=== PATIENT | female | born 1970 | race Caucasian/White ===

== ENCOUNTER 2021-03-27 15:26 | Emergency (ER) | payer SELFPAY ==
[2021-03-27 15:28] VITALS: BP 126/81; PULSE 70; RESP 16; TEMP 35.6; O2SAT 97; BMI 23.4
[2021-03-27 15:50] LABS: Mucous, Urine 0 SEEN /hpf (<or=2+)
[2021-03-27 16:00] LABS: Color, Urine Straw (Yellow); Glucose, Dipstick Normal (Normal); Ketone-Dipstick Negative (Negative); Leukocyte Esterase-Dipstick 500 /ul (Negative); Nitrite-Dipstick Negative (Negative); Occult Blood-Urine 25 /ul (Negative); Protein-Dipstick 15 mg/dl (Negative); Urine Bilirubin Dipstick Negative (Negative); Urine Clarity Clear (Clear); Urine Urobilinogen Normal (Normal); Urine pH 6.5 (5.0 - 8.0)
[2021-03-27 16:07] LABS: Red Blood Cells-Urine 0-5 SEEN /hpf (0-5); White Blood Cells 10-25 SEEN /hpf (0-5)
[2021-03-27 16:08] LABS: Bacteria RARE /hpf (None Seen); Squamous Epithelial Cells - UA 0 SEEN /hpf (5-10)
--- NOTE | 2021-03-27 17:27 | EDS_ITS ---
HPI HPI - Female History of Present Illness Chief Complaint: Complaint Detail of Chief Complaint: Dysuria Informant: patient Pain Current Severity: Mild Maximum Severity: Mild Bleeding Issue: Negative for Vaginal bleeding Maximum Severity: Spotting and Mild Narrative Narrative: 50-year-old female has had urinary tract infections before. Has had some mild intermittent dysuria since last week. She also had a small amount of blood in her urine. She has been treating it with cranberry pills and fluids. Said the symptoms were worse again today. She denies any nausea, vomiting or diarrhea. No new back pain. She has had a prior hysterectomy. No other significant medical problems. PFSH PFSH Home Medications sulfamethoxazole-trimethoprim [Bactrim DS] 1 tab PO BID 5 Days #10 tab 03/27/21 [Rx Last Taken Unknown] Allergy/AdvReac Type Severity Reaction Status Date / Time Penicillins Allergy Hives Verified 03/27/21 15:27 Social History Smoking Status: Current every day smoker tobacco type: cigarettes ROS ROS ED ROS Narrative Dysuria. Review of Systems ROS Unobtainable: Denies due to encephalopathy Constitutional Constitutional ED: Denies fever(s) Eyes Eyes: Denies change in vision ENT ENT ED: Denies ear pain Cardiovascular Cardiovascular: Denies chest pain or palpitations Respiratory/Chest Respiratory/Chest: Denies cough or dyspnea Gastrointestinal Gastrointestinal: Denies abdominal pain, diarrhea, nausea or vomiting Genitourinary Genitourinary ED: Reports dysuria and hematuria Musculoskeletal Musculoskeletal: Denies arthralgias or myalgias Integumentary Denies rash Neurologic Neurologic: Denies headache(s) Psychiatric Psychiatric: Denies depression Endocrine Endocrinology: Denies polyuria Hematologic/Lymphatic Hematologic/Lymphatic: Denies easy bruising Allergic/Immunologic Allergic/Immunologic ED: Denies urticaria EXAM Physical Exam Narrative Exam Narrative: Right femur no acute distress. Exam is benign. Abdomen is nontender. She does not look septic or toxic. Const Vital Signs: 03/27/21 15:28 Temperature 96.0 F L Temperature Source Temporal Pulse Rate 70 Respiratory Rate 16 Blood Pressure 126/81 H Blood Pressure Mean 96 Pulse Ox 97 Oxygen Delivery Method Room Air Positive well nourished and well developed; Negative for obese, cachectic, contractures or unkempt General Appearance ED: well developed and NAD; Negative for unkempt, cachectic, contractures, odor of alcohol detected or pallor Nutritional Appearance: Negative for cachectic or obese HEENT Reports moist mucous membranes Negative for trauma or tenderness Eyes PERRL and EOMs intact bilaterally Neck no lymphadenopathy, supple and no JVD Thyroid: Negative for tender Chest Wall inspection of chest normal and palpation of chest normal Resp normal respiratory effort and clear to auscultation bilaterally Auscultation: Negative for rales or rhonchi Cardio regular rate, regular rhythm, S1 normal heart sound, no murmurs and no JVD Rate: Negative for bradycardia or tachycardic Rhythm: Negative for abnormal rhythm GI normal to inspection, nondistended, normoactive bowel sounds, soft to palpation, non-tender, non-distended and no masses Auscultation: normoactive bowel sounds; Negative for hypoactive bowel sounds Palpation: Negative for tender, guarding or rigid no CVA tenderness Extremity normal to inspection and full ROM General Extremety ED: Negative for edema or tenderness General Extremity: Negative for edema Neuro oriented x3 Sensorium / Orientation: alert, oriented to person, oriented to place and snehal ented to time; Negative for lethargic or stuporous Motor Exam: strength 5/5 throughout Psych mental status grossly normal Appearance: Negative for unkempt Attitude: No agitated Mood & Affect: Negative for depressed, anxious or tearful Skin no rashes or lesions noted and no wounds General Skin Exam: Negative for jaundice or pallor MDM MDM MDM Narrative Medical decision making narrative: 50-year-old thinks she might have a UTI. Exam benign. Urinalysis shows 10-25 white cells will be sent for culture and she will be started on Bactrim. Lab Data Attestation: I reviewed the patient's lab results. Lab results narrative: Urinalysis shows 10-25 white cells. No squamous cells. Rare bacteria. No nitrites. Culture was sent. He is to be treated as UTI. Labs: Laboratory Results - last 24 hr 03/27/21 15:34 Urine Color Straw Urine Clarity Clear Urine pH 6.5 Ur Specific [place] 1.010 Urine Protein 15 H Urine Glucose (UA) Normal Urine Ketones Negative Urine Occult Blood 25 H Urine Nitrite Negative Urine Bilirubin Negative Urine Urobilinogen Normal Ur Leukocyte Esterase 500 H Urine RBC 0-5 SEEN Urine WBC 10-25 SEEN Ur Squamous Epith Cells 0 SEEN Urine Bacteria RARE Urine Mucus 0 SEEN Discharge Plan Triage Chief Complaint: Complaint ED Provider: Fracisco Nunez Dx/Rx/DC Orders Clinical Impression: Cystitis Instructions: ED CYSTITIS Female Adult Prescriptions: New sulfamethoxazole-trimethoprim [Bactrim DS] 800-160 mg tablet 1 tab PO BID 5 Days Qty: 10 RF: 0 Primary Care Provider: Nader Flores Referrals: Nader Flores MD [Primary Care Provider] - 1 Week if not improving Activity Restrictions/Additional Instructions: Plenty of fluids and rest. You may continue cranberry pills. The antibiotic Bactrim 1 pill twice a day for 5 days. Follow-up with your doctor or return if feeling worse or not improving. Disposition Disposition: Home, Self Care
[2021-03-27 17:47] VITALS: PULSE 76; RESP 15; O2SAT 99
== END 2021-03-27 17:47 | disposition home or self-care (01) ==
PROVIDERS: Emergency Provider Emergency Medicine; PCP Family Medicine; Visit Provider Emergency Medicine
DX: N30.91 Cystitis, unspecified with hematuria (principal); F17.210 Nicotine dependence, cigarettes, uncomplicated
CPT/HCPCS: 81001; 99282

== ENCOUNTER 2022-03-12 08:27 | Emergency (ER) | payer SELFPAY ==
[2022-03-12 08:29] VITALS: BP 118/70; PULSE 81; RESP 14; TEMP 36.1; O2SAT 100; BMI 22.0
--- NOTE | 2022-03-12 09:35 | EDS_ITS ---
HPI History of Present Illness Chief Complaint: Upper Extremity Injury Informant: patient Onset/Context/Timing Onset: Weeks (1-2) Context: Gradual Onset Timing: Continuous Quality of Pain: Aching Location: R periscapular back, now R upper arm Current Severity: Moderate Maximum Severity: Severe Worsened by: certain movements Relieved by: remaining still Associated Symptoms Associated Symptoms: Negative for Parasthesia, Weakness or Loss of Funtion Narrative Narrative: [id number] female presenting with 1 to 2 weeks of pain in her right upper back, she is indicating the lower rhomboids which progressed to the upper rhomboids and the trapezius periscapular area, now the last several days it is progressing to the proximal posterior right upper arm. She denies any numbness or tingling or weakness, she denies any chest discomfort or shortness of breath, there is no pleuritic nature to it nor is there an exertional nature to it. Hurts worse to move and to do certain position changes, moving her right upper extremity over her head hurts worse. 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 PFSH PFSH Medical History no medical history no medical history Home Medications sulfamethoxazole 800 mg-trimethoprim 160 mg tablet (Bactrim DS) 1 tab PO BID 5 days #10 tabs 03/27/21 [Rx Last Taken Unknown] cyclobenzaprine 10 mg tablet 10 mg PO TID PRN Muscle Spasm #20 TABLETS 03/12/22 [Rx Last Taken Unknown] meloxicam 15 mg tablet 15 mg PO DAILY #14 tabs 03/12/22 [Rx Last Taken Unknown] tramadol 50 mg tablet 50 mg PO Q4H PRN PRN Pain 3 days #15 tabs 03/12/22 [Rx Last Taken Unknown] Allergy/AdvReac Type Severity Reaction Status Date / Time Penicillins Allergy Hives Verified 03/12/22 08:29 Social History Smoking Status: Current every day smoker tobacco type: cigarettes ROS ROS ED Constitutional Constitutional ED: Denies chills or fever(s) ENT ENT ED: Denies rhinorrhea or sore throat Cardiovascular Cardiovascular: Denies chest pain or palpitations Respiratory/Chest Respiratory/Chest: Denies cough or dyspnea Musculoskeletal Musculoskeletal: Reports back pain and extremity pain; Denies neck pain Integumentary Denies Abrasions, rash or wounds Neurologic Neurologic: Denies headache(s), paresthesias or weakness EXAM Physical Exam Const Vital Signs: 03/12/22 08:29 Temperature 96.9 F L Temperature Source Temporal Pulse Rate 81 Respiratory Rate 14 Blood Pressure 118/70 Blood Pressure Mean 86 Pulse Ox 100 Oxygen Delivery Method Room Air Positive well nourished and well developed General Appearance ED: well developed and NAD Neck full ROM and supple Back/Spine normal ROM and normal to inspection Extremity normal to inspection and full ROM Extremity Narrative: Patient's pain is easily reproducible, palpating in the rhomboids next to the scapula on the right, as well as the trapezius and the scapular spine. Also palpating in the posterior aspect of the axillary area, more in the teres major area also was extremely tender, palpating the triceps is more mildly tender. There is no dysesthesia here. Abducting and reaching overhead hurts severely. There is no subacromial tenderness or pain, she can perform internal and external rotation fully but it is sore both ways, and adduction is not painful. There is no clavicle or acromioclavicular joint tenderness, nor is there tenderness at the coracoid process or biceps. Normal pulse distally, normal pam rologic exam throughout right upper extremity. Neuro oriented x3, no focal motor deficits and no sensory deficits noted Sensorium / Orientation: alert Psych mental status grossly normal and thought process normal Mood & Affect: anxious Skin no wounds Rashes: no rashes MDM MDM MDM Narrative Medical decision making narrative: I think this is clearly musculoskeletal in etiology. I am not concerned about referred discomfort from her heart or something else here. I think less likely radiculopathy from her neck. All of the musculature in her right upper back and trapezius and teres major is tender. I will treat her for strain and overuse and encouraged outpatient follow-up if she does not get better within the next couple weeks. This is her dominant arm. Discharge Plan Triage Chief Complaint: Upper Extremity Injury ED Provider: Gabriel Salamanca Dx/Rx/DC Orders Clinical Impression: Strain of right trapezius muscle, Muscle strain of right upper back Instructions: ED Back Sprain/Strain Prescriptions: New meloxicam 15 mg tablet 15 mg PO DAILY Qty: 14 0RF cyclobenzaprine 10 mg tablet 10 mg PO TID PRN (Reason: Muscle Spasm) Qty: 20 0RF tramadol 50 mg tablet 50 mg PO Q4H PRN PRN (Reason: Pain) 3 Days Qty: 15 0RF No Action sulfamethoxazole-trimethoprim [Bactrim DS] 800-160 mg tablet 1 tab PO BID 5 Days Qty: 10 0RF Primary Care Provider: Nader Flores Referrals: Nader Flores MD [Primary Care Provider] - 1 Week if not improving Disposition Disposition: Home, Self Care
[2022-03-12] MEDS: Ketorolac 30 MG/ML Syringe IM (10:05)
== END 2022-03-12 10:32 | disposition home or self-care (01) ==
LOC: ED 09:47
PROVIDERS: Emergency Provider Emergency Medicine; PCP Family Medicine; Visit Provider Emergency Medicine
DX: S39.012A Strain of muscle, fascia and tendon of lower back, initial encounter (principal); S29.012A Strain of muscle and tendon of back wall of thorax, initial encounter; F17.210 Nicotine dependence, cigarettes, uncomplicated; R51.9 Headache, unspecified; X58.XXXA Exposure to other specified factors, initial encounter
CPT/HCPCS: 96372; 99282

== ENCOUNTER 2022-03-19 10:55 | Emergency (ER) | payer OTHER, SELFPAY ==
[2022-03-19 10:55] VITALS: BP 96/66; PULSE 71; RESP 18; TEMP 35.9; O2SAT 99; BMI 21.7
--- NOTE | 2022-03-19 11:12 | EDS_ITS ---
HPI History of Present Illness Chief Complaint: Upper Extremity Injury Informant: patient Occured/Mechanism Comment: Atraumatic right shoulder and arm pain Onset/Context/Timing Onset: Weeks (Onset March 12.) Context: Sudden Onset Timing: Continuous and Waxes and wanes Quality of Pain: - (Pain) Location: Right trapezius, shoulder, axilla, arm and forearm. Current Severity: Mild Maximum Severity: Moderate Worsened by: Movement Relieved by: Nothing Associated Symptoms Associated Symptoms: Negative for Parasthesia, Weakness or Loss of Funtion Narrative Narrative: Patient is a 51-year-old woman who was seen on March 12. She was diagnosed with musculoskeletal pain. Imaging was not obtained at that time. She denies history of gout or pseudogout. She denies history of trauma. She denies paresthesia, anesthesia or motor weakness. She complains of pain that she localized to the right trapezius, shoulder, axilla, arm, forearm and index and long finger. She denies loss of function. She denies numbness or loss of sensation. She denies fever, chills or night sweats. Pain is not in a radicular pattern. She denies cardiac or respiratory symptoms. She states she was prescribed tramadol, muscle relaxant and anti-inflammatory. She attempted to follow-up with primary. She was unable to be seen. She states she is had no relief. Tetanus Immunization: 5-10 years Prior similar symptoms: Yes Recent Illness/Hospitalization: Yes [facility] [place] [facility] Home Medications sulfamethoxazole 800 mg-trimethoprim 160 mg tablet (Bactrim DS) 1 tab PO BID 5 days #10 tabs 03/27/21 [Rx Last Taken Unknown] cyclobenzaprine 10 mg tablet 10 mg PO TID PRN Muscle Spasm #20 TABLETS 03/12/22 [Rx Last Taken Unknown] meloxicam 15 mg tablet 15 mg PO DAILY #14 tabs 03/12/22 [Rx Last Taken Unknown] tramadol 50 mg tablet 50 mg PO Q4H PRN PRN Pain 3 days #15 tabs 03/12/22 [Rx Last Taken Unknown] naproxen 500 mg tablet 500 mg PO BID #14 tabs 03/19/22 [Rx Last Taken Unknown] Allergy/AdvReac Type Severity Reaction Status Date / Time Penicillins Allergy Hives Verified 03/19/22 10:55 Social History (Updated 03/19/22 @ 11:[address] James Montes De Oca MD) household members: significant other Smoking Status: Current every day smoker tobacco type: cigarettes ROS ROS ED Constitutional Constitutional ED: Denies chills, fever(s), subjective, sweats or weight loss Cardiovascular Cardiovascular: Reports other Details: She denies history of VTE. ; Denies chest pain, orthopnea, palpitations, paroxysmal nocturnal dyspnea or racing heartbeat Respiratory/Chest Respiratory/Chest: Denies cough, dyspnea, dyspnea on exertion, orthopnea, paroxy smal nocturnal dyspnea or sputum Gastrointestinal Gastrointestinal: Denies nausea or vomiting Musculoskeletal Musculoskeletal: Reports other Details: Per HPI narrative ; Denies back pain, myalgias or neck pain Integumentary Denies rash Neurologic Neurologic: Denies paresthesias or weakness Hematologic/Lymphatic Hematologic/Lymphatic: Denies easy bleeding or easy bruising EXAM Physical Exam Const Vital Signs: 03/19/22 10:55 Temperature 96.7 F L Temperature Source Temporal Pulse Rate 71 Respiratory Rate 18 Blood Pressure 96/66 Blood Pressure Mean 76 Pulse Ox 99 Oxygen Delivery Method Room Air Positive well nourished and well developed General Appearance ED: well developed and NAD; Negative for cyanotic or diaphoretic HEENT HEENT Narrative: Ears normal. Nares patent. Uvula midline. No deviation with protrusion. No erythema or exudate the posterior pharynx. normocephalic and atraumatic Eyes PERRL and EOMs intact bilaterally Eyes Narrative: Sclera is anicteric. [place]. Neck full ROM and supple Neck Narrative: Trachea midline. There is no JVD. There is no anterior posterior cervical lymphadenopathy. General: Negative for tenderness Chest Wall inspection of chest normal and palpation of chest normal Resp normal respiratory effort and clear to auscultation bilaterally Cardio regular rate, regular rhythm, S1 normal heart sound, S2 normal heart sound and no murmurs Cardio Narrative: Radial pulses 2+ and symmetric. Back/Spine Back/Spine Narrative: There is pain palpation over the right trapezius area. She complains of pain ovation over the clavicle and AC joint. Patient is able to AB duct past 90 degrees. She does complain of pain. Drop test is negative. Axillary, median, radial and ulnar function intact. Brachial radialis, bicep and tricep reflex are 2+ and symmetric. Patient does have reproducible pain over the right trapezius area, anterior lateral arm and dorsal forearm. She reports abnormal sensation over her index finger. It is not in a dermatomal pattern. Cervical Spine: Negative for cervical spine tenderness Thoracic Spine / Upper Back: Negative for thoracic spinal tenderness Neuro oriented x3, CN's II-XII intact bilaterally, moves all extremities, no focal motor deficits and no sensory deficits noted Neuro Narrative: No sensory or motor deficit in the upper extremities. Sensorium / Orientation: alert Motor Exam: strength 5/5 throughout Psych Psych Narrative: Patient is agitated because the pain has not improved. Skin General Skin Exam: Negative for petechiae Lesions: no lesions Rashes: no rashes Trauma: no lacerations or abrasions MDM MDM MDM Narrative Medical decision making narrative: Patient returns will obtain imaging that was not obtained during first visit. Will obtain CBC to assess white count differential and ESR to assess for possible inflammatory infectious process. Patient will muscle relaxant and tramadol with reported no benefit. At this point since she drove her self will await laboratory results and imaging results prior to prescribing any medicine. With a negative work-up and pain that is not in a radicular pattern will discuss options with patient. Patient states she has never had pain that caused her index and ring finger to be numb. As noted in the HPI and physical exam portion of the document this does not follow a radicular pattern. Uncertain why she has numbness in those 2 digits only. Patient was informed of her results. She was changed to a long- acting anti-inflammatory and recommended ice 6-10 times a day and avoid activity that causes her significant pain. Lab Data Attestation: I reviewed the patient's lab results. Lab results narrative: CBC, base Kierra panel and ESR are all unremarkable. Radiography Diagnostic Testing: [id number] x-ray of the shoulder was independent reviewed interpreted by me as negative. There is no, subluxation dislocation noted of the shoulder. The AC joint appears normal. Discharge Plan Triage Chief Complaint: Upper Extremity Injury ED Provider: James Montes De Oca Dx/Rx/DC Orders Clinical Impression: Acute pain of right shoulder, Pain of right upper extremity, Paresthesia of finger Instructions: ED Pain, Acute, Uncertain Cause, ED RICE Prescriptions: New naproxen 500 mg tablet 500 mg PO BID Qty: 14 0RF No Action sulfamethoxazole-trimethoprim [Bactrim DS] 800-160 mg tablet 1 tab PO BID 5 Days Qty: 10 0RF meloxicam 15 mg tablet 15 mg PO DAILY Qty: 14 0RF cyclobenzaprine 10 mg tablet 10 mg PO TID PRN (Reason: Muscle Spasm) Qty: 20 0RF tramadol 50 mg tablet 50 mg PO Q4H PRN PRN (Reason: Pain) 3 Days Qty: 15 0RF Primary Care Provider: Nader Flores Referrals: Nader Flores MD [Primary Care Provider] - 3-5 Days Activity Restrictions/Additional Instructions: Apply ice to your right shoulder and arm 6-10 times a day for the next 3 to 5 days. Avoid activity that causes you increased pain. Disposition Disposition: Home, Self Care
[2022-03-19 11:35] LABS: Erythrocyte Sedimentation Rate 16 mm/hr (0-30)
[2022-03-19 11:44] LABS: Anion Gap 3 (5-15); BUN 9 mg/dL (7-18); BUN/Creat Ratio 12.7 RATIO (10-20); Calcium,Total 9.1 mg/dL (8.5-10.1); Chloride 108 mmol/L (98-107); Creatinine, Serum 0.71 mg/dL (0.55-1.02); EST Glomerular Filtration Rate 92 mL/min (>60); Est Glom Filt Rate - Afr Amer 111 mL/min (>60); Estimated Creatinine Clearance 87.76 ml/min; Glucose 95 mg/dL (74-106); Potassium 4.3 mmol/L (3.5-5.1); Sodium Level 139 mmol/L (136-145)
--- NOTE | 2022-03-19 11:51 | RAD_ITS ---
STUDY: X-RAY - RIGHT SHOULDER REASON FOR EXAM: Female, 51 years old. Injury/Pain TECHNIQUE: 4 view(s) of the shoulder. COMPARISON: None. FINDINGS: Normal glenohumeral articulation. Normal acromioclavicular joint. Normal acromion. Normal humeral head and visualized proximal humerus. The soft tissue structures are unremarkable. Normal visualized pulmonary apex. RAD/Shoulder min 2 Views IMPRESSION: Normal x-ray examination of the shoulder. Electronically Signed: Sorin Parker MD at 12:02 EST ,
[2022-03-19 11:59] LABS: Absolute Lymphocyte Count 1.73 X10^3/uL (0.83-4.51); Absolute Neutrophil Count 7.2 X10^3/uL (2.0-7.7); Basophil# 0.06 X10^3/uL; Basophil% 0.6 % (0-1); Eosinophil# 0.05 X10^3/uL; Eosinophils% 0.5 % (0-5); Lymphocyte # 1.73 X10^3/ul (0.83-4.51); Lymphocyte % 17.9 % (19-41); Mean Corp Hgb Conc 32.5 g/dL (32-36); Mean Corpuscular Hgb 30.2 pg (27.0-32.0); Mean Platelet Vol. 10.9 fl (6.2-12.0); Monocyte# 0.62 X10^3/uL; Monocyte% 6.4 % (0-10); NRBC Flagged by Analyzer 0 % (0-5); Neutrophil % 74.3 % (47-70); Platelet Count 313 K/mm3 (150-450); RBC Distribution Width CV 13.8 % (11.6-14.6); RBC Distribution Width SD 47.3 fl (35.1-43.9); White Blood Count 9.7 K/mm3 (4.4-11.0)
== END 2022-03-19 12:32 | disposition home or self-care (01) ==
PROVIDERS: Emergency Provider Emergency Medicine; PCP Family Medicine; Visit Provider Emergency Medicine
DX: M79.603 Pain in arm, unspecified (principal); F17.210 Nicotine dependence, cigarettes, uncomplicated; R20.2 Paresthesia of skin; M25.511 Pain in right shoulder
CPT/HCPCS: 73030; 80048; 85025; 85652; 99283; A4216

== ENCOUNTER → 2024-07-28 | Outpatient (CLI) | payer OTHER, SELFPAY ==
--- NOTE | 2024-07-28 17:20 | CT_ITS ---
PROCEDURE: SINUS/FACIAL BONE REASON FOR EXAM: SINUSITIS TECHNIQUE: CT of the paranasal sinuses without contrast. Coronal and Sagittal reconstruction series were provided. One or more dose reduction techniques were used (e.g., Automated exposure control, adjustment of the mA and/or kV according to patient size, use of iterative reconstruction technique). COMPARISON: None available FINDINGS: The paranasal sinuses appear well formed without wall thickening or sclerosis. The frontal, sphenoid, maxillary sinuses and ethmoid air cells are clear. No air-fluid levels. No significant appearing nasal septal deviation. No nasal spur. The turbinates appear within limits. The orbits appear within limits. Infratemporal fossa fat appears preserved. Pterygopalatine foramen appear symmetric. Bilateral fossa of [place] appears symmetric. TMJs appear normally located. No dental periapical lucency. The mastoids, middle ears, internal auditory canals appear within limits. Mild appearing right carotid calcific plaque formation. C5-6 asymmetric uncovertebral hypertrophic change results in [id number]-right severe appearing left sided foraminal narrowing for example sagittal [address]/Sinus/Facial Bone IMPRESSION: No paranasal sinus disease as above. C5-6 asymmetric uncovertebral hypertrophic change results in [id number]- right severe appearing left sided foraminal narrowing for example sagittal 77 and axial 7. Reading Location: [id number]
== END | disposition home or self-care (01) ==
LOC: CT 17:18
PROVIDERS: PCP Family Medicine; Referring Provider Otolaryngology; Visit Provider Otolaryngology
DX: J32.8 Other chronic sinusitis (principal)
CPT/HCPCS: 70486

== ENCOUNTER 2024-09-02 16:54 | Emergency (ER) | payer OTHER, SELFPAY ==
[2024-09-02 17:01] VITALS: BP 129/89; PULSE 65; RESP 16; TEMP 36.9; O2SAT 99; BMI 21.6
[2024-09-02] MEDS: Diphth,Pertuss(Acell),Tet Vac 0.5 ML Vial IM (19:44)
[2024-09-02] MEDS: Lidocaine 1% (20 ml mdv) 20 ML Vial 10 ML INFILT (19:44)
--- NOTE | 2024-09-02 19:45 | EX.ED.UPPERE ---
HPI <DAREN Salamacna - Last Filed: 09/02/24 21:42> History of Present Illness Chief Complaint: Laceration Narrative Narrative: Patient presenting today with a laceration to her right index finger that she got this evening when she was cleaning something that had spilled under the fridge and got her finger caught on something sharp causing a laceration. She is right-handed, she is not on any blood thinners, tetanus is not up-to-date. She denies any other injury. PFSH <DAREN Salamanca - Last Filed: 09/02/24 21:42> [facility] Home Medications ?Medication ?Instructions ?Recorded ?Last Taken ?Type sulfamethoxazole 800 1 tab PO BID 5 days #10 tabs 03/27/21 Unknown Rx mg-trimethoprim 160 mg tablet (Bactrim DS) cyclobenzaprine 10 mg tablet 10 mg PO TID PRN Muscle Spasm #20 03/12/22 Unknown Rx TABLETS meloxicam 15 mg tablet 15 mg PO DAILY #14 tabs 03/12/22 Unknown Rx tramadol 50 mg tablet 50 mg PO Q4H PRN PRN Pain 3 days 03/12/22 Unknown Rx #15 tabs naproxen 500 mg tablet 500 mg PO BID #14 tabs 03/19/22 Unknown Rx Allergy/AdvReac Type Severity Reaction Status Date / Time Penicillins Allergy Hives Verified 09/02/24 17:01 Social History household members: significant other Smoking Status: Current every day smoker tobacco type: cigarettes ROS <DAREN Salamanca - Last Filed: 09/02/24 21:42> ROS ED Constitutional Constitutional ED: Denies chills or fever(s) Cardiovascular Cardiovascular: Denies chest pain Respiratory/Chest Respiratory/Chest: Denies dyspnea Gastrointestinal Gastrointestinal: Denies abdominal pain Musculoskeletal Musculoskeletal: Reports other Details: Right index finger pain Integumentary Denies rash Neurologic Neurologic: Denies paresthesias EXAM <DAREN Salamanca - Last Filed: 09/02/24 21:42> Physical Exam Const Vital Signs: 09/02/24 17:01 Temperature 98.4 F Temperature Source Oral Pulse Rate 65 Respiratory Rate 16 Blood Pressure 129/89 H Blood Pressure Mean 102 Pulse Ox 99 Oxygen Delivery Method Room Air Positive well nourished, well developed and no apparent distress General Appearance ED: well developed HEENT Reports normocephalic and head/scalp atraumatic Mouth ED: Yes moist mucous membranes normal Eyes PERRL and EOMs intact bilaterally Neck full ROM and supple Chest Wall inspection of chest normal Resp normal respiratory effort and clear to auscultation bilaterally Cardio regular rate and regular rhythm Back/Spine normal ROM and normal to inspection Extremity normal to inspection and full ROM Extremity Narrative: 1 cm full-thickness linear laceration just below the PIP joint to the dorsal aspect of the right index finger. No active bleeding. Right radial pulse 2+, good cap refill, sensation intact. She is able to flex and extend at the MCP, PIP, and DIP joints. Neuro oriented x3, CN's II-XII intact bilaterally, moves all extremities, no focal motor deficits and no sensory deficits noted Sensorium / Orientation: awake and alert Psych mental status grossly normal and thought process normal Skin Skin Narrative: Aside from laceration to the right index finger no other rashes or lesions noted. [facility] <DAREN Salamanca - Last Filed: 09/02/24 21:42> [facility] Narrative Medical decision making narrative: Patient presenting today due to a laceration to her right index finger just above the PIP joint to the dorsal aspect of the finger. Her tetanus will be updated. This will require suture repair. She has full range of motion to her finger, she is neurovascularly intact, no obvious tendon injury. Laceration was copiously irrigated and repaired with sutures. She tolerated procedure well. Wound care instructions were discussed with her, reasons to return were discussed. Finger was bandaged with bacitracin ointment. Recommended she have sutures removed in 7 days by her PCP. Will be discharged home in stable condition. I have personally performed a face to face assessment of the patient and have reviewed the ERIC Note. I performed a substantive portion of the visit including all aspects of the following. My boogie findings include: History is 54-year-old female laceration dorsum right hand long finger just proximal DIP joint. Occurred just prior to arrival. Tetanus needs updated. Exam is [well-appearing 54-year-old female. Vital signs stable afebrile. Anxious. HEENT exam normal. Pupils round reactive light. No trauma. Neck nontender. Lungs clear to auscultation. Heart regular rhythm no murmur. Abdomen soft nontender. Moving all 4 extremities. Neurovascular intact. Specifically right hand long finger laceration skin and subcu tissue just proximal to the PIP. Full flexion extension. Normal touch sensation. No signs of infection. There is significant swelling.] Medical Decision Making [right hand long finger laceration repair. Tetanus updated. Local anesthetic. Cleaned, irrigated explored and suture repair. Done by our physician assistant credit manager.] Other additions or changes: [None] <Dr. Fracisco Nunez MD - Last Filed: 09/02/24 20:17> [facility]DM Narrative Medical decision making narrative: I have personally performed a face to face assessment of the patient and have reviewed the ERIC Note. I performed a substantive portion of the visit including all aspects of the following. My boogie findings include: History is 54-year-old female laceration dorsum right hand long finger just proximal DIP joint. Occurred just prior to arrival. Tetanus needs updated. Exam is [well-appearing 54-year-old female. Vital signs stable afebrile. Anxious. HEENT exam normal. Pupils round reactive light. No trauma. Neck nontender. Lungs clear to auscultation. Heart regular rhythm no murmur. Abdomen soft nontender. Moving all 4 extremities. Neurovascular intact. Specifically right hand long finger laceration skin and subcu tissue just proximal to the PIP. Full flexion extension. Normal touch sensation. No signs of infection. There is significant swelling.] Medical Decision Making [right hand long finger laceration repair. Tetanus updated. Local anesthetic. Cleaned, irrigated explored and suture repair. Done by our physician assistant credit manager.] Other additions or changes: [None] History & Record Review Discussion w/independent historian: Patient Procedures <DAREN Salamanca - Last Filed: 09/02/24 21:42> Lacerations Laceration: Length: 1 cm Depth: Sub Q Shape: Linear Prep: Chlorhexadine Laceration repair: Digital block, Irrigated, Lidocaine, Skin sutures and Wound explored Number of Sutures/Rye: 3 Suture Information: Ethilon, Simple and 4-0 Discharge Plan Triage Chief Complaint: Laceration ED Midlevel Provider: Pallavi Burger ED Provider: Fracisco Nunez Dx/Rx/DC Orders Clinical Impression: Finger laceration Instructions: ED Laceration Extremity Prescriptions: No Action sulfamethoxazole-trimethoprim [Bactrim DS] 800-160 mg tablet 1 tab PO BID 5 Days Qty: 10 0RF meloxicam 15 mg tablet 15 mg PO DAILY Qty: 14 0RF cyclobenzaprine 10 mg tablet 10 mg PO TID PRN (Reason: Muscle Spasm) Qty: 20 0RF tramadol 50 mg tablet 50 mg PO Q4H PRN PRN (Reason: Pain) 3 Days Qty: 15 0RF naproxen 500 mg tablet 500 mg PO BID Qty: 14 0RF Stand Alone Forms: ED Work / School Excuse Primary Care Provider: Care Physician,No Primary Referrals: Nader Flores MD [Non-Staff] - 7 Days for suture removal Activity Restrictions/Additional Instructions: Have sutures removed in about 7 days. Return for any signs of infection. You can take Tylenol and ibuprofen as needed for your pain. Print Language: Bulgarian Disposition Disposition: Home, Self Care Discharge Date/Time: 09/02/24 20:38
--- OUTSIDE RECORDS SUMMARY | 2024-09-02 19:52 | XMS RPT_ITS | CCD ---
Author Organization [facility] Care Team Providers Care Gi Physician Name Role Phone SHERRI VILLALPANDO Unavailable Unavailable ISAMAR FLORES Unavailable Unavailable Unavailable Primary Care Provider Unavailabl e Unavailable Primary Care Provider UnavailARIANNA Chavez Attending Unavailable ARIANNA LONGORIA Referring Unavailable ARIANNA LONGORIA Attending Unavailable SELF Referring Unavailable Sandra BLEDSOE, Dr. Doe Primary Care Provider Ashley BLEDSOE, Dr. Sung Attending Provider Ashley BLEDSOE, Dr. Sung Referring Provider Nader Flores Primary Care Unavailable Isamar Ramirez Referring UnavailIsamar Culeln Attending Unavailabl e Allergies Allergy Classification Reported Allergen(s) Allergy Type Date of Onset Reaction(s) Facility (3 sources) Penicillins; Translations: [PENICILLINS] Allergy to substance 12-04-2015 [facility] [place] [facility] (8 sources) Penicillins Drug Allergy 12-04-2015 [facility] (3 sources) Penicillins Drug Allergy 12-04-2015 [facility] (1 source) Penicillins Drug allergy (disorder) 03-19-2022 [facility] Repository Medications Current Medications Medication Drug Class(es) Dates Sig (Normalized) Sig (Original) clobetasol propionate 0.0005 mg/mg topical ointment (1 source) Corticosteroid Start: 07-18-2024 End: 10-10-2024 clobetasol (TEMOVATE) 0.05 % ointment Indications: Lichen sclerosus Apply 1 application to affected area daily at bedtime. Apply 0.5 fingertip unit to affected area nightly for 12 weeks, then have a follow up appointment. 1 fingertip unit is the amount you express from the distal skin crease of your index finger to the tip of your finger. 30 g 2 07/18/2024 10/10/2024 Active L.ryan,mario, blaire,rhamn (AZO VAGINAL HEALTH PROBIOTIC ORAL) (3 sources) L.ryan,laya garcia, blaire,rhamn (AZO VAGINAL HEALTH PROBIOTIC ORAL) Take by mouth. Active meloxicam 15 mg oral tablet (2 sources) Nonsteroidal Anti-inflammatory Drug Start: 03-12-2022 take 1 tablet by mouth once daily Meloxicam 15 mg tablet Active 15 mg PO DAILY March 12, 2022 1:00am MULTIVITAMIN ORAL (3 sources) MULTIVITAMIN ORA L Take by mouth. Active naproxen 500 mg oral tablet (12 sources) Nonsteroidal Anti-inflammatory Drug Start: 03-19-2022 take 1 tablet by mouth twice daily Naproxen 500 mg tablet Active 500 mg PO TWICE A DAY March 19, 2022 1:00am naproxen sodium (ALEVE ORAL) Take by mouth. Active naproxen sodium (ALEVE ORAL) Take by mouth. 0 Active Comment on above: Take by mouth. 24 hr propranolol hydrochloride 60 mg extended release oral capsule (11 sources) beta-Adrenergic Jordon Start: 07-04-19 17 take 1 capsule by mouth once daily propranolol ER (INDERAL LA) 60 mg 24 hr capsule Indications: Migraine without status migrainosus, not intractable, unspecified migraine type Take 1 capsule by mouth once daily. 30 capsule 3 07/03/2016 Active Comment on above: Take 1 capsule by [facility] once daily. sertraline 25 mg oral tablet (11 sources) Serotonin Reuptake Inhibitor take 1 tablet by mouth twice daily sertraline (ZOLOFT) 25 mg tablet Take 25 mg by mouth twice daily. Active Comment on above: Take 25 mg by mouth twice daily. sulfamethoxazole 800 mg / trimethoprim 160 mg oral tablet (2 sources) Dihydrofolate Reductase Inhibitor Antibacterial, Sulfonamide Antimicrobial Start: 03-27-19 22 Sulfamethoxazole-T rimethoprim (Bactrim Ds) 800-160 mg tablet Active 1 {tbl} PO TWICE A DAY 10 March 27, 2021 1:00am topiramate 25 mg oral tablet (11 sources) Start: 08-01-19 17 take 1 tablet by mouth once daily at bedtime topiramate (TOPAMAX) 25 mg tablet TAKE 1 TABLET BY MOUTH DAILY AT BEDTIME. 30 tablet 5 07/31/2016 Active Comment on above: TAKE 1 TABLET BY SONY TH DAILY AT BEDTIME. traMADol hydrochloride 50 mg oral tablet (2 sources) Opioid Agonist Start: 03-12-19 take 1 tablet by mouth every four hours as needed for pain Tramadol 50 mg tablet Active 50 mg PO EVERY 4 HOURS NEEDED as needed for Pain 15 March 12, 2022 1:00am Completed/Discontinued Medications Medication Drug Class(es) Dates Sig (Normalized) Sig (Original) cyclobenzaprine hydrochloride 5 mg oral tablet (8 sources) Muscle Relaxant Start: 04-08-2022 End: 05-08-2022 take 1 tablet by mouth twice daily as needed cyclobenzaprine (FLEXERIL) 5 mg tablet Indications: Radicular pain in right arm Take 1 tablet by mouth twice daily as needed. 60 tablet 04/08/2022 05/08/2022 Start: 03-12-2022 take 1 tablet by sony th three times daily as needed for muscle spasms Cyclobenzaprine 10 mg tablet Active 10 mg PO THREE TIMES A DAY as needed for Muscle Spasm March 12, 2022 1:00am Comment on above: Take 1 tablet by sony th twice daily as needed. Problems Active Problems Problem Classification Problem Date Documented Date Episodic/Chronic Diabetes mellitus without complication (11 sources) Hyperglycemia; Translations: [Hyperglycemia, unspecified] 05-02-2016 Episodic Headache; including migraine (11 sources) Migraine; Translations: [Migraine, unspecified, not intractable, without status migrainosus] 05-02-2016 Chronic Other connective tissue disease (2 sources) Pain in right arm; Translations: [Pain in right arm] 03-27-2022 Episodic Other connective tissue disease (1 source) Pain in limb; Translations: [Pain in unspecified limb] Episodic Other female genital disorders (2 sources) Other specified noninflammatory disorders of vagina; Translations: [Vaginal odor] Onset: 06-30-2024 Episodic Other inflammatory condition of skin (11 sources) Psoriasis; Translations: [Psoriasis, unspecified] 12-04-2015 Chronic Other nervous system disorders (2 sources) Paresthesia of finger; Translations: [Paresthesia of skin] 03-27-2022 Episodic Other non-traumatic joint disorders (1 source) Shoulder pain; Translations: [Pain in right shoulder] Episodic Other non-traumatic joint disorders (1 source) Pain in right shoulder; Translations: [Acute pain of right shoulder] 03-27-2022 Episodic Other screening for suspected conditions (not mental disorders or infectious disease) (2 sources) Encounter for screening mammogram for malignant neoplasm of breast; Translations: [Encounter for screening for malignant neoplasm of colon] Onset: 06-30-2024 Episodic Other skin disorders (1 source) Lichen sclerosus et atrophicus; Translations: [Circumscribed scleroderma] 07-18-2024 Chronic Other skin disorders (1 source) Disorder of skin; Translations: [Other skin changes] 07-14-2024 Episodic Other skin disorders (1 source) Other skin changes; Translations: [Other skin changes] Onset: 07-14-2024 Episodic Other upper respiratory infections (1 source) Other chronic sinusitis; Translations: [Other chronic sinusitis] Onset: 08-04-2024 Chronic Residual codes; unclassified (11 sources) Tobacco use and exposure - finding; Translations: [Tobacco use] 12-04-2015 Episodic Residual codes; unclassified (11 sources) Flushing; Translations: [Flushing] 12-04-2015 Episodic Sprains and strains (4 sources) Strain of trapezius muscle; Translations: [Strain of other muscles, fascia and tendons at shoulder and upper arm level, right arm, initial encounter] 03-20-2022 Episodic Substance-related disorders (1 source) Nicotine dependence, unspecified, uncomplicated; Translations: [Tobacco use disorder] Onset: 07-05-2024 Chronic Substance-related disorders (11 sources) Marijuana user; Translations: [Cannabis use, unspecified, uncomplicated] 12-04-2015 Episodic Urinary tract infections (2 sources) Cystitis; Translations: [Cystitis, unspecified without hematuria] 04-04-2021 Episodic Past or Other Problems Problem Classification Problem Date Documented Da te Episodic/Chronic Other connective tissue disease (14 sources) Radicular pain; Translations: [Neuralgia and neuritis, unspecified] Onset: 04-14-2022 Resolved: 05-12-2022 Episodic Results Test Name Value Interpretation Reference Range Facility Sinus/Facial Boneon 07-29-19 Sinus/Facial Bone [facility] Imaging Services [address] [place] [address] [id number] Sinus/Facial Bone MR#: [id number] Acct: [id number] Name: JAZ PARTIDA Rep #: [id number] : 1970 F 54 From: Chai Hester MD PCP: Dr. Nader Flores MD Status: REG CLI Study: Sinus/Facial Bone Date of Exam: 07/28/24 Exam# [id number] Ordering Dr: Isamar Ramirez MD PROCEDURE: SINUS/FACIAL BONE REASON FOR EXAM: SINUSITIS TECHNIQUE: CT of the paranasal sinuses without contrast. Coronal and Sagittal reconstruction series were provided. One or more dose reduction techniques were used (e.g., Automated exposure control, adjustment of the mA and/or kV according to patient size, use of iterative reconstruction technique). COMPARISON: None available FINDINGS: The paranasal sinuses appear well formed without wall thickening or sclerosis. The frontal, sphenoid, maxillary sinuses and ethmoid air cells are clear. No air-fluid levels. No significant appearing nasal septal deviation. No nasal spur. The turbinates appear within limits. The orbits appear within limits. Infratemporal fossa fat appears preserved. Pterygopalatine foramen appear symmetric. Bilateral fossa of Rosenmuller appears symmetric. TMJs appear normally located. No dental periapical lucency. The mastoids, middle ears, internal auditory canals appear within limits. Mild appearing right carotid calcific plaque formation. C5-6 asymmetric uncovertebral hypertrophic change results in ticn-hemchne-ojkk-righ t severe appearing left sided foraminal narrowing for example sagittal [address]/Sinus/Facial Bone IMPRESSION: No paranasal sinus disease as above. C5-6 asymmetric uncovertebral hypertrophic change results in rjwp-meyfegd-plft-righ t severe appearing left sided foraminal narrowing for example sagittal 77 and axial 7. Reading Location: [facility] CC: Dr. Nader Flores MD; Dr. Isamar Ramirez MD Service Parts Driver: Signed [facility] 07-18-2024 [facility] Telephone (OBGYWM) HANJAZ LAWLER ([id number]) 1970 F Date Time Provider Department 07/18/24 ARIANNA LONGORIA During your visit today, we recorded the following information about you: Arianna Longoria MD 07/18/2024 8:25 AM Signed See result note. Rx sent for clobetasol ointment. Needs follow up in 12 weeks Allergies As of Date: 07/18/2024 Noted Allergy Reaction PENICILLINS 12/04/2015 4 - Hives Date Reviewed: 07/14/2024 Reviewed by: Malou Paniagua MA - Fully Assessed Reason for Visit: Orders [681] Primary Visit Diagnosis:Lichen sclerosus [L90.0] Order(s):clobetasol (TEMOVATE) 0.05 % ointmentApply 1 application to affected area daily at bedtime. Apply 0.5 fingertip unit to affected area nightly for 12 weeks, then have a follow up appointment. 1 fingertip unit is the amount you express from the distal skin crease of your index finger to the tip of your finger.Disp: 30 gRfl: 2 Prescriptions as of 07/18/2024 - clobetasol (TEMOVATE) 0.05 % ointment Apply 1 application to affected area daily at bedtime. Apply 0.5 fingertip unit to affected area nightly for 12 weeks, then have a follow up appointment. 1 fingertip unit is the amount you express from the distal skin crease of your index finger to the tip of your finger. - MULTIVITAMIN ORAL Take by mouth. - L.crispat,gasseri,shiva en,rhamn (AZO VAGINAL HEALTH PROBIOTIC ORAL) Take by mouth. - naproxen sodium (ALEVE ORAL) Take by mouth. - topiramate (TOPAMAX) 25 mg tablet TAKE 1 TABLET BY MOUTH DAILY AT BEDTIME. - propranolol ER (INDERAL LA) 60 mg 24 hr capsule Take 1 capsule by mouth once daily. - sertraline (ZOLOFT) 25 mg tablet Take 25 mg by mouth twice daily. Problem List As Of Date 07/18/2024 Noted Resolved Tobacco use [Z72.0] Psoriasis [L40.9] Hot flashes [R23.2] Marijuana use [F12.90] Hyperglycemia [R73.9] Migraine [G43.909] Radicular pain in right arm [M79.2] 04/14/2022 05/12/2022 Prescriptions ordered this encounter Disp Refills Start End CLOBETASOL 0.05 % TOPICAL OINTMENT 30 g 2 07/18/2024 10/10/2024 Route: TOPICAL Sig: Apply 1 application to affected area daily at bedtime. Apply 0.5 fingertip unit to affected area nightly for 12 weeks, then have a follow up appointment. 1 fingertip unit is the amount you express from the distal skin crease of your index finger to the tip of your finger. Encounter Status:Closed by ARIANNA LONGORIA on 07/18/24 Normal [facility] Pathology biopsy report Andres (Tiss)Ordered By: Zackery Martin on 07-15-2024 Case Report Surgical Pathology Report Case: [id number] Authorizing Provider: Arianna Longoria MD Collected: 07/14/2024 03:30 PM Ordering Location: OB/Gynecology Received: 07/14/2024 04:11 PM Pathologist: Zackery Martin MD Specimen: Perineum, Biopsy, right [facility] Work Phone: Clinical History [id number] bG OhMpGzVpZlKsWxPfe9VTWn jeH4Xwp7FZRpRGllyK5kDW ZuRVizV1wgawAudWJoOCZq CLh4mN7jaOimqN5eKnHfMs GfLYZkz0gvPDCvET7eOWOx cGFyIH0= [facility] Work Phone: Diagnosis Comment g7xuaAXiPEVqxZJiYSXx NV lbdjCwENCoaIKnO0Rotzmb XUtnKZ2sOX1znDqamRBzfQ TvNPSgAjCff3vur741kJAt o8dxPLPHedjxuDw0iXkqS0 0zu5L8MyixF12aiLCyYZK4 WNAcXHKkwPZaEKRlWQF0LL NouQFpF7bkQFUuJD0dyfta JSkaCIskZPFlhEE3QJSdmX HeY4XyMBJsMKfgQHVhgfp8 OdYpRa3hrVPztIvoXWdgRL JkXHBsYWluXGZzMjAgSGlz bT7uf3bqLlUvUGK6wW8afn EgfU35WTWdF30lrWHevVQm qBOvyNOyBZRmba3snN0zr7 Iyzlj7eZ7qVDOlXDC1gm0k uGmlBONnpEWaut8obi1iI1 d0wKocSVLkKHWtWPNvhELb BVVwWPRkGQhwBQJ0vNCwBl nfhULaZJTshMAfm6QwvtW3 aXRoIGFuIHVuZGVybHlpbm bbrNaiwXenlIhwoUuhQ2i6 uSDfdX5jbSa8jlC8AK9wxC FyXHBhciBPdmVyYWxsLCB0 yDCtLVPyWNH5iATgniDqur NrH77hk6mszGBmiYY1lBWi VIkbE5fbzpDpM7ohll2hhF EkLNSgdX1iR9DpLSHxdeTb nIN8sI0bJAoxKLOvO75myL VuZGVkLlxwYXJ9 [facility] Work Phone: Disclaimer s9wwuKMxAAIwn5ykSSJm bG FuZzEwMzNcZnRuYmpcdWMx IHtccnRmMVxlcGljMTExMD Can6nsy4vxeIGhZMJcu9sx j6LnzYEbuGZkDEfdjETami Zmbe10sJJ7sJ91XG6gRPBu GiY5KBHxcrR0Mrs2WEPdCS BacANiI625g4fmx3nrihFg nRB0EOSdHPByQ7EuXL3aAL VmvHDtF58zzGHwOPY4QGRp UTPdmEBrDAKpULF5KPEexF LqJ6uhAPSiHA3travbCSww SHiwFSXcjIE6OUWwfPSkR0 YsAJEcJQseBMWbiou8ShVr Wu0vuUDuxYhqTLreK7atjM 7pVtV3ZBmrX0uurP7wTKd5 QUqzSULhbQA3xqX1KBCakP KhA8SanG9xVVBtPW3hebm1 q3ubLQW8OFmmRRIrGkD0fp F1VBGfcSTrDJqcxYDlzaax PTExJOFgI3LgQTyeBq1gUH UxsedrZNY0BXwouVBbYSLt x7QaNShMIHgyMCucO4itjT 1lcjpccGFyXGIwXGNmMCBQ XJHhk0ZpFW6zTHXjnTHvKT H9UUZvy3GwO8Qke2QnaQ9i rK2ngBeixM3fyLQmyTTpmU mtdU5hxC6aZzd9x2Jwy1Rg mqNvQHMjFVWrzMOisL5mBI 4dAlSebr6ozAL4XGf8IfNy AZg3IGNrh33dxWNnaRLglW K2LSOlHRPaZRYlnHLdoQgu ZWQgYnkgdGhlIHBlcmZvcm 7buckviZFsd5FdhW5qhVK2 oRQuwS9lK9cdszFbMF3aQT YjaC2aIrhpTGTiWzKcoJFV OnVTn85hbTTuKOVsfLejrO 3vkBLyjaLvYKYkx7JjlL6l fNKUJQQcW7ewWSXDJRSkab SyDD89YBqIUPdsPYFpzAC6 ymTNn2FuoUNlpVpuGLbqd3 2oQ8HkYLWhuPZMc4HolOHd fZrzSsdqzggvJMRJJEN9c1 6fSK9liNw3QJmsJC5zslK7 MUkbu5XvdVUgATAVqxWkFN 2gRbt8LNGrZMSleMYrtLEO LH98IKHdFT9rfgCgrkSYPP CszDrbIx9swIggQC6oeXp4 NGqgIZ4pTWBxfW5dWMqwv7 EzhSFnTIIcbgQpHD9cwh2d hmAsj82tkTO0HJ25KOsnrN hyS7sKGBQwYTS2tLZonNJd gJEeSC7jOVFgkkMjy5CmGO 4iNVDcEXLqLYFhg2XuPW0j lDVqn5HrsRV9AKPuGFErEQ PfEKVoYPFgx5KxJRUdqs41 GHQmZwqjcZiuHYHEZM6rIh VgKZrOBVavFJNbP6ZfKDNm HAR1ncXlyuZPJJjFAMJcQP I8TQfhDpwoLDT6dkIxGUMx w0SdMLlyY3noO50hgWvcvH v7yFY7TIG1pK3bTfPPqFMp SKU5FEN2dtSbujKkrHIhSE Aat8RdL9jfsexgQTvkcYJv vE6lEKXfTMWaLSXjCHXwb7 OxQPVog6EbClEqitNbZKMv ZWUoJPEjvJ97ZUX6zOoyjS fwtjSrGM9hOLRgjkUfHKOy TTVinS3aDD4lxRBmdbCyZO 3rLI4bV0A5iUWrXOJrlgRf u1acUNH0GHpyAUWxnNThuM JmZKBdoPvsDRNqij13 [facility] Work Phone: FINAL DIAGNOSIS f4ugbFZlDXBfsVVlWNTj NV ckkcRqIKBxmUGdI4Hlwbld SYqkCC4lOH4koMpfjHAaeS MzCUYrMuKgt2vdw657jXAv o6mhFZAJqxbsyPz7jHnrQ4 4tm3Q0KrmfV05rjYHpEDZ7 FBGlIOKbjZLeNNWpSDS6GV ChyDDuR6qvGVHlXL7fcjxz AHywJKiuZBZusQU6OGYstG HyP8HmFAHkXNxjJCBupsz6 JjWoYc8pyCWdlNwlOXxtEW ObZQQsYLveLSYxTaRaSO1g P9bgqlmcaKCjeR7cuY0wEQ Vyp6CtiAvhnJZtYG3vDYsq eIKeSREtcVNlp2U4yhduz4 DdFXFtvY4xawNzWXPuvgkn YXJ9 [facility] Work Phone: Gross Description s0uqzRVyGTEkyKJOCNBm MD BuIN8jhZpxjUa0eIqoQRJs qhJ0jSYpFCadq5zkBSA4i2 qnybSEYqfoWRYlDR8dOJzy HJJxHX8iFsKmVJJvJyVbTN BhcGVydzEyMjQwXHBhcGVy lJV7MPYyPH5dvogkBZdxPX cbHDTslsE6NHLelZGnI9Ky PKWyDM2qcbvqRYN7YFFAPo jfTg5kjUJhqGxyMmFaYlNy YOWmTTJkPLLdv6jqwhDNva tssWm3wV2TXATlW4KsHS5P z8cvLQMrtIOiCYI5HOfkr4 nuJAhwGYQ6HPTeLDClDBHx UU6PJgHzBPeqERF4IfB3Fh P1YHb0QPCSZANdGRS6MAE4 NYBrMEn4CWnxZBupxGPeJH RuPWXvKZBtKUodwqE5w4or HBWvmHKhWCW3JDogm9jzSY wpHKH4GFRcZkNvUZUuOY0X DoXxZHzyDZQ6GnE9NqC2XU c5CVHUPfXgNyGoIvNuGivc GEFjKYj8SPj2DCrCLzYgHQ G7OZikHiZ8OVR3OFD1GYVr XHQgMiBcXHNzIDMgXFxmbC JlRA2eqYzlRJMpFK1DOSYk EZarZTUxVrFuPE8gIXFukZ 1eeH3qEZZyi4YjvBabbVGd aFxmczIyXHBhciANClxwYX XtCX1QSEQqBLwoKIz3pmJo YUKxUaMcHQBlR48ls3IFr9 PdEK4RJNt3gaSnvtJLWztk rhLbTUAlC3CtdjFjPBnuOA Tzvb8tcNfjUGajPKEyK0vu wB3yxfvkOBqhp3ZotKSivR UyNfSuj7ptJXYfDARwpQYj bSXxptIjtTKiwGmwe9CuUF 3lZYS5kfdnJnLdEdKfxXDc IxUhaOVrGpReE92cGMFLuu N0lEQmp1gkklNgbERhDGNf KZAyJVKgLDroITDeTK9sTA NkLVH1TD6xXNZbYU8jHFzw IHNwZWNpbWVuIGlzIGJpc2 BijQOyXyQwFM98XCrmwIWa eZPifTX7SMYqfO9ui96tVX Gds7BsbBXuMgDyrWGyPN5Z BAFrugKVGjOMPS6xyHS5CP PkNOD9ELSsTxCdQMYYQRUx ykSSCxyrJVCeITikz1XyDS vtwMtxLFVuLsAeAIvHgm6p hnPoeBIsnL7olMegriIpFU Cvn9BbXPGmNOJyJ7qmwkNd EU8nAAHtbD1aOswsSYEkHO CXxWDweRCcWOFkVuelO5sl kjXwTR1gTUZWQJZ2BXI9UB 2NUXQuoAIENIJ7EZ7qEJuk XETfS9TvS7SbrwL1j0ohxX glb8QfaFUbLZ4mrXPjHF8E AFJubtFjKKkalRjttB4sJB p9 [facility] Work Phone: Performing Lab i7kihMHmTDWeyIGmEFMw Ml dlcqOhDGXgaHNvP2Snvxuc PAlyOZ5sQK7idIkveZGdnR HtIUWbJrJhh1ytg507bFUy l7uxPYRHoqadbSb0aYtuY4 1cz8C5BkoaR94wjMCmKCO8 LODhRVUycCPyMOMiXPI0OR CupXPkU0ehOWFhYJ0givua OXhoGWeySAAqzTA2YYVuqX IaZ3WhEYRxDIuhEPVxssy9 VdRfLj4ayTXmePtxLIknF6 zysR6yDnW3ZOwwK7wuyX5p XOt9MYalYQBlfIJ8ohG6AI UrbUBuX9OqiA6nFZUyLE2a rqc4m9qwCGB7ITyjJQTfRp Z4qkZ7MMPuuMQqAVzihKJu xervpoHqEOIuQDafm6Z1zI OjoA48HXRxekX6WAEta84l aFLbOu2kjUBpKWH9McBUsL H0WKhwafKmC4ovvrtsXV5t cK3hN1JfdFWyJDpdl2IrvQ BrTDyoKq2eLKNldyzwPMz7 SWUrECAmfKpiGTT5IY71UR wgRGVzayBMMjEsIENsZXZl vGFtASOGZUQ8OAY2RDBdRE DXHAReAUL2KZF7NUVhDCMn yUUdEVciJWJkHXOum4XllO 2bcTVWxIPoW6HoyrkrO0Gy oSNoOOsjeoZsB6pzCFVHRC xwYXJ9 [facility] Work Phone: [facility] Work Phone: MOISESOVkayla 07-14-2024 CNOV Office Visit (OBGYWM ) JAZ PARTIDA ([id number]) 1970 F Date Time Provider Department 07/14/24 2:50 PM ARIANNA LONGORIA OBNASIMA During your visit today, we recorded the following information about you: Blood pressure Weight 100/60 63.2 kg Arianna Longoria MD 07/15/2024 1:37 PM Signed Physician Office Specialist offered: Patient declines. Jaz Partida is a 54 year old female who presents today for a vulvar biopsy. Indication: skin changes. UNIVERSAL PROTOCOL / SAFETY CHECKLIST Procedure to be Performed: Vulvar Biopsy Sign In: A Moment of CARE was completed. Appropriate PPE (Personal Protective Equipment) worn by all providers involved with the procedure. Special equipment not required. Patient/Surrogate Stated/Verified: Patient name, Date of , Relevant allergies, and The intended procedure Time Out: Relevant labs, photos, and/or imaging studies are not applicable. Intended patient and procedure match the source document(s) (e.g. consent, HANDP, associated studies [imaging, pathology]) match the intended patient and procedure. Consent obtained and matches the intended procedure. Yes. Correct side/site has been marked and visible. Medications required for this procedure are verified. Fire risk assessed and is not applicable. Implants: are not applicable. Sign Out: Specimens are all correctly labeled and sent. All instruments, equipment, possible retained foreign bodies are accounted for. Yes. The post-procedure plan of care has been communicated to the patient or surrogate. PROCEDURE NOTE: GROSS LESIONS: Yes, pale appearing skin over clitoral smith, bilateral labia majora and posterior fourchette BIOPSY: Area was cleansed with betadine and anesthetized with 3mL 1% lidocaine with 1:100,000 epi. 3mm [place] punch used to biopsy region. HEMOSTASIS: Obtained with silver nitrate and pressure Procedure Summary: Patient tolerated procedure well. ASSESSMENT: vulvar and perineal skin changes PLAN: Specimens labeled and sent to Pathology. Will notify patient of results in 1-2 weeks. Post-procedure instructions reviewed and written material given to the patient. Arianna Longoria DO Allergies As of Date: 07/14/2024 Noted Allergy Reaction PENICILLINS 12/04/2015 4 - Hives Date Reviewed: 07/14/2024 Reviewed by: Malou Paniagua MA - Fully Assessed Reason for Visit: vulvar biopsy [Other] Primary Visit Diagnosis:Other skin changes [R23.8] Order(s):SURGICAL PATHOLOGY [[id number]] Order #: [id number]. #:[id number] Prescriptions as of 07/15/2024 - MULTIVITAMIN ORAL Take by mouth. - L.crispatmario jens en,rhamn (AZO VAGINAL HEALTH PROBIOTIC ORAL) Take by mouth. - naproxen sodium (ALEVE ORAL) Take by mouth. - topiramate (TOPAMAX) 25 mg tablet TAKE 1 TABLET BY MOUTH DAILY AT BEDTIME. - propranolol ER (INDERAL LA) 60 mg 24 hr capsule Take 1 capsule by mouth once daily. - sertraline (ZOLOFT) 25 mg tablet Take 25 mg by mouth twice daily. Problem List As Of Date 07/14/2024 Noted Resolved Tobacco use [Z72.0] Psoriasis [L40.9] Hot flashes [R23.2] Marijuana use [F12.90] Hyperglycemia [R73.9] Migraine [G43.909] Radicular pain in right arm [M79.2] 04/14/2022 05/12/2022 Encounter Status:Closed by ARIANNA LONGORIA on 07/15/24 Normal [facility] Pathology biopsy report Andres (Tiss)on 07-14-2024 AP DISCLAIMER Normal [facility] Comment on above: Order Comment: Speci men Type: TISSUE SPECIMEN Ordering Facility: [facility] Address: [address] [place] [id number] Result Comment: Maggy read Developed Test (LDT) Disclaimer: Performance characteristics of immunohistochemical, immunofluorescent, and chromogenic in-situ hybridization tests have been determined by the performing laboratory within [facility]'s Chai Corado Pathology and Laboratory Medicine Department ([facility], [facility], [facility], [facility], [facility], [facility], or [facility]) in a manner consistent with CLIA requirements. One or more of these tests may not have been cleared or approved by the FDA. [facility] is regulated under CLIA as qualified to perform high-complexity testing. These tests are used for clinical purposes. These should not be regarded as investigational or for research. Positive and negative controls stain appropriately. Performed By: #### 6 6121-5 #### [facility] CLIA [id number] [address] [place] [address] [place] CASE REPORT Normal [facility] Comment on above: Order Comment: Speci men Type: TISSUE SPECIMEN Ordering Facility: [facility] Address: [address] [place] [address] Result Comment: [facility] Pathology Report Case: [id number] Authorizing Provider: Arianna Longoria MD Collected: 07/14/2024 03:30 PM Ordering Location: OB/Gynecology Received: 07/14/2024 04:11 PM Pathologist: Zackery Martin MD Specimen: Perineum, Biopsy, right Performed By: #### 6 6121-5 #### [facility] CLIA [id number] [address] [place] [address] STATES OF [facility] CLINICAL HISTORY skin changes Normal [facility] Comment on above: Order Comment: Speci men Type: TISSUE SPECIMEN Ordering Facility: [facility] Address: [address] [place] [address] Performed By: #### 6 6121-5 #### [facility] CLIA [id number] [address] [place] [address] DIAGNOSIS COMMENT Normal [facility] Comment on above: Order Comment: Speci men Type: TISSUE SPECIMEN Ordering Facility: [facility] Address: [address] [place] [address] Result Comment: Hist ologic sections show a compact stratum corneum overlying an atrophic epidermis. Within the dermis, there is superficial sclerosis with an underlying lymphohistiocytic infiltrate. Overall, these features are consistent with lichen sclerosus. Clinical correlation is recommended. Performed By: #### 6 6121-5 #### [facility] CLIA [id number] [address] [place] [address] YASHIRA FINAL DIAGNOSIS Normal [facility] Comment on above: Order Comment: Speci men Type: TISSUE SPECIMEN Ordering Facility: [facility] Address: [address] [place] [address] Result Comment: Geetha johnson, perineum, biopsy: - Lichen sclerosus, see comment. at 1415 EDT Performed By: #### 6 6121-5 #### [facility] CLIA [id number] [address] [place] [address] OF [facility] FINAL PERFORMING LAB Normal [facility] Comment on above: Order Comment: Speci men Type: TISSUE SPECIMEN Ordering Facility: [facility] Address: [address] [place] [address] Result Comment: Diag nostic interpretation performed at: [facility], [address] [place] [address] CLIA# [id number] Cable Lacer: Shane Stanford MD Performed By: #### 6 6121-5 #### [facility] CLIA [id number] [address] [place] [address] [place] OF [place]ASHIRA GROSS DESCRIPTION Normal [facility] Comment on above: Order Comment: Speci men Type: TISSUE SPECIMEN Ordering Facility: [facility] Address: [address] [place] [address] Result Comment: A. Ines robledoum, Biopsy Received in formalin is a cylindrical segment of skin and subcutaneous tissue measuring 0.3 x 0.3 x 0.3 cm. On the skin surface there is a 0.3 cm, slater area. The specimen is bisected. Totally submitted in one cassette. DL July 14, 2024 10:53 PM [place] [address] Performed By: #### 6 6121-5 #### [facility] CLIA [id number] [address] [place] [address] OF YASHIRA CBC panel Auto (Bld)on 07-05 Erythrocyte distribution width (RBC) [Ratio] 14.2 % Normal 11.5-15.0 [facility] Comment on above: Order Comment: Speci men Type: BLOOD SPECIMEN Ordering Facility: [facility] Address: [address] [place] [address] Performed By: #### 5 8410-2 #### [facility] CLIA [id number] [address] [place] [address] [place] Hematocrit (Bld) [Volume fraction] 39.4 % Normal 36.0-46.0 [facility] Comment on above: Order Comment: Speci men Type: BLOOD SPECIMEN Ordering Facility: [facility] Address: [address] [place] [address] Performed By: #### 5 8410-2 #### [facility] CLIA [id number] [address] [place] [address] [place] Hemoglobin (Bld) [Mass/Vol] 13.0 g/dL Normal 11.5-15.5 [facility] Comment on above: Order Comment: Speci men Type: BLOOD SPECIMEN Ordering Facility: [facility] Address: [address] [place] [address] Performed By: #### 5 8410-2 #### [id number] [address] [place] [address] [place] MCH (RBC) [Entitic mass] 30.1 pg Normal 26.0-34.0 [facility] Comment on above: Order Comment: Speci men Type: BLOOD SPECIMEN Ordering Facility: [facility] Address: [address] [place] [address] Performed By: #### 5 8410-2 #### [facility] [id number] [address] [place] [address] [place] MCHC (RBC) [Mass/Vol] 33.0 g/dL Normal 30.5-36.0 [facility] Comment on above: Order Comment: Speci men Type: BLOOD SPECIMEN Ordering Facility: [facility] Address: [address] [place] [address] Performed By: #### 5 8410-2 #### [facility] CLIA [id number] [address] [place] [address] [place] MCV (RBC) [Entitic vol] 91.2 fL Normal 80.0-100.0 [facility] Comment on above: Order Comment: Speci men Type: BLOOD SPECIMEN Ordering Facility: [facility] Address: [address] [place] [address] Performed By: #### 5 8410-2 #### [facility] CLIA [id number] [address] [place] [address] [place] Nucleated RBC (Bld) [#/Vol] 10*3/uL Normal <0.01 [facility] Comment on above: Order Comment: Speci men Type: BLOOD SPECIMEN Ordering Facility: [facility] Address: [address] [place] [address] Performed By: #### 5 8410-2 #### [facility] CLIA [id number] [address] [place] [address] [place] Platelet mean volume (Bld) [Entitic vol] 10.7 fL Normal 9.0-12.7 [facility] Comment on above: Order Comment: Speci men Type: BLOOD SPECIMEN Ordering Facility: [facility] Address: [address] [place] [address] Performed By: #### 5 8410-2 #### [facility] CLIA [id number] [address] [place] [address] [place] Platelets (Bld) [#/Vol] 274 10*3/uL Normal 150-400 [facility] Comment on above: Order Comment: Speci men Type: BLOOD SPECIMEN Ordering Facility: [facility] Address: [address] [place] [address] Performed By: #### 5 8410-2 #### [facility] CLIA [id number] [address] [place] [address] [place] RBC (Bld) [#/Vol] 4.32 10*6/uL Normal 3.90-5.20 [facility] Comment on above: Order Comment: Speci men Type: BLOOD SPECIMEN Ordering Facility: [facility] Address: [address] [place] [address] Performed By: #### 5 8410-2 #### [facility] CLIA [id number] [address] [place] [address] [place] WBC (Bld) [#/Vol] 5.85 10*3/uL Normal 3.70-11.00 [facility] Comment on above: Order Comment: Speci men Type: BLOOD SPECIMEN Ordering Facility: [facility] Address: [address] [place] [address] Performed By: #### 5 8410-2 #### [facility] CLIA [id number] [address] [place] [address] [place] Comprehensive metabolic 2000 panelon 07-05-2024 Albumin [Mass/Vol] 4.7 g/dL Normal 3.9-4.9 [facility] Comment on above: Order Comment: Speci men Type: BLOOD SPECIMEN Ordering Facility: [facility] Address: [address] [place] [address] Performed By: #### 2 4323-8 #### [facility] CLIA [id number] [address] [place] [address] [place] ALP [Catalytic activity/Vol] 68 U/L Normal 34-123 [facility] Comment on above: Order Comment: Speci men Type: BLOOD SPECIMEN Ordering Facility: [facility] Address: [address] [place] [address] Performed By: #### 2 4323-8 #### [facility] CLIA [id number] [address] [place] [address] [place] ALT [Catalytic activity/Vol] 29 U/L Normal 7-38 [facility] Comment on above: Order Comment: Speci men Type: BLOOD SPECIMEN Ordering Facility: [facility] Address: [address] [place] [address] Performed By: #### 2 4323-8 #### [facility] CLIA [id number] [address] [place] [address] [place] Anion gap [Moles/Vol] 16 mmol/L High 8-15 [facility] Comment on above: Order Comment: Speci men Type: BLOOD SPECIMEN Ordering Facility: [facility] Address: [address] [place] [address] Performed By: #### 2 4323-8 #### [facility] CLIA [id number] [address] [place] [address] [place] AST [Catalytic activity/Vol] 27 U/L Normal 13-35 [facility] Comment on above: Order Comment: Speci men Type: BLOOD SPECIMEN Ordering Facility: [facility] Address: [address] [place] [address] Performed By: #### 2 4323-8 #### [facility] CLIA [id number] [address] [place] [address] [place] Bilirubin [Mass/Vol] 0.3 mg/dL Normal 0.2-1.3 [facility] Comment on above: Order Comment: Speci men Type: BLOOD SPECIMEN Ordering Facility: [facility] Address: [address] [place] [address] Performed By: #### 2 4323-8 #### [facility] CLIA [id number] [address] [place] [address] [place] Calcium [Mass/Vol] 10.1 mg/dL Normal 8.5-10.2 [facility] Comment on above: Order Comment: Speci men Type: BLOOD SPECIMEN Ordering Facility: [facility] Address: [address] [place] [address] Performed By: #### 2 4323-8 #### [facility] CLIA [id number] [address] [place] [address] [place] Chloride [Moles/Vol] 106 mmol/L Normal 98-107 [facility] Comment on above: Order Comment: Speci men Type: BLOOD SPECIMEN Ordering Facility: [facility] Address: [address] [place] [address] Performed By: #### 2 4323-8 #### [facility] CLIA [id number] [address] [place] [address] [place] CO2 [Moles/Vol] 20 mmol/L Low 22-30 [facility] Comment on above: Order Comment: Speci men Type: BLOOD SPECIMEN Ordering Facility: [facility] Address: [address] [place] [address] Performed By: #### 2 4323-8 #### [facility] [id number] [address] [place] [address] [place] Creatinine [Mass/Vol] 0.84 mg/dL Normal 0.58-0.96 [facility] Comment on above: Order Comment: Speci men Type: BLOOD SPECIMEN Ordering Facility: [facility] Address: [address] [place] [address] Performed By: #### 2 4323-8 #### [facility] [id number] [address] [place] [address] [place] Creatinine and Glomerular filtration rate.predicted panel (S/P/Bld) 83 mL/min/1.73m??? Normal >=60 [facility] Comment on above: Order Comment: Speci men Type: BLOOD SPECIMEN Ordering Facility: [facility] Address: [address] [place] [address] Result Comment: Sonja mated Glomerular Filtration Rate (eGFR) is calculated using the 2020 CKD-EPI creatinine equation. This equation utilizes serum creatinine, sex, and age as parameters. The creatinine assay has traceable calibration to isotope dilution-mass spectrometry. Refer to KDIGO guidelines for clinical interpretation. In patients with unstable renal function, e.g. those with acute kidney injury, the eGFR may not accurately reflect actual GFR. Performed By: #### 2 4323-8 #### [facility] CLIA [id number] [address] [place] [address] [place] Glucose [Mass/Vol] 49 mg/dL Low 74-99 [facility] Comment on above: Order Comment: Larry gustafson Type: BLOOD SPECIMEN Ordering Facility: [facility] Address: [address] [place] [address] Result Comment: The [place] Diabetes Association (ADA) provides guidance for cutoff values for fasting glucose and random glucose. The ADA defines fasting as no caloric intake for at least 8 hours. Fasting plasma glucose results between 100 to 125 mg/dL indicate increased risk for diabetes (prediabetes). Fasting plasma glucose results greater than or equal to 126 mg/dL meet the criteria for diagnosis of diabetes. In the absence of unequivocal hyperglycemia, results should be confirmed by repeat testing. In a patient with classic symptoms of hyperglycemia or hyperglycemic crisis, random plasma glucose results greater than or equal to 200 mg/dL meet the criteria for diagnosis of diabetes. Reference: Standards of Medical Care in Diabetes 2016, [place] Diabetes Association. Diabetes Care. 2016.39(Suppl 1). Performed By: #### 2 4323-8 #### [facility] CLIA [id number] [address] [place] [address] [place] Potassium [Moles/Vol] 4.1 mmol/L Normal 3.7-5.1 [facility] Comment on above: Order Comment: Larry gustafson Type: BLOOD SPECIMEN Ordering Facility: [facility] Address: [address] [place] [address] Performed By: #### 2 4323-8 #### [facility] CLIA [id number] [address] [place] [address] [place] Protein [Mass/Vol] 7.4 g/dL Normal 6.3-8.0 [facility] Comment on above: Order Comment: Speci men Type: BLOOD SPECIMEN Ordering Facility: [facility] Address: [address] [place] [address] Performed By: #### 2 4323-8 #### [facility] CLIA [id number] [address] [place] [address] [place] Sodium [Moles/Vol] 142 mmol/L Normal 136-144 [facility] Comment on above: Order Comment: Speci men Type: BLOOD SPECIMEN Ordering Facility: [facility] Address: [address] [place] [address] Performed By: #### 2 4323-8 #### [facility] CLIA [id number] [address] [place] [address] [place] Urea nitrogen [Mass/Vol] 19 mg/dL Normal 7-21 [facility] Comment on above: Order Comment: Speci men Type: BLOOD SPECIMEN Ordering Facility: [facility] Address: [address] [place] [address] Performed By: #### 2 4323-8 #### [facility] [id number] [address] [place] [address] [place] HbA1c (Bld)on 07-05-2024 Average glucose Estimated from glycated hemoglobin (Bld) [Mass/Vol] 114 mg/dL Normal [facility] Comment on above: Order Comment: Speci men Type: BLOOD SPECIMEN Ordering Facility: [facility] Address: [address] [place] [address] Result Comment: eAG: (Estimated average glucose) is a calculated value from HgbA1c and is sales solutions representative of the average blood glucose level in the last 2-3 month period. Performed By: #### 5 5454-3 #### [facility] CLIA [id number] [address] [place], [place] [address] [address] [place] HbA1c (Bld) [Mass fraction] 5.6 % Normal 4.3-5.6 [facility] Comment on above: Order Comment: Speci men Type: BLOOD SPECIMEN Ordering Facility: [facility] Address: [address] [place] [address] Result Comment: Amer [place] Diabetes Association guidelines indicate that patients with HgbA1c in the range 5.7-6.4% are at increased risk for development of diabetes, and intervention by lifestyle modification may be beneficial. HgbA1c greater or equal to 6.5% is considered diagnostic of diabetes. Performed By: #### 5 5454-3 #### [facility] CLIA [id number] [address] [place] [address] OF [place]ASHIRA LIPID PANEL, NONFASTINGon Cholesterol [Mass/Vol] 196 mg/dL Normal <200 [facility] Comment on above: Order Comment: Larry gustafson Type: BLOOD SPECIMEN Ordering Facility: [facility] Address: [address] [place] [address] Result Comment: <200 mg/dL, Desirable 200-239 mg/dL, Borderline high >239 mg/dL, High Performed By: #### L IPNF, 3016-3 #### [facility] CLIA [id number] [address] [place] [address] [place] HDL CHOLESTEROL, NF 78 mg/dL Normal >39 [facility] Comment on above: Order Comment: Larry gustafson Type: BLOOD SPECIMEN Ordering Facility: [facility] Address: [address] [place] [address] Result Comment: 40-5 9 mg/dL, Acceptable >59 mg/dL, High: Negative risk factor for coronary heart disease <40 mg/dL, Low: Positive risk factor for coronary heart disease Performed By: #### L IPNF, 3016-3 #### [facility] CLIA [id number] [address] [place] [address] [place] LDL CHOLESTEROL CALCULATED, NF 102 mg/dL High <100 [facility] Comment on above: Order Comment: Larry janay Type: BLOOD SPECIMEN Ordering Facility: [facility] Address: [address] [place] [address] Result Comment: <100 mg/dL, Optimal 100-129 mg/dL, Near optimal/above optimal 130-159 mg/dL, Borderline high 160-189 mg/dL, High >189 mg/dL, Very high Secondary prevention optimal LDL Cholesterol levels are recommended to be <70 mg/dL LDL cholesterol is calculated using the Muller-NIH equation. Performed By: #### L GUME, 6-3 #### [facility] CLIA [id number] [address] [place] [address] STATES [place] [facility] LDL/HDL RATIO, NF 1.31 mg/dL Normal <2.54 [facility] Comment on above: Order Comment: Larry gustafson Type: BLOOD SPECIMEN Ordering Facility: [facility] Address: [address] [place] [address] Result Comment: Monicae madance: 1. National Cholesterol Education Program ATP III Guideline At-A-Glance Quick Desk Reference: National Heart, Lung, and Blood [place]. National Institutes of Health. 2001: NIH Publication No. 01-3305. 2. An International Atherosclerosis Society position paper: global recommendations for the management of dyslipidemia: executive summary, Atherosclerosis. 2014: 232(2):410-413. Performed By: #### L GUME, 3015-3 #### [facility] CLIA [id number] [address] [place] [address] [place] NON HDL CHOL, NF 118 mg/dL Normal <130 [facility] Comment on above: Order Comment: Larry gustafson Type: BLOOD SPECIMEN Ordering Facility: [facility] Address: [address] [place] [address] Result Comment: <130 mg/dL, Optimal 130-159 mg/dL, Near optimal/above optimal 160-189 mg/dL, Borderline high 190-219 mg/dL, High >219 mg/dL, Very high Secondary prevention optimal non HDL Cholesterol levels are recommended to be <100 mg/dL Performed By: #### L GUME, 6-3 #### [facility] CLIA [id number] [address] [place] [address] OF [facility] T CHOL/HDL RATIO NF 2.51 mg/dL Normal <5.10 [facility] Comment on above: Order Comment: Speci men Type: BLOOD SPECIMEN Ordering Facility: [facility] Address: [address] [place] [address] Performed By: #### L IPNF, 6-3 #### [facility] CLIA [id number] [address] [place] [address] [place] TRIGLYCERIDES, NF 93 mg/dL Normal <150 [facility] Comment on above: Order Comment: Speci men Type: BLOOD SPECIMEN Ordering Facility: [facility] Address: [address] [place] [address] Result Comment: <150 mg/dL, Normal 150-199 mg/dL, Borderline high 200-499 mg/dL, High >499 mg/dL, Very high Performed By: #### L IPNHUNG, 3015-3 #### [facility] CLIA [id number] [address] [place] [address] [place] VLDL CHOLESTEROL, NF 15 mg/dL Normal <30 [facility] Comment on above: Order Comment: Speci men Type: BLOOD SPECIMEN Ordering Facility: [facility] Address: [address] [place] [address] Performed By: #### L IPNF, 3015-3 #### [facility] CLIA [id number] [address] [place] [address] [place] TSH SerPl-aCncon 07-05-2024 TSH Qn 1.780 m[IU]/L Normal 0.270-4.200 [facility] Comment on above: Order Comment: Speci men Type: BLOOD SPECIMEN Ordering Facility: [facility] Address: [address] [place] [address] Performed By: #### L IPNF, 3015-3 #### [facility] CLIA [id number] [address] [place] [address] [facility] OF [place] BACTERIAL VAGINOSIS NAATon 0 4-24-2025 Lactobacillus crispatus+gasseri+j ensenii + Gardnerella vaginalis + Atopobium vaginae rRNA CHADWICK+probe Ql (Vag fld) Not detected Normal Not detected [facility] Comment on above: Order Comment: Speci men Type: SWAB Ordering Facility: [facility] Address: [address] [place] [address] Performed By: #### B VAMP, CVTV #### [facility] CLIA [id number] [address] [place] [address] [place] BROOKE/TRICHOMONAS NAATon 0 06-30-2024 C. glabrata RNA CHADWICK+probe Ql (Vag fld) Not detected Normal Not detected [facility] Comment on above: Order Comment: Speci men Type: SWAB Ordering Facility: [facility] Address: [address] [place] [address] Performed By: #### B VAMP, CVTV #### [facility] CLIA [id number] [address] [place] [address] [place] Brooke sp DNA CHADWICK+probe Ql (Vag fld) Not detected Normal Not detected [facility] Comment on above: Order Comment: Speci men Type: SWAB Ordering Facility: [facility] Address: [address] [place] [address] Result Comment: The Brooke species group target includes C. albicans, C. tropicalis, C. parapsilosis, and C. dubliniensis. Performed By: #### B VAMP, CVTV #### [facility] CLIA [id number] [address] [place] [address] [place] T. vaginalis DNA CHADWICK+probe Ql (Unsp spec) Not detected Normal Not detected [facility] Comment on above: Order Comment: Speci men Type: SWAB Ordering Facility: [facility] Address: [address] [place] [address] Performed By: #### B VAMP, CVTV #### [facility] CLIA [id number] [address] [place] [address] [place] CNOVon 06-30-2024 CNOV Office Visit (OBGYWM ) JAZ PARTIDA ([id number]) 1970 F Date Time Provider Department 06/30/24 2:40 PM ARIANNA LONGORIA OBGYWM During your visit today, we recorded the following information about you: Blood pressure Weight Height 100/68 64.9 kg 1.664 m Arianna Longoria MD 06/30/2024 5:24 PM Signed Physician Office Specialist offered: Patient declinesMansi Sebastian is a 54 year old who presents for an annual gynecologic exam with complaints, vulvar irritation and vaginal odor menopause symptoms. The vaginal odor and itching started about 2 months ago. No new soaps, detergents etc. Hot flashes have become more infrequent. Night sweats are bothersome for her and interrupting sleep. Postmenopausal: Full hysterectomy at age 29 HRT use: Yes in past, not on any currently How long: was on it for a couple of years. Age at Menarche: 13 Still get period: No LMP: n/a Menses: hysterectomy Menstrual flow: N/A Bleeding amount bothersome: N/A Bleeding between periods: N/A Period symptoms: N/A Sexually active: Yes Time with current partner: 12 years Contraception: Other hysterectomy Contraception frequency: Always HPV vaccine: No Last pap smear: 5744-9580 History of abnormal pap: No Colposcopy: No. Leep: No. Cone biopsy: No. Bothersome pelvic pain: No Last mammogram: years ago normal History of abnormal mammogram: No OB History No obstetric history on file. FAMILY HISTORY Problem Relation Age of Onset Primary Biliary Cirrhosis Mother No Known Problems Father No Known Problems Sister No Known Problems Sister Headache No Family History unknown SOCIAL HISTORY Social History Tobacco Use Smoking status: Every Day Current packs/day: 0.50 Average packs/day: 0.5 packs/day for 10.0 years (5.0 ttl pk-yrs) Types: Cigarettes Smokeless tobacco: Never Vaping Use Vaping status: Never Used Substance Use Topics Alcohol use: Yes Comment: 1-2 times per month Drug use: Yes Frequency: 1.0 times per week Types: Marijuana Comment: marijuana REVIEW OF SYSTEMS Abdomen: No abdominal pain, nausea, vomiting, diarrhea, or constipation. Bladder: No dysuria, gross hematuria, urinary frequency, urinary urgency, or incontinence Breast: No breast lumps, nipple d/c, overlying skin changes, redness or skin retraction Allergies and current medication updated:Yes SENSITIVE EXAM: The sensitive examination was discussed with the Patient or Patient's Authorized Seal Skinner. As applicable, any other physician, advance practice provider, medical student, or other health professional student that will be observing or involved in the sensitive examination for educational or training purposes was discussed with the Patient or Authorized Seal Skinner. The Patient or Authorized Seal Skinner has agreed to proceed with the sensitive examination. (Sensitive examination includes inspection and/or palpation of the breasts, pelvis, prostate and anorectal regions). EXAM: BP 100/68 Ht 5' 5.5 (1.66m) Wt 143 lb (64.9kg) BMI 23.43 kg/(m2). GENERAL: pleasant, female in no apparent distress HEENT: Normocephalic and atraumatic NECK: full range of motion BREAST: soft, non-tender, symmetric, no dominant mass, normal nipple-areolar complex, no lymphadenopathy, and no nipple discharge CHEST: Normal inspiratory effort ABDOMEN: soft, non-tender, and no masses PELVIC: whitening of the skin over clitoral smith, bilateral labia majora and over posterior fourchette with atrophy noted as well. Normal Bartholin's glands, urethra, [place]'s glands, no vulvar lesions, no cervical lesions, good vaginal support, physiologic discharge present, normal appearing perineal body and perianal region BIMANUAL: uterus normal size, shape and consistency, no adnexal masses, and non-tender RECTOVAGINAL: deferred. NEURO: exam grossly non-focal EXTREMITIES: normal ASSESSMENT/PLAN: 1) Health maintenance: Pap/HPV screening no longer needed Mammogram ordered Nutrition, exercise and routine health maintenance exams reviewed. Colon cancer screening: colonoscopy ordered TSH/lipids/glucose: ordered To establish with PCP 2) Follow up one year or sooner as needed Vulvar skin changes and symptoms: Possible lichen sclerosus? Recommend vulvar biopsy. Discussed atrophy and r/b/a vaginal estrogen cream after biopsy completed. Briefly discussed lichen sclerosus as well Post menopausal vasomotor symptoms: Discussed r/b/a HRT and non hormonal treatment options. Information given for her to review. She is considering options DO Swati Briones Sara, MD 06/30/2024 3:33 PM Addendum Hormone Therapy* (HT): Understanding Benefits and Risks (*Sometimes also called hormone replacement therapy, HRT) What are estrogen and progesterone? Estrogen and progesterone are hormones that are produced by a woman's ovaries. Why matson (more content not included)... Normal [facility] XR Cervical spine AP and Lat eral and obliqueon 04-10-2022 IMPRESSION: Cervical spine degenerative changes as described above. Service Parts Driver: WIL Transcribe Date/Time: Apr 10 2022 2:55P Dictated by : JOHN CRUM MD This examination was interpreted and the report reviewed and electronically signed by: JOHN CRUM MD on Apr 10 2022 2:56PM [facility] DIVISION OF RADIOLOGY * * *Final Report* * * DATE OF EXAM: Apr 09 2022 8:50AM [id number] - XR CERVICAL 4V AP/LAT/OBL / PROCEDURE REASON: Radicular pain in right arm * * * * Physician Interpretation * * * * EXAM TITLE: XR CERVICAL 4V AP/LAT/OBL EXAM DATE/TIME: 04/09/2022 8:50 AM COMPARISON: None. CLINICAL INDICATION/HISTORY: Pain TECHNIQUE: AP, lateral, and oblique views of the cervical spine are presented. FINDINGS: No fractures or subluxations are noted. There appears to be C5-6 and C6-7 mild disc space narrowing. There is minimal osteophyte formation. Multilevel bilateral neuroforaminal narrowing is demonstrated, allowing for positioning. The prevertebral soft tissues are normal. DIVISION OF RADIOLOGY Provider, Cristina Meadows - 04/10/2022 * * *Final Report* * * DATE OF EXAM: Apr 09 2022 8:50AM [id number] [id number] - XR CERVICAL 4V AP/LAT/OBL / PROCEDURE REASON: Radicular pain in right arm * * * * Physician Interpretation * * * * EXAM TITLE: XR CERVICAL 4V AP/LAT/OBL EXAM DATE/TIME: 04/09/2022 8:50 AM COMPARISON: None. CLINICAL INDICATION/HISTORY: Pain TECHNIQUE: AP, lateral, and oblique views of the cervical spine are presented. FINDINGS: No fractures or subluxations are noted. There appears to be C5-6 and C6-7 mild disc space narrowing. There is minimal osteophyte formation. Multilevel bilateral neuroforaminal narrowing is demonstrated, allowing for positioning. The prevertebral soft tissues are normal. IMPRESSION IMPRESSION: Cervical spine degenerative changes as described above. Service Parts Driver: PSCB Transcribe Date/Time: Apr 10 2022 2:55P Dictated by : JOHN CRUM MD This examination was interpreted and the report reviewed and electronically signed by: JOHN CRUM MD on Apr 10 2022 2:56PM EST [facility] XR Cervical spine AP and Lat eral and obliqueOrdered By: Ccf Provider on 04-10-2022 [facility] XR Cervical spine AP and Lat eral and obliqueon 04-09-2022 Radiology Study observation (narrative) [facility] Absolute lymphocyte counton 03-19-2022 Lymphocytes Auto (Unsp spec) [#/Vol] 1.73 10*3/uL 0.83-4.51 [facility] Work Phone: Basophil percentageon 2022 Basophils/100 WBC (Bld) 0.6 % 0-1 [facility] Work Phone: Chloride [Moles/Vol] 108 mmol/L 98-107 [facility] Work Phone: Eosinophils/100 WBC (Bld) 0.5 % 0-5 [facility] Work Phone: Glucose [Mass/Vol] 95 mg/dL 74-106 [facility] Work Phone: Neutrophils (Bld) [#/Vol] 7.2 10*3/uL 2.0-7.7 [facility] Work Phone: Neutrophils/100 WBC (Bld) 74.3 % 47-70 [facility] Work Phone: Potassium [Moles/Vol] 4.3 mmol/L 3.5-5.1 [facility] Work Phone: Sodium [Moles/Vol] 139 mmol/L 136-145 [facility] Work Phone: WBC (Bld) [#/Vol] 9.7 10*3/uL 4.4-11.0 [facility] Work Phone: Blood erythrocytes count (nu mber/volume)on 03-19-2022 RBC (Bld) [#/Vol] 4.30 10*6/uL 4.2-5.4 [facility] Work Phone: Blood hemoglobin measurement (mass/volume)on 03-19-2022 Hemoglobin (Bld) [Mass/Vol] 13.0 g/dL 12.0-15.0 [facility] Work Phone: Blood lymphocytes/100 leukoc yteson 03-19-2022 Lymphocytes/100 WBC (Bld) 17.9 % 19-41 [facility] Work Phone: Blood monocytes/100 leukocyt eson 03-19-2022 Monocytes/100 WBC (Bld) 6.4 % 0-10 [facility] Work Phone: Blood platelet mean volumeon 03-19-2022 Platelet mean volume (Bld) [Entitic vol] 10.9 fL 6.2-12.0 [facility] Work Phone: Determination of erythrocyte mean corpuscular volume (MCV)on 03-19-2022 MCV (RBC) [Entitic vol] 93.0 fL 81-99 [facility] Work Phone: Erythrocyte sedimentation ra tommie 03-19-2022 ESR (Bld) [Velocity] 16 mm/h 0-30 [facility] Work Phone: Hematocrit Auto (Bld) [Volum e fraction]on 03-19-2022 Hematocrit (Bld) [Volume fraction] 40.0 % 37-47 [facility] Work Phone: Laboratory - Chemistry and C hemistry - challengeon 03-19-2022 CO2 [Moles/Vol] 28.0 mmol/L 21.0-32.0 [facility] Work Phone: Urea nitrogen/Creatinine [Mass ratio] 12.7 mg/mg 10-20 [facility] Work Phone: Laboratory - Hematology and Cell countson 03-19-2022 Erythrocyte distribution width (RBC) [Entitic vol] 47.3 fL 35.1-43.9 [facility] Work Phone: Erythrocyte distribution width (RBC) [Ratio] 13.8 % 11.6-14.6 [facility] Work Phone: Immature granulocytes/100 WBC (Bld) 0.300 % 0.0-0.9 [facility] Work Phone: Comment on above: IG% - Immature Granu locytes (promyelocytes, myelocytes and metamyelocytes) > 1% indicates that a LEFT SHIFT is Present. MCH (RBC) [Entitic mass] 30.2 pg 27.0-32.0 [facility] Work Phone: Nucleated RBC/100 WBC (Bld) [Ratio] 0 % 0-5 [facility] Work Phone: MCHC Auto (RBC) [Mass/Vol]on 03-19-2022 MCHC (RBC) [Mass/Vol] 32.5 g/dL 32-36 [facility] Work Phone: No Panel Informationon 03-19 Estimated Creatinine Clearance Calc 87.76 ml/min [facility] Work Phone: Estimated GFR (MDRD) Amer 111 mL/min >60 [facility] Work Phone: Comment on above: GFR Calc Estimated GFR (MDRD) Non-Af Amer 92 mL/min >60 [facility] Work Phone: Comment on above: Non- GFR Calc Platelets bldon 03-19-2022 Platelets (Bld) [#/Vol] 313 10*3/uL 150-450 [facility] Work Phone: Serum or plasma calcium isaías urement (mass/volume)on 03-19-2022 Calcium [Mass/Vol] 9.1 mg/dL 8.5-10.1 [facility] Work Phone: Serum or plasma creatinine m easurement (mass/volume)on 03-19-2022 Creatinine [Mass/Vol] 0.71 mg/dL 0.55-1.02 [facility] Work Phone: Comment on above: The validity of the calculated GFR & GFRAA in patients over 70 years has not been determined. Clinical correlation is essential. Serum or plasma urea nitroge n measurement (mass/volume)on 03-19-2022 Urea nitrogen [Mass/Vol] 9 mg/dL 7-18 [facility] Work Phone: Thin prep Papanicolaou smear with manual screeningon 03-19-2022 Thin prep Papanicolaou smear with manual screening 3 5-15 [facility] Work Phone: [facility] Note on 11-28-2016 [facility] Note Normal [facility] (ID) Patient Summary Documentson 11-14-2016 Patient Summary Documents Normal [facility]) Vital Signs Date Time Vital Sign Value Performing Clinician Facility 07-14-2024 14:55-0400 Body mass index (BMI) [Ratio] 22.84 kg/m2 Arianna Longoria MD Work Phone: [facility] 07-14-2024 14:55-0400 Body weight 63.23 kg Arianna Longoria MD Work Phone: [facility] 07-14-2024 14:55-0400 Diastolic blood pressure 60 mm[Hg] Arianna Longoria MD Work Phone: [facility] 07-14-2024 14:55-0400 Systolic blood pressure 100 mm[Hg] Arianna Longoria MD Work Phone: [facility] 04-08-2022 07:52-0500 Body temperature 96.91 [degF] Izzy Briseno PA-C Work Phone: [facility] 04-08-2022 07:52-0500 Body weight 60.24 kg Izzy Briseno PA-C Work Phone: [facility] 04-08-2022 07:52-0500 Diastolic blood pressure 70 mm[Hg] Izzy Briseno PA-C Work Phone: [facility] 04-08-2022 07:52-0500 Heart rate 75 /min Izzy Briseno PA-C Work Phone: [facility] 04-08-2022 07:52-0500 Respiratory rate 16 /min Izzy Briseno PA-C Work Phone: [facility] 04-08-2022 07:52-0500 SaO2% (BldA) [Mass fraction] 98 % Izzy Briseno PA-C Work Phone: [facility] 04-08-2022 07:52-0500 Systolic blood pressure 103 mm[Hg] Izzy Briseno PA-C Work Phone: [facility] 03-19-2022 10:55-0500 Body height 167.64 cm [facility] Work Phone: 03-19-2022 10:55-0500 Body mass index (BMI) [Ratio] 21.7 kg/m2 [facility] Work Phone: 03-19-2022 10:55-0500 Body temperature 96.7 [degF] [facility] Work Phone: 03-19-2022 10:55-0500 Body weight 61.23 kg [facility] Work Phone: 03-19-2022 10:55-0500 Diastolic blood pressure 66 mm[Hg] [facility] Work Phone: 03-19-2022 10:55-0500 Heart rate 71 /min [facility] Work Phone: 03-19-2022 10:55-0500 Respiratory rate 18 /min [facility] Work Phone: 03-19-2022 10:55-0500 SaO2% (BldA) [Mass fraction] 99 % [facility] Work Phone: 03-19-2022 10:55-0500 Systolic blood pressure 96 mm[Hg] [facility] Work Phone: 03-12-2022 08:29-0500 Body mass index (BMI) [Ratio] 22 kg/m2 [facility] Work Phone: 03-12-2022 08:29-0500 Body temperature 96.9 [degF] [facility] Work Phone: 03-12-2022 08:29-0500 Body weight 61.9 kg [facility] Work Phone: 03-12-2022 08:29-0500 Diastolic blood pressure 70 mm[Hg] [facility] Work Phone: 03-12-2022 08:29-0500 Heart rate 81 /min [facility] Work Phone: 03-12-2022 08:29-0500 Respiratory rate 14 /min [facility] Work Phone: 03-12-2022 08:29-0500 SaO2% (BldA) [Mass fraction] 100 % [facility] Work Phone: 03-12-2022 08:29-0500 Systolic blood pressure 118 mm[Hg] [facility] Work Phone: Encounters Encounter Date Encounter Type Care Provider Facility Start: 07-28-2024 End: 07-28-[address] Nader Flores MD Work Phone: [facility] Work Phone: Start: 07-28-2024 End: 07-28-[address] Isamar Ramirez MD -Cat Scan [facility] Work Phone: Start: 07-28-2024 End: 07-28-2024 ambulatory Nader Flores Facility:[facility] Start: 07-18-2024 End: 07-18-2024 Telephone encounter Arianna Longoria MD Work Phone: OB/Gynecology Comment on above: Orders Start: 07-14-2024 End: 07-14-2024 Patient encounter procedure Arianna Longoria MD Work Phone: OB/Gynecology Comment on above: Other skin changes ( Primary Dx) Start: 07-14-2024 End: 07-14-2024 ambulatory ARIANNA LONGORIA Facility:[facility] Start: 07-05-2024 End: 07-05-2024 ambulatory ARIANNA LONGORIA Facility:[facility] Start: 07-05-2024 Patient encounter procedure ARIANNA LONGORIA [facility] Start: 07-01-2024 End: 08-31-2024 Follow-up encounter Maira Littlejohn APRN.CNP Work Phone: OB/Gynecology Start: 06-30-2024 End: 06-30-2024 ambulatory ARIANNA LONGORIA Facility:[facility] Start: 06-30-2024 Encounter for gynecological examination (general) (routine) without abnormal findings ARIANNA LNOGORIA [facility] Start: 05-12-2022 End: 05-12-2022 ambulatory Gia Thurston PT Work Phone: [facility] Comment on above: Radicular pain in ri ght arm (Primary Dx) Start: 04-28-2022 End: 04-28-2022 ambulatory Gia Thurston PT Work Phone: [facility] Comment on above: Radicular pain in ri ght arm (Primary Dx) Start: 04-23-2022 End: 04-23-2022 ambulatory Gia Thurston PT Work Phone: [facility] Comment on above: Radicular pain in ri ght arm (Primary Dx) Start: 04-21-2022 End: 04-21-2022 ambulatory Gia Thurston PT Work Phone: [facility] Comment on above: Radicular pain in ri ght arm (Primary Dx) Start: 04-14-2022 End: 04-14-2022 ambulatory Gia Thurston PT Work Phone: [facility] Comment on above: Radicular pain in ri ght arm (Primary Dx) Start: 04-09-2022 End: 04-09-2022 Subsequent hospital visit by physician Xr [facility] Work Phone: Radiology Comment on above: Radicular pain in ri ght arm [M79.2] Start: 04-08-2022 End: 04-08-2022 Patient encounter procedure Izzy Briseno PA-C Work Phone: Neurology Comment on above: Radicular pain in ri ght arm (Primary Dx); Paresthesia and pain of right extremity Start: 03-19-2022 Telephone encounter Nader Flores MD Work Phone: [facility] Comment on above: Future Appointment Start: 03-19-2022 End: 03-19-2022 Emergency department patient visit [facility] Start: 03-12-2022 End: 03-12-2022 Emergency department patient visit [facility] Start: 11-14-2016 End: 11-14-2016 Emergency department patient visit SHERRI GretchenMansi [facility] Facility:B Procedures Date Procedure Procedure Detail Performing Clinician Start: 07-28-[address] Jose Juan Flores MD Work Phone: Start: 07-14-2024 SURGICAL PATHOLOGY Arianna Longoria MD Work Phone: Start: 07-05-2024 Lipid 1996 panel - S pedro or Plasma Arianna Longoria MD Work Phone: Start: 04-09-2022 Radex spine cervical 4 or 5 views Izzy Briseno PA-C Work Phone: Start: 03-19-2022 Plain X-ray of shoulder Start: 04-30-2016 Lipid 1996 panel - S pedro or Plasma [facility] Work Phone: Plan of Treatment Date Care Activity Detail Author Start: 07-05-2029 Lip[facility] Start: 07-06-2027 Diabetes Screening Diabetes Screenin g [facility] Start: 07-03-2025 End: 07-03-2025 Patient encounter procedure 07/03/2025 9:00 AM EDT Office Visit OB/Gynecology [address] [place] [address] Arianna Longoria MD [address] [place] [address] Annual OB/Gynecology Comment on above: Annual Start: 11-07-2024 Influenza vaccination Influenz a Vaccine (Season Ended) [facility] Start: 11-08-2023 Covid-19 Vaccine ( season) Covid-19 Vaccine ( season) [facility] Start: 11-08-2023 Influenza vaccination Influenza Vacc ine (#1) [facility] Start: 03-09-2022 DEPRESSION ASSESSMENT DEPRESSION ASS ESSMENT [facility] Start: 11-07-2021 Influenza vaccination INFLUENZA (#1) [facility] Start: 04-30-2021 Lipid panel Lipid Screening [facility] Start: 04-30-2021 LIPID SCREEN LIPID SCREEN [facility] Start: 2020 SHINGRIX VACCINE (1 of 2) SHINGRIX VACCINE (1 of 2) [facility] Start: 07-04-2019 DIABETES SCREEN DIABETES SCREEN [facility] Start: 07-04-2019 Diabetes Screening Diabetes Screenin g [facility] Start: 12-03-2016 PNEUMOCOCCAL (2 - PCV) PNEUMOCOCCAL (2 - PCV) [facility] Start: 12-03-2016 Pneumococcal vaccination Pneum ococcal Vaccine (2 of 2 - PCV) [facility] Start: 12-03-2016 Pneumococcal Vaccine : 50+ (2 of 2 - PCV) Pneumococcal Vaccine: 50+ (2 of 2 - PCV) [facility] Start: 2015 COLOGUARD (FIT-DNA) COLOGUARD (FIT-D NA) [facility] Start: 2015 Colonoscopy COLONOSCOPY [facility] Start: 2015 COLORECTAL CANCER SCREENING COLORECTAL CANCER SCREENING [facility] Start: [address] COLONOGRAPHY [facility] Start: 2015 FECAL OCCULT BLOOD FECAL OCCULT BLOO D [facility] Start: 2015 Screening for malign ant neoplasm of colon [facility] Start: 2015 SIGMOIDOSCOPY SIGMOIDOSCOPY [facility] Start: 2010 Mammography MAMMOGRAM [facility] Start: 2010 Screening for malign ant neoplasm of breast Mammogram Screening [facility] Start: 1989 Hepatitis B Vaccine (1 of 3 - 19+ 3-dose series) Hepatitis B Vaccine (1 of 3 - 19+ 3-dose series) [facility] Start: 1989 Urine microalbumin profile [facility] Start: 1988 Anxiety Screening Anxiety Screening [facility] Start: 1988 Depression Screening Depression Scre ening [facility] Start: 1988 HEPATITIS C SCREENING HEPATITIS C [facility] Start: 1988 Hepatitis C screening Hepatitis C [facility] Start: 1988 HIV SCREENING HIV SCREENING [facility] Start: 1988 HIV screening HIV Screening [facility] Start: 1970 COVID-19 VACCINE (#1) COVID-19 VACCI NE (#1) [facility] Start: 1970 HEPATITIS B (1 of 3 - 3-dose series) HEPATITIS B (1 of 3 - 3-dose series) [facility] Patient Education [facility] Work Phone: Patient referral [facility] Work Phone: End: 05-08-2023 Radex spine cervical 4 or 5 views XR CERV OTHER 4V AP/LAT/OBL Radiology Routine Radicular pain in right arm 1 Occurrences starting 04/08/2022 until 05/08/2023 [facility] Work Phone: Comment on above: 1 Occurrences starti ng 04/08/2022 until 05/08/2023 [facility] Immunizations Immunization Date Immunization Notes Care Provider Nikki doyle 12-04-2015 pneumococcal polysaccharide vaccine, 23 valent Isamar Flores MD Work Phone: [facility] 12-04-2015 influenza virus vacc ine, unspecified formulation [facility] Work Phone: [facility] Payers Date Payer Category Payer Private Health Insurance M[employer] PPO [id number] 2024 Unknown [id number] 2016 Self-pay Self-pay [id number] Unknown [facility] [id number] Unknown [id number] Social History Date Type Detail Facility Start: 03-19-2022 Tobacco smoking stat us [facility] Unknown if ever smoked [facility] Work Phone: Start: 1970 Sex Assigned At Female [facility] Start: 12-04-2015 End: 06-30-2024 Tobacco smoking status PRIS Smokes tobacco daily [facility] Work Phone: History of tobacco use Cigarette Smoker [facility] Work Phone: Start: 12-04-2015 End: 06-30-2024 Cigarettes smoked current (pack per day) - Reported 0.5 [facility] Start: 10-25-2021 End: 06-30-2024 Alcohol intake Current drinker of alcohol (finding) [facility] Start: 12-04-2015 Alcohol Comment 1-2 times per month [facility] Start: 1970 Sex Assigned At Not on file [facility] Start: 04-08-2022 End: 06-30-2024 Tobacco use panel [facility] National Score (1-10 0), lower number is lower risk 67 [facility] Start: 03-21-2022 Sexual orientation Heterosexual (ced garcia) [facility] Start: 06-30-2024 Tobacco use and exposure Smokeless tobacco non-user [facility] Clinical Notes 03-19-2022 to 07-29-2024 Telephone Encounter - Arianna Longoria MD - 07/18/2024 8:21 AM EDTTelephone Encounter - Arianna Longoria MD - 07/18/2024 8:21 AM EDTArianna Longoria MD - 07/14/2024 2:53 PM EDT Note Date & Type Note Facility 07-29-2024 Radiology Diagnostic study note [facility] Imaging Services [address], [place] [address] Sinus/Facial Bone MR#: [id number] Acct: [id number] Name: JAZ PARTIDA Rep #: [id number] : 1970 F 54 From: Kaushik Hester MD PCP: Dr. Nader Flores MD Status: REG CLI Study:Sinus/Facial Bone Date of Exam: Exam# [id number] Ordering Dr: Isamar Ramirez MD PROCEDURE: SINUS/FACIAL BONE REASON FOR EXAM: SINUSITIS TECHNIQUE: CT of the paranasal sinuses without contrast. Coronal and Sagittal reconstruction series were provided. One or more dose reduction techniques were used (e.g., Automated exposure control, adjustment of the mA and/or kV according to patient size, use of iterative reconstruction technique). COMPARISON: None available FINDINGS: The paranasal sinuses appear well formed without wall thickening or sclerosis. The frontal, sphenoid, maxillary sinuses and ethmoid air cells are clear. No air-fluid levels. No significant appearing nasal septal deviation. No nasal spur. The turbinatesappear within limits. The orbits appear within limits. Infratemporal fossa fat appears preserved. Pterygopalatine foramen appear symmetric. Bilateral fossa of Rosenmuller appears symmetric. TMJs appear normally located. No dental periapical lucency. The mastoids, middle ears, internal auditory canals appear within limits. Mild appearing right carotid calcific plaque formation. C5-6 asymmetric uncovertebral hypertrophic change results in [id number]-right severe appearing left sided foraminal narrowing for example sagittal [address]/Sinus/Facial Bone IMPRESSION: No paranasal sinus disease as above. C5-6 asymmetric uncovertebral hypertrophic change results in [id number]-[id number]-right severe appearing left sided foraminal narrowing for example sagittal 77 and axial 7. Reading Location: [id number] CC: Dr. Nader Flores MD; Dr. 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 Rx sent for clobetasol ointment. Needs follow up in 12 weeks [facility] 07-18-2024 Miscellaneous Notes See result note. Rx sent for clobetasol ointment. Needs follow up in 12 weeks documented in this encounter [facility] 07-14-2024 Note HNO ID: [id number] Author: ARIANNA LONGORIA MD Service: ? Author Type: Physician Type: Progress Notes Filed: 07/15/2024 13:37 Note Text: Physician Office Specialist offered: Patient declines. Jaz Partida is a 54 year old female who presents today for a vulvar biopsy. Indication: skin changes. UNIVERSAL PROTOCOL / SAFETY CHECKLIST Procedure to be Performed: Vulvar Biopsy Sign In: A Moment of CARE was completed. Appropriate PPE (Personal Protective Equipment) worn by all providers involved with the procedure. Special equipment not required. Patient/Surrogate Stated/Verified: Patient name, Date of , Relevant allergies, and The intended procedure Time Out: Relevant labs, photos, and/or imaging studies are not applicable. Intended patient and procedure match the source document(s) (e.g. consent, HANDP, associated studies [imaging, pathology]) match the intended patient and procedure. Consent obtained and matches the intended procedure. Yes. Correct side/site has been marked and visible. Medications required for this procedure are verified. Fire risk assessed and is not applicable. Implants: are not applicable. Sign Out: Specimens are all correctly labeled and sent. All instruments, equipment, possible retained foreign bodies are accounted for. Yes. The post-procedure plan of care has been communicated to the patient or surrogate. PROCEDURE NOTE: GROSS LESIONS: Yes, pale appearing skin over clitoral smith, bilateral labia majora and posterior fourchette BIOPSY: Area was cleansed with betadine and anesthetized with 3mL 1% lidocaine with 1:100,000 epi. 3mm [place] punch used to biopsy region. HEMOSTASIS: Obtained with silver nitrate and pressure Procedure Summary: Patient tolerated procedure well. ASSESSMENT: vulvar and perineal skin changes PLAN: Specimens labeled and sent to Pathology. Will notify patient of results in 1-2 weeks. Post-procedure instructions reviewed and written material given to the patient. Arianna Longoria DO [facility] 07-14-2024 History of Presen t illness Narrative Physician Office Specialist offered: Patient declines. Jaz Partida is a 54 year old female who presents today for a vulvar biopsy. Indication: skin changes. UNIVERSAL PROTOCOL / SAFETY CHECKLIST Procedure to be Performed: Vulvar Biopsy Sign In: A Moment of CARE was completed. Appropriate PPE (Personal Protective Equipment) worn by all providers involved with the procedure. Special equipment not required. Patient/Surrogate Stated/Verified: Patient name, Date of , Relevant allergies, and The intended procedure Time Out: Relevant labs, photos, and/or imaging studies are not applicable. Intended patient and procedure match the source document(s) (e.g. consent, H&P, associated studies [imaging, pathology]) match the intended patient and procedure. Consent obtained and matches the intended procedure. Yes. Correct side/site has been marked and visible. Medications required for this procedure are verified. Fire risk assessed and is not applicable. Implants: are not applicable. Sign Out: Specimens are all correctly labeled and sent. All instruments, equipment, possible retained foreign bodies are accounted for. Yes. The post-procedure plan of care has been communicated to the patient or surrogate. PROCEDURE NOTE: GROSS LESIONS: Yes, pale appearing skin over clitoral smith, bilateral labia majora and posterior fourchette BIOPSY: Area was cleansed with betadine and anesthetized with 3mL 1% lidocaine with 1:100,000 epi. 3mm Nile punch used to biopsy region. HEMOSTASIS: Obtained with silver nitrate and pressure Procedure Summary: Patient tolerated procedure well. ASSESSMENT: vulvar and perineal skin changes PLAN: Specimens labeled and sent to Pathology. Will notify patient of results in 1-2 weeks. Post-procedure instructions reviewed and written material given to the patient. Arianna Longoria DO documented in this encounter [facility] 06-30-2024 Note HNO ID: [id number] Author: ARIANNA LONGORIA MD Service: ? Author Type: Physician Type: Progress Notes Filed: 06/30/2024 17:24 Note Text: Physician Office Specialist offered: Patient declines. Jaz is a 54 year old who presents for an annual gynecologic exam with complaints, vulvar irritation and vaginal odor menopause symptoms. The vaginal odor and itching started about 2 months ago. No new soaps, detergents etc. Hot flashes have become more infrequent. Night sweats are bothersome for her and interrupting sleep. Postmenopausal: Full hysterectomy at age 29 HRT use: Yes in past, not on any currently How long: was on it for a couple of years. Age at Menarche: 13 Still get period: No LMP: n/a Menses: hysterectomy Menstrual flow: N/A Bleeding amount bothersome: N/A Bleeding between periods: N/A Period symptoms: N/A Sexually active: Yes Time with current partner: 12 years Contraception: Other hysterectomy Contraception frequency: Always HPV vaccine: No Last pap smear: [id number] History of abnormal pap: No Colposcopy: No. Leep: No. Cone biopsy: No. Bothersome pelvic pain: No Last mammogram: years ago normal History of abnormal mammogram: No OB History No obstetric history on file. FAMILY HISTORY Problem Relation Age of Onset Primary Biliary Cirrhosis Mother No Known Problems Father No Known Problems Sister No Known Problems Sister Headache No Family History unknown SOCIAL HISTORY Social History Tobacco Use Smoking status: Every Day Current packs/day: 0.50 Average packs/day: 0.5 packs/day for 10.0 years (5.0 ttl pk-yrs) Types: Cigarettes Smokeless tobacco: Never Vaping Use Vaping status: Never Used Substance Use Topics Alcohol use: Yes Comment: 1-2 times per month Drug use: Yes Frequency: 1.0 times per week Types: Marijuana Comment: marijuana REVIEW OF SYSTEMS Abdomen: No abdominal pain, nausea, vomiting, diarrhea, or constipation. Bladder: No dysuria, gross hematuria, urinary frequency, urinary urgency, or incontinence Breast: No breast lumps, nipple d/c, overlying skin changes, redness or skin retraction Allergies and current medication updated:Yes SENSITIVE EXAM: The sensitive examination was discussed with the Patient or Patient's Authorized Seal Skinner. As applicable, any other physician, advance practice provider, medical student, or other health professional student that will be observing or involved in the sensitive examination for educational or training purposes was discussed with the Patient or Authorized Seal Skinner. The Patient or Authorized Seal Skinner has agreed to proceed with the sensitive examination. (Sensitive examination includes inspection and/or palpation of the breasts, pelvis, prostate and anorectal regions). EXAM: BP 100/68 Ht 5' 5.5 (1.66m) Wt 143 lb (64.9kg) BMI 23.43 kg/(m2). GENERAL: pleasant, female in no apparent distress HEENT: Normocephalic and atraumatic NECK: full range of motion BREAST: soft, non-tender, symmetric, no dominant mass, normal nipple-areolar complex, no lymphadenopathy, and no nipple discharge CHEST: Normal inspiratory effort ABDOMEN: soft, non-tender, and no masses PELVIC: whitening of the skin over clitoral smith, bilateral labia majora and over posterior fourchette with atrophy noted as well. Normal Bartholin's glands, urethra, [place]'s glands, no vulvar lesions, no cervical lesions, good vaginal support, physiologic discharge present, normal appearing perineal body and perianal region BIMANUAL: uterus normal size, shape and consistency, no adnexal masses, and non-tender RECTOVAGINAL: deferred. NEURO: exam grossly non-focal EXTREMITIES: normal ASSESSMENT/PLAN: 1) Health maintenance: Pap/HPV screening no longer needed Mammogram ordered Nutrition, exercise and routine health maintenance exams reviewed. Colon cancer screening: colonoscopy ordered TSH/lipids/glucose: ordered To establish with PCP 2) Follow up one year or sooner as needed Vulvar skin changes and symptoms: Possible lichen sclerosus? Recommend vulvar biopsy. Discussed atrophy and r/b/a vaginal estrogen cream after biopsy completed. Briefly discussed lichen sclerosus as well Post menopausal vasomotor symptoms: Discussed r/b/a HRT and non hormonal treatment options. Information given for her to review. She is considering options Arianna Longoria DO [facility] 05-12-2022 History of Presen t illness Narrative Episode Visit Count: 5 Therapist That Will Accept/Oversee The Plan Of Care: Gia Thurston PT Start of Care Date: 04/14/22 Onset Date: 03/14/22 Patient Identified by Name and Date of : Yes REHABILITATION AND SPORTS THERAPY PHYSICAL THERAPY DISCONTINUANCE OF CARE PLAN OF CARE UPDATE: Assessment: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 BrRad 2/4 2/4 Knee 2/4 2/4 Ankle 2/4 2/4 Herbert Response Negative Negative Coordination: finger-to- nose-finger intact bilaterally and [id number] intact bilaterally. Gait: Patient's gait is normal DATA REVIEWED Actual films/image/tracing reviewed and summarized as follows: Cervical CT, MRI brain Old records reviewed and summarized as follows: Neurology, Family medicine Assessment/Plan Assessment & Plan: Jaz Partida is a 51 year old right-handed female with a history of migraine, tobacco use, marijuana use. Her examination demonstrates sensory changes to the right upper extremity, partial median nerve distribution (no thumb involvement) with normal strength and reflexes, negative herbert. Tenderness to the right trapezius that worsens symptoms with palpation, mild pain with Spurling on the right. Patient with 1 month of pain down right upper extremity, paresthesias in the second and third digitof the right hand. Pain is constant, worsened with certain positions. Notes previous neck injury [id number], good relief with physical therapy at that time. Shoulder x-ray at emergency room was without any abnormality. No red flag signs or symptoms or physical exam findings to warrant MRI for concern of cord compression or myopathy. Likely musculoskeletal in nature, with pain to the right trapezius,however did have mildly positive Spurling's on the right. We will obtain cervical x-ray to avoid any bony abnormality, degenerative changes contributing to patient's symptoms. Will refer to physical therapy, patient with good success in the past, will also write for Flexeril 5 mg twice daily. Discus sed not using with alcohol, no driving with this medication. Patient agreeable and understands. Patient also instructed to use ice and heat to the right trapezius and shoulder, she states she has notbeen doing this for fear it may worsen her symptoms. Instructed to use ice and heat 20 minutes on 20 minutes off. Patient agreeable to treatment plan of care at this time, all questions have been answered. Patientwas educated on red flag signs and symptoms that would warrant evaluation in the emergency department including saddle anesthesia, bowel or bladder incontinence, acute weakness, or other signs of cord compression. Additionally, patient was educated on use of Aleve daily, go to the emergency room ifshe should have any melena, bright red blood in stool, coffee- ground emesis, etc. Patient voiced understanding to this. Patient to follow-up in 3 months or sooner should any symptoms change or worsen. Jaz was seen today for new patient. Diagnoses and all orders for this visit: Radicular pain in right arm - XR CERV OTHER 4V AP/LAT/OBL; Future - cyclobenzaprine (FLEXERIL) 5 mg tablet; Take 1 tablet by mouth twice daily as needed. - CONSULT TO PHYSICAL THERAPY; Future Paresthesia and pain of right extremity She should return to see me in 3 months. I spent a total of 30 minutes on the date of the service which included preparing to see the patient, [id number] patient care, completing clinical documentation, obtaining and/or reviewing separately obtained history, performing a medically appropriate examination, counseling and educating the pat ient/family/caregiver, and ordering medications, tests, or procedures. PDMP website checked and validated. All prescriptions have been APPROPRIATELY filled. No suspiciousactivity was identified. 04/08/2022 by KYLIE Adame PA-C [facility] Neurology [facility] Miscellaneous Notes* Telephone Encounter - Adele Henderson MA - 03/19/2022 3:10 PM EST Patient notified of results, verbalizes understanding of instructions will establish care with Dr. Londono or Dr. Bullock. Due to it being over 3 years since last seen-removed Dr. Flores as PCP. Adele Henderson MA * Telephone Encounter - Isamar Flores MD - 03/19/2022 2:51 PM EST I am not accepting new patients at this time. I would recommend she establish care with open internal medicine provider. * Telephone Encounter - Elinor Elder - 03/19/2022 2:19 PM EST Pt was last seen in 2017. She would like to know if Dr. Flores would be able to take her back on as a pt. She will need financial clearance first but that appt has been made. [facility] Hospital Discharge instructions Additional Instructions Apply ice to your right shoulder and arm 6-10 times a day for the next 3 to 5 days. Avoid activity that causes you increased pain.[facility] Work Phone: Evaluation noteNo assessment information available [facility] Work Phone: Evaluation note* Diagnosis Radicular pain in right arm- Primary Neuralgia, neuritis, and radiculitis, unspecified Paresthesia and pain of right extremity Pain in limb documented in this encounter [facility] note* Diagnosis Radicular pain in right arm- Primary Neuralgia, neuritis, and radiculitis, unspecified documented in this encounter [facility] note* Diagnosis Radicular pain in right arm- Primary Neuralgia, neuritis, and radiculitis, unspecified documented in this encounter [facility] note* Diagnosis Radicular pain in right arm- Primary Neuralgia, neuritis, and radiculitis, unspecified documented in this encounter [facility] note* Diagnosis Radicular pain in right arm- Primary Neuralgia, neuritis, and radiculitis, unspecified documented in this encounter [facility] note* Diagnosis Radicular pain in right arm- Primary Neuralgia, neuritis, and radiculitis, unspecified documented in this encounter [facility] note* Diagnosis Radicular pain in right arm Neuralgia, neuritis, and radiculitis, unspecified documented in this encounter [facility] note* Diagnosis Other skin changes- Primary documented in this encounter [facility] note* Diagnosis Lichen sclerosus- Primary Circumscribed scleroderma [facility] Diagnostic Procedure Only (Routine) - Closed Specialty Diagnoses / Procedures Referred By Jered alonzo Referred To Contact XR IMAGING Diagnoses Radicular pain in right arm Procedures XR CERV OTHER 4V AP/LAT/OBL RADEX SPINE CERVICAL 4 OR 5 VIEWS Izzy Briseno PA-C [address] [place] [address] [place] [id number] Referral ID Status Reason Start Date Expiration Date V isits Requested Visits Authorized [id number] Closed Auto-Generate d Referral 04/08/2022 05/08/2023 1 1 [facility] for referral (narrative)No reason for referral information availableWUpper Valley Medical Center Work Phone: Summary Purpose Family History No Family History Records FoundNo Family History Records FoundNo Family History Records Found Advance Directives Advance Directive Response Recorded Date/ Time Living Will No March 19 11:56am Power of Regulatory Manager No March 19, 2022 11:56am Chief Complaint and Reason for Visit Chief Complaint ARM RIGHT ARM Chief Complaint Admit Date [id number] July 28, 2024 5:15p m Reason for Referral Specialty Diagnoses / Procedures Referred By Jered alonzo Referred To Contact [facility] Diagnoses Radicular pain in right arm Procedures CONSULT TO PHYSICAL THERAPY PHYSICAL THERAPY EVALUATION HIGH COMPLEX 45 MINS Izzy Briseno PA-C [address] [place] [address] [facility] [address] [place] [address] Referral ID Status Reason Start Date Expiration Date Visits Requested Visits Authorized [id number] Pending Review Auto-Generat ed Referral 04/08/2022 04/08/2023 1 1 Specialty Diagnoses / Procedures Referred By Jered alonzo Referred To Contact XR IMAGING Diagnoses Radicular pain in right arm Procedures XR CERV OTHER 4V AP/LAT/OBL RADEX SPINE CERVICAL 4 OR 5 VIEWS Izzy Briseno PA-C [address] [place] [address] Xr Imaging Referral ID Status Reason Start Date Expiration Date Visits Requested Visits Authorized [id number] Pending Review Auto-Generat ed Referral 04/08/2022 05/08/2023 1 1 Specialty Diagnoses / Procedures Referred By Jered t Referred To Contact [facility] Diagnoses Radicular pain in right arm Procedures PT REHAB FOLLOW UP ORDER THERAPEUTIC EXERCISES RE, EA 15 MIN. Pt [facility] [address] [place] [address] [facility] [address] [place] [address] Referral ID Status Reason Start Date Expiration Date Visits Requested Visits Authorized [id number] Pending Review PCP Requested Referral Auto-Generate d Referral 04/14/2022 07/13/2022 1 1 Additional Source Comments INFORMATION SOURCE (unrecogn ized section and content) DATE CREATED AUTHOR 09/01/2017 [facility] ([place]) DATE CREATED AUTHOR AUTHOR'S ORGANIZ ATION 07/18/2024 [facility] DATE CREATED AUTHOR AUTHOR'S ORGANIZ ATION 08/04/2024 [facility] Goals (unrecognized section and content) Goals may be documented in a n alternate sectionGoals may be documented in an alternate section Source Comments (unrecognize d section and content) In the event this informatio n is protected by the Federal Confidentiality of Alcohol and Drug Abuse Patient Records regulations: The Federal rules restrict any use of the information to criminally investigate or prosecute any alcohol or drug abuse patient.[facility] the event this information is protected by the Federal Confidentiality of Alcohol and Drug Abuse Patient Records regulations: The Federal rules restrict any use of the information to criminally investigate or prosecute any alcohol or drug abuse patient.[facility] the event this information is protected by the Federal Confidentiality of Alcohol and Drug Abuse Patient Records regulations: The Federal rules restrict any use of the information to criminally investigate or prosecute any alcohol or drug abuse patient.[facility] the event this information is protected by the Federal Confidentiality of Alcohol and Drug Abuse Patient Records regulations: The Federal rules restrict any use of the information to criminally investigate or prosecute any alcohol or drug abuse patient.[facility] the event this information is protected by the Federal Confidentiality of Alcohol and Drug Abuse Patient Records regulations: The Federal rules restrict any use of the information to criminally investigate or prosecute any alcohol or drug abuse patient.[facility] the event this information is protected by the Federal Confidentiality of Alcohol and Drug Abuse Patient Records regulations: The Federal rules restrict any use of the information to criminally investigate or prosecute any alcohol or drug abuse patient.[facility] the event this information is protected by the Federal Confidentiality of Alcohol and Drug Abuse Patient Records regulations: The Federal rules restrict any use of the information to criminally investigate or prosecute any alcohol or drug abuse patient.[facility] the event this information is protected by the Federal Confidentiality of Alcohol and Drug Abuse Patient Records regulations: The Federal rules restrict any use of the information to criminally investigate or prosecute any alcohol or drug abuse patient.[facility] the event this information is protected by the Federal Confidentiality of Alcohol and Drug Abuse Patient Records regulations: The Federal rules restrict any use of the information to criminally investigate or prosecute any alcohol or drug abuse patient.[facility] the event this information is protected by the Federal Confidentiality of Alcohol and Drug Abuse Patient Records regulations: The Federal rules restrict any use of the information to criminally investigate or prosecute any alcohol or drug abuse patient.[facility] the event this information is protected by the Federal Confidentiality of Alcohol and Drug Abuse Patient Records regulations: The Federal rules restrict any use of the information to criminally investigate or prosecute any alcohol or drug abuse patient.[facility] Reason for Visit (unrecogniz ed section and content) Reason Comments PT Discharge Specialty Diagnoses / Procedures Referred By [facility] Referred To Contact [facility] Department Diagnoses est [facility] Ref[facility] Status Reason Start Date Expiration Date Visits Requested Visits Authorized [id number] Authorized Financial Clearance Required - Self Pay Patient Cleared - Qualified [id number] 03/28/2022 06/26/2022 99 99 Reason Comments PT Eval Patient Education Specialty Diagnoses / Procedures Referred By [facility] Referred To Contact [facility] Department Diagnoses est Procedures est Self [facility] Reason Comments Future Appointment Reason Comments New Patient Numbness in RIGHT in dex & middle finger & RIGHT arm pain Reason Comments Physical Therapy Specialty Diagnoses / Procedures Referred By [facility] Referred To Contact [facility] DEPARTMENT Diagnoses est Procedures est Self [facility] [place] [address] Referral ID Status Reason Start Date Expiration Date V isits Requested Visits Authorized [id number] Closed Financial Clearance Required - Self Pay Patient Cleared - Qualified [id number] 03/28/2022 06/26/2022 99 99 Reason Comments vulvar biopsy Reason Comments Orders Care Teams (unrecognized sec tion and content) Team Status: Active Member Role Status Dates Dr. Nader Flores MD Primary Care Provider Acti ve Team Status: Inactive Member Role Status Dates Dr. Nader Flores MD Primary Care Provider Acti phoebe Start: July 28, 2024 End: July 28, 2024 Dr. Isamar Ramirez MD Attending Provider Activ e Start: July 28, 2024 End: July 28, 2024 Dr. Isamar Ramirez MD Referring Provider Activ e Start: July 28, 2024 End: July 28, 2024 FOR RECORDS PERTAINING TO PATIENTS WHO ARE OR HAVE BEEN ENROLLED IN A CHEMICAL DEPENDENCY/SUBSTANCEABUSE PROGRAM, SOME INFORMATION MAY BE OMITTED. This clinical summary was aggregated from multiple sources. Caution should be exercised in using it in the provision of clinical care. This summary normalizes information from multiple sources, and as a consequence, information in this document may materially change the coding, format and clinical context of patient data. In addition, data may be omitted in some cases. CLINICAL DECISIONS SHOULD BE BASED ON THE PRIMARY CLINICAL RECORDS. [facility] [employer] [facility]. provides no warranty or guarantee of the accuracy or completeness of information in this document.
[2024-09-02 20:37] VITALS: BP 139/79; PULSE 79; RESP 16; TEMP 36.9; O2SAT 100
== END 2024-09-02 20:38 | disposition home or self-care (01) ==
PROVIDERS: Emergency Provider Emergency Medicine; Visit Provider Emergency Medicine
DX: S61.411A Laceration without foreign body of right hand, initial encounter (principal); F17.210 Nicotine dependence, cigarettes, uncomplicated; W26.8XXA Contact with other sharp object(s), not elsewhere classified, initial encounter; Y93.39 Activity, other involving climbing, rappelling and jumping off; Y92.000 Kitchen of unspecified non-institutional (private) residence as the place of occurrence of the external cause
CPT/HCPCS: 12001; 99282

== ENCOUNTER 2024-09-04 17:26 | Inpatient (IN) | payer OTHER, SELFPAY ==
[2024-09-04] VITALS (7 sets, daily range): BP systolic 107–215; BP diastolic 70–161; PULSE 62–97; RESP 16–30; TEMP 36.6–37.1; O2SAT 99–100; BMI 22.8; BMI 22.6
--- NOTE | 2024-09-04 17:56 | CT_ITS ---
PROCEDURE: ABDOMEN/PELVIS WITHOUT CONT 09/04/2024 REASON FOR EXAM: RIGHT FLANK PAIN TECHNIQUE: ABDOMEN/PELVIS WITHOUT CONT Noncontrast technique limits evaluation of the abdominal and pelvic viscera. Coronal and Sagittal reconstruction series were provided. One or more dose reduction techniques were used (e.g., Automated exposure control, adjustment of the mA and/or kV according to patient size, use of iterative reconstruction technique). RADIATION DOSE SUMMARY: CTDlvol: 7.0 mGy DLP: 339 mGycm COMPARISON: None FINDINGS: Lung bases: Unremarkable Liver: Unremarkable Gallbladder: Unremarkable Spleen: Normal size. Pancreas: Normal size. No surrounding inflammation. Adrenals: Unremarkable Kidneys/ureter: There is a stone in the right distal ureter measuring 3 mm (series 2, image 146) resulting in mild upstream hydroureteronephrosis. A slightly larger calcification medial to this is favored to represent a phlebolith. No left-sided stone or hydronephrosis. Bladder: Unremarkable Reproductive Organs: Prior hysterectomy. Adnexal regions are unremarkable. Bowel: No obstruction or inflammation. Unremarkable appendix. There is colonic diverticulosis which is more notable in the right colon. Lymph nodes: No significant lymphadenopathy. Vasculature: Mild aortic atherosclerosis Bones: T9 vertebral body hemangioma is partially imaged. There is a healed left posterior rib fracture. Osteitis condensans ilii. Soft tissues: Fat containing umbilical hernia CT/Abdomen/Pelvis without Cont IMPRESSION: Stone in the right distal ureter measuring 3 mm resulting in mild upstream hydr oureteronephrosis. Reading Location: [id number]
--- NOTE | 2024-09-04 18:01 | EDS_ITS ---
HPI <DAREN Herman - Last Filed: 09/04/24 21:18> History of Present Illness Chief Complaint: Flank Pain Narrative Narrative: 54-year-old female with past medical history of hysterectomy presents with sudden onset pain in her right side radiating towards right lower abdomen that started around 5 PM. No fever or chills. No chest pain, shortness of breath or cough. No nausea or vomiting. She reports normal bladder bowel movements. No history of kidney stones. She takes a multivitamin but no other medications. PFSH <DAREN Herman - Last Filed: 09/04/24 21:18> PFSH Medical History Psoriasis Tobacco use Home Medications ?Medication ?Instructions ?Recorded ?Last Taken ?Type multivitamin (Daily Multi-Vitamin 1 tab PO DAILY 09/04 Unknown History tablet) Allergy/AdvReac Type Severity Reaction Status Date / Time Penicillins Allergy Hives Verified 09/04/24 17:27 Family History (Updated 09/04/24 @ 21:[address] Bhumika Abdullahi MD) Mother Alcoholic cirrhosis Alcohol abuse Father Cancer Surgical History History of hysterectomy Social History (Updated 09/04/24 @ 21:[address] Bhumika Abdullahi MD) household members: significant other Smoking Status: Current every day smoker tobacco type: cigarettes Smoking packs per day: 0.5 Smoking cigarettes per day: 10.0 alcohol intake: never substance use type: does not use ROS <DAREN Herman - Last Filed: 09/04/24 21:18> ROS ED ROS Narrative Constitutional: Negative for fever, chills, malaise. CVS: Negative for chest pain. Respiratory: Negative for shortness of breath. GI: Positive for abdominal pain. No nausea or vomiting. : Negative for dysuria, hematuria or frequency. EXAM <DAREN Herman Last Filed: 09/04/24 21:18> Physical Exam Narrative Exam Narrative: CONST: Patient appears uncomfortable and is moaning in bed. EYES: Normal inspection. NECK: Normal inspection. RESP: No respiratory distress, CTAB. CVS: Regular rate and rhythm, no murmur, no gallop. ABD: Tender over right side between her flank and abdomen. Her abdomen itself is really soft and nontender, no guarding or rebound, nondistended, no hepatosplenomegaly. Back: Normal inspection, no CVA tenderness. SKIN: Color normal, no rash, warm, dry, intact. EXTREMITIES: Normal appearance, no pedal edema. NEURO: Alert and answering questions appropriately. PSYCH: Normal affect. Const Vital Signs: 09/04/24 17:26 09/04/24 17:37 09/04/24 18:28 Temperature 98.7 F 98.7 F 98.7 F Temperature Source Oral Oral Oral Pulse Rate 62 75 97 Respiratory Rate 16 30 H 29 H Blood Pressure 215/161 H 107/70 131/78 H Blood Pressure Mean 179 82 95 Pulse Ox 100 100 99 Oxygen Delivery Method Room Air Room Air Room Air 09/04/24 19:26 Temperature Temperature Source Pulse Rate 88 Respiratory Rate 26 H Blood Pressure 119/74 Blood Pressure Mean 89 Pulse Ox 100 Oxygen Delivery Method Room Air <Dr. Ousmane Paige DO - Last Filed: 09/04/24 21:57> Physical Exam Const Vital Signs: 09/04/24 17:26 09/04/24 17:37 09/04/24 18:28 Temperature 98.7 F 98.7 F 98.7 F Temperature Source Oral Oral Oral Pulse Rate 62 75 97 Respiratory Rate 16 30 H 29 H Blood Pressure 215/161 H 107/70 131/78 H Blood Pressure Mean 179 82 95 Pulse Ox 100 100 99 Oxygen Delivery Method Room Air Room Air Room Air 09/04/24 19:26 Temperature Temperature Source Pulse Rate 88 Respiratory Rate 26 H Blood Pressure 119/74 Blood Pressure Mean 89 Pulse Ox 100 Oxygen Delivery Method Room Air MDM <DAREN Herman - Last Filed: 09/04/24 21:18> [facility] Narrative Medical decision making narrative: History gathered from: Patient and significant other Differential includes kidney stone, pyelonephritis, colitis, appendicitis among others Consults: Urology, hospitalist 54-year-old female with no significant PMH presents with sudden onset right side pain rating towards the right lower abdomen. No associated symptoms. She appears uncomfortable and is moaning. She is hypertensive with otherwise stable vital signs. She is tender over the right side between her flank and abdomen. No peritoneal signs. Labs are overall unremarkable. Normal WBC at 8.3. Creatinine 0.7. Urinalysis is consistent with UTI and was sent for culture and treated with Rocephin. CT shows a 3 mm right distal ureteral stone resulting in hydroureteronephrosis. Although the size stone should pass on its own patient's pain is intractable despite IV morphine, Dilaudid, and Toradol. I discussed the case with urologist Dr. Rodarte who states he will see the patient in the morning and requested admission to medicine. I discussed the case with the hospitalist for admission. History & Record Review Discussion w/independent historian: Patient and Family Lab Data Attestation: I reviewed the patient's lab results. Labs: Laboratory Results - last 24 hr 09/04/24 09/04/24 17:36 19:55 WBC 8.3 RBC 4.17 L Hgb 12.8 Hct 38.0 MCV 91.1 MCH 30.7 MCHC 33.7 RDW Std Deviation 47.6 H RDW Coeff of Meera 14.3 Plt Count 310 MPV 11.3 Immature Gran % (Auto) 0.400 Neut % (Auto) 54.3 Lymph % (Auto) 32.5 [place] % (Auto) 11.0 H Eos % (Auto) 0.8 Baso % (Auto) 1.0 Absolute Neuts (auto) 4.5 Absolute Lymphs (auto) 2.69 Nucleated RBC % 0 Sodium 139 Potassium 3.7 Chloride 101 Carbon Dioxide 24.7 Anion Gap 13 BUN 12 Creatinine 0.70 Estim Creat Clear Calc 86.01 Est GFR (MDRD) Non-Af 102 BUN/Creatinine Ratio 16.8 Glucose 111 H Calcium 9.1 Urine Color Yellow Urine Clarity Clear Urine pH 5.0 Ur Specific [place] 1.025 Urine Protein 15 H Urine Glucose (UA) Normal Urine Ketones Negative Urine Occult Blood 25 H Urine Nitrite Negative Urine Bilirubin Negative Urine Urobilinogen Normal Ur Leukocyte Esterase 500 H Urine RBC 0 SEEN Urine WBC 50-100 SEEN Ur Squamous Epith Cells 0-5 SEEN Calcium Oxalate Crystal 1+ Urine Bacteria 2+ Urine Mucus 2+ Radiography Diagnostic Testing: Clinical Impression(s) from Imaging Studies Abdomen/Pelvis CT 09/04/24 17:56 IMPRESSION: Stone in the right distal ureter measuring 3 mm resulting in mild upstream hydroureteronephrosis. Reading Location: [id number] <Dr. Ousmane Paige, DO - Last Filed: 09/04/24 21:57> MDM History & Record Review Additional record(s) reviewed:: Prior ED visit Lab Data Labs: Laboratory Results - last 24 hr 09/04/24 09/04/24 17:36 19:55 WBC 8.3 RBC 4.17 L Hgb 12.8 Hct 38.0 MCV 91.1 MCH 30.7 MCHC 33.7 RDW Std Deviation 47.6 H RDW Coeff of [place] 14.3 Plt Count 310 MPV 11.3 Immature Gran % (Auto) 0.400 Neut % (Auto) 54.3 Lymph % (Auto) 32.5 [place] % (Auto) 11.0 H Eos % (Auto) 0.8 Baso % (Auto) 1.0 Absolute Neuts (auto) 4.5 Absolute Lymphs (auto) 2.69 Nucleated RBC % 0 Sodium 139 Potassium 3.7 Chloride 101 Carbon Dioxide 24.7 Anion Gap 13 BUN 12 Creatinine 0.70 Estim Creat Clear Calc 86.01 Est GFR (MDRD) Non-Af 102 BUN/Creatinine Ratio 16.8 Glucose 111 H Calcium 9.1 Urine Color Yellow Urine Clarity Clear Urine pH 5.0 Ur Specific [place] 1.025 Urine Protein 15 H Urine Glucose (UA) Normal Urine Ketones Negative Urine Occult Blood 25 H Urine Nitrite Negative Urine Bilirubin Negative Urine Urobilinogen Normal Ur Leukocyte Esterase 500 H Urine RBC 0 SEEN Urine WBC 50-100 SEEN Ur Squamous Epith Cells 0-5 SEEN Calcium Oxalate Crystal 1+ Urine Bacteria 2+ Urine Mucus 2+ Radiography Diagnostic Testing: Clinical Impression(s) from Imaging Studies Abdomen/Pelvis CT 09/04/24 17:56 IMPRESSION: Stone in the right distal ureter measuring 3 mm resulting in mild upstream hydroureteronephrosis. Reading Location: [id number] Treatment and Re-Evaluation :: I have personally performed a face to face assessment of the patient and have reviewed the ERIC Note. I performed a substantive portion of the visit including all aspects of the following. My boogie findings include: History: Patient presents with right flank pain that began approximately 1 hour prior to arrival. Patient describes her pain as stabbing. Patient states nothing makes it better and nothing makes it worse. Patient states it is constant. Patient is unable to find a position of comfort. Patient denies any history of kidney stones in the past. Patient denies any fevers or chills. Exam: Vital signs are stable except for an elevated blood pressure of 215/161. Patient is afebrile. Oral mucosa is pink and moist. Neck is supple. Trachea is midline. There is no JVD. Heart was regular rate and rhythm. Lungs are clear and equal bilaterally. There is good respiratory effort noted. Abdomen is soft. Bowel sounds are normal. There is right flank tenderness. There is mild right lower quadrant tenderness. There is no rebound or guarding noted. Cranial nerves II through XII are intact. There are no focal motor or sensory deficits noted. Medical Decision Making: Differential diagnosis includes ureteral calculus, pyelonephritis, bowel obstruction, perforation, aortic dissection, and aortic aneurysm. CT scan of the abdomen and pelvis will be obtained to assess for bowel obstruction, ureteral calculus, pyelonephritis, and aortic aneurysm. CBC will be obtained to assess for leukocytosis and anemia. Basic metabolic profile will be obtained to assess for electrolyte abnormality renal function. Urinalysis will be obtained to assess for urinary tract infection and hematuria. Patient was given IV fluids. Patient was given morphine and Zofran. Patient was given a repeat dose of morphine and Toradol. CT scan of the abdomen and pelvis was obtained. There is a 3 mm calculus of the right distal ureter. There is hydronephrosis and hydroureter. This was interpreted by the radiologist was also independently reviewed by myself. CBC was reviewed and was essentially within normal limits. Basic metabolic profile was reviewed and was essentially within normal limits. Urinalysis was reviewed. Leukocyte esterase was 500 with 50-100 white blood cells and 2+ bacteria. Urine culture was ordered. Patient was given a dose of Rocephin. Patient was also given a dose of Dilaudid. Case was discussed with hospitalist. She will admit the patient to her service. Case was also discussed with Dr. Rodarte. He will see the patient in consultation. Patient understood and was agreeable with the plan. All questions were answered. Discharge Plan Dx/Rx/DC Orders Clinical Impression: Calculus of right kidney, Hydronephrosis, right, Complicated urinary tract infection, Intractable abdominal pain Disposition Disposition: Acute Care [facility]
[2024-09-04] MEDS: 0.9% Normal Saline (1000mL) 1,000 ML 999 ML IV (18:03)
[2024-09-04 18:10] LABS: Hematocrit 38.0 % (37-47); Hemoglobin 12.8 g/dL (12.0-15.0); Immature Granulocytes Count 0.030 X10^3/uL (0.0-0.0); Mean Corp Hgb Conc 33.7 g/dL (32-36); Mean Corpuscular Volume 91.1 fL (81-99); Mean Platelet Vol. 11.3 fl (6.2-12.0); NRBC Flagged by Analyzer 0 % (0-5); Platelet Count 310 K/mm3 (150-450); RBC Distribution Width CV 14.3 % (11.6-14.6); RBC Distribution Width SD 47.6 fl (35.1-43.9); Red Blood Count 4.17 M/mm3 (4.2-5.4); White Blood Count 8.3 K/mm3 (4.4-11.0)
[2024-09-04 18:35] LABS: Anion Gap 13 (5-15); BUN 12 mg/dL (4-19); BUN/Creat Ratio 16.8 RATIO (10-20); Calcium,Total 9.1 mg/dL (7.6-11.0); Carbon Dioxide 24.7 mmol/L (21.0-32.0); Chloride 101 mmol/L (98-108); Estimated Creatinine Clearance 86.01 ml/min (50-250); Glucose 111 mg/dL (70-99); Potassium 3.7 mmol/L (3.3-5.1)
--- OUTSIDE RECORDS SUMMARY | 2024-09-04 18:41 | XMS RPT_ITS | CCD ---
Author Organization [facility] ion Partnership [facility] Care Team Providers Care Ged Tutor Name Role Phone SHERRI VILLALPANDO Unavailable Unavailable ISAMAR FLORES Unavailable Unavailable Unavailable Primary Care Provider Unavailabl e Unavailable Primary Care Provider UnavailARIANNA Chavez Attending Unavailable ARIANNA LONGORIA Referring Unavailable ARIANNA LONGORIA Attending Unavailable SELF Referring Unavailable Sandra BLEDSOE, Dr. Doe Primary Care Provider Ashley BLEDSOE, Dr. Sung Attending Provider Dr. Isamar Ramirez MD Referring Provider Dr. Fracisco Nunez MD Emergency Provider Care Physician, No Primary Primary Care Provider Unavailable Nader Flores Primary Care Unavailable Isamar Ramirez Referring UnavailIsamar Cullen Attending Unavailabl e Care Physician, No Primary Primary Care Unava ilable Fracisco Nunez Attending Unavailable Care Physician, No Primary Primary Care Unava ilable Ousmane Paige Attending Unavailable Allergies Allergy Classification Reported Allergen(s) Allergy Type Date of Onset Reaction(s) Facility (4 sources) Penicillins; Translations: [PENICILLINS] Allergy to substance 12-04-2015 [facility] [place] Rep[facility] (8 sources) Penicillins Drug Allergy 12-04-2015 [facility] (3 sources) Penicillins Drug Allergy 12-04-2015 [facility] (1 source) Penicillins Drug allergy (disorder) 09-04-2024 [facility] Repository Medications Current Medications Medication Drug [...] finger. 30 g 2 07/18/2024 10/10/2024 Active L.crispat,layai, rudd,rhamn (AZO VAGINAL HEALTH PROBIOTIC ORAL) (3 sources) L.crispat,laya i, rudd,rhamn (AZO VAGINAL HEALTH PROBIOTIC ORAL) Take by mouth. Active meloxicam 15 mg oral tablet (3 sources) Nonsteroidal Anti-inflammatory Drug Start: 03-12-2022 take 1 tablet by mouth once daily Meloxicam 15 mg tablet Active 15 mg PO DAILY 14 March 12, 2022 1:00am MULTIVITAMIN ORAL (3 sources) MULTIVITAMIN ORA L Take by mouth. Active naproxen 500 mg oral tablet (13 sources) Nonsteroidal Anti-inflammatory Drug Start: 03-19-2022 take 1 tablet by mouth twice daily Naproxen 500 mg tablet Active 500 mg PO TWICE A DAY 14 March 19, 2022 1:00am naproxen sodium (ALEVE [...] Comment on above: Take 1 capsule by [facility] once daily. sertraline 25 mg oral tablet (11 sources) Serotonin Reuptake Inhibitor take 1 tablet by mouth twice daily sertraline (ZOLOFT) 25 mg tablet Take 25 mg by mouth twice daily. Active Comment on above: Take 25 mg by mouth twice daily. sulfamethoxazole 800 mg / trimethoprim 160 mg oral tablet (3 sources) Dihydrofolate Reductase Inhibitor Antibacterial, Sulfonamide Antimicrobial Start: 03-27-19 22 Sulfamethoxazole-T rimethoprim (Bactrim Ds) 800-160 mg tablet Active 1 {tbl} PO TWICE A DAY 10 5 March 27, 2021 1:00am topiramate 25 mg oral tablet (11 sources) Start: 08-01-19 17 take 1 tablet by mouth once daily at bedtime topiramate (TOPAMAX) 25 mg tablet TAKE 1 TABLET BY MOUTH DAILY AT BEDTIME. 30 tablet 5 07/31/2016 Active Comment on above: TAKE 1 TABLET BY SONY TH DAILY AT BEDTIME. traMADol hydrochloride 50 mg oral tablet (3 sources) Opioid Agonist Start: 03-12-19 23 take 1 tablet by mouth every four hours as needed for pain Tramadol 50 mg tablet Active 50 mg PO EVERY 4 HOURS NEEDED as needed for Pain 15 3 March 12, 2022 1:00am Strain of right trapezius muscle Completed/Discontinued Medications Medication Drug Class(es) Dates Sig (Normalized) Sig (Original) cyclobenzaprine hydrochloride 5 mg oral tablet (9 sources) Muscle Relaxant Start: 04-08-2022 End: 05-08-2022 [...] A DAY as needed for Muscle Spasm 20 March 12, 2022 1:00am Comment on above: Take 1 tablet by sony th twice daily as needed. Problems Active Problems Problem Classification Problem Date Documented Date Episodic/Chronic Diabetes mellitus without complication (11 sources) Hyperglycemia; Translations: [Hyperglycemia, unspecified] 05-02-2016 Episodic Headache; including migraine (11 sources) Migraine; Translations: [Migraine, unspecified, not intractable, without status migrainosus] 05-02-2016 Chronic Open wounds of extremities (1 source) Laceration of finger; Translations: [Laceration without foreign body of unspecified finger without damage to nail, initial encounter] 09-02-2024 Episodic Other connective tissue disease (3 sources) Pain in right arm; Translations: [Pain in right arm] 03-27-2022 Episodic Other connective tissue disease (1 source) Pain in limb; Translations: [Pain in unspecified limb] Episodic Other female genital disorders (2 sources) Other specified noninflammatory disorders of vagina; Translations: [Vaginal odor] Onset: 06-30-2024 Episodic Other inflammatory condition of skin (11 sources) Psoriasis; Translations: [Psoriasis, unspecified] 12-04-2015 Chronic Other nervous system disorders (3 sources) Paresthesia of finger; Translations: [Paresthesia of skin] 03-27-2022 Episodic Other non-traumatic joint disorders (1 source) Shoulder pain; Translations: [Pain in right shoulder] Episodic Other non-traumatic joint disorders (2 sources) Pain in right shoulder; Translations: [Acute pain [...] Translations: [Flushing] 12-04-2015 Episodic Sprains and strains (6 sources) Strain of trapezius muscle; Translations: [Strain of other muscles, fascia and tendons at shoulder and upper arm level, right arm, initial encounter] 03-20-2022 Episodic Substance-related disorders (1 source) Nicotine dependence, unspecified, uncomplicated; Translations: [Tobacco use disorder] Onset: 07-05-2024 Chronic Substance-related disorders (11 sources) Marijuana user; Translations: [Cannabis use, unspecified, uncomplicated] 12-04-2015 Episodic Urinary tract infections (3 sources) Cystitis; Translations: [Cystitis, unspecified without hematuria] 04-04-2021 Episodic Past or Other Problems Problem Classification Problem Date Documented Da te Episodic/Chronic Other connective tissue disease (14 sources) Radicular pain; Translations: [Neuralgia and neuritis, unspecified] Onset: 04-14-2022 Resolved: 05-12-2022 Episodic Results Test Name Value Interpretation Reference Range Facility Emergency Department Summary on 09-02-2024 Emergency Department Summary [facility] Medical Records Department [address] [place] [address] Emergency Department Summary 09/02/24 MR#: [id number] Acct: [id number] Name: JAZ STILL Rep #: [id number] : 1970 54 From: Pallavi MERCEDES PCP: Care Physician,No Primary Status:DEP ER Location: ED HPI History of Present Illness Chief Complaint: Laceration Narrative Narrative: Patient presenting today with a laceration to her right index finger that she got this evening when she was cleaning something that had spilled under the fridge and got her finger caught on something sharp causing a laceration. She is right-handed, she is not on any blood thinners, tetanus is not up-to-date. She denies any other injury. PFSH PFS Home Medications ???Medication ???Instructions ???Recorded ???Last Taken ???Type sulfamethoxazole 800 1 tab PO BID 5 days #10 tabs 03/27 Unknown Rx mg-trimethoprim 160 mg tablet (Bactrim DS) cyclobenzaprine 10 mg tablet 10 mg PO TID PRN Muscle Spasm #20 03/12/22 Unknown Rx TABLETS meloxicam 15 mg tablet 15 mg PO DAILY #14 tabs 03/12/22 U nknown Rx tramadol 50 mg tablet 50 mg PO Q4H PRN PRN Pain 3 days 0 03/12/22 Unknown Rx #15 tabs naproxen 500 mg tablet 500 mg PO BID #14 tabs 03/19/22 Un known Rx Allergy/AdvReac Type Severity Reaction Status Date / Time Penicillins Allergy Hives Verified 09/02/24 17:01 Social History household members: significant other Smoking Status: Current every day smoker tobacco type: cigarettes ROS ROS ED Constitutional Constitutional ED: Denies chills or fever(s) Cardiovascular Cardiovascular: Denies chest pain Respiratory/Chest Respiratory/Chest: Denies dyspnea Gastrointestinal Gastrointestinal: Denies abdominal pain Musculoskeletal Musculoskeletal: Reports other Details: Right index finger pain Integumentary Denies rash Neurologic Neurologic: Denies paresthesias EXAM Physical Exam Const Vital Signs: 09/02/24 17:01 Temperature 98.4 F Temperature Source Oral Pulse Rate 65 Respiratory Rate 16 Blood Pressure 129/89 H Blood Pressure Mean 102 Pulse Ox 99 Oxygen Delivery Method Room Air Positive well nourished, well developed and no apparent distress General Appearance ED: well developed HEENT Reports normocephalic and head/scalp atraumatic Mouth ED: Yes moist mucous membranes normal Eyes PERRL and EOMs intact bilaterally Neck full ROM and supple Chest Wall inspection of chest normal Resp normal respiratory effort and clear to auscultation bilaterally Cardio regular rate and regular rhythm Back/Spine normal ROM and normal to inspection Extremity normal to inspection and full ROM Extremity Narrative: 1 cm full-thickness linear laceration just below the PIP joint to the dorsal aspect of the right index finger. No active bleeding. Right radial pulse 2+, good cap refill, sensation intact. She is able to flex and extend at the MCP, PIP, and DIP joints. Neuro oriented x3, CN's II-XII intact bilaterally, moves all extremities, no focal motor deficits and no sensory deficits noted Sensorium / Orientation: awake and alert Psych mental status grossly normal and thought process normal Skin Skin Narrative: Aside from laceration to the right index finger no other rashes or lesions noted. MDM MDM MDM Narrative Medical decision making narrative: Patient presenting today due to a laceration to her right index finger just above the PIP joint to the dorsal aspect of the finger. Her tetanus will be updated. This will require suture repair. She has full range of motion to her finger, she is neurovascularly intact, no obvious tendon injury. Laceration was copiously irrigated and repaired with sutures. She tolerated procedure well. Wound care instructions were discussed with her, reasons to return were discussed. Finger was bandaged with bacitracin ointment. Recommended she have sutures removed in 7 days by her PCP. Will be discharged home in stable condition. I have personally performed a face to face assessment of the patient and have reviewed the ERIC Note. I performed a substantive portion of the visit including all aspects of the following. My boogie findings include: History is 54-year-old female laceration dorsum right hand long finger just proximal DIP joint. Occurred just prior to arrival. Tetanus needs updated. Exam is [well-appearing 54-year-old female. Vital signs stable afebrile. Anxious. HEENT exam normal. Pupils round reactive light. No trauma. Neck nontender. Lungs clear to auscultation. Heart regular rhythm no murmur. Abdomen soft nontender. Moving all 4 extremities. Neurovascular intact. Specifically right hand long finger laceration skin and subc (more content not included)... Normal [facility] Sinus/Facial Boneon 07-29-19 Sinus/Facial Bone [facility] Imaging Services [address] [place], [place] [address] Sinus/Facial Bone MR#: [id number] Acct: [id number] Name: JAZ STILL Rep #: [id number] : 1970 F 54 From: Chai Hester MD PCP: Dr. Nader Flores MD Status: REG CLI Study: Sinus/Facial Bone Date of Exam: 07/28/24 Exam# [id number] Ordering Dr: Isamar Ramirez MD PROCEDURE: SINUS/FACIAL [...] C5-6 asymmetric uncovertebral hypertrophic change results in oghs-nsegtwm-zman-righ t severe appearing left sided foraminal narrowing for example sagittal [address]/Sinus/Facial Bone IMPRESSION: No paranasal sinus disease as above. C5-6 asymmetric uncovertebral hypertrophic change results in ktxl-nnjqplz-assr-righ t severe appearing left sided foraminal narrowing for example sagittal 77 and axial 7. Reading Location: [id number] CC: Dr. Nader Flores MD; Dr. Isamar Ramirez MD Fly Tier: Signed [facility] 07-18-2024 CNPN Telephone (OBGYWM) JAZ STILL ([id number]) 1970 F Date Time Provider Department 07/18/24 ARIANNA LONGORIA OBGYWM During your visit today, [...] - MULTIVITAMIN ORAL Take by mouth. - L.crispat,ijeomaseri,shiva en,rhamn (AZO VAGINAL HEALTH PROBIOTIC ORAL) Take [...] Status:Closed by ARIANNA LONGORIA on 07/18/24 Normal [facility] Pathology biopsy report Andres (Tiss)Ordered By: Zackery Martin on 07-15-2024 Case Report Surgical Pathology Report Case: [id number] Authorizing Provider: Arianna Longoria MD Collected: 07/14/2024 03:30 PM Ordering Location: OB/Gynecology Received: 07/14/2024 04:11 PM Pathologist: Zackery Martin MD Specimen: Perineum, Biopsy, right [facility] Work Phone: Clinical History u2rfmVNkXXIgb2vlWAOo bG MnYwXuHkGgSoChYsh2AONp cjY0Pgp1MOYsEAldvH1lOW QpCUbdJ7oeqjLytTLzGJVo AVz9rG4zjZishI9iRgGqMp KpHBWxe5qmCJLkCZ4cVATl cGFyIH0= [facility] Work Phone: Diagnosis Comment a6mvrZVzXGRbeVWcEJWj NV wmfiUiXNXcmDPsD5Oilwlo JDohJS3dJN9eoSafxKEowK QsKMGwFxMxr1esk600bVBa c2mdCTNVjodinJl8cJhrS7 5yr0J9NitrX94bxBSaWND6 VWLzHSTfjBJqYXMqIUX7VE BwqRQyT0ptMYEjIO1gkdbt ITtkEPidZGDyuUE9GLBboP UlM6GmJHJfTSmwTMWpons9 RmIlIc7jiCKvfQpjDGayAY JkXHBsYWluXGZzMjAgSGlz mI1st3jeXdYqOMB7oT8iyh XzqP78CDZiP89hcRUjuGCl zDSnxFQaWIUnao9dzU1dz5 Yikxg8lD5sFSBgDIZ3fn8k eGonRYDnhVYxjb7eva6cF1 o3qUjrFGZcKCNlOZSftCHi FTChWBKoQDqaMQR4nPVaIz rceRXqJOJilYFfm9SqlhY5 aXRoIGFuIHVuZGVybHlpbm cbzLxhgFdayCvacUolU5j5 pCVoxL0rwXu1urI9CQ1ypG FyXHBhciBPdmVyYWxsLCB0 iJIlSGPxRMY0lSYuhpJjfy SeE96yp2nxmQHhyHJ5hSXx NEoiZ1jwowHjA6keig4yoH SaYWOwtL2dQ4XfRYLfkbHx bKG6pD9wYOicYUVpN69rnP VuZGVkLlxwYXJ9 [facility] Work Phone: Disclaimer t0ukcIZsSNLul5byPCTg bG FuZzEwMzNcZnRuYmpcdWMx IHtccnRmMVxlcGljMTExMD Hni5pnp7lkhWMcKTVmu5ov m4YxnFFbqHAkGCfpfSKrug Fbcf03vSD7eV89XN2zOZSj UuF1AURryyX0Rkg9CUIfKL VxgEGyR104p0plu2mmcpUs jWH1BGAaUZHyC6TcOG2rUI JzcLKbU65rlYOmEYX1UFAr AYYvuYIeHDDzPEE2ATZdlR ZyB4naTSXoKB6icupoSVfm FZraDGDsmPW3WBOhePQxZ4 TiXTGgEOmlJMEtpyx3FnZp Ej6kwBIfuKbkEBicV0ovhT 6aNxN7AMwjE6bbjU3wKKt2 SQxdWYKsxEK6wmE7UOIffD JyI3FgpN6dJIYtCI6zimp4 n0odZBQ8OTwjGHTjLiC7tq D7NTSiiASkLHssnNJfxscq LYIvNYNnR7JpQSiuCf8wNO UlbcroYYH8APeyyTVfARPb f6YvGQkWYXdcDYllN4akqV 1lcjpccGFyXGIwXGNmMCBQ LBVaw6RhFY9aLETzsEWvKT I6XOIhy8TzD9Ixa2MmsG3q jZ9dcDztyD2imBClpGGjgV phnS2tzA4pXaj3u4Lsp1Ag pwAjJFNgDFBcfHXmbS3wVH 6fKvFhtf5qyYA3ZOd4UkWg QGd8WUBxq67ioZAnfLEjsU C6LFBqSMDjVUAxaKDxcYtj ZWQgYnkgdGhlIHBlcmZvcm 5qfxlobKNih1ZuuN0mgUA3 eTOamN1uW8wkhpGnSF9hJM JbnI5zVmiyVKZfWcWewFDA YzKDc05ejCSkVUShyGxfdN 8ovQRbmcFdHPEvv0PdkL6r xEZEVGOiR6wfPRUQZCUnaw YqRI40HZdYXWumUMZriQF6 ybCAn2FvmDGqlTbyZWuzk4 7sC8CyRPWgfXWCe1VsmKDa fDwzNotxzpjrVXRQKYW8q8 5zEF2eoKd2QFjmJY2xhmK8 YMvzp9SmnQVcORSGwcOyXW 4oDwq7UGRqFBEsgLGrkJLH HQ61GFYsFF1hopGhsaIQPM WbwGofGf5uiIgrSL7kbFx3 XAcdBI6hLGVzyM1qXIpwy4 VgwRAjZCSgthVvWY0dih6k vkMov81vvYD5FC73VOrddQ ggK4zQDDKeWJO4nGQuwWAt aVIkUT0hJMQssvJcl8MtHJ 5iZTIsDXFlWZSeg4NiNB2v zEDdc9NhkBV3HJBpZGPzGL PaRDPvLORpa4OsUFMaui11 WCQtDkyzzTsuBFVIRR5qHw UfHMbVKQrdLVBcI8WsNTEn ZRL1ieDvtaIXRZpXAZVaEQ Z6VGagRgulHFZ1wpWzKPSx q0DgLMjcO8xkL91ziRateC t9zSX0NQU2pC1fYaZLnDYq NYL5HJJ8rhJzcuWdtUXkGM Gjs4DvH2uuibizGVrjoVEn fB4wLTAiPTYaWAWkUZDiq5 LjXUSmj4ZxIzXpnoWsLSQe BREzNABmpE42VQS6sVzosJ ojobDcFC8lFHHrusFsQSOu DAPkdA3bUO2qmWQkgcEvIA 1uII8xY6Q6lUDxSRZowzSo y6tdJBM4IZglXGHfwRIceR OwDPPeoGciFCGqyu91 [facility] Work Phone: FINAL DIAGNOSIS z3kppVJrBDYsdELyUOOr NV kannZtEOEjaKMzT7Hdkmnj STbqGR4lOQ4xiFcosREzdO UqZHZjByQil6nyw372jQOx c7fwXNYZetdxlWv2kWfxX9 4yx5G2BvigY49ndVYoZCI4 EETgOJSvuSBwUOCwPGH8KL OheLFuX2obPGOyGC5jinru KWgbXAmaRZMadPE0MGVhzF SyS4SfHXDoZKkvEGXwgfo1 QmUjAh1fePMiaBmkCBeuIJ OfWURzCBegIXAgCeFfAW3g E9ubjaaykZWnbY7yaK2eNQ Ybd6KomRfeiJRtDH1fRXlc hHLyCFLaqSToy4D5kjpmy3 ZoOWTfcP6maaPaYXVxmwgz YXJ9 [facility] Work Phone: Gross Description x0zyvYBhCAExxYSAZKPx MD RxDY6orFyvxUc5qMxqXVWv pzE2yMZeILusp8czMHJ0o4 qalcATQgqpXGJlVA5aLRtg WVMrME1aTsElIYAeBsDmVA BhcGVydzEyMjQwXHBhcGVy dDL7DLZvDU4gbwdrQVssST xwENSsayV8VLFanJKuM8Wc DAMeDI1jdlsyYVF2QTDCTp nzXh4itGSnpOkgScOzNcRf ILOzDKSqDOQss9zezmTTsb tbeCy8mU8XHTIzS8QmTL7Q j5euSDCrvJBhSCK0YBakh2 aiFHxvXJQ4QYYjLSGxUCNm DX9DZuYhEHtkRID4LnI6Yc N8JNq9FFKLVNUnKTD5QEU2 NZOoQSx3EAgkTSxxkIFfYR TaHOMyVOGrXXbtypF7x2iz JNHweZNtVPK7ZKofs2nxVH btCUZ4KOUvUuMdZNVeBB2C ZsTdWFdwFQT1DuR6YyF2TW e9VIGBDrAoPvJbMzGhSilb YPNzXSq2HCi1XViBMlIiDG W5NLvuSrJ0BIJ7OJB3UDYt XHQgMiBcXHNzIDMgXFxmbC YiPF4icCsaUYBmNW7KHUGp ZLwmEGWtGsVfGT1uVMWdwN 7ypA1xSYVgc4ThhKhoqYMg aFxmczIyXHBhciANClxwYX RyHQ9VRWRoNLmcLNw8opFf FTNhZiBwHUCzO77yj4PWn1 RhPC0CQFm3kdFwgnWHQnob gcIqYYHmK6KjykZdTPwaXK Widm8pcEegJIdyAVChU5ab sS1ohipgSYteu1KetGGzfU LdGnBzu7sqQYDpVBOoaOKw rRUzawZylGBfjJkil2EtMO 3iGPZ9qzqwXyNnClYybWZi IpIiuHZtBxQzP64nWGUIif S9qZZjy6itvzCfgIPePFUt ARCqTNHvYNclAVNhGG9sSM SrSDT1NB9zZFIeWY7hSPfh IHNwZWNpbWVuIGlzIGJpc2 PgkXOyKxNxLO70JJyxmTFj jBMuzEP4JMBaqL2as87eBH Hwl1IdcHAhLlYrdMEjAR7N GVJmwdYSGbHVTX7tqTJ9KC CjULD4JGBvOxIxYWBNXRTl zrDBVebuUTZyRAwwx6UjKZ knbYtyDABsDsMwLGhLth8l srRvoNRoaI2ftItsocTqWD Vhk6EcSOTzSDBjV9quboUg QR3gQVXwpG5tZxveTJQkKK TXpGZufCJmIJPuBkrdT6fu saZjLA2hPZDHPIZ4WGI1UJ 1QQZTblKDMEYJ4VN8pRFwg RIVnO0QoE0HhqgM8k1jhsY kiy7IgfINyIV4cpVTwJQ7C YZJcmsAjYRikuKacsB7dSN p9 [facility] Work Phone: Performing Lab z5hpqXPrBJIrtCVtGDTp Ml apnsYiKMWeiSNhH4Hgcphm VNnhXV9eKN8jkVmnnSYftM AyEJYsReAnm9ftn620eOTm w7poHCNMqxxzdOv9lThrF5 6pe1E6ExgsT79aqOOoKFW3 HIJhCOFzuLAbXHIcKVQ3QV IvxVLpB8ssZSOuHA4etpvj RCiyPRutGVAuwRV2WUAnvZ XmZ4BzTZBaJIhvBFXnbzt0 IlLiGe1rvHGqsMatQXyeA2 ssgK6nQiG4MCxlR5hyhU6b QMl5ERgwVXLurMV9qlG7UV GyfLPyE4SgcS4kICChVP9y dfe8r2qiRCQ5NIptIMFpRs E2ftJ9TEAbdPTqSHnclSFg iijpzaKyANOuWAnzr5A1xZ MvhW72KRRjqzY9WQCgg24b oPQeXx2ifJImKJW8JzWHuW H0LSemvlJzM9itgwstCC7g aJ0uH5CrkRErVVhdh0JhlI AiJKshHs7dCYHgyneqZZp4 YUNcIUWlqUkjJDT1NL31YL wgRGVzayBMMjEsIENsZXZl aETsGRMUVOG7TKR0WHMlZM VMTEMnJZU3IWB1FQVjMOAx oPVkRDtqPFYvUAZny1LrzZ 5kvXXKpLLbF1CvciwjW9Dk bSGjBArfxnVcV3kpVEKNQK xwYXJ9 [facility] Work Phone: [facility] Work Phone: CNOVon 07-14-2024 CNOV Office Visit (OBGYWM ) JAZ STILL ([id number]) 1970 F Date Time Provider Department 07/14/24 2:50 PM ARIANNA LONGORIA OBGYWM During your visit today, we recorded the following information about you: Blood pressure Weight 100/60 63.2 kg Arianna Longoria MD 07/15/2024 1:37 PM Signed Professor Of Languages offered: Patient declines. Jaz Still is a 54 year old female who [...] 3mL 1% lidocaine with 1:100,000 epi. 3mm Joanna punch used to biopsy region. HEMOSTASIS: Obtained [...] Visit Diagnosis:Other skin changes [R23.8] Order(s):SURGICAL PATHOLOGY [[id number]] Order #: [id number]. #:[id number] Prescriptions as of 07/15/2024 - MULTIVITAMIN ORAL Take by mouth. - L.crispat,ijeomaseri,shiva en,rhamn (AZO VAGINAL HEALTH PROBIOTIC ORAL) Take [...] 05/12/2022 Encounter Status:Closed by ARIANNA LONGORIA on 5/9/25 Normal [facility] Pathology biopsy report Andres (Tiss)on 07-14-2024 AP DISCLAIMER Normal [facility] Comment on above: Order Comment: Speci men Type: TISSUE SPECIMEN Ordering Facility: [facility] Address: [address] [place] [address] Result Comment: Maggy read Developed Test (LDT) Disclaimer: Performance characteristics of immunohistochemical, immunofluorescent, and chromogenic in-situ hybridization tests have been determined by the performing laboratory within [facility]'s [facility] Pathology and Laboratory Medicine Department ([facility], [facility], [facility], [facility], [facility], [facility], or [facility]) in a manner [...] appropriately. Performed By: #### 6 6121-5 #### [facility] CLIA [id number] [address] [place] [address] [place] CASE REPORT Normal [facility] Comment on above: Order Comment: Speci men Type: TISSUE SPECIMEN Ordering Facility: [facility] Address: [address] [place] [address] Result Comment: [facility] Pathology Report Case: [id number] Authorizing Provider: Arianna Longoria MD Collected: 07/14/2024 03:30 PM Ordering Location: OB/Gynecology Received: 07/14/2024 04:11 PM Pathologist: Zackery Martin MD Specimen: Perineum, Biopsy, right Performed By: #### 6 6121-5 #### [facility] CLIA [id number] [address] [place] [address] [place] CLINICAL HISTORY skin changes Normal [facility] Comment on above: Order Comment: Speci men Type: TISSUE SPECIMEN Ordering Facility: [facility] Address: [address] [place] [address] Performed By: #### 6 6121-5 #### [facility] CLIA [id number] [address] [place] [address] [place] [address] [place] DIAGNOSIS COMMENT Normal [facility] Comment on above: Order Comment: Speci men Type: TISSUE SPECIMEN Ordering Facility: [facility] Address: [address] [place] [address] Result Comment: Hist ologic sections show a compact stratum corneum overlying an atrophic epidermis. Within the dermis, there is superficial sclerosis with an underlying lymphohistiocytic infiltrate. Overall, these features are consistent with lichen sclerosus. Clinical correlation is recommended. Performed By: #### 6 6121-5 #### [facility] CLIA [id number] [address] [place] [address] [place] FINAL DIAGNOSIS Normal [facility] Comment on above: Order Comment: Speci men Type: TISSUE SPECIMEN Ordering Facility: [facility] Address: [address] [place] [address] Result Comment: A. S kin, perineum, biopsy: - Lichen sclerosus, see comment. at 1415 EDT Performed By: #### 6 6121-5 #### [facility] CLIA [id number] [address] [place] [address] [place] FINAL PERFORMING LAB Normal [facility] Comment on above: Order Comment: Speci men Type: TISSUE SPECIMEN Ordering Facility: [facility] Address: [address] [place] [address] Result Comment: Diag nostic interpretation performed at: [facility], [address] [place] [address] [place] [address] CLIA# [id number] Gis Professor: Shane Stanford MD Performed By: #### 6 6121-5 #### [facility] CLIA [id number] [address] [place] [id number] [place] GROSS DESCRIPTION Normal [facility] Comment on above: Order Comment: Speci men Type: TISSUE SPECIMEN Ordering Facility: [facility] Address: [address] [place] [address] Result Comment: Geetha yang, Biopsy Received in formalin is a cylindrical segment of skin and subcutaneous tissue measuring 0.3 x 0.3 x 0.3 cm. On the skin surface there is a 0.3 cm, slater area. The specimen is bisected. Totally submitted in one cassette. DL July 14, 2024 10:53 PM Gross examination performed at [facility], [address] [place] [address] Performed By: #### 6 6121-5 #### [facility] CLIA [id number] [address] [place] [address] [place] [address] [place] CBC panel Auto (Bld)on 07-05 Erythrocyte distribution width (RBC) [Ratio] 14.2 % Normal 11.5-15.0 [facility] Comment on above: Order Comment: Speci men Type: BLOOD SPECIMEN Ordering Facility: [facility] Address: [address] [place] [address] Performed By: #### 5 8410-2 #### [facility] CLIA [id number] [address] [place] [address] [place] Hematocrit (Bld) [Volume fraction] 39.4 % Normal 36.0-46.0 [facility] Comment on above: Order Comment: Speci men Type: BLOOD SPECIMEN Ordering Facility: [facility] Address: [address] [place] [address] Performed By: #### 5 8410-2 #### [facility] CLIA [id number] [address] [place] [address] [place] Hemoglobin (Bld) [Mass/Vol] 13.0 g/dL Normal 11.5-15.5 [facility] Comment on above: Order Comment: Speci men Type: BLOOD SPECIMEN [facility] [facility] Address: [address] [place] [address] Performed By: #### 5 8410-2 #### [facility] CLIA [id number] [address] [place] [address] [place] MCH (RBC) [Entitic mass] 30.1 pg Normal 26.0-34.0 [facility] Comment on above: Order Comment: Speci men Type: BLOOD SPECIMEN Ordering Facility: [facility] Address: [address] [place] [address] Performed By: #### 5 8410-2 #### [facility] [id number] [address] [place] [address] [place] MCHC (RBC) [Mass/Vol] 33.0 g/dL Normal 30.5-36.0 [facility] Comment on above: Order Comment: Speci men Type: BLOOD SPECIMEN Ordering Facility: [facility] Address: [address] [place] [address] Performed By: #### 5 8410-2 #### [facility] [id number] [address] [place] [address] [place] MCV (RBC) [Entitic vol] 91.2 fL Normal 80.0-100.0 [facility] Comment on above: Order Comment: Speci men Type: BLOOD SPECIMEN Ordering Facility: [facility] Address: [address] [place] [address] Performed By: #### 5 8410-2 #### [facility] [id number] [address] [place] [address] [place] Nucleated RBC (Bld) [#/Vol] 10*3/uL Normal <0.01 [facility] Comment on above: Order Comment: Speci men Type: BLOOD SPECIMEN Ordering Facility: [facility] Address: [address] [place] [address] Performed By: #### 5 8410-2 #### [facility] [id number] [address] [place] [address] [place] Platelet mean volume (Bld) [Entitic vol] 10.7 fL Normal 9.0-12.7 [facility] Comment on above: Order Comment: Speci men Type: BLOOD SPECIMEN Ordering Facility: [facility] Address: [address] [place] [address] Performed By: #### 5 8410-2 #### [facility] CLIA [id number] [address] [place] [address] [place] Platelets (Bld) [#/Vol] 274 10*3/uL Normal 150-400 [facility] Comment on above: Order Comment: Speci men Type: BLOOD SPECIMEN Ordering Facility: [facility] Address: [address] [place] [address] Performed By: #### 5 8410-2 #### [facility] CLIA [id number] [address] [place] [address] [place] RBC (Bld) [#/Vol] 4.32 10*6/uL Normal 3.90-5.20 [facility] Comment on above: Order Comment: Speci men Type: BLOOD SPECIMEN Ordering Facility: [facility] Address: [address] [place] [address] Performed By: #### 5 8410-2 #### [facility] CLIA [id number] [address] [place] [address] [place] WBC (Bld) [#/Vol] 5.85 10*3/uL Normal 3.70-11.00 [facility] Comment on above: Order Comment: Speci men Type: BLOOD SPECIMEN Ordering Facility: [facility] Address: [address] [place] [address] Performed By: #### 5 8410-2 #### [facility] CLIA [id number] [address] [place] [address] [place] Comprehensive metabolic 2000 panelon 07-05-2024 Albumin [Mass/Vol] 4.7 g/dL Normal 3.9-4.9 [facility] Comment on above: Order Comment: Speci men Type: BLOOD SPECIMEN Ordering Facility: [facility] Address: [address] [place] [address] Performed By: #### 2 4323-8 #### [facility] CL[facility] [id number] [address] [place] [address] [place] ALP [Catalytic activity/Vol] 68 U/L Normal 34-123 [facility] Comment on above: Order Comment: Speci men Type: BLOOD SPECIMEN Ordering Facility: [facility] Address: [address] [place] [address] Performed By: #### 2 4323-8 #### [facility] CLIA [id number] [address] [place] [address] [place] ALT [Catalytic activity/Vol] 29 U/L Normal 7-38 [facility] Comment on above: Order Comment: Speci men Type: BLOOD SPECIMEN Ordering Facility: [facility] Address: [address] [place] [address] Performed By: #### 2 4323-8 #### [facility] CLIA [id number] [address] [place] [address] [place] Anion gap [Moles/Vol] 16 mmol/L High 8-15 [facility] Comment on above: Order Comment: Speci men Type: BLOOD SPECIMEN Ordering Facility: [facility] Address: [address] [place] [address] Performed By: #### 2 4323-8 #### [facility] CLIA [id number] [address] [place] [address] [place] AST [Catalytic activity/Vol] 27 U/L Normal 13-35 [facility] Comment on above: Order Comment: Speci men Type: BLOOD SPECIMEN Ordering Facility: [facility] Address: [address] [place] [id number] Performed By: #### 2 4323-8 #### [facility] CLIA [id number] [address] [place] [address] [place] Bilirubin [Mass/Vol] 0.3 mg/dL Normal 0.2-1.3 [facility] Comment on above: Order Comment: Speci men Type: BLOOD SPECIMEN Ordering Facility: [facility] Address: [address] [place] [address] Performed By: #### 2 4323-8 #### [facility] CLIA [id number] [address] [place] [address] [place] Calcium [Mass/Vol] 10.1 mg/dL Normal 8.5-10.2 [facility] Comment on above: Order Comment: Speci men Type: BLOOD SPECIMEN Ordering Facility: [facility] Address: [address] [place] [address] Performed By: #### 2 4323-8 #### [facility] [id number] [address] [place] [address] [place] Chloride [Moles/Vol] 106 mmol/L Normal 98-107 [facility] Comment on above: Order Comment: Speci men Type: BLOOD SPECIMEN Ordering Facility: [facility] Address: [address] [place] [address] Performed By: #### 2 4323-8 #### [facility] [id number] [address] [place] [address] [place] CO2 [Moles/Vol] 20 mmol/L Low 22-30 [facility] Comment on above: Order Comment: Speci men Type: BLOOD SPECIMEN Ordering Facility: [facility] Address: [address] [place] [address] Performed By: #### 2 4323-8 #### [facility] [id number] [address] [place] [address] [place] Creatinine [Mass/Vol] 0.84 mg/dL Normal 0.58-0.96 [facility] Comment on above: Order Comment: Speci men Type: BLOOD SPECIMEN Ordering Facility: [facility] Address: [address] [place] [address] Performed By: #### 2 4323-8 #### [facility] [id number] [address] [place] [address] [place] Creatinine and Glomerular filtration rate.predicted panel (S/P/Bld) 83 mL/min/1.73m??? Normal >=60 [facility] Comment on above: Order Comment: Larry gustafson Type: BLOOD SPECIMEN Ordering Facility: [facility] Address: [address] [place] [address] Result Comment: Sonja mated Glomerular Filtration Rate [...] GFR. Performed By: #### 2 4323-8 #### [facility] [id number] [address] [place] [address] [place] Glucose [Mass/Vol] 49 mg/dL Low 74-99 [facility] Comment on above: Order Comment: Larry gustafson Type: BLOOD SPECIMEN Ordering Facility: [facility] Address: [address] [place] [address] Result Comment: The [place] Diabetes Association (ADA) provides guidance for cutoff [...] Standards of Medical Care in Diabetes 2016, [place] Diabetes Association. Diabetes Care. 2016.39(Suppl 1). Performed By: #### 2 4323-8 #### [facility] CLIA [id number] [address] [place] [address] [place] Potassium [Moles/Vol] 4.1 mmol/L Normal 3.7-5.1 [facility] Comment on above: Order Comment: Speci men Type: BLOOD SPECIMEN Ordering Facility: [facility] Address: [address] [place] [address] Performed By: #### 2 4323-8 #### [facility] CLIA [id number] [address] [place] [address] [place] Protein [Mass/Vol] 7.4 g/dL Normal 6.3-8.0 [facility] Comment on above: Order Comment: Speci men Type: BLOOD SPECIMEN Ordering Facility: [facility] Address: [address] [place] [address] Performed By: #### 2 4323-8 #### [facility] [id number] [address] [place] [address] [place] Sodium [Moles/Vol] 142 mmol/L Normal 136-144 [facility] Comment on above: Order Comment: Speci men Type: BLOOD SPECIMEN Ordering Facility: [facility] Address: [address] [place] [address] Performed By: #### 2 4323-8 #### [facility] [id number] [address] [place] [address] [place] Urea nitrogen [Mass/Vol] 19 mg/dL Normal 7-21 [facility] Comment on above: Order Comment: Speci men Type: BLOOD SPECIMEN Ordering Facility: [facility] Address: [address] [place] [address] Performed By: #### 2 4323-8 #### [facility] [id number] [address] [place] [address] [place] HbA1c (Bld)on 07-05-2024 Average glucose Estimated from glycated hemoglobin (Bld) [Mass/Vol] 114 mg/dL Normal [facility] Comment on above: Order Comment: Larry gustafson Type: BLOOD SPECIMEN Ordering Facility: [facility] Address: [address] [place] [address] Result Comment: eAG: (Estimated average glucose) is a calculated value from HgbA1c and is telemarketing sales representative of the average blood glucose level in the last 2-3 month period. Performed By: #### 5 5454-3 #### [facility] CLIA [id number] [address] [place] [address] [place] HbA1c (Bld) [Mass fraction] 5.6 % Normal 4.3-5.6 [facility] Comment on above: Order Comment: Larry gustafson Type: BLOOD SPECIMEN Ordering Facility: [facility] Address: [address] [place] [address] Result Comment: Amer [place] Diabetes Association guidelines indicate that patients with HgbA1c in the range 5.7-6.4% are at increased risk for development of diabetes, and intervention by lifestyle modification may be beneficial. HgbA1c greater or equal to 6.5% is considered diagnostic of diabetes. Performed By: #### 5 5454-3 #### [facility] CLIA [id number] [address] [place] [address] [place] LIPID PANEL, NONFASTINGon Cholesterol [Mass/Vol] 196 mg/dL Normal <200 [facility] Comment on above: Order Comment: Larry gustafson Type: BLOOD SPECIMEN Ordering Facility: [facility] Address: [address] [place] [address] Result Comment: <200 mg/dL, Desirable 200-239 mg/dL, Borderline high >239 mg/dL, High Performed By: #### L IPNF, 3016-3 #### [facility] CLIA [id number] [address] [place] [address] [place] HDL CHOLESTEROL, NF 78 mg/dL Normal >39 [facility] Comment on above: Order Comment: Larry gustafson Type: BLOOD SPECIMEN Ordering Facility: [facility] Address: [address] [place] [address] Result Comment: 40-5 9 mg/dL, Acceptable >59 mg/dL, High: Negative risk factor for coronary heart disease <40 mg/dL, Low: Positive risk factor for coronary heart disease Performed By: #### L GUME, 3016-3 #### [facility] CLIA [id number] [address] [place], [place] [address] [address] [place] LDL CHOLESTEROL CALCULATED, NF 102 mg/dL High <100 [facility] Comment on above: Order Comment: Keeganradha gustafson Type: BLOOD SPECIMEN Ordering Facility: [facility] Address: [address] [place] [address] Result Comment: <100 mg/dL, Optimal 100-129 mg/dL, Near optimal/above optimal 130-159 mg/dL, Borderline high 160-189 mg/dL, High >189 mg/dL, Very high Secondary prevention optimal LDL Cholesterol levels are recommended to be <70 mg/dL LDL cholesterol is calculated using the Muller-NIH equation. Performed By: #### L GUME, 6-3 #### [facility] CLIA [id number] [address] [place] [address] [place] LDL/HDL RATIO, NF 1.31 mg/dL Normal <2.54 [facility] Comment on above: Order Comment: Larry gustafson Type: BLOOD SPECIMEN Ordering Facility: [facility] Address: [address] [place] [address] Result Comment: Refagnieszka hagerce: 1. National Cholesterol Education Program ATP III Guideline At-A-Glance Quick Desk Reference: National Heart, Lung, and Blood [place]. National Institutes of Health. 2001: NIH Publication No. 01-3305. 2. An International Atherosclerosis Society position paper: global recommendations for the management of dyslipidemia: executive summary, Atherosclerosis. 2014: 232(2):410-413. Performed By: #### L GUME, 3016-3 #### [facility] CLIA [id number] [address] [place] [address] [place] NON HDL CHOL, NF 118 mg/dL Normal <130 [facility] Comment on above: Order Comment: Speci men Type: BLOOD SPECIMEN Ordering Facility: [facility] Address: [address] [place] [address] Result Comment: <130 mg/dL, Optimal 130-159 mg/dL, Near optimal/above optimal 160-189 mg/dL, Borderline high 190-219 mg/dL, High >219 mg/dL, Very high Secondary prevention optimal non HDL Cholesterol levels are recommended to be <100 mg/dL Performed By: #### L IPNF, 6-3 #### [facility] CLIA [id number] [address] [place] [address] [place] T CHOL/HDL RATIO NF 2.51 mg/dL Normal <5.10 [facility] Comment on above: Order Comment: Speci men Type: BLOOD SPECIMEN Ordering Facility: [facility] Address: [address] [place] [address] Performed By: #### L IPNF, 3015-3 #### [facility] CLIA [id number] [address] [place] [address] [place] TRIGLYCERIDES, NF 93 mg/dL Normal <150 [facility] Comment on above: Order Comment: Speci men Type: BLOOD SPECIMEN Ordering Facility: [facility] Address: [address] [place] [address] Result Comment: <150 mg/dL, Normal 150-199 mg/dL, Borderline high 200-499 mg/dL, High >499 mg/dL, Very high Performed By: #### L IPNF, 3015-3 #### [facility] CLIA [id number] [address] [place] [address] [place] VLDL CHOLESTEROL, NF 15 mg/dL Normal <30 [facility] Comment on above: Order Comment: Speci men Type: BLOOD SPECIMEN Ordering Facility: [facility] Address: [address] [place] [address] Performed By: #### L IPNF, 6-3 #### [facility] CLIA [id number] [address] [place] [address] [place] TSH SerPl-aCncon 07-05-2024 TSH Qn 1.780 m[IU]/L Normal 0.270-4.200 [facility] Comment on above: Order Comment: Speci men Type: BLOOD SPECIMEN Ordering Facility: [facility] Address: [address] [place] [address] Performed By: #### L IP, 3016-3 #### [facility] CLIA [id number] [address] [place] [address] [place] BACTERIAL VAGINOSIS NAATon 0 06-30-2024 Lactobacillus crispatus+gasseri+j ensenii + Gardnerella vaginalis + Atopobium vaginae rRNA CHADWICK+probe Ql (Vag fld) Not detected Normal Not detected [facility] Comment on above: Order Comment: Speci men Type: SWAB Ordering Facility: [facility] Address: [address] [place] [address] Performed By: #### B VAMP, CVTV #### [facility] CLIA [id number] [address] [place] [address] [place] BROOKE/TRICHOMONAS NAATon 0 06-30-2024 C. glabrata RNA CHADWICK+probe Ql (Vag fld) Not detected Normal Not detected [facility] Comment on above: Order Comment: Speci men Type: SWAB Ordering Facility: [facility] Address: [address] [place] [address] Performed By: #### B VAMP, CVTV #### [facility] CLIA [id number] [address] [place] [address] [place] Brooke sp DNA CHADWICK+probe Ql (Vag fld) Not detected Normal Not detected [facility] Comment on above: Order Comment: Speci men Type: SWAB Ordering Facility: [facility] Address: [address] [place] [address] Result Comment: The Brooke species group target includes C. albicans, C. tropicalis, C. parapsilosis, and C. dubliniensis. Performed By: #### B VAMP, CVTV #### [facility] CLIA [id number] [address] [place] [address] [place] T. vaginalis DNA CHADWICK+probe Ql (Unsp spec) Not detected Normal Not detected [facility] Comment on above: Order Comment: Speci men Type: SWAB Ordering Facility: [facility] Address: [address] [place] [address] Performed By: #### B VAMP, CVTV #### [facility] CLIA [id number] [address] [place] [address] OF [place] CNOVon 06-30-2024 CNOV Office Visit (OBGYWM ) JAZ STILL ([id number]) 1970 F Date Time Provider Department 06/30/24 2:40 PM ARIANNA LONGORIA OBGYWM During your visit today, we recorded the following information about you: Blood pressure Weight Height 100/68 64.9 kg 1.664 m Arianna Longoria MD 06/30/2024 5:24 PM Signed Professor Of Languages offered: Patient declines. Sebastian is a 54 year old who [...] Always HPV vaccine: No Last pap smear: [id number] History of abnormal pap: No Colposcopy: No. [...] discussed with the Patient or Patient's Authorized Artificial Cherry Maker. As applicable, any other physician, advance practice provider, medical student, or other health professional student that will be observing or involved in the sensitive examination for educational or training purposes was discussed with the Patient or Authorized Artificial Cherry Maker. The Patient or Authorized Artificial Cherry Maker has agreed to proceed with the sensitive [...] noted as well. Normal Bartholin's glands, urethra, Pellston's glands, no vulvar lesions, no cervical lesions, [...] Why matson (more content not included)... Normal [facility] XR Cervical spine AP and Lat eral and obliqueon 04-10-2022 IMPRESSION: Cervical spine degenerative changes as described above. Fly Tier: PSCB Transcribe Date/Time: Apr 10 2022 2:55P Dictated by : JOHN CRUM MD This examination was interpreted and the report reviewed and electronically signed by: JOHN CRUM MD on Apr 10 2022 2:56PM [facility] DIVISION OF RADIOLOGY * * *Final Report* [...] tissues are normal. DIVISION OF RADIOLOGY Provider, [facility] - 04/10/2022 * * *Final Report* * [...] Cervical spine degenerative changes as described above. Fly Tier: PSCVlad Transcribe Date/Time: Apr 10 2022 2:55P Dictated by : JOHN CRUM MD This examination was interpreted and the report reviewed and electronically signed by: JOHN CRUM MD on Apr 10 2022 2:56PM [facility] XR Cervical spine AP and Lat eral and obliqueOrdered By: [facility] Provider on 04-10-2022 [facility] XR Cervical spine AP and Lat eral and obliqueon 04-09-2022 Radiology Study observation (narrative) [facility] Absolute lymphocyte counton 03-19-2022 Lymphocytes Auto (Unsp spec) [#/Vol] 1.73 10*3/uL 0.83-4.51 [facility] Work Phone: Basophil percentageon 2022 Basophils/100 WBC (Bld) 0.6 % 0-1 [facility] Work Phone: Chloride [Moles/Vol] 108 mmol/L 98-107 [facility] Work Phone: Eosinophils/100 WBC (Bld) 0.5 % 0-5 [facility] Work Phone: Glucose [Mass/Vol] 95 mg/dL 74-106 [facility] Work Phone: Neutrophils (Bld) [#/Vol] 7.2 10*3/uL 2.0-7.7 [facility] Work Phone: Neutrophils/100 WBC (Bld) 74.3 % 47-70 [facility] Work Phone: Potassium [Moles/Vol] 4.3 mmol/L 3.5-5.1 [facility] Work Phone: Sodium [Moles/Vol] 139 mmol/L 136-145 [facility] Work Phone: WBC (Bld) [#/Vol] 9.7 10*3/uL 4.4-11.0 [facility] Work Phone: Blood erythrocytes count (nu mber/volume)on 03-19-2022 RBC (Bld) [#/Vol] 4.30 10*6/uL 4.2-5.4 [facility] Work Phone: Blood hemoglobin measurement (mass/volume)on 03-19-2022 Hemoglobin (Bld) [Mass/Vol] 13.0 g/dL 12.0-15.0 [facility] Work Phone: Blood lymphocytes/100 leukoc yteson 03-19-2022 Lymphocytes/100 WBC (Bld) 17.9 % 19-41 [facility] Work Phone: Blood monocytes/100 leukocyt eson 03-19-2022 Monocytes/100 WBC (Bld) 6.4 % 0-10 [facility] Work Phone: Blood platelet mean volumeon 03-19-2022 Platelet mean volume (Bld) [Entitic vol] 10.9 fL 6.2-12.0 [facility] Work Phone: Determination of erythrocyte mean corpuscular volume (MCV)on 03-19-2022 MCV (RBC) [Entitic vol] 93.0 fL 81-99 [facility] Work Phone: Erythrocyte sedimentation ra tommie 03-19-2022 ESR (Bld) [Velocity] 16 mm/h 0-30 [facility] Work Phone: Hematocrit Auto (Bld) [Volum e fraction]on 03-19-2022 Hematocrit (Bld) [Volume fraction] 40.0 % 37-47 [facility] Work Phone: Laboratory - Chemistry and C hemistry - challengeon 03-19-2022 CO2 [Moles/Vol] 28.0 mmol/L 21.0-32.0 [facility] Work Phone: Urea nitrogen/Creatinine [Mass ratio] 12.7 mg/mg 10-20 [facility] Work Phone: Laboratory - Hematology and Cell countson 03-19-2022 Erythrocyte distribution width (RBC) [Entitic vol] 47.3 fL 35.1-43.9 [facility] Work Phone: Erythrocyte distribution width (RBC) [Ratio] 13.8 % 11.6-14.6 [facility] Work Phone: Immature granulocytes/100 WBC (Bld) 0.300 % 0.0-0.9 [facility] Work Phone: Comment on above: IG% - Immature Granu locytes (promyelocytes, myelocytes and metamyelocytes) > 1% indicates that a LEFT SHIFT is Present. MCH (RBC) [Entitic mass] 30.2 pg 27.0-32.0 [facility] Work Phone: Nucleated RBC/100 WBC (Bld) [Ratio] 0 % 0-5 [facility] Work Phone: MCHC Auto (RBC) [Mass/Vol]on 03-19-2022 MCHC (RBC) [Mass/Vol] 32.5 g/dL 32-36 [facility] Work Phone: No Panel Informationon 03-19 Estimated Creatinine Clearance Calc 87.76 ml/min [facility] Work Phone: Estimated GFR (MDRD) Amer 111 mL/min >60 [facility] Work Phone: Comment on above: GFR Calc Estimated GFR (MDRD) Non-Af Amer 92 mL/min >60 [facility] Work Phone: Comment on above: Non- GFR Calc Platelets bldon 03-19-2022 Platelets (Bld) [#/Vol] 313 10*3/uL 150-450 [facility] Work Phone: Serum or plasma calcium isaías urement (mass/volume)on 03-19-2022 Calcium [Mass/Vol] 9.1 mg/dL 8.5-10.1 [facility] Work Phone: Serum or plasma creatinine m easurement (mass/volume)on 03-19-2022 Creatinine [Mass/Vol] 0.71 mg/dL 0.55-1.02 [facility] Work Phone: Comment on above: The validity of the calculated GFR & GFRAA in patients over 70 years has not been determined. Clinical correlation is essential. Serum or plasma urea nitroge n measurement (mass/volume)on 03-19-2022 Urea nitrogen [Mass/Vol] 9 mg/dL 7-18 [facility] Work Phone: Thin prep Papanicolaou smear with manual screeningon 03-19-2022 Thin prep Papanicolaou smear with manual screening 3 5-15 [facility] Work Phone: [facility] Note on 11-28-2016 [facility] Note Normal [facility] ([place] Patient Summary Documentson 11-14-2016 Patient Summary Documents Normal [facility] [place] Vital Signs Date Time Vital Sign Value Performing Clinician Facility 09-02-2024 20:37-0400 Body temperature 98.4 [degF] Dr. Nader Flores MD Work Phone: [phone] [place] [address] 09-02-2024 20:37-0400 Diastolic blood pressure 79 mm[Hg] Dr. Nader Flores MD Work Phone: [phone] [place] [address] 09-02-2024 20:37-0400 Heart rate 79 /min Dr. Nader Flores MD Work Phone: [phone] [place] [address] 09-02-2024 20:37-0400 Respiratory rate 16 /min Dr. Nader Flores MD Work Phone: [phone] [place] [address] 09-02-2024 20:37-0400 SaO2% (BldA) [Mass fraction] 100 % Dr. Nader Flores MD Work Phone: 2([phone] [place] [address] 09-02-2024 20:37-0400 Systolic blood pressure 139 mm[Hg] Dr. Nader Flores MD Work Phone: 7(992)[phone] [place] [address] 09-02-2024 17:01-0400 Body height 167.[address] Nader Flores MD Work Phone: 4(759)[phone] [place] [address] 09-02-2024 17:01-0400 Body mass index (BMI) [Ratio] 21.6 kg/m2 Dr. Nader Flores MD Work Phone: [phone] [place] [address] 09-02-2024 17:01-0400 Body weight 60.[address] Nader Flores MD Work Phone: 4([phone])[phone] [place] [address] 07-14-2024 14:55-0400 Body mass index (BMI) [Ratio] 22.84 kg/m2 Arianna Longoria MD Work Phone: 7(737)[phone] [place] [address] 07-14-2024 14:55-0400 Body weight 63.23 kg Arianna Longoria MD Work Phone: 7([phone])[phone] [place] [address] 07-14-2024 14:55-0400 Diastolic blood pressure 60 mm[Hg] Arianna Longoria MD Work Phone: 6([phone])[phone] [place] [address] 07-14-2024 14:55-0400 Systolic blood pressure 100 mm[Hg] Arianna Longoria MD Work Phone: [facility] 04-08-2022 07:52-0500 Body temperature 96.91 [degF] Izzypeyton Knutsoner PA-C Work Phone: [facility] 04-08-2022 07:52-0500 Body weight 60.24 kg Izzy Briseno PA-C Work Phone: [facility] 04-08-2022 07:52-0500 Diastolic blood pressure 70 mm[Hg] Izzypeyton Knutsoner PA-C Work Phone: [facility] 04-08-2022 07:52-0500 Heart rate 75 /min Izzy fili PA-C Work Phone: [facility] 04-08-2022 07:52-0500 Respiratory rate 16 /min Izzypeyton Knutsoner PA-C Work Phone: [facility] 04-08-2022 07:52-0500 SaO2% (BldA) [Mass fraction] 98 % Izzy Knutsoner PA-C Work Phone: [facility] 04-08-2022 07:52-0500 Systolic blood pressure 103 mm[Hg] Izzypeyton Knutsoner PA-C Work Phone: [facility] 03-19-2022 10:55-0500 Body height 167.[address] [facility] Work Phone: 03-19-2022 10:55-0500 Body mass index (BMI) [Ratio] 21.7 kg/m2 [facility] Work Phone: 03-19-2022 10:55-0500 Body temperature 96.7 [degF] [facility] Work Phone: 03-19-2022 10:55-0500 Body weight 61.[address] [facility] Work Phone: 03-19-2022 10:55-0500 Diastolic blood pressure 66 mm[Hg] [facility] Work Phone: 03-19-2022 10:55-0500 Heart rate 71 /min [facility] Work Phone: 03-19-2022 10:55-0500 Respiratory rate 18 /min [facility] Work Phone: 03-19-2022 10:55-0500 SaO2% (BldA) [Mass fraction] 99 % [facility] Work Phone: 03-19-2022 10:55-0500 Systolic blood pressure 96 mm[Hg] [facility] Work Phone: 03-12-2022 08:29-0500 Body mass index (BMI) [Ratio] 22 kg/m2 [facility] Work Phone: 03-12-2022 08:29-0500 Body temperature 96.9 [degF] [facility] Work Phone: 03-12-2022 08:29-0500 Body weight 61.[address] [facility] Work Phone: 03-12-2022 08:29-0500 Diastolic blood pressure 70 mm[Hg] [facility] Work Phone: 03-12-2022 08:29-0500 Heart rate 81 /min [facility] Work Phone: 03-12-2022 08:29-0500 Respiratory rate 14 /min [facility] Work Phone: 03-12-2022 08:29-0500 SaO2% (BldA) [Mass fraction] 100 % [facility] Work Phone: 03-12-2022 08:29-0500 Systolic blood pressure 118 mm[Hg] [facility] Work Phone: Encounters Encounter Date Encounter Type Care Provider Facility Start: 09-04-2024 ambulatory No Primary Car e Physician Facility:[facility] Start: 09-02-2024 End: 09-02-2024 Emergency department patient visit Dr. Nader Flores MD Work Phone: -Emergency Department Work Phone: Start: 07-28-2024 End: 07-28-[address] Nader Flores MD Work Phone: [facility] Work Phone: Start: 07-28-2024 End: 07-28-[address] Isamar Ramirez MD -[facility] Work Phone: Start: 07-28-2024 End: 07-28-2024 ambulatory Nader Flores Facility:[facility] Start: 07-18-2024 End: 07-18-2024 Telephone encounter Arianna Longoria MD Work Phone: OB/Gynecology Comment on above: Orders Start: 07-14-2024 End: 07-14-2024 Patient encounter procedure Arianna Longoria MD Work Phone: OB/Gynecology Comment on above: Other skin changes ( Primary Dx) Start: 07-14-2024 End: 07-14-2024 ambulatory [facility] Facility:[facility] Start: 07-05-2024 End: 07-05-2024 ambulatory [facility] Start: 07-05-2024 Patient encounter procedure ARIANNA LONGORIA [facility] Start: 07-01-2024 End: 08-31-2024 Follow-up encounter Maira Littlejohn APRN.CNP Work Phone: OB/Gynecology Start: 06-30-2024 End: 06-30-2024 ambulatory ARIANNA [facility] Facility:[facility] Start: 06-30-2024 Encounter for gynecological examination (general) (routine) without abnormal findings ARIANNA [facility] Start: 05-12-2022 End: 05-12-2022 ambulatory Gia Thurston PT Work Phone: [facility] Comment on above: Radicular pain in ri ght arm (Primary Dx) Start: 04-28-2022 End: 04-28-2022 ambulatory Gia Thurston PT Work Phone: [facility] Comment on above: Radicular pain in ri ght arm (Primary Dx) Start: 04-23-2022 End: 04-23-2022 ambulatory Gia Thurston PT Work Phone: [facility] Comment on above: Radicular pain in ri ght arm (Primary Dx) Start: 04-21-2022 End: 04-21-2022 ambulatory Gia Thurston PT Work Phone: [facility] Comment on above: Radicular pain in ri ght arm (Primary Dx) Start: 04-14-2022 End: 04-14-2022 ambulatory Gia Thurston PT Work Phone: [facility] Comment on above: Radicular pain in ri ght arm (Primary Dx) Start: 04-09-2022 End: 04-09-2022 Subsequent hospital visit by physician [facility] Work Phone: Radiology Comment on above: Radicular pain in ri ght arm [M79.2] Start: 04-08-2022 End: 04-08-2022 Patient encounter procedure Izzy Briseno PA-C Work Phone: Neurology Comment on above: Radicular pain in ri ght arm (Primary Dx); Paresthesia and pain of right extremity Start: 03-19-2022 Telephone encounter Nader Flores MD Work Phone: Family [facility] [place] Comment on above: Future Appointment Start: 03-19-2022 End: 03-19-2022 Emergency department patient visit [facility] Start: 03-12-2022 End: 03-12-2022 Emergency department patient visit [facility] Start: 11-14-2016 End: 11-14-2016 Emergency department patient visit SHERRI GretchenMansi VILLALPANDO Facility:B Procedures Date Procedure Procedure Detail Performing [...] panel - S pedro or Plasma Xr [place] Work Phone: Plan of Treatment Date Care Activity Detail Author Start: 07-05-2029 Lipid panel Lipid Screening [facility] Start: 07-06-2027 Diabetes Screening Diabetes Screenin g [facility] Start: 07-03-2025 End: 07-03-2025 Patient encounter procedure 07/03/2025 9:00 AM EDT Office Visit OB/Gynecology [address] [place] [address] Arianna Longoria MD [address] [place] [address] Annual OB/Gynecology Comment on above: Annual Start: 11-07-2024 Influenza vaccination Influenz a Vaccine (Season Ended) [facility] Start: 09-02-2024 End: 09-02-2024 [facility] Start: 11-08-2023 Covid-19 Vaccine ( season) Covid-19 Vaccine ( season) [facility] Start: 11-08-2023 Influenza vaccination Influenza Vacc ine (#1) [facility] Start: 03-09-2022 DEPRESSION ASSESSMENT DEPRESSION ASS ESSMENT [facility] Start: 11-07-2021 Influenza vaccination INFLUENZA (#1) [facility] Start: 04-30-2021 Lipid panel Lipid Screening [facility] Start: 04-30-2021 LIPID SCREEN LIPID SCREEN [facility] Start: 2020 SHINGRIX VACCINE (1 of 2) SHINGRIX VACCINE (1 of 2) [facility] Start: 07-04-2019 DIABETES SCREEN DIABETES SCREEN [facility] Start: 07-04-2019 Diabetes Screening Diabetes Screenin g [facility] Start: 12-03-2016 PNEUMOCOCCAL (2 - PCV) PNEUMOCOCCAL (2 - PCV) [facility] Start: 12-03-2016 Pneumococcal vaccination Pneum ococcal Vaccine (2 of 2 - PCV) [facility] Start: 12-03-2016 Pneumococcal Vaccine : 50+ (2 of 2 - PCV) Pneumococcal Vaccine: 50+ (2 of 2 - PCV) [facility] Start: 2015 COLOGUARD (FIT-DNA) COLOGUARD (FIT-D NA) [facility] Start: 2015 Colonoscopy COLONOSCOPY [facility] Start: 2015 COLORECTAL CANCER SCREENING COLORECTAL CANCER SCREENING [facility] Start: [address] COLONOGRAPHY [facility] Start: 2015 FECAL OCCULT BLOOD FECAL OCCULT BLOO D [facility] Start: 2015 Screening for malign ant neoplasm of colon [facility] Start: 2015 SIGMOIDOSCOPY SIGMOIDOSCOPY [facility] Start: 2010 Mammography MAMMOGRAM [facility] Start: 2010 Screening for malign ant neoplasm of breast Mammogram Screening [facility] Start: 1989 Hepatitis B Vaccine (1 of 3 - 19+ 3-dose series) Hepatitis B Vaccine (1 of 3 - 19+ 3-dose series) [facility] Start: 1989 Urine microalbumin profile [facility] Start: 1988 Anxiety Screening Anxiety Screening [facility] Start: 1988 Depression Screening Depression Scre ing [facility] Start: 1988 HEPATITIS C SCREENING HEPATITIS C [facility] Start: 1988 Hepatitis C screening Hepatitis C [facility] Start: 1988 HIV SCREENING HIV SCREENING [facility] Start: 1988 HIV screening HIV Screening [facility] Start: 1970 COVID-19 VACCINE (#1) COVID-19 VACCI NE (#1) [facility] Start: 1970 HEPATITIS B (1 of 3 - 3-dose series) HEPATITIS B (1 of 3 - 3-dose series) [facility] Patient Education [facility] Work Phone: Patient referral [facility] Work Phone: End: 05-08-2023 Radex spine cervical 4 or 5 views XR CERV OTHER 4V AP/LAT/OBL Radiology Routine Radicular pain in right arm 1 Occurrences starting 04/08/2022 until 05/08/2023 [facility] Work Phone: Comment on above: 1 Occurrences starti ng 04/08/2022 until 05/08/2023 [facility] Immunizations Immunization Date Immunization Notes Care Provider Fa cility 09-02-2024 tetanus toxoid, redu lashae diphtheria toxoid, and acellular pertussis vaccine, adsorbed Dr. Nader Flores MD Work Phone: [facility] 12-04-2015 pneumococcal polysaccharide vaccine, 23 valent Isamar Flores MD Work Phone: [facility] 12-04-2015 influenza virus vaccine, unspecified formulation Xr [facility] Work Phone: [facility] Payers Date Payer Category Payer Private Health Insurance MMO [employer] PPO Member Subscriber Plan / Payer (Effective 2024-Present) Name: Jaz Still Relation to Subscriber: Self Name: Jaz Still Payer ID: Not on file Type: PPO Address: [place] [id number] [id number] 2024 Unknown [id number] 2016 Self-pay Self-pay [id number] Unknown [facility] [id number] Unknown [id number] Unknown [id number] Unknown [id number] Social History Date Type Detail Facility Start: 03-19-2022 Tobacco smoking stat us NMIS Unknown if ever smoked [facility] Work Phone: Start: 1970 Sex Assigned At Female [facility] Start: 12-04-2015 End: 09-02-2024 Tobacco smoking status NHIS Smokes tobacco daily [facility] Work Phone: History of tobacco use Cigarette Smoker [facility] Work Phone: Start: 12-04-2015 End: 06-30-2024 Cigarettes smoked current (pack per day) - Reported 0.5 [facility] Start: 10-25-2021 End: 06-30-2024 Alcohol intake Current drinker of alcohol (finding) [facility] Start: 12-04-2015 Alcohol Comment 1-2 times per month [facility] Start: 1970 Sex Assigned At Not on file [facility] Start: 04-08-2022 End: 06-30-2024 Tobacco use panel [facility] National Score (1-10 0), lower number is lower risk 67 [facility] Start: 03-21-2022 Sexual orientation Heterosexual (ced garcia) [facility] Start: 06-30-2024 Tobacco use and exposure Smokeless tobacco non-user [facility] Clinical Notes 03-19-2022 to 07-29-2024 Telephone Encounter - Arianna Longoria MD - 07/18/2024 8:21 AM EDTTelephone Encounter - Arianna Longoria MD - 07/18/2024 8:21 AM Arianna aLura MD - 07/14/2024 2:53 PM EDT Note Date & Type Note Facility 07-29-2024 Radiology Diagnostic study note [facility] Imaging Services [address] [place] [address] Sinus/Facial Bone MR#: [id number] Acct: [id number] Name: JAZ STILL Rep #: [id number] : 1970 F 54 From: Kaushik Hester MD PCP: Dr. Nader Flores MD Status: REG CLI Study:Sinus/Facial Bone Date of Exam: Exam# [id number] Ordering Dr: Isamar Ramirez MD PROCEDURE: SINUS/FACIAL [...] C5-6 asymmetric uncovertebral hypertrophic change results in uatj-bxvgczb-khfv-right severe appearing left sided foraminal narrowing for example sagittal [address]/Sinus/Facial Bone IMPRESSION: No paranasal sinus disease as above. C5-6 asymmetric uncovertebral hypertrophic change results in lkxe-mqzlzsu-jaic-right severe appearing left sided foraminal narrowing for example sagittal 77 and axial 7. Reading Location: [facility] CC: Dr. Nader Flores MD; Dr. Isamar Ramirez MD ~ Fly Tier: Signed [facility] 07-18-2024 Telephone encounter Note See result note. Rx sent for clobetasol ointment. Needs follow up in 12 weeks [facility] 07-18-2024 Miscellaneous Notes See result note. Rx sent for clobetasol ointment. Needs follow up in 12 weeks documented in this encounter [facility] 07-14-2024 Note HNO ID: [id number] Author: ARIANNA LONGORIA MD Service: ? Author Type: Physician Type: Progress Notes Filed: 07/15/2024 13:37 Note Text: Professor Of Languages offered: Patient declines. Jaz Still is a 54 year old female who [...] given to the patient. Arianna Longoria DO [facility] 07-14-2024 History of Presen t illness Narrative Professor Of Languages offered: Patient declines. Jaz Still is a 54 year old female who [...] Arianna Longoria DO documented in this encounter [facility] 06-30-2024 Note HNO ID: [id number] Author: ARIANNA LONGORIA MD Service: ? Author Type: Physician Type: Progress Notes Filed: 06/30/2024 17:24 Note Text: Professor Of Languages offered: Patient declines. Jaz is a 54 [...] Always HPV vaccine: No Last pap smear: [id number] History of abnormal pap: No Colposcopy: No. [...] discussed with the Patient or Patient's Authorized Artificial Cherry Maker. As applicable, any other physician, advance practice provider, medical student, or other health professional student that will be observing or involved in the sensitive examination for educational or training purposes was discussed with the Patient or Authorized Artificial Cherry Maker. The Patient or Authorized Artificial Cherry Maker has agreed to proceed with the sensitive [...] noted as well. Normal Bartholin's glands, urethra, Pellston's glands, no vulvar lesions, no cervical lesions, [...] She is considering options Arianna Longoria DO [facility] 05-12-2022 History of Presen t illness Narrative Episode Visit Count: 5 Therapist That Will Accept/Oversee The Plan Of Care: Gia Thurston PT Start of Care Date: 04/14/22 Onset Date: 03/14/22 Patient Identified by Name and Date of : Yes REHABILITATION AND SPORTS THERAPY PHYSICAL THERAPY DISCONTINUANCE OF CARE PLAN OF CARE UPDATE: Assessment: Jaz K Teremarisela is discontinued from Physical Therapy services due to goal achievement and maximal benefit.. Patient was seen for 5 visits from Start of Care Date: 04/14/22 to 05/12/2022 and treatment included: Therapeutic exercise, Manual therapy, Self-custodial management, and Patient/Family/Caregiver Education. Goals for Episode [...] Gia Thurston PT documented in this encounter [facility] 04-28-2022 History of Presen t illness Narrative Episode Visit Count: 4 Therapist That Will Accept/Oversee The Plan Of Care: Gia Thurston PT Start of Care Date: 04/14/22 Onset Date: 03/14/22 Patient Identified by Name and Date of : Yes REHABILITATION AND SPORTS THERAPY PHYSICAL THERAPY TREATMENT NOTE ASSESSMENT: Jaz Still tolerated the session with no issues. She [...] B 10 sec x3 2: B cervical [id number] sec X3 3: right levator stretch no [...] Gia Thurston PT documented in this encounter [facility] 04-23-2022 History of Presen t illness Narrative Episode Visit Count: 3 Therapist That Will Accept/Oversee The Plan Of Care: Gia Thurston PT Start of Care Date: 04/14/22 Onset Date: 03/14/22 Patient Identified by Name and Date of : Yes REHABILITATION AND SPORTS THERAPY PHYSICAL THERAPY TREATMENT NOTE ASSESSMENT: Jaz Still tolerated the session with decreased symptoms. She [...] B 10 sec x3 2: B cervical [id number] sec X3 3: right levator stretch no [...] Gia Thurston PT documented in this encounter [facility] 04-21-2022 History of Presen t illness Narrative Episode Visit Count: 2 Therapist That Will Accept/Oversee The Plan Of Care: Gia Thurston PT Start of Care Date: 04/14/22 Onset Date: 03/14/22 Patient Identified by Name and Date of : Yes REHABILITATION AND SPORTS THERAPY PHYSICAL THERAPY TREATMENT NOTE ASSESSMENT: Jaz Still tolerated the session with no issues. She [...] B 10 sec x3 2: B cervical [id number] sec X3 3: right levator stretch no [...] Gia Thurston PT documented in this encounter [facility] 04-14-2022 History of Presen t illness Narrative Episode Visit Count: 1 Therapist That Will Accept/Oversee The Plan Of Care: Gia Thurston PT Start of Care Date: 04/14/22 Onset Date: 03/14/22 Patient Identified by Name and Date of : Yes REHABILITATION AND SPORTS THERAPY PHYSICAL THERAPY EVALUATION PLAN OF CARE: Assessment: Jaz Still presents with chief complaint of right arm [...] Planned: 8 Planned Treatment Interventions: Therapeutic exercise (17673), Neuromuscular re-education (60465), Manual therapy (91432), Self-custodial management (02743), Patient/Family/Caregiver Education PLAN FOR NEXT VISIT: trial of supine manual traction Patient demonstrates good understanding of plan of care and treatment. The above goals and plan of care were discussed and agreed upon by patient/family. 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 Skilled judgment was provided in selection of appropriate interventions. Correct performance of therapeutic exercises was facilitated with verbal and visual cuing. Patient education as noted. Self-Alf Management: 1: education on centralization of sx [...] Total Treatment Time Minutes (timed/untimed): 45 Gia Thursotn PT documented in this encounter [facility] 04-14-2022 History of Past i llness Narrative Problem Noted Date Resolved Date Radicular pain in right arm 04/14/2022 03/0 08/2022 documented as of this encounter (statuses as of 05/12/2022) [facility]02-01-2023 History of Present illness Narrative* Miracle López, RT(R) - 04/09/2022 8:30 AM EST Radiology Service Progress Note PATIENT NAME: Jaz Still DATE OF SERVICE: April 09, 2022 TIME: [...] 09, 2022 8:47 AM [facility] Instructions* Patient Instructions* Izzy Briseno PA-C - 04/08/2022 8:32 AM EST Xray of the cervical spine Muscle relaxer (Flexeril 5mg up to twice daily- do not drink alcohol with this medication, do not drive with this medication) Heat 20 min, Ice 20 min Physical therapy Follow up in 3 months [facility] History of Present illness Narrative* Izzy Briseno PA-C - 04/08/2022 7:47 AM EST Images from the original note were not included. 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 She has not [...] Marijuana few times a week Works at [employer] Objective 04/08/22 0752 BP: 103/70 Pulse: 75 [...] 5/5 Wrist Extension 5/5 5/5 Wrist Flexion 5/ 5/5 Finger Flexion 5/ 5/5 Finger Extension 5/ 5/5 Finger Abd 5/ 5/5 Finger Add / 5/5 MUSCLES Lower Extremity RIGHT LEFT Hip Flexion 5/5 5/5 Hip Extension 5/5 5/5 BiFem (Knee Flex) 5/ 5/5 Quads (Knee Ext) 07/11 5/5 Gastroc (Plantflx) 07/11 5/5 TibAnt (Dorsiflx) / 5/5 FlxHLong (Toe Flex) / 5/5 ExtHLong (Toe Ext) 5 55 Sensory Examination Sensation intact to light touch [...] Negative Coordination: finger-to- nose-finger intact bilaterally and rark-lb-vwje intact bilaterally. Gait: Patient's gait is normal DATA REVIEWED Actual films/image/tracing reviewed and summarized as follows: Cervical CT, MRI brain Old records reviewed and summarized as follows: Neurology, Family medicine Assessment/Plan Assessment & Plan: Jaz Still is a 51 year old right-handed female [...] with certain positions. Notes previous neck injury [id number], good relief with physical therapy at that [...] which included preparing to see the patient, eujb-mt-egsz patient care, completing clinical documentation, obtaining and/or reviewing separately obtained history, performing a medically appropriate examination, counseling and educating the pat ient/family/caregiver, and ordering medications, tests, or procedures. [facility] checked and [facility]. All prescriptions have been APPROPRIATELY filled. No suspiciousactivity was identified. 04/08/2022 by KYLIE Adame PA-C [facility] Neurology [facility] Miscellaneous Notes* Telephone Encounter - Adele [...] medicine provider. * Telephone Encounter - Elinor Friedman - 03/19/2022 2:19 PM EST Pt was last seen in 2016. She would like to know if Dr. Flores would be able to take her back on as a pt. She will need financial clearance first but that appt has been made. [facility] Hospital Discharge instructions Additional Instructions Apply ice to your right shoulder and arm 6-10 times a day for the next 3 to 5 days. Avoid activity that causes you increased pain.[facility] Work Phone: Evaluation noteNo assessment information available [facility] Work Phone: Evaluation note* Diagnosis Radicular pain in right arm- Primary Neuralgia, neuritis, and radiculitis, unspecified Paresthesia and pain of right extremity Pain in limb [facility] Diagnosis Radicular pain in right arm- Primary Neuralgia, neuritis, and radiculitis, unspecified documented [facility]* Diagnosis Radicular pain in right arm- Primary Neuralgia, neuritis, and radiculitis, unspecified documented in this encounter [facility] note* Diagnosis Radicular pain in right arm- Primary Neuralgia, neuritis, and radiculitis, unspecified documented in this encounter [facility]* Diagnosis Radicular pain in right arm- Primary Neuralgia, neuritis, and radiculitis, unspecified documented in this [facility] Diagnosis Radicular pain in right arm- Primary Neuralgia, neuritis, and radiculitis, unspecified documented in this [facility] Diagnosis Radicular pain in right arm Neuralgia, neuritis, and radiculitis, unspecified documented in this encounter [facility] note* Diagnosis Other skin changes- Primary documented in this encounter [facility] note* Diagnosis Lichen sclerosus- Primary Circumscribed scleroderma [facility] Discharge instructionsAdditional Instructions Have sutures removed in about 7 days. Return for any signs of infection. You can take Tylenol and ibuprofen as needed for your pain.[facility] Work Phone: Reason for referral (narrative)* Diagnostic Procedure Only (Routine) - Closed Specialty Diagnoses / Procedures Referred By Contac t Referred To Contact XR IMAGING Diagnoses Radicular pain in right arm Procedures XR CERV OTHER 4V AP/LAT/OBL RADEX SPINE CERVICAL 4 OR 5 VIEWS Izzy Briseno PA-C [address] [place] [address] [place] [address] Referral ID Status Reason Start Date Expiration Date V isits Requested Visits Authorized [id number] Closed Auto-Generate d Referral 04/08/2022 05/08/2023 1 1 [facility] for referral (narrative)No reason for referral information [facility] Work Phone: Summary Purpose Family History No Family History Records FoundNo Family History Records FoundNo Family History Records Found Advance Directives No Advanced Directives Records Found Advance Directive Response Recorded Date/ Time Living Will No March 19 11:56am Power of Machine Set Up [employer] No March 19, 2022 11:56am Advance Directive Response Recorded Date/ Time Do you have a Healthcare Power of Machine Set Up Operator [employer]? No September 02, 2024 8:21pm Chief Complaint and Reason for Visit Chief Complaint ARM RIGHT ARM Chief Complaint Admit Date [id number] 28, 2024 5:15p m Chief Complaint Admit Date [id number] July 28, 2024 5:15p m lac September 02, 2024 4:54 pm Reason for Referral Specialty Diagnoses / Procedures Referred By Jered alonzo Referred To Contact [facility] Diagnoses Radicular pain in right arm Procedures CONSULT TO PHYSICAL THERAPY PHYSICAL THERAPY EVALUATION HIGH COMPLEX 45 MINS Izzy Briseno PA-C [address] [place] [address] [facility] [place] [address] [place] [id number] Referral ID Status Reason Start Date Expiration Date Visits Requested Visits Authorized [id number] Pending Review Auto-Generat ed Referral 04/08/2022 04/08/2023 1 1 Specialty Diagnoses / Procedures Referred By Jered alonzo Referred To Contact XR IMAGING Diagnoses Radicular pain in right arm Procedures XR CERV OTHER 4V AP/LAT/OBL RADEX SPINE CERVICAL 4 OR 5 VIEWS Izzy Briseno PA-C [address] [place] [address] Xr Imaging Referral ID Status Reason Start Date Expiration Date Visits Requested Visits Authorized [id number] Pending Review Auto-Generat ed Referral 04/08/2022 05/08/2023 1 1 Specialty Diagnoses / Procedures Referred By Jered alonzo Referred To Contact [facility] Diagnoses Radicular pain in right arm Procedures PT REHAB FOLLOW UP ORDER THERAPEUTIC EXERCISES RE, EA 15 MIN. Pt [facility] [address] [place] [address] [facility] [place] [address] [place] [address] Referral ID Status Reason Start Date Expiration Date Visits Requested Visits Authorized [id number] Pending Review PCP Requested Referral Auto-Generate d Referral 04/14/2022 07/13/2022 1 1 Additional Source Comments INFORMATION SOURCE (unrecogn ized section and content) DATE CREATED AUTHOR 09/01/2017 [facility] ([place] DATE CREATED AUTHOR AUTHOR'S ORGANIZ ATION 07/18/2024 [facility] DATE CREATED AUTHOR AUTHOR'S ORGANIZ ATION 09/04/2024 [facility] Goals (unrecognized section and content) Goals may be documented in a n alternate sectionGoals may be documented in an alternate sectionGoals may be documented in an alternate section Source Comments (unrecognize d section and content) In the event this informatio n is protected by the Federal Confidentiality of Alcohol and Drug Abuse Patient Records regulations: The Federal rules restrict any use of the information to criminally investigate or prosecute any alcohol or drug abuse patient.[facility] the event this information is protected by the Federal Confidentiality of Alcohol and Drug Abuse Patient Records regulations: The Federal rules restrict any use of the information to criminally investigate or prosecute any alcohol or drug abuse patient.[facility] the event this information is protected by the Federal Confidentiality of Alcohol and Drug Abuse Patient Records regulations: The Federal rules restrict any use of the information to criminally investigate or prosecute any alcohol or drug abuse patient.[facility] the event this information is protected by the Federal Confidentiality of Alcohol and Drug Abuse Patient Records regulations: The Federal rules restrict any use of the information to criminally investigate or prosecute any alcohol or drug abuse patient.[facility] HospitalIn the event this information is protected by the Federal Confidentiality of Alcohol and Drug Abuse Patient Records regulations: The Federal rules restrict any use of the information to criminally investigate or prosecute any alcohol or drug abuse patient.[facility] HospitalIn the event this information is protected by the Federal Confidentiality of Alcohol and Drug Abuse Patient Records regulations: The Federal rules restrict any use of the information to criminally investigate or prosecute any alcohol or drug abuse patient.[facility] HospitalIn the event this information is protected by the Federal Confidentiality of Alcohol and Drug Abuse Patient Records regulations: The Federal rules restrict any use of the information to criminally investigate or prosecute any alcohol or drug abuse patient.[facility] HospitalIn the event this information is protected by the Federal Confidentiality of Alcohol and Drug Abuse Patient Records regulations: The Federal rules restrict any use of the information to criminally investigate or prosecute any alcohol or drug abuse patient.[facility] Hospital[facility] the event this information is protected by the Federal Confidentiality of Alcohol and Drug Abuse Patient Records regulations: The Federal rules restrict any use of the information to criminally investigate or prosecute any alcohol or drug abuse patient.[facility] Hospital[facility] the event this information is protected by the Federal Confidentiality of Alcohol and Drug Abuse Patient Records regulations: The Federal rules restrict any use of the information to criminally investigate or prosecute any alcohol or drug abuse patient.[facility] Hospital[facility] the event this information is protected by the Federal Confidentiality of Alcohol and Drug Abuse Patient Records regulations: The Federal rules restrict any use of the information to criminally investigate or prosecute any alcohol or drug abuse patient.[facility] Reason for Visit (unrecogniz ed section and content) Reason Comments PT Discharge Specialty Diagnoses / Procedures Referred By Contac t Referred To Contact [facility] Department Diagnoses est [facility] Referral ID Status Reason Start Date Expiration Date Visits Requested Visits Authorized [id number] Authorized Financial Clearance Required - Self Pay Patient Cleared - Qualified [id number] 03/28/2022 06/26/2022 99 99 Reason Comments PT Eval Patient Education Specialty Diagnoses / Procedures Referred By Contac t Referred To Contact [facility] Department Diagnoses est Procedures est Self [facility] Reason Comments Future Appointment Reason Comments New Patient Numbness in RIGHT in dex & middle finger & RIGHT arm pain Reason Comments Physical Therapy Specialty Diagnoses / Procedures Referred By Contac t Referred To Contact [facility] DEPARTMENT Diagnoses est Procedures [facility] [place] [facility] [place] [address] Referral ID Status Reason Start Date Expiration Date V isits Requested Visits Authorized [id number] Closed Financial Clearance Required - Self Pay Patient Cleared - Qualified [id number]/FA 03/28/2022 06/26/2022 99 99 Reason Comments vulvar biopsy Reason Comments Orders Care Teams (unrecognized sec tion and content) Team Status: Active Member Role Status Dates Dr. Nader Flores MD Primary Care Provider Acti ve Team Status: Inactive Member Role Status Dates Dr. Nader Flores MD Primary Care Provider Acti ve Start: July 28, 2024 End: July 28, 2024 Dr. Isamar Ramirez MD Attending Provider Activ e Start: July 28, 2024 End: July 28, 2024 Dr. Isamar Ramirez MD Referring Provider Activ e Start: July 28, 2024 End: July 28, 2024 Team Status: Active Member Role/Relationship Status Dates No Primary Care Physician Primary Care Provider Active Team Status: Inactive Member Role/Relationship Status Dates Dr. Nader Flores MD Primary Care Provider Acti ve Start: July 28, 2024 End: July 28, 2024 Dr. Isamar Ramirez MD Attending Provider Activ e Start: July 28, 2024 End: July 28, 2024 Dr. Isamar Ramirez MD Referring Provider Activ e Start: July 28, 2024 End: July 28, 2024 Team Status: Inactive Member Role/Relationship Status Dates Dr. Fracisco Nunez MD Emergency Provider Active S tart: September 02, 2024 End: September 02, 2024 No Primary Care Physician Primary Care Provider Active Start: September 02, 2024 End: September 02, 2024 FOR RECORDS PERTAINING TO PATIENTS WHO [...] BE BASED ON THE PRIMARY CLINICAL RECORDS. [employer] provides no warranty or guarantee of the accuracy or completeness of information in this document.
--- OUTSIDE RECORDS SUMMARY | 2024-09-04 18:41 | XMS RPT_ITS | CCD ---
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 sertraline 25 mg oral tablet [...] Department Summary on 09-02-2024 Emergency Department Summary [facility] Medical Records Department [address] [place] [address] Emergency Department Summary 09/02/24 MR#: [id number] Acct: [id number] Name: JAZ STILL Rep #: [id number] : 1970 54 From: Pallavi MERCEDES PCP: [...] and subc (more content not included)... Normal [facility] Sinus/Facial Boneon 07-29-19 Sinus/Facial Bone [facility] [address] [place], [place] [address] Sinus/Facial Bone MR#: [id number] Acct: [id number] Name: JAZ STILL Rep #: [id number] : 1970 F 54 From: Chai Hester MD PCP: Dr. Nader Flores MD Status: REG CLI Study: Sinus/Facial Bone Date of Exam: 07/28/24 Exam# [id number] Ordering Dr: Isamar Ramirez MD PROCEDURE: SINUS/FACIAL [...] C5-6 asymmetric uncovertebral hypertrophic change results in yhab-flvxgha-rxkk-righ t severe appearing left sided foraminal narrowing for example sagittal [address]/Sinus/Facial Bone IMPRESSION: No paranasal sinus disease as above. C5-6 asymmetric uncovertebral hypertrophic change results in luqy-egbovwn-iiov-righ t severe appearing left sided foraminal narrowing for example sagittal 77 and axial 7. Reading Location: [id number] CC: Dr. Nader Flores MD; Dr. 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: Signed [facility] 07-18-2024 CNPN Telephone (OBGYWM) JAZ STILL ([id number]) 1970 F Date Time Provider Department 07/18/24 [...] Status:Closed by ARIANNA LONGORIA on 07/18/24 Normal [facility] Pathology biopsy report Andres (Tiss)Ordered By: Zackery Martin on 07-15-2024 Case Report Surgical Pathology Report Case: [id number] Authorizing Provider: Arianna Longoria MD Collected: 07/14/2024 03:30 PM Ordering Location: OB/Gynecology Received: 07/14/2024 04:11 PM Pathologist: Zackery Martin MD Specimen: Perineum, Biopsy, right [facility] Work Phone: Clinical History c3jfqAYiNQBrq2njFRXp bG TyPvCaPmWcQuSlEur7ABJe wcD7Qsz1KFRjGGsrtT3eBD VqPMjwF8tflwJamVJvHPIl BRd1nM6wuMfjpJ0kTeBuIe ZtWWPsk8xjCGGxRH4eKGPl cGFyIH0= [facility] Work Phone: Diagnosis Comment v8hapVSfDIVqbEYeNBJq NV bygwGxZYDeoQBaZ3Ssjlrv KTytTT7cFN0sgMtwnJLleU QrITClNuJom3mzo961wRUo q2fkUQNRkhpljQp5mXooW2 8su4B2XwgfZ82zvNGmXRR6 IVPdXRWprYBmEOReEYF5ZY CthSEtX3xeNFFtZD8hecwb LTmwNAplVYAcbYN1ZTRfoX MzX4RcIPVtFUdkTZIddzn8 DxFuRz6yyRYvpAvoVPkwFT JkXHBsYWluXGZzMjAgSGlz iO0hg1foKqKxRPS4gA1lgl UbvI13RNIjL63riYFczTMz uATswNCdTCFixi0yeN9rd6 Qdhvb7qP4hWTCcWKF0ms5g lSvuWXRgjKRksx3sue6hO6 f0yBtgEOMdVFCiHTFbzRIt DNHqCZJuKUnjXYR9tIDyWk tfxESwRANrvKEgl7KgabY3 aXRoIGFuIHVuZGVybHlpbm opyKhiqOwxiRhjmAxwE5a7 pLWhfV5gnTn3woL2BW1ewN FyXHBhciBPdmVyYWxsLCB0 fCHbWGMlRWU0hQDlavTrxs RoF25zs0bhmQZhgGE6dAFx OWfyK8wynmBlJ4qvgv1igT XbTYEvvS1rL4SoXFPxvbPr rYQ4lX5sLFptYHZpN65anM VuZGVkLlxwYXJ9 [facility] Work Phone: Disclaimer z2rorEQxRPXdn7jcRQSq bG FuZzEwMzNcZnRuYmpcdWMx IHtccnRmMVxlcGljMTExMD Wka6yng0agoDPkQYXef8fy u0TqiAVeoWHyYKkrmLVaji Uzcc81bAJ8xO44DJ1lWZUg RgL3PQOtvnO6Gai6LCDpYT EgmOGbZ825m9knx5pqfsSn hNQ0PIBrMVEiD1DwHV5iFH DavMWsM09yuFHxGUE0CRAr NYJjtCEmXODbCOQ2EERreM RnP0hcXMMwSI1cmbxtHYns ACflHBUwwKK3ADJzhILyZ8 KfBSLzIDrcXXOmkfb7OnEa Hm7mvKHscJrxMJezG1ugbR 4wGsA6OEygV3lhhK0yOAl8 ECujNDNghRT0fvB9OMVhbE XjU6FtcY8tCAPdXA0gluq8 i6njDUQ0JRnsDQZbCdP1gy N4JZBpwZMgENcdkVWxnqvo BVPqVSJmJ5WnMBvaBp4rPU AsoxjpBBU3EPvsyAPgRAIg t2MrFXeSMEumPKaaG6epbV 1lcjpccGFyXGIwXGNmMCBQ YEKqz5BjKL0sSMFhsXQqBG M2LVWjz8KmC4Hrg6PhnS6b nK7hfOdulY9rkNRaaNRalL ntjW0gxT3aJde1g4Cyg4Sc rlMsATBhZKDcsWJyxW3dRZ 5wWfQxye1yyIH1PWl3FdRz IOz2GSSqj02alZGguYAnsE H2MTPlHEFeCBEkhSAgmItx ZWQgYnkgdGhlIHBlcmZvcm 8dnvdbaPXra1OiwG8cnPP8 dAQevU5kR7ecqlNcIR9mJO ZucP1uXsdmAPZiEaOubXKS AoKPo46piLOaPKQgrAcelL 9yfTGuydOdJFBfi0CjvO6l rAUVRPZmM7gkTYTMKUFgne AaAO88IXlVJEzuVLCdpMS6 znTQs0ZjmTXznGflBGwsc2 3iD1QwIXXhcBLOh8DzpAUv hJliZwnyoephZIINQZB2k5 2lEM6nrCe4HAdeHV4xalT6 YIzuf2RpzPGpILEPfoDfGK 4eYsw1QHKuFJToeXPfcTTX NZ18ELHfWG2dxhTlqbGXBX WhxDjkGq0qfKgsZB2whCc9 MRqmHB2bOMRukI2sAVkcq1 SbpTUaZARxnhIvZS5vap4m pgLxs83pbSO7UL54QMkecF poO5pGKLNoWQF6hUPhuXDf pJVdIL5aBPRapdKvm7WiST 9sGUJoNQWnVSGvg5GkDD9k oPIxv9HwlBZ6TSQrHCArQO WtRTFwIVHbq3XpBCZmmg63 CHTxImgkjWbkGYPRRD7zNb VcBQhLQLorZONcK7GjLLPv AWV3ttYdjxTDLNtGSETeGD J8HCxsUdsjVWA2lbUbSJIv e7YjTVqgU5ksC89stQyoyX z0fJR3PXU4yI8yFeMSzCUl RUG2CHP2tjUtjsBlzWTrTY Nfz2JcR4bkyfcyUQpudLEj mI5xMTIfNLKpSJJkLXMfi0 JsQNUde1SpMmPxptQmWGYi KRSdAGItqU37VAD5rDjdnY crkgDcZN9jHFNsvsOuNPAb QLZedA6kCC5erWWbtaSgRS 4pJU6hN9S7tHSnQMVipbYr u4kiMWD6MAnjCBXbaZEfgN CbFVPulFwxFDUipk46 [facility] Work Phone: FINAL DIAGNOSIS y6zyeFYzOHEeqEJbBXUn NV rlmxSkSZMoiFGfH7Fuxqdf YBviVZ4qZO4zkMqlnIWerF YsEEUrIwWal9itp310dACm q4mkLPNJwxtwqIm5qCwkF3 4aj5O7ZgzgV77vrJMrKTK5 SVJrCPHzbXMmJNMkNZH1UN YriUJcB2kfLSNbZD7anewz YTrsEDxuFSLbjIJ9MKPjmA PsA1AoDZWoMQgoDAPwqvv8 JnFqBb8tzNIhhXhdYPhxKH UgRNZhPKqwLRDeDfJzGZ0m T7supbudcEGypV1liR5aNA Ktr3JdlQzpgBDaSC9cCBap qVTgDTReuKUyz1F5lsvtl4 UmQBDuwV9tggBfCEItknay YXJ9 [facility] Work Phone: Gross Description q1lojBPkBVTpeLRGLMSz MD ZdFO4hmMgpgEb4dJyeISVi jpM3wASeFGdlf3pbWMS3i8 lqbgWGEpblKSUiVT3dQWcj TXAmER7wHkOyADJdVrGuSY BhcGVydzEyMjQwXHBhcGVy gWN4JXXkGP6gghkuKBdiGB njDMFfhhD9JXOqtUUeT9Gs BAXdUB2zmjlxVHP6OYHYIh ccKt1lrYOqiOkxHeNeThDx AKLeGKClFIAww1qjhnQFdr yofDe1jB8AJIGdC8UrMK0Q g0wjOJTfqTTlAPA6LZcky5 cjJYdfNBM7NNBzGZMbXPKx BK0ETjTrXMviFTT4LqO8Te A6MVq3SJERCLTsPFY0UQC2 HGOlBGl9AIroZJsmnCKbRE KdLUMjARLjALluahQ2q5qo EMLbxBEzJZM7WKkqe4jlOQ jyQRP6GSIjUsIiIGWaVX2V ViKmBXjkYZO7YsT0ElM4PJ v5YOIIPeEwKkUiCdHqAnkc YCOmZYy5PVj4ZPiDYzFlSL M8RBypDuG2GOV1TQJ0KCTx XHQgMiBcXHNzIDMgXFxmbC MoJW6rbNglNFCjTB5QBSQe MRpoZKRzLhVxHJ3jQPGtnR 7btN5cMFAel3RgsNftkXGl aFxmczIyXHBhciANClxwYX KdNQ4IHTSvPXswQRe1kcRy FPLcFuVjDHAlT95kr5PSj9 IvWW4EUTp0tlXrqcMYDdkx fcHzXGDzP7JdqqOeNAktTF Snfj2xtBsqKOhkQBRlA9et yL7wlgumBGlxf4CzcCGyjY EpUhBfc0ocZQThUIKdnZIc rXJiplJyrVVfmYtdw5OhJJ 3tEOO0npdpReLdNoRghEEo NrGqsKEtTfGgG05tRHHZnc E1yNKcc3oxzcRzjTOzHEYa AKNqKANkFUczJZApNA8bUI TuPEM5ZT0gPVCoLR3bELuk IHNwZWNpbWVuIGlzIGJpc2 FspVZnLtYjJA32XRpdmHNw rETbsST6PAAzkB0so59bLW Hyd5XvuBDcBlNbcYWsTS7I FSIeqlVYOcFJOL7srQC8QA IeJQW9IIPrHnMeBYJZIDVi bbWQEcesOQOgJVani3FoRK qxeDmfAIKyIdMpKQnNrm7t nkLtcWIfqW1dyZrlzxOmPH Ppe2QdBDZbJDQtZ1mpjuSk SK8oLTBbuV9zAwmzJLKuLI UFyTCfoBSkXIQfCxmvG6py obJcJR2sODFHWCJ8EFQ3WH 5ECJQlfZOVHNN4BZ5iEBky MCDlA7WfE0YvdbK9i8cuzN nym2ZkmDQkUJ5esKMbEY8Y EWIeunBkBJpmvAsxlD3bLN p9 [facility] Work Phone: Performing Lab u9qabABwBVDaqAEdJQBe Ml epvyJhZTTuyYRkO9Utzzlx XEcgEF4eAO6trOeihXNcvD NrNALyPcMjq2thg555mJPv l7ryACHJbkuyhNq3mDdgO8 0gc7Z2MzqaD11xvMGjUNN4 UPHdPZRilOKcDEOrKTK5KW XavMDjY0yrRHVmJD3nlmyb SPwsZQixNFIqpDY3UAFddA YuB6HaESNvOOkjGQHlacz7 QlAoLm5wcEMdvPhzNDwxV3 wuwS2dFrF2GOfeQ1hawX7u NCg4OPuaQOMuxHK4cpU5VA UngXEeL5UfnW4tEPZoUO7b etq2c9xvBFU7RZorDCHnUm M5ehU2IBOgoRAaYGrunATb rpcrvtPqNMTqXWvvt9N5mI BaxO16GRNrpwU4FFBgw42a wLOyBw4skAQdIRW1YiXEfA S5FFwknnOdI0dvprifXO1l dU8bS5GywFKtAZpsq1TerD AkCLxcEj7fATMmiraeSBa4 UISyTVYsqGddDPO5FX96GS wgRGVzayBMMjEsIENsZXZl aFVaBHKCIXJ8OFW7ERRjPE YCJNGgPGD6POI0TBZvQWLg rRLlCVgqELDrXBRfd7UidW 2bwTRWhMGyS2KvkcrqQ0Es rTMhAToisgZqZ4dnWRKTYA xwYXJ9 [facility] Work Phone: [facility] Work Phone: CNOVon 07-14-2024 CNOV Office Visit (OBGYWM ) JAZ STILL ([id number]) 1970 F Date Time Provider Department 07/14/24 2:50 PM ARIANNA LONGORIA OBGYWM During your visit today, we recorded the following information about you: Blood pressure Weight 100/60 63.2 kg Arianna Longoria MD 07/15/2024 1:37 PM Signed Tool Checker offered: Patient declines. Jaz Still is a [...] 3mL 1% lidocaine with 1:100,000 epi. 3mm Joffre punch used to biopsy region. HEMOSTASIS: Obtained [...] Visit Diagnosis:Other skin changes [R23.8] Order(s):SURGICAL PATHOLOGY [PFZ6001] Order #: [id number]. #:[id number] Prescriptions as of 07/15/2024 - MULTIVITAMIN ORAL [...] Status:Closed by ARIANNA LONGORIA on 5/9/25 Normal [facility] Pathology biopsy report Andres (Tiss)on 07-14-2024 AP DISCLAIMER Normal [facility] Comment on above: Order Comment: Speci men Type: TISSUE SPECIMEN Ordering Facility: [facility] Address: [address] [place] [address] Result Comment: Maggy read Developed Test (LDT) Disclaimer: Performance characteristics of immunohistochemical, immunofluorescent, and chromogenic in-situ hybridization tests have been determined by the performing laboratory within [facility]'s [facility] Pathology and Laboratory Medicine Department ([facility], [facility], [facility], [facility], [facility], [facility], or [facility]) in a manner consistent with CLIA [...] appropriately. Performed By: #### 6 6121-5 #### [facility] CLIA [id number] [address] [place] [address] [place] CASE REPORT Normal [facility] Comment on above: Order Comment: Speci men Type: TISSUE SPECIMEN Ordering Facility: [facility] Address: [address] [place] [address] Result Comment: Surg [facility] Pathology Report Case: [id number] Authorizing Provider: Arianna Longoria MD Collected: 07/14/2024 03:30 PM Ordering Location: OB/Gynecology Received: 07/14/2024 04:11 PM Pathologist: Zackery Martin MD Specimen: Perineum, Biopsy, right Performed By: #### 6 6121-5 #### [facility] CLIA [id number] [address] [place] [address] [place] CLINICAL HISTORY skin changes Normal [facility] Comment on above: Order Comment: Speci men Type: TISSUE SPECIMEN Ordering Facility: [facility] Address: [address] [place] [address] Performed By: #### 6 6121-5 #### [facility] CLIA [id number] [address] [place] [address] [place] [address] [place] DIAGNOSIS COMMENT Normal [facility] Comment on above: Order Comment: Speci men Type: TISSUE SPECIMEN Ordering Facility: [facility] Address: [address] [place] [address] Result Comment: Hist ologic sections show a compact stratum corneum overlying an atrophic epidermis. Within the dermis, there is superficial sclerosis with an underlying lymphohistiocytic infiltrate. Overall, these features are consistent with lichen sclerosus. Clinical correlation is recommended. Performed By: #### 6 6121-5 #### [facility] CLIA [id number] [address] [place] [address] [place] FINAL DIAGNOSIS Normal [facility] Comment on above: Order Comment: Speci men Type: TISSUE SPECIMEN Ordering Facility: [facility] Address: [address] [place] [address] Result Comment: A. S kin, perineum, biopsy: - Lichen sclerosus, see comment. at 1415 EDT Performed By: #### 6 6121-5 #### [facility] CLIA [id number] [address] [place] [address] [place] FINAL PERFORMING LAB Normal [facility] Comment on above: Order Comment: Speci men Type: TISSUE SPECIMEN Ordering Facility: [facility] Address: [address] [place] [address] Result Comment: Diag nostic interpretation performed at: [facility], [address] [place] [address] [place] [address] CLIA# [id number] Java Developer Architect: Shane Stanford MD Performed By: #### 6 6121-5 #### [facility] CLIA [id number] [address] [place] [address] [place] GROSS DESCRIPTION Normal [facility] Comment on above: Order Comment: Speci men Type: TISSUE SPECIMEN Ordering Facility: [facility] Address: [address] [place] [address] Result Comment: Geetha yang, Biopsy Received in formalin is a cylindrical segment of skin and subcutaneous tissue measuring 0.3 x 0.3 x 0.3 cm. On the skin surface there is a 0.3 cm, slater area. The specimen is bisected. Totally submitted in one cassette. DL July 14, 2024 10:53 PM Gross examination performed at [facility], [address] [place] [address] Performed By: #### 6 6121-5 #### [facility] CLIA [id number] [address] [place] [address] [place] [address] [place] CBC panel Auto (Bld)on 07-05 Erythrocyte distribution width (RBC) [Ratio] 14.2 % Normal 11.5-15.0 [facility] Comment on above: Order Comment: Speci men Type: BLOOD SPECIMEN Ordering Facility: [facility] Address: [address] [place] [address] Performed By: #### 5 8410-2 #### [facility] CLIA [id number] [address] [place] [address] [place] Hematocrit (Bld) [Volume fraction] 39.4 % Normal 36.0-46.0 [facility] Comment on above: Order Comment: Speci men Type: BLOOD SPECIMEN Ordering Facility: [facility] Address: [address] [place] [address] Performed By: #### 5 8410-2 #### [facility] CLIA [id number] [address] [place] [address] [place] Hemoglobin (Bld) [Mass/Vol] 13.0 g/dL Normal 11.5-15.5 [facility] Comment on above: Order Comment: Speci men Type: BLOOD SPECIMEN Ordering Facility: [facility] Address: [address] [place] [address] Performed By: #### 5 8410-2 #### [facility] CLIA [id number] [address] [place] [address] [place] MCH (RBC) [Entitic mass] 30.1 pg Normal 26.0-34.0 [facility] Comment on above: Order Comment: Speci men Type: BLOOD SPECIMEN Ordering Facility: [facility] Address: [address] [place] [address] Performed By: #### 5 8410-2 #### [id number] [address] [place] [address] [place] MCHC (RBC) [Mass/Vol] 33.0 g/dL Normal 30.5-36.0 [facility] Comment on above: Order Comment: Speci men Type: BLOOD SPECIMEN Ordering Facility: [facility] Address: [address] [place] [address] Performed By: #### 5 8410-2 #### [facility] [id number] [address] [place] [address] [place] MCV (RBC) [Entitic vol] 91.2 fL Normal 80.0-100.0 [facility] Comment on above: Order Comment: Speci men Type: BLOOD SPECIMEN Ordering Facility: [facility] Address: [address] [place] [address] Performed By: #### 5 8410-2 #### [facility] [id number] [address] [place] [address] [place] Nucleated RBC (Bld) [#/Vol] 10*3/uL Normal <0.01 [facility] Comment on above: Order Comment: Speci men Type: BLOOD SPECIMEN Ordering Facility: [facility] Address: [address] [place] [address] Performed By: #### 5 8410-2 #### [facility] [id number] [address] [place] [address] [place] Platelet mean volume (Bld) [Entitic vol] 10.7 fL Normal 9.0-12.7 [facility] Comment on above: Order Comment: Speci men Type: BLOOD SPECIMEN Ordering Facility: [facility] Address: [address] [place] [address] Performed By: #### 5 8410-2 #### [facility] CLIA [id number] [address] [place] [address] [place] Platelets (Bld) [#/Vol] 274 10*3/uL Normal 150-400 [facility] Comment on above: Order Comment: Speci men Type: BLOOD SPECIMEN Ordering Facility: [facility] Address: [address] [place] [address] Performed By: #### 5 8410-2 #### [facility] CLIA [id number] [address] [place] [address] [place] RBC (Bld) [#/Vol] 4.32 10*6/uL Normal 3.90-5.20 [facility] Comment on above: Order Comment: Speci men Type: BLOOD SPECIMEN Ordering Facility: [facility] Address: [address] [place] [address] Performed By: #### 5 8410-2 #### [facility] CLIA [id number] [address] [place] [address] [place] WBC (Bld) [#/Vol] 5.85 10*3/uL Normal 3.70-11.00 [facility] Comment on above: Order Comment: Speci men Type: BLOOD SPECIMEN Ordering Facility: [facility] Address: [address] [place] [address] Performed By: #### 5 8410-2 #### [facility] CLIA [id number] [address] [place] [address] [place] Comprehensive metabolic 2000 panelon 07-05-2024 Albumin [Mass/Vol] 4.7 g/dL Normal 3.9-4.9 [facility] Comment on above: Order Comment: Speci men Type: BLOOD SPECIMEN Ordering Facility: [facility] Address: [address] [place] [address] Performed By: #### 2 4323-8 #### [facility] CLIA [id number] [address] [place] [address] [place] ALP [Catalytic activity/Vol] 68 U/L Normal 34-123 [facility] Comment on above: Order Comment: Speci men Type: BLOOD SPECIMEN Ordering Facility: [facility] Address: [address] [place] [address] Performed By: #### 2 4323-8 #### [facility] CLIA [id number] [address] [place] [address] [place] ALT [Catalytic activity/Vol] 29 U/L Normal 7-38 [facility] Comment on above: Order Comment: Speci men Type: BLOOD SPECIMEN Ordering Facility: [facility] Address: [address] [place] [address] Performed By: #### 2 4323-8 #### [facility] CLIA [id number] [address] [place] [address] [place] Anion gap [Moles/Vol] 16 mmol/L High 8-15 [facility] Comment on above: Order Comment: Speci men Type: BLOOD SPECIMEN Ordering Facility: [facility] Address: [address] [place] [address] Performed By: #### 2 4323-8 #### [facility] CL[facility] [id number] [address] [place] [address] [place] AST [Catalytic activity/Vol] 27 U/L Normal 13-35 [facility] Comment on above: Order Comment: Speci men Type: BLOOD SPECIMEN Ordering Facility: [facility] Address: [address] [place] [id number] Performed By: #### 2 4323-8 #### [facility] CLIA [id number] [address] [place] [address] [place] Bilirubin [Mass/Vol] 0.3 mg/dL Normal 0.2-1.3 [facility] Comment on above: Order Comment: Speci men Type: BLOOD SPECIMEN Ordering Facility: [facility] Address: [address] [place] [address] Performed By: #### 2 4323-8 #### [facility] CLIA [id number] [address] [place] [address] [place] Calcium [Mass/Vol] 10.1 mg/dL Normal 8.5-10.2 [facility] Comment on above: Order Comment: Speci men Type: BLOOD SPECIMEN Ordering Facility: [facility] Address: [address] [place] [address] Performed By: #### 2 4323-8 #### [facility] [id number] [address] [place] [address] [place] Chloride [Moles/Vol] 106 mmol/L Normal 98-107 [facility] Comment on above: Order Comment: Speci men Type: BLOOD SPECIMEN Ordering Facility: [facility] Address: [address] [place] [address] Performed By: #### 2 4323-8 #### [facility] [id number] [address] [place] [address] [place] CO2 [Moles/Vol] 20 mmol/L Low 22-30 [facility] Comment on above: Order Comment: Speci men Type: BLOOD SPECIMEN Ordering Facility: [facility] Address: [address] [place] [id number] Performed By: #### 2 4323-8 #### [facility] [id number] [address] [place] [address] [place] Creatinine [Mass/Vol] 0.84 mg/dL Normal 0.58-0.96 [facility] Comment on above: Order Comment: Speci men Type: BLOOD SPECIMEN Ordering Facility: [facility] Address: [address] [place] [address] Performed By: #### 2 4323-8 #### [facility] [id number] [address] [place] [address] [place] Creatinine and Glomerular filtration rate.predicted panel (S/P/Bld) 83 mL/min/1.73m??? Normal >=60 [facility] Comment on above: Order Comment: Larry gustafson Type: BLOOD SPECIMEN Ordering Facility: [facility] Address: [address] [place] [address] Result Comment: Sonja mated Glomerular Filtration Rate [...] By: #### 2 4323-8 #### [facility] [id number] [address] [place] [address] [place] Glucose [Mass/Vol] 49 mg/dL Low 74-99 [facility] Comment on above: Order Comment: Larry gustafson Type: BLOOD SPECIMEN Ordering Facility: [facility] Address: [address] [place] [address] Result Comment: The [place] [employer] (ADA) provides guidance for cutoff [...] Standards of Medical Care in Diabetes 2016, [place] [employer]. Diabetes Care. 2016.39(Suppl 1). Performed By: #### 2 4323-8 #### [facility] CLIA [id number] [address] [place] [address] [place] Potassium [Moles/Vol] 4.1 mmol/L Normal 3.7-5.1 [facility] Comment on above: Order Comment: Speci men Type: BLOOD SPECIMEN Ordering Facility: [facility] Address: [address] [place] [address] Performed By: #### 2 4323-8 #### [facility] CLIA [id number] [address] [place] [address] [place] Protein [Mass/Vol] 7.4 g/dL Normal 6.3-8.0 [facility] Comment on above: Order Comment: Speci men Type: BLOOD SPECIMEN Ordering Facility: [facility] Address: [address] [place] [address] Performed By: #### 2 4323-8 #### [facility] [id number] [address] [place] [address] [place] Sodium [Moles/Vol] 142 mmol/L Normal 136-144 [facility] Comment on above: Order Comment: Speci men Type: BLOOD SPECIMEN Ordering Facility: [facility] Address: [address] [place] [address] Performed By: #### 2 4323-8 #### [facility] [id number] [address] [place] [address] [place] Urea nitrogen [Mass/Vol] 19 mg/dL Normal 7-21 [facility] Comment on above: Order Comment: Speci men Type: BLOOD SPECIMEN Ordering Facility: [facility] Address: [address] [place] [address] Performed By: #### 2 4323-8 #### [facility] [id number] [address] [place] [address] [place] HbA1c (Bld)on 07-05-2024 Average glucose Estimated from glycated hemoglobin (Bld) [Mass/Vol] 114 mg/dL Normal [facility] Comment on above: Order Comment: Larry gustafson Type: BLOOD SPECIMEN Ordering Facility: [facility] Address: [address] [place] [address] Result Comment: eAG: (Estimated average glucose) is a calculated value from HgbA1c and is construction representative of the average blood glucose level in the last 2-3 month period. Performed By: #### 5 5454-3 #### [facility] CLIA [id number] [address] [place] [address] [place] HbA1c (Bld) [Mass fraction] 5.6 % Normal 4.3-5.6 [facility] Comment on above: Order Comment: Larry gustafson Type: BLOOD SPECIMEN Ordering Facility: [facility] Address: [address] [place] [address] Result Comment: Amer ican Diabetes Association guidelines indicate that patients with HgbA1c in the range 5.7-6.4% are at increased risk for development of diabetes, and intervention by lifestyle modification may be beneficial. HgbA1c greater or equal to 6.5% is considered diagnostic of diabetes. Performed By: #### 5 5454-3 #### [facility] CLIA [id number] [address] [place] [address] [place] LIPID PANEL, NONFASTINGon Cholesterol [Mass/Vol] 196 mg/dL Normal <200 [facility] Comment on above: Order Comment: Larry gustafson Type: BLOOD SPECIMEN Ordering Facility: [facility] Address: [address] [place] [address] Result Comment: <200 mg/dL, Desirable 200-239 mg/dL, Borderline high >239 mg/dL, High Performed By: #### L IPNF, 3016-3 #### [facility] CLIA [id number] [address] [place] [address] [place] HDL CHOLESTEROL, NF 78 mg/dL Normal >39 [facility] Comment on above: Order Comment: Larry gustafson Type: BLOOD SPECIMEN Ordering Facility: [facility] Address: [address] [place] [address] Result Comment: 40-5 9 mg/dL, Acceptable >59 mg/dL, High: Negative risk factor for coronary heart disease <40 mg/dL, Low: Positive risk factor for coronary heart disease Performed By: #### L GUME, 3016-3 #### [facility] CLIA [id number] [address] [place], [place] [address] [place] LDL CHOLESTEROL CALCULATED, NF 102 mg/dL High <100 [facility] Comment on above: Order Comment: Keeganradha gustafson Type: BLOOD SPECIMEN Ordering Facility: [facility] Address: [address] [place] [address] Result Comment: <100 mg/dL, Optimal 100-129 mg/dL, Near optimal/above optimal 130-159 mg/dL, Borderline high 160-189 mg/dL, High >189 mg/dL, Very high Secondary prevention optimal LDL Cholesterol levels are recommended to be <70 mg/dL LDL cholesterol is calculated using the Muller-NIH equation. Performed By: #### L GUME, 6-3 #### [facility] CLIA [id number] [address] [place] [address] OF [place] LDL/HDL RATIO, NF 1.31 mg/dL Normal <2.54 [facility] Comment on above: Order Comment: Larry gustafson Type: BLOOD SPECIMEN Ordering Facility: [facility] Address: [address] [place] [address] Result Comment: Refagnieszka hagerce: 1. National Cholesterol Education Program ATP III Guideline At-A-Glance Quick Desk Reference: National Heart, Lung, and Blood Empire. National Institutes of Health. 2001: NIH Publication No. 01-3305. 2. An International Atherosclerosis Society position paper: global recommendations for the management of dyslipidemia: executive summary, Atherosclerosis. 2014: 232(2):410-413. Performed By: #### L GUME, 3016-3 #### [facility] CLIA [id number] [address] [place] [address] [place] NON HDL CHOL, NF 118 mg/dL Normal <130 [facility] Comment on above: Order Comment: Speci men Type: BLOOD SPECIMEN Ordering Facility: [facility] Address: [address] [place] [address] Result Comment: <130 mg/dL, Optimal 130-159 mg/dL, Near optimal/above optimal 160-189 mg/dL, Borderline high 190-219 mg/dL, High >219 mg/dL, Very high Secondary prevention optimal non HDL Cholesterol levels are recommended to be <100 mg/dL Performed By: #### L IPNF, 6-3 #### [facility] CLIA [id number] [address] [place] [address] OF [place] T CHOL/HDL RATIO NF 2.51 mg/dL Normal <5.10 [facility] Comment on above: Order Comment: Speci men Type: BLOOD SPECIMEN Ordering Facility: [facility] Address: [address] [place] [address] Performed By: #### L IPNF, 3015-3 #### [facility] CLIA [id number] [address] [place] [address] [place] TRIGLYCERIDES, NF 93 mg/dL Normal <150 [facility] Comment on above: Order Comment: Speci men Type: BLOOD SPECIMEN Ordering Facility: [facility] Address: [address] [place] [address] Result Comment: <150 mg/dL, Normal 150-199 mg/dL, Borderline high 200-499 mg/dL, High >499 mg/dL, Very high Performed By: #### L IPNF, 3015-3 #### [facility] CLIA [id number] [address] [place] [address] [place] VLDL CHOLESTEROL, NF 15 mg/dL Normal <30 [facility] Comment on above: Order Comment: Speci men Type: BLOOD SPECIMEN Ordering Facility: [facility] Address: [address] [place] [address] Performed By: #### L IPNF, 6-3 #### [facility] CLIA [id number] [address] [place] [address] [place] TSH SerPl-aCncon 07-05-2024 TSH Qn 1.780 m[IU]/L Normal 0.270-4.200 [facility] Comment on above: Order Comment: Speci men Type: BLOOD SPECIMEN Ordering Facility: [facility] Address: [address] [place] [address] Performed By: #### L IP, 3016-3 #### [facility] CLIA [id number] [address] [place] [address] [place] BACTERIAL VAGINOSIS NAATon 0 06-30-2024 Lactobacillus crispatus+gasseri+j ensenii + Gardnerella vaginalis + Atopobium vaginae rRNA CHADWICK+probe Ql (Vag fld) Not detected Normal Not detected [facility] Comment on above: Order Comment: Speci men Type: SWAB Ordering Facility: [facility] Address: [address] [place] [address] Performed By: #### B VAMP, CVTV #### [facility] CLIA [id number] [address] [place] [address] [place] BROOKE/TRICHOMONAS NAATon 0 06-30-2024 C. glabrata RNA CHADWICK+probe Ql (Vag fld) Not detected Normal Not detected [facility] Comment on above: Order Comment: Speci men Type: SWAB Ordering Facility: [facility] Address: [address] [place] [address] Performed By: #### B VAMP, CVTV #### [facility] CLIA [id number] [address] [place] [address] [place] Brooke sp DNA CHADWICK+probe Ql (Vag fld) Not detected Normal Not detected [facility] Comment on above: Order Comment: Speci men Type: SWAB Ordering Facility: [facility] Address: [address] [place] [address] Result Comment: The Brooke species group target includes C. albicans, C. tropicalis, C. parapsilosis, and C. dubliniensis. Performed By: #### B VAMP, CVTV #### [facility] CLIA [id number] [address] [place] [address] [place] T. vaginalis DNA CHADWICK+probe Ql (Unsp spec) Not detected Normal Not detected [facility] Comment on above: Order Comment: Speci men Type: SWAB Ordering Facility: [facility] Address: [address] [place] [address] Performed By: #### B VAMP, CVTV #### [facility] CLIA [id number] [address] [place] [address] OF [place] CNOVon 06-30-2024 CNOV Office Visit (OBGYWM ) JAZ STILL ([id number]) 1970 F Date Time Provider Department 06/30/24 2:40 PM ARIANNA LONGORIA OBGYWM During your visit today, we recorded the following information about you: Blood pressure Weight Height 100/68 64.9 kg 1.664 m Arianna Longoria MD 06/30/2024 5:24 PM Signed Tool Checker offered: Patient declines. Sebastian is a 54 [...] Always HPV vaccine: No Last pap smear: [id number] History of abnormal pap: No Colposcopy: No. [...] discussed with the Patient or Patient's Authorized Casting Chipper. As applicable, any other physician, advance practice provider, medical student, or other health professional student that will be observing or involved in the sensitive examination for educational or training purposes was discussed with the Patient or Authorized Casting Chipper. The Patient or Authorized Casting Chipper has agreed to proceed with the sensitive [...] noted as well. Normal Bartholin's glands, urethra, Higbee's glands, no vulvar lesions, no cervical lesions, [...] Why matson (more content not included)... Normal [facility] XR Cervical spine AP and Lat eral and obliqueon 04-10-2022 IMPRESSION: Cervical spine degenerative changes as described above. Biophysics Professor: PSCB Transcribe Date/Time: Apr 10 2022 2:55P Dictated by : JOHN CRUM MD This examination was interpreted and the report reviewed and electronically signed by: JOHN CRUM MD on Apr 10 2022 2:56PM [facility] DIVISION OF RADIOLOGY * * *Final [...] tissues are normal. DIVISION OF RADIOLOGY Provider, [facility] - 04/10/2022 * * *Final Report* * [...] Cervical spine degenerative changes as described above. Biophysics Professor: PSCVlad Transcribe Date/Time: Apr 10 2022 2:55P Dictated by : JOHN CRUM MD This examination was interpreted and the report reviewed and electronically signed by: JOHN CRUM MD on Apr 10 2022 2:56PM [facility] XR Cervical spine AP and Lat eral and obliqueOrdered By: Ccf Provider on 04-10-2022 [facility] XR Cervical spine AP and Lat eral and obliqueon 04-09-2022 Radiology Study observation (narrative) [facility] Absolute lymphocyte counton 03-19-2022 Lymphocytes Auto (Unsp spec) [#/Vol] 1.73 10*3/uL 0.83-4.51 [facility] Work Phone: Basophil percentageon 2022 Basophils/100 WBC (Bld) 0.6 % 0-1 [facility] Work Phone: Chloride [Moles/Vol] 108 mmol/L 98-107 [facility] Work Phone: Eosinophils/100 WBC (Bld) 0.5 % 0-5 [facility] Work Phone: Glucose [Mass/Vol] 95 mg/dL 74-[address] [facility] Work Phone: Neutrophils (Bld) [#/Vol] 7.2 10*3/uL 2.0-7.7 [facility] Work Phone: Neutrophils/100 WBC (Bld) 74.3 % 47-70 [facility] Work Phone: Potassium [Moles/Vol] 4.3 mmol/L 3.5-5.1 [facility] Work Phone: Sodium [Moles/Vol] 139 mmol/L 136-[address] [facility] Work Phone: WBC (Bld) [#/Vol] 9.7 10*3/uL 4.4-11.[address] [facility] Work Phone: Blood erythrocytes count (nu mber/volume)on 03-19-2022 RBC (Bld) [#/Vol] 4.30 10*6/uL 4.2-5.4 [facility] Work Phone: Blood hemoglobin measurement (mass/volume)on 03-19-2022 Hemoglobin (Bld) [Mass/Vol] 13.0 g/dL 12.0-15.0 [facility] Work Phone: Blood lymphocytes/100 leukoc yteson 03-19-2022 Lymphocytes/100 WBC (Bld) 17.9 % 19-41 [facility] Work Phone: Blood monocytes/100 leukocyt eson 03-19-2022 Monocytes/100 WBC (Bld) 6.4 % 0-10 [facility] Work Phone: Blood platelet mean volumeon 03-19-2022 Platelet mean volume (Bld) [Entitic vol] 10.9 fL 6.2-12.0 [facility] Work Phone: Determination of erythrocyte mean corpuscular volume (MCV)on 03-19-2022 MCV (RBC) [Entitic vol] 93.0 fL 81-99 [facility] Work Phone: Erythrocyte sedimentation ra tommie 03-19-2022 ESR (Bld) [Velocity] 16 mm/h 0-30 [facility] Work Phone: Hematocrit Auto (Bld) [Volum e fraction]on 03-19-2022 Hematocrit (Bld) [Volume fraction] 40.0 % 37-47 [facility] Work Phone: Laboratory - Chemistry and C hemistry - challengeon 03-19-2022 CO2 [Moles/Vol] 28.0 mmol/L 21.0-32.0 [facility] Work Phone: Urea nitrogen/Creatinine [Mass ratio] 12.7 mg/mg 10-20 [facility] Work Phone: Laboratory - Hematology and Cell countson 03-19-2022 Erythrocyte distribution width (RBC) [Entitic vol] 47.3 fL 35.1-43.9 [facility] Work Phone: Erythrocyte distribution width (RBC) [Ratio] 13.8 % 11.6-14.6 [facility] Work Phone: Immature granulocytes/100 WBC (Bld) 0.300 % 0.0-0.9 [facility] Work Phone: Comment on above: IG% - Immature Granu locytes (promyelocytes, myelocytes and metamyelocytes) > 1% indicates that a LEFT SHIFT is Present. MCH (RBC) [Entitic mass] 30.2 pg 27.0-32.0 [facility] Work Phone: Nucleated RBC/100 WBC (Bld) [Ratio] 0 % 0-5 [facility] Work Phone: MCHC Auto (RBC) [Mass/Vol]on 03-19-2022 MCHC (RBC) [Mass/Vol] 32.5 g/dL 32-36 [facility] Work Phone: No Panel Informationon 03-19 Estimated Creatinine Clearance Calc 87.76 ml/min [facility] Work Phone: Estimated GFR (MDRD) Amer 111 mL/min >60 [facility] Work Phone: Comment on above: GFR Calc Estimated GFR (MDRD) Non-Af Amer 92 mL/min >60 [facility] Work Phone: Comment on above: Non- GFR Calc Platelets bldon 03-19-2022 Platelets (Bld) [#/Vol] 313 10*3/uL 150-450 [facility] Work Phone: Serum or plasma calcium isaías urement (mass/volume)on 03-19-2022 Calcium [Mass/Vol] 9.1 mg/dL 8.5-10.[address] [facility] Work Phone: Serum or plasma creatinine m easurement (mass/volume)on 03-19-2022 Creatinine [Mass/Vol] 0.71 mg/dL 0.55-1.02 [facility] Work Phone: Comment on above: The validity of the calculated GFR & GFRAA in patients over 70 years has not been determined. Clinical correlation is essential. Serum or plasma urea nitroge n measurement (mass/volume)on 03-19-2022 Urea nitrogen [Mass/Vol] 9 mg/dL 7-18 [facility] Work Phone: Thin prep Papanicolaou smear with manual screeningon 03-19-2022 Thin prep Papanicolaou smear with manual screening 3 5-15 [facility] Work Phone: [facility] Note on 11-28-2016 [facility] Note Normal [facility] ([place] Patient Summary Documentson 11-14-2016 Patient Summary Documents Normal [facility] [place] Vital Signs Date Time Vital Sign Value Performing Clinician Facility 09-02-2024 20:37-0400 Body temperature 98.4 [degF] Dr. Nader Flores MD Work Phone: 1(358)[phone] [place] [address] 09-02-2024 20:37-0400 Diastolic blood pressure 79 mm[Hg] Dr. Nader Flores MD Work Phone: 5(396)159-199726 [place] [address] 09-02-2024 20:37-0400 Heart rate 79 /min Dr. Nader Flores MD Work Phone: 9(732)686-483426 [place] [address] 09-02-2024 20:37-0400 Respiratory rate 16 /min Dr. Nader Flores MD Work Phone: 1(288)159-773526 [place] [address] 09-02-2024 20:37-0400 SaO2% (BldA) [Mass fraction] 100 % Dr. Nader Flores MD Work Phone: 2(377)584-288926 [place] [address] 09-02-2024 20:37-0400 Systolic blood pressure 139 mm[Hg] Dr. Nader Flores MD Work Phone: 3(670)863-675826 [place] [address] 09-02-2024 17:01-0400 Body height 167.[address] Nader Flores MD Work Phone: 8(550)573-815426 [place] [address] 09-02-2024 17:01-0400 Body mass index (BMI) [Ratio] 21.6 kg/m2 Dr. Nader Flores MD Work Phone: 9(714)650-595426 [place] [address] 09-02-2024 17:01-0400 Body weight 60.[address] Nader Flores MD Work Phone: 6(027)683-125926 [place] [address] 07-14-2024 14:55-0400 Body mass index (BMI) [Ratio] 22.84 kg/m2 Arianna Longoria MD Work Phone: 7(365)388-917845 [place] [address] 07-14-2024 14:55-0400 Body weight 63.23 kg Arianna Longoria MD Work Phone: 2(751)786-303345 [place] [address] 07-14-2024 14:55-0400 Diastolic blood pressure 60 mm[Hg] Arianna Longoria MD Work Phone: 3(611)114-786545 [place] [address] 07-14-2024 14:55-0400 Systolic blood pressure 100 mm[Hg] Arianna Longoria MD Work Phone: [facility] 04-08-2022 07:52-0500 Body temperature 96.91 [degF] Izzypeyton Knutsoner PA-C Work Phone: [facility] 04-08-2022 07:52-0500 Body weight 60.24 kg Izzy Briseno PA-C Work Phone: [facility] 04-08-2022 07:52-0500 Diastolic blood pressure 70 mm[Hg] Izzypeyton Knutsoner PA-C Work Phone: [facility] 04-08-2022 07:52-0500 Heart rate 75 /min Izzy fili PA-C Work Phone: [facility] 04-08-2022 07:52-0500 Respiratory rate 16 /min Izzypeyton Knutsoner PA-C Work Phone: [facility] 04-08-2022 07:52-0500 SaO2% (BldA) [Mass fraction] 98 % Izzy Knutsoner PA-C Work Phone: [facility] 04-08-2022 07:52-0500 Systolic blood pressure 103 mm[Hg] Izzypeyton Knutsoner PA-C Work Phone: [facility] 03-19-2022 10:55-0500 Body height 167.64 cm [facility] Work Phone: 03-19-2022 10:55-0500 Body mass index (BMI) [Ratio] 21.7 kg/m2 [facility] Work Phone: 03-19-2022 10:55-0500 Body temperature 96.7 [degF] [facility] Work Phone: 03-19-2022 10:55-0500 Body weight 61.23 kg [facility] Work Phone: 03-19-2022 10:55-0500 Diastolic blood pressure 66 mm[Hg] [facility] Work Phone: 03-19-2022 10:55-0500 Heart rate 71 /min [facility] Work Phone: 03-19-2022 10:55-0500 Respiratory rate 18 /min [facility] Work Phone: 03-19-2022 10:55-0500 SaO2% (BldA) [Mass fraction] 99 % [facility] Work Phone: 03-19-2022 10:55-0500 Systolic blood pressure 96 mm[Hg] [facility] Work Phone: 03-12-2022 08:29-0500 Body mass index (BMI) [Ratio] 22 kg/m2 [facility] Work Phone: 03-12-2022 08:29-0500 Body temperature 96.9 [degF] [facility] Work Phone: 03-12-2022 08:29-0500 Body weight 61.9 kg [facility] Work Phone: 03-12-2022 08:29-0500 Diastolic blood pressure 70 mm[Hg] [facility] Work Phone: 03-12-2022 08:29-0500 Heart rate 81 /min [facility] Work Phone: 03-12-2022 08:29-0500 Respiratory rate 14 /min [facility] Work Phone: 03-12-2022 08:29-0500 SaO2% (BldA) [Mass fraction] 100 % [facility] Work Phone: 03-12-2022 08:29-0500 Systolic blood pressure 118 mm[Hg] [facility] Work Phone: Encounters Encounter Date Encounter Type Care Provider Facility Start: 09-04-2024 ambulatory No Primary Car e Physician Facility:[facility] Start: 09-02-2024 End: 09-02-2024 Emergency department patient visit Dr. Nader Flores MD Work Phone: -Emergency Department Work Phone: Start: 07-28-2024 End: 07-28-[address] Nader Flores MD Work Phone: [facility] Work Phone: Start: 07-28-2024 End: 07-28-[address] Isamar Ramirez MD [facility] Work Phone: Start: 07-28-2024 End: 07-28-2024 ambulatory Nader Flores Facility:[facility] Start: 07-18-2024 End: 07-18-2024 Telephone encounter Arianna Longoria MD Work Phone: OB/Gynecology Comment on above: Orders Start: 07-14-2024 End: 07-14-2024 Patient encounter procedure Arianna Longoria MD Work Phone: OB/Gynecology Comment on above: Other skin changes ( Primary Dx) Start: 07-14-2024 End: 07-14-2024 ambulatory [facility] Facility:[facility] Start: 07-05-2024 End: 07-05-2024 ambulatory [facility] Start: 07-05-2024 Patient encounter procedure ARIANNA LONGORIA [facility] Start: 07-01-2024 End: 08-31-2024 Follow-up encounter Maira Littlejohn APRN.CNP Work Phone: OB/Gynecology Start: 06-30-2024 End: 06-30-2024 ambulatory ARIANNA [facility] Facility:[facility] Start: 06-30-2024 Encounter for gynecological examination (general) (routine) without abnormal findings ARIANNA [facility] Start: 05-12-2022 End: 05-12-2022 ambulatory Gia Thurston PT Work Phone: [facility] Comment on above: Radicular pain in ri ght arm (Primary Dx) Start: 04-28-2022 End: 04-28-2022 ambulatory Gia Thurston PT Work Phone: [facility] Comment on above: Radicular pain in ri ght arm (Primary Dx) Start: 04-23-2022 End: 04-23-2022 ambulatory Gia Thurston PT Work Phone: [facility] Comment on above: Radicular pain in ri ght arm (Primary Dx) Start: 04-21-2022 End: 04-21-2022 ambulatory Gia Thurston PT Work Phone: [facility] Comment on above: Radicular pain in ri ght arm (Primary Dx) Start: 04-14-2022 End: 04-14-2022 ambulatory Gia Thurston PT Work Phone: [facility] Comment on above: Radicular pain in ri ght arm (Primary Dx) Start: 04-09-2022 End: 04-09-2022 Subsequent hospital visit by physician [facility] Work Phone: Radiology Comment on above: Radicular pain in ri ght arm [M79.2] Start: 04-08-2022 End: 04-08-2022 Patient encounter procedure Izzy Briseno PA-C Work Phone: Neurology Comment on above: Radicular pain in ri ght arm (Primary Dx); Paresthesia and pain of right extremity Start: 03-19-2022 Telephone encounter Nader Flores MD Work Phone: Family [facility] [place] Comment on above: Future Appointment Start: 03-19-2022 End: 03-19-2022 Emergency department patient visit [facility]-Emergency Department Start: 03-12-2022 End: 03-12-2022 Emergency department patient visit [facility]-Emergency Department Start: 11-14-2016 End: 11-14-2016 Emergency [...] panel - S pedro or Plasma Xr [place] Work Phone: Plan of Treatment Date Care Activity Detail Author Start: 07-05-2029 Lipid panel Lipid Screening [facility] Start: 07-06-2027 Diabetes Screening Diabetes Screenin g [facility] Start: 07-03-2025 End: 07-03-2025 Patient encounter procedure 07/03/2025 9:00 AM EDT Office Visit OB/Gynecology [address] [place] [address] Arianna Longoria MD [address] [place] [address] Annual OB/Gynecology Comment on above: Annual Start: 11-07-2024 Influenza vaccination Influenz a Vaccine (Season Ended) [facility] Start: 09-02-2024 End: 09-02-2024 [facility] Start: 11-08-2023 Covid-19 Vaccine ( season) Covid-19 Vaccine ( season) [facility] Start: 11-08-2023 Influenza vaccination Influenza Vacc ine (#1) [facility] Start: 03-09-2022 DEPRESSION ASSESSMENT DEPRESSION ASS ESSMENT [facility] Start: 11-07-2021 Influenza vaccination INFLUENZA (#1) [facility] Start: 04-30-2021 Lipid panel Lipid Screening [facility] Start: 04-30-2021 LIPID SCREEN LIPID SCREEN [facility] Start: 2020 SHINGRIX VACCINE (1 of 2) SHINGRIX VACCINE (1 of 2) [facility] Start: 07-04-2019 DIABETES SCREEN DIABETES SCREEN [facility] Start: 07-04-2019 Diabetes Screening Diabetes Screenin g [facility] Start: 12-03-2016 PNEUMOCOCCAL (2 - PCV) PNEUMOCOCCAL (2 - PCV) [facility] Start: 12-03-2016 Pneumococcal vaccination Pneum ococcal Vaccine (2 of 2 - PCV) [facility] Start: 12-03-2016 Pneumococcal Vaccine : 50+ (2 of 2 - PCV) Pneumococcal Vaccine: 50+ (2 of 2 - PCV) [facility] Start: 2015 COLOGUARD (FIT-DNA) COLOGUARD (FIT-D NA) [facility] Start: 2015 Colonoscopy COLONOSCOPY [facility] Start: 2015 COLORECTAL CANCER SCREENING COLORECTAL CANCER SCREENING [facility] Start: [address] COLONOGRAPHY [facility] Start: 2015 FECAL OCCULT BLOOD FECAL OCCULT BLOO D [facility] Start: 2015 Screening for malign ant neoplasm of colon [facility] Start: 2015 SIGMOIDOSCOPY SIGMOIDOSCOPY [facility] Start: 2010 Mammography MAMMOGRAM [facility] Start: 2010 Screening for malign ant neoplasm of breast Mammogram Screening [facility] Start: 1989 Hepatitis B Vaccine (1 of 3 - 19+ 3-dose series) Hepatitis B Vaccine (1 of 3 - 19+ 3-dose series) [facility] Start: 1989 Urine microalbumin profile [facility] Start: 1988 Anxiety Screening Anxiety Screening [facility] Start: 1988 Depression Screening Depression Scre ing [facility] Start: 1988 HEPATITIS C SCREENING HEPATITIS C [facility] Start: 1988 Hepatitis C screening Hepatitis C [facility] Start: 1988 HIV SCREENING HIV SCREENING [facility] Start: 1988 HIV screening HIV Screening [facility] Start: 1970 COVID-19 VACCINE (#1) COVID-19 VACCI NE (#1) [facility] Start: 1970 HEPATITIS B (1 of 3 - 3-dose series) HEPATITIS B (1 of 3 - 3-dose series) [facility] Patient Education [facility] Work Phone: Patient referral [facility] Work Phone: End: 05-08-2023 Radex spine cervical 4 or 5 views XR CERV OTHER 4V AP/LAT/OBL Radiology Routine Radicular pain in right arm 1 Occurrences starting 04/08/2022 until 05/08/2023 [facility] Work Phone: Comment on above: 1 Occurrences starti ng 04/08/2022 until 05/08/2023 [facility] Immunizations Immunization Date Immunization Notes Care Provider Fa cility 09-02-2024 tetanus toxoid, redu lashae diphtheria toxoid, and acellular pertussis vaccine, adsorbed Dr. Nader Flores MD Work Phone: [facility] 12-04-2015 pneumococcal polysaccharide vaccine, 23 valent Isamar Flores MD Work Phone: [facility] 12-04-2015 influenza virus vaccine, unspecified formulation Xr [place] Work Phone: [facility] Payers Date Payer Category Payer Private Health Insurance MMO SUP ERMED PPO Member Subscriber Plan / Payer (Effective 2024-Present) Name: Jaz Still Relation to Subscriber: Self Name: Jaz Still Payer ID: Not on file Type: PPO Address: [place] [id number] 2024 Unknown [id number] 2016 Self-pay Self-pay [id number] Unknown [facility] [id number] Unknown [id number] Unknown [id number] Unknown [id number] Social History Date Type Detail Facility Start: 03-19-2022 Tobacco smoking stat us LAIS Unknown if ever smoked [facility] Work Phone: Start: 1970 Sex Assigned At Female [facility] Start: 12-04-2015 End: 09-02-2024 Tobacco smoking status NHIS Smokes tobacco daily [facility] Work Phone: History of tobacco use Cigarette Smoker [facility] Work Phone: Start: 12-04-2015 End: 06-30-2024 Cigarettes smoked current (pack per day) - Reported 0.5 [facility] Start: 10-25-2021 End: 06-30-2024 Alcohol intake Current drinker of alcohol (finding) [facility] Start: 12-04-2015 Alcohol Comment 1-2 times per month [facility] Start: 1970 Sex Assigned At Not on file [facility] Start: 04-08-2022 End: 06-30-2024 Tobacco use panel [facility] National Score (1-10 0), lower number is lower risk 67 [facility] Start: 03-21-2022 Sexual orientation Heterosexual (ced garcia) [facility] Start: 06-30-2024 Tobacco use and exposure Smokeless tobacco non-user [facility] Clinical Notes 03-19-2022 to 07-29-2024 Telephone Encounter - Arianna Longoria MD - 07/18/2024 8:21 AM EDTTelephone Encounter - Arianna Longoria MD - 07/18/2024 8:21 AM Arianna Laura MD - 07/14/2024 2:53 PM EDT Note Date & Type Note Facility 07-29-2024 Radiology Diagnostic study note [facility] [address] [place] [address] Sinus/Facial Bone MR#: [id number] Acct: [id number] Name: JAZ STILL Rep #: [id number] : 1970 F 54 From: Kaushik Hester MD PCP: Dr. Nader Flores MD Status: REG CLI Study:Sinus/Facial Bone Date of Exam: Exam# [id number] Ordering Dr: Isamar Ramirez MD PROCEDURE: SINUS/FACIAL [...] C5-6 asymmetric uncovertebral hypertrophic change results in okrl-vabparq-sbjr-right severe appearing left sided foraminal narrowing for example sagittal [address]/Sinus/Facial Bone IMPRESSION: No paranasal sinus disease as above. 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 Reading Location: [facility] CC: Dr. Nader Flores MD; Dr. Isamar Ramirez MD ~ Biophysics Professor: Signed [facility] 07-18-2024 Telephone encounter Note See result note. Rx sent for clobetasol ointment. Needs follow up in 12 weeks [facility] 07-18-2024 Miscellaneous Notes See result note. Rx sent for clobetasol ointment. Needs follow up in 12 weeks documented in this encounter [facility] 07-14-2024 Note HNO ID: [id number] Author: ARIANNA LONGORIA MD Service: ? Author Type: Physician Type: Progress Notes Filed: 07/15/2024 13:37 Note Text: Tool Checker offered: Patient declines. Jaz Still is a [...] given to the patient. Arianna Longoria DO [facility] 07-14-2024 History of Presen t illness Narrative Tool Checker offered: Patient declines. Jaz Still is a [...] Arianna Longoria DO documented in this encounter [facility] 06-30-2024 Note HNO ID: [id number] Author: ARIANNA LONGORIA MD Service: ? Author Type: Physician Type: Progress Notes Filed: 06/30/2024 17:24 Note Text: Tool Checker offered: Patient declines. Jaz is a 54 [...] Always HPV vaccine: No Last pap smear: [id number] History of abnormal pap: No Colposcopy: No. [...] discussed with the Patient or Patient's Authorized Casting Chipper. As applicable, any other physician, advance practice provider, medical student, or other health professional student that will be observing or involved in the sensitive examination for educational or training purposes was discussed with the Patient or Authorized Casting Chipper. The Patient or Authorized Casting Chipper has agreed to proceed with the sensitive [...] noted as well. Normal Bartholin's glands, urethra, Higbee's glands, no vulvar lesions, no cervical lesions, [...] She is considering options Arianna Longoria DO [facility] 05-12-2022 History of Presen t illness Narrative [...] and treatment included: Therapeutic exercise, Manual therapy, Self-shelter management, and Patient/Family/Caregiver Education. Goals for Episode [...] B 10 sec x3 2: B cervical [id number] sec X3 3: right levator stretch no arms 10 saec x3 Skilled Intervention: Skilled judgment was provided in selection of appropriate interventions. Billing Therapeutic Exercise Treatment Minutes: 17 Total Treatment Time Minutes (timed/untimed): 17 Gia Thurston PT documented in this encounter [facility] 04-28-2022 History of Presen t illness Narrative [...] B 10 sec x3 2: B cervical [id number] sec X3 3: right levator stretch no [...] Gia Thurston PT documented in this encounter [facility] 04-23-2022 History of Presen t illness Narrative Episode Visit Count: 3 Therapist That Will Accept/Oversee The Plan Of Care: Gia Thurstno PT Start of Care Date: 04/14/22 Onset [...] B 10 sec x3 2: B cervical [id number] sec X3 3: right levator stretch no [...] Gia Thurston PT documented in this encounter [facility] 04-21-2022 History of Presen t illness Narrative [...] B 10 sec x3 2: B cervical [id number] sec X3 3: right levator stretch no [...] Gia Thurston PT documented in this encounter [facility] 04-14-2022 History of Presen t illness Narrative [...] Planned: 8 Planned Treatment Interventions: Therapeutic exercise (64158), Neuromuscular re-education (76798), Manual therapy (38717), Self-shelter management (40210), Patient/Family/Caregiver Education PLAN FOR NEXT VISIT: trial [...] History Right or Left Handed: Right 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 Skilled judgment was provided in selection of appropriate interventions. Correct performance of therapeutic exercises was facilitated with verbal and visual cuing. Patient education as noted. Self-Long-Term Management: 1: education on centralization of sx [...] Gia Thurston PT documented in this encounter [facility] 04-14-2022 History of Past i llness Narrative Problem Noted Date Resolved Date Radicular pain in right arm 04/14/2022 03/0 08/2022 documented as of this encounter (statuses as of 05/12/2022) [facility]02-[facility]2023 History of Present illness Narrative* Miracle López, [...] 09, 2022 8:47 AM [facility] Instructions* Patient Instructions* Izzy Briseno PA-C - 04/08/2022 8:32 AM EST Xray of the cervical spine Muscle relaxer (Flexeril 5mg up to twice daily- do not drink alcohol with this medication, do not drive with this medication) Heat 20 min, Ice 20 min Physical therapy Follow up in 3 months [facility] History of Present illness Narrative* Izzy Briseno [...] butdoes note maybe she has some decreased roll bucker strength, 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 She has not [...] Marijuana few times a week Works at [employer] Objective 04/08/22 0752 BP: 103/70 Pulse: 75 [...] Negative Coordination: finger-to- nose-finger intact bilaterally and tnsj-ym-tiru intact bilaterally. Gait: Patient's gait is normal [...] with certain positions. Notes previous neck injury [id number], good relief with physical therapy at that [...] which included preparing to see the patient, uikh-il-xznp patient care, completing clinical documentation, obtaining and/or reviewing separately obtained history, performing a medically appropriate examination, counseling and educating the pat ient/family/caregiver, and ordering medications, tests, or procedures. [facility] checked and validated. All prescriptions have been APPROPRIATELY filled. No suspiciousactivity was identified. 04/08/2022 by KYLIE Adame PA-C [facility] Neurology documented in [facility] encounter[facility] Miscellaneous Notes* Telephone Encounter - Adele Henderson [...] appt has been made. documented in [facility] Hospital Discharge instructions Additional Instructions Apply ice to your right shoulder and arm 6-10 times a day for the next 3 to 5 days. Avoid activity that causes you increased pain.[facility] Work Phone: Evaluation noteNo assessment information available [facility] Work Phone: Evaluation note* Diagnosis Radicular pain in right arm- Primary Neuralgia, neuritis, and radiculitis, unspecified Paresthesia and pain of right extremity Pain in limb [facility] Diagnosis Radicular pain in right arm- Primary Neuralgia, neuritis, and radiculitis, unspecified [facility] [place] [facility] Diagnosis Radicular pain in right arm- Primary Neuralgia, neuritis, and radiculitis, unspecified documented in this encounter [facility] note* Diagnosis Radicular pain in right arm- Primary Neuralgia, neuritis, and radiculitis, unspecified documented in this [facility] [place] [facility]* Diagnosis Radicular pain in right arm- Primary Neuralgia, neuritis, and radiculitis, unspecified documented in this [facility] [place] [facility]* Diagnosis Radicular pain in right arm- Primary Neuralgia, neuritis, and radiculitis, unspecified documented in this [facility] [place] [facility]* Diagnosis Radicular pain in right arm Neuralgia, neuritis, and radiculitis, unspecified documented in this encounter [facility] note* Diagnosis Other skin changes- Primary documented in this encounter [facility] note* Diagnosis Lichen sclerosus- Primary Circumscribed scleroderma [facility] Discharge instructionsAdditional Instructions Have sutures removed in about 7 days. Return for any signs of infection. You can take Tylenol and ibuprofen as needed for your pain.[facility] Work Phone: Reason for referral (narrative)* Diagnostic Procedure Only (Routine) - Closed Specialty Diagnoses / Procedures Referred By Contac t Referred To Contact XR IMAGING Diagnoses Radicular pain in right arm Procedures XR CERV OTHER 4V AP/LAT/OBL RADEX SPINE CERVICAL 4 OR 5 VIEWS Izzy Briseno PA-C [address] [place] [address] [place] [address] Referral ID Status Reason Start Date Expiration Date V isits Requested Visits Authorized [id number] Closed Auto-Generate d Referral 04/08/2022 05/08/2023 1 1 TAL [facility] for referral (narrative)No reason for referral [facility] Work Phone: Summary Purpose Family History No Family History Records FoundNo Family History Records FoundNo Family History Records Found Advance Directives No Advanced Directives Records Found Advance Directive Response Recorded Date/ Time Living Will No March 19 11:56am Power of Venetian Blind Assembler No March 19, 2022 11:56am Advance Directive Response Recorded Date/ Time Do you have a Healthcare Power of Venetian Blind Assembler? No September 02, 2024 8:21pm Chief Complaint [...] HIGH COMPLEX 45 MINS Izzy Briseno PA-C [address] [place] [address] [facility] [address] [place] [address] Referral ID Status Reason Start Date Expiration Date Visits Requested Visits Authorized [id number] Pending Review Auto-Generat ed Referral 04/08/2022 04/08/2023 1 1 Specialty Diagnoses / Procedures Referred By Jered alonzo Referred To Contact XR IMAGING Diagnoses Radicular pain in right arm Procedures XR CERV OTHER 4V AP/LAT/OBL RADEX SPINE CERVICAL 4 OR 5 VIEWS Izzy Briseno PA-C [address] [place] [address] [facility] Referral ID Status Reason Start Date Expiration Date Visits Requested Visits Authorized [id number] Pending Review Auto-Generat ed Referral 04/08/2022 05/08/2023 1 1 Specialty Diagnoses / Procedures Referred By Jered alonzo Referred To Contact [facility] Diagnoses Radicular pain in right arm Procedures PT REHAB FOLLOW UP ORDER THERAPEUTIC EXERCISES RE, EA 15 MIN. Pt [facility] [address] [place] [address] [facility] [address] [place] [address] Referral ID Status Reason Start Date Expiration Date Visits Requested Visits Authorized [id number] Pending Review PCP Requested Referral Auto-Generate d Referral 04/14/2022 07/13/2022 1 1 Additional Source Comments INFORMATION SOURCE (unrecogn ized section and content) DATE CREATED AUTHOR 09/01/2017 [facility] ([place]) DATE CREATED AUTHOR AUTHOR'S ORGANIZ ATION 07/18/2024 [facility] DATE CREATED AUTHOR AUTHOR'S ORGANIZ ATION 09/04/2024 [facility] Goals (unrecognized section and content) [...] or prosecute any alcohol or drug abuse patient.[facility] the event this information is protected by the Federal Confidentiality of Alcohol and Drug Abuse Patient Records regulations: The Federal rules restrict any use of the information to criminally investigate or prosecute any alcohol or drug abuse patient.[facility] the event this information is protected by the Federal Confidentiality of Alcohol and Drug Abuse Patient Records regulations: The Federal rules restrict any use of the information to criminally investigate or prosecute any alcohol or drug abuse patient.[facility] System[facility] the event this information is protected by the Federal Confidentiality of Alcohol and Drug Abuse Patient Records regulations: The Federal rules restrict any use of the information to criminally investigate or prosecute any alcohol or drug abuse patient.[facility] System[facility] the event this information is protected by the Federal Confidentiality of Alcohol and Drug Abuse Patient Records regulations: The Federal rules restrict any use of the information to criminally investigate or prosecute any alcohol or drug abuse patient.[facility] System[facility] the event this information is protected by the Federal Confidentiality of Alcohol and Drug Abuse Patient Records regulations: The Federal rules restrict any use of the information to criminally investigate or prosecute any alcohol or drug abuse patient.[facility] System[facility] the event this information is protected by the Federal Confidentiality of Alcohol and Drug Abuse Patient Records regulations: The Federal rules restrict any use of the information to criminally investigate or prosecute any alcohol or drug abuse patient.[facility] SystemIn the event this information is protected by the Federal Confidentiality of Alcohol and Drug Abuse Patient Records regulations: The Federal rules restrict any use of the information to criminally investigate or prosecute any alcohol or drug abuse patient.[facility] System[facility] the event this information is protected by the Federal Confidentiality of Alcohol and Drug Abuse Patient Records regulations: The Federal rules restrict any use of the information to criminally investigate or prosecute any alcohol or drug abuse patient.[facility] SystemIn the event this information is protected by the Federal Confidentiality of Alcohol and Drug Abuse Patient Records regulations: The Federal rules restrict any use of the information to criminally investigate or prosecute any alcohol or drug abuse patient.[facility] SystemIn the event this information is protected by the Federal Confidentiality of Alcohol and Drug Abuse Patient Records regulations: The Federal rules restrict any use of the information to criminally investigate or prosecute any alcohol or drug abuse patient.[facility] Reason for Visit (unrecogniz ed section and content) Reason Comments PT Discharge Specialty Diagnoses / Procedures Referred By Contac t Referred To Contact [facility] Department Diagnoses est Procedures est [facility] Referral ID Status Reason Start Date Expiration Date Visits Requested Visits Authorized [id number] Authorized Financial Clearance Required - Self Pay Patient Cleared - Qualified HCAP/[id number]/FA 03/28/2022 06/26/2022 99 99 Reason Comments PT Eval Patient Education Specialty Diagnoses / Procedures Referred By Contac t Referred To Contact [facility] Department Diagnoses est Procedures est Self [facility] Dept Reason Comments Future Appointment Reason Comments New Patient Numbness in RIGHT in dex & middle finger & RIGHT arm pain Reason Comments Physical Therapy Specialty Diagnoses / Procedures Referred By Contac t Referred To Contact [facility] DEPARTMENT Diagnoses est Procedures est Self [facility] [place] [address] Referral ID Status Reason Start Date Expiration Date V isits Requested Visits Authorized [id number] Closed Financial Clearance Required - Self Pay [...] BE BASED ON THE PRIMARY CLINICAL RECORDS. [employer] provides no warranty or guarantee of the accuracy or completeness of information in this document.
[2024-09-04] MEDS: HYDROmorphone 0.5 MG/0.5 ML SYRINGE IV (19:25)
[2024-09-04 20:02] LABS: Red Blood Cells-Urine 0 SEEN /hpf (0-5)
[2024-09-04 20:03] LABS: Glucose, Dipstick Normal (Normal); Ketone-Dipstick Negative (Negative); Leukocyte Esterase-Dipstick 500 /ul (Negative); Nitrite-Dipstick Negative (Negative); Occult Blood-Urine 25 /ul (Negative); Protein-Dipstick 15 mg/dl (Negative); Specific Gravity, Urine 1.025 (1.002-1.030); Urine Bilirubin Dipstick Negative (Negative)
--- NOTE | 2024-09-04 20:30 | CM.ED ---
Social Work Date of referral: 09/04/24 Reason for referral: No Primary Care Physician (PCP) Referred by: Social Work Identification Patient crying out in pain when dialysis social worker arrived and was unable to talk for any given time. Fan Engine Engineer placed a handout for the [facility] with patient's belongings and verbally notified patient that they have PCP's which patient acknowledged. No other supports offered at this time. Elinor Young, MEDICAL NUMERICAL CONTROL OPERATOR, DELIVER DRIVER
--- NOTE | 2024-09-04 20:30 | CM.ED ---
Social Work Date of referral: 09/04/24 Reason for referral: No Primary Care Physician (PCP) Referred by: Social Work Identification Patient crying out in pain when social media content manager arrived and was unable to talk for any given time. Waterproof Bag Cutting Machine Operator placed a handout for the [facility] with patient's belongings and verbally notified patient that they have PCP's which patient acknowledged. No other supports offered at this time. Elinor Young, CLINICAL PROGRAM DIRECTOR, BUILDING MECHANIC
[2024-09-04 20:33] LABS: Color, Urine Yellow (Yellow)
[2024-09-04 20:34] LABS: Squamous Epithelial Cells - UA 0-5 SEEN /hpf (5-10)
[2024-09-04 20:35] LABS: Calcium Oxalate Crystals Ur 1+ /hpf (<or=2+); Mucous, Urine 2+ /hpf (<or=2+)
--- NOTE | 2024-09-04 20:56 | HP.PCM.HOS_ITS ---
HPI - General General Date of Admission: 09/04/24 Date of Service: 09/04/24 Chief Complaint: R flank/abdominal pain, intractable. HPI Narrative The patient is a 54 y/o F w/ PMHx: Psoriasis, Tobacco use not on any chronic medication who presents to the [facility] ED on 09/04/2024 with history of right-sided flank discomfort with radiation to the right side of the abdomen starting approximately 5 PM with no recent fever chills or chills, chest discomfort, dyspnea with normal recent bladder patterns (no frequency, urgency, dysuria or retention) but given ongoing significant pain prompted ED evaluation. Patient notes the pain came on quite suddenly. In the ED upon arrival she rated the discomfort as sharp, 10 out of 10 in severity. Despite several pain medication she continued to have 10 of 10 severe pain. Patient does report some nausea in the ED but no bouts of emesis. Workup in the ED included T90.7, heart rate 62, BP 215/161, respiratory rate 16, 100% on room air with most recent repeat vitals heart rate 88, BP 119/74, respiratory rate 26, 100% on room air, CBC with WBC 8.3, human 12.8, platelet 310 without marked shift, BMP with glucose 111 otherwise not marked appearing, urinalysis with elevated specific gravity 1.025, protein 15, occult blood 25, leukocyte esterase 500 with urine RBCs 50-100 with 2+ urine bacteria, urine culture pending per ED, CT abdomen and pelvis with stone in the right distal ureter measuring 3 mm resulting in mild upstream hydroureteronephrosis. In ED patient ministered Zofran 4 mg IV x 1, morphine 2 mg IV x 1, morphine 4 mg IV x 1, Toradol 15 mg IV x 2, Dilaudid 0.5 mg IV x 1, 1 L normal saline and Rocephin 1 g IV x 1. PFSH Medical History Psoriasis Tobacco use Home Medications ?Medication ?Instructions ?Recorded ?Last Taken ?Type multivitamin (Daily Multi-Vitamin 1 tab PO DAILY 09/04 Unknown History tablet) Allergy/AdvReac Type Severity Reaction Status Date / Time Penicillins Allergy Hives Verified 09/04/24 17:27 Family History (Updated 09/04/24 @ 21:[address] Bhumika Abdullahi MD) Mother Alcoholic cirrhosis Alcohol abuse Father Cancer Surgical History History of hysterectomy Social History (Updated 09/04/24 @ 21:[address] Bhumika Abdullahi MD) household members: significant other Smoking Status: Current every day smoker tobacco type: cigarettes Smoking packs per day: 0.5 Smoking cigarettes per day: 10.0 alcohol intake: never substance use type: does not use ROS ROS Narrative Admission Review of Systems: CONSTITUTIONAL: No weight loss, fever, chills, + weakness or fatigue. HEENT: Eyes: No visual loss, blurred vision, double vision or yellow sclerae. Ears, Nose, Throat: No hearing loss, sneezing, congestion, runny nose or sore throat. SKIN: No rash or itching, lesions, wounds. CARDIOVASCULAR: No chest pain, chest pressure or chest discomfort, palpitations, edema, orthopnea, syncopal events. RESPIRATORY: No shortness of breath, cough or sputum, wheezing, hemoptysis. GASTROINTESTINAL: + Right flank/abdominal pain, nausea. No vomiting, diarrhea, melena, BRBPR. GENITOURINARY: No dysuria, frequency, urgency or retention. NEUROLOGICAL: No headache, dizziness, syncope, paralysis, ataxia, numbness or tingling in the extremities, focal weakness, change in bowel or bladder control, seizure. MUSCULOSKELETAL: + muscle, back pain, joint pain or stiffness. HEMATOLOGIC: No anemia, bleeding or bruising. LYMPHATICS: No enlarged nodes. No history of splenectomy. PSYCHIATRIC: No history of depression or anxiety. ENDOCRINOLOGIC: No reports of sweating, cold or heat intolerance. No polyuria or polydipsia. ALLERGIES: + History of hives. Vital Signs Vital Signs Vital Signs: 09/04/24 17:26 09/04/24 17:37 09/04/24 18:28 Temperature 98.7 F 98.7 F 98.7 F Temperature Source Oral Oral Oral Pulse Rate 62 75 97 Respiratory Rate 16 30 H 29 H Blood Pressure 215/161 H 107/70 131/78 H Blood Pressure Mean 179 82 95 Pulse Ox 100 100 99 Oxygen Delivery Method Room Air Room Air Room Air 09/04/24 19:26 Temperature Temperature Source Pulse Rate 88 Respiratory Rate 26 H Blood Pressure 119/74 Blood Pressure Mean 89 Pulse Ox 100 Oxygen Delivery Method Room Air Weight Weight: 141 lb 5.061 oz Body Mass Index (BMI) 22.8 Physical Exam Narrative Physical Examination: General: Awake, alert, oriented x 3 and cooperative, seated upright in the bed, evidence significant persistent pain, 10 out of 10 in severity to the right flank which she is holding. Skin: Normal color, normal turgor, no icterus, no cyanosis except occasional stage ecchymoses, abrasion, bilateral lower extremity notable psoriatic skin changes. HEENT: AT/NC, EOMI, PERRLA, dry MM, no carotid bruits or JVD noted. Lungs: Mildly diminished, greater bases, short breaths secondary to pain, no evidence of any distress, no rales, ronchi or wheezing. Heart: Regular rate and rhythm; no gallop, rub audible. Abdomen: Soft, significant right flank discomfort as well as some right abdominal discomfort to deeper palpation, nondistended, distant bowel sounds, no obvious distention or HSM. Extremities: No cyanosis, clubbing, or edema, see skin. Neurological: Patient awake, alert, oriented as noted, cognitive function intact; pupils equally reactive to light and accommodation, cranial nerves grossly normal, moving all 4 extremities, no focal deficits, strength severely globally decreased secondary to severity of pain presentation. Psychiatric: Affect appears uncomfortable, obvious severe pain ongoing, no acute evidence of depressive or anxiety feelings. Results Lab / Micro Data 09/04/24 17:36 09/04/24 17:36 Labs: Laboratory Results - last 24 hr 09/04/24 17:36: WBC 8.3, RBC 4.17 L, Hgb 12.8, Hct 38.0, MCV 91.1, MCH 30.7, MCHC 33.7, RDW Std Deviation 47.6 H, RDW Coeff of Meera 14.3, Plt Count 310, MPV 11.3, Immature Gran % (Auto) 0.400, Neut % (Auto) 54.3, Lymph % (Auto) 32.5, M leanna % (Auto) 11.0 H, Eos % (Auto) 0.8, Baso % (Auto) 1.0, Absolute Neuts (auto) 4.5, Absolute Lymphs (auto) 2.69, Nucleated RBC % 0, Sodium 139, Potassium 3.7, Chloride 101, Carbon Dioxide 24.7, Anion Gap 13, BUN 12, Creatinine 0.70, Estim Creat Clear Calc 86.01, Est GFR (MDRD) Non-Af 102, BUN/Creatinine Ratio 16.8, G lucose 111 H, Calcium 9.1 09/04/24 19:55: Urine Color Yellow, Urine Clarity Clear, Urine pH 5.0, Ur Specific [place] 1.025, Urine Protein 15 H, Urine Glucose (UA) Normal, Urine Ketones Negative, Urine Occult Blood 25 H, Urine Nitrite Negative, Urine Bilirubin Negative, Urine Urobilinogen Normal, Ur Leukocyte Esterase 500 H, Urine RBC 0 SEEN, Urine WBC 50-100 SEEN, Ur Squamous Epith Cells 0-5 SEEN, Calcium Oxalate Crystal 1+, Urine Bacteria 2+, Urine Mucus 2+ Imaging Radiology Impression Abdomen/Pelvis CT 09/04/24 17:56 IMPRESSION: Stone in the right distal ureter measuring 3 mm resulting in mild upstream hydroureteronephrosis. Reading Location: [facility] Assessment & Plan Assessment/Plan (1) Calculus of right kidney: (2) Hydronephrosis, right: (3) Complicated urinary tract infection: PLAN: Plan The patient is a 54 y/o F w/ PMHx: Psoriasis, Tobacco use not on any chronic medication who presents to the [facility] ED on 09/04/2024 with history of right-sided flank discomfort with radiation to the right side of the abdomen starting approximately 5 PM with no recent fever chills or chills, nausea or emesis, chest discomfort or dyspnea with normal recent bladder patterns but given ongoing significant pain prompted ED evaluation. #1. Acute Intractable Flank Pain secondary to Acute Nephrolithiasis with stone in the right distal ureter with mild upstream hydroureteronephrosis with resulting Acute Complicated UTI: Will admit to [facility], maintain on continue judicious IV fluids, maintain on IV rocephin, maintain on scheduled low-dose Toradol x 5 doses as well as low dose TID gabapentin in addition to PRN oral and IV pain regimen; however, if not effective may need to consider transition to Dilaudid [employer], PRN anti-emetics, monitor I&Os. Given size less than 4 mm likely will pass on its own and thus will defer any urology involvement at this time. Will continue to strain urine. Will allow diet given low suspicion for need for urological intervention. #2. Elevated BP without hypertensive diagnosis: BP upon presentation initially significantly elevated likely pain related, continue to closely monitor and add oral regimen if appropriate, as needed IV hydralazine in the interim. #3. Tobacco Abuse: Encouraged cessation, inpatient consultation per RT, NR if desired. #4. DVT prophylaxis: Low risk, encourage ambulation. Charges/Coding Visit Charges Inpatient E&M: 66951 Init Hosp L2
--- OUTSIDE RECORDS SUMMARY | 2024-09-04 21:34 | XMS RPT_ITS | CCD ---
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 Name Role Phone SHERRI VILLALPANDO Unavailable [...] Physician, No Primary Primary Care Provider Unavailable Isamar Ramirez Attending UnavailNader Christy Primary Care Unavailable Isamar Ramirez Referring Unavailabl e Care Physician, No Primary Primary Care Unava ilable Fracisco Nunez Attending Unavailable Care Physician, No Primary Primary Care Unava ilable Ousmane Paige Referring Unavailable Ousmane Paige Attending Unavailable Allergies Allergy Classification Reported Allergen(s) Allergy Type Date of Onset Reaction(s) Facility (4 sources) Penicillins; Translations: [PENICILLINS] Allergy to substance 12-04-2015 [facility] [place] [facility] (8 sources) Penicillins Drug Allergy 12-04-2015 [facility] (3 sources) Penicillins Drug Allergy 12-04-2015 [facility] (1 source) Penicillins Drug allergy (disorder) 09-04-[address] [facility] Repository Medications Current Medications Medication Drug [...] HEALTH PROBIOTIC ORAL) (3 sources) L.crispat,laya i, blaire,rhamn (AZO VAGINAL HEALTH PROBIOTIC ORAL) Take [...] Comment on above: Take 1 capsule by [facility] once daily. sertraline 25 mg oral [...] Test Name Value Interpretation Reference Range Facility Abdomen/Pelvis without Conto n 09-04-2024 Abdomen/Pelvis without Cont [facility] Imaging Services [address] [place] [address] Abdomen/Pelvis without Cont MR#: [id number] Acct: [id number] Name: JAZ STILL Rep #: [id number] : 1970 F 54 From: Isaiah Hung MD PCP: Care Physician,No Primary Status: REG ER Study: Abdomen/Pelvis without Cont Date of Exam: 08/08 12/01 Exam# [id number] Ordering Dr: Gia Woods PROCEDURE: ABDOMEN/PELVIS WITHOUT CONT 09/04/2024 REASON FOR EXAM: RIGHT FLANK PAIN TECHNIQUE: ABDOMEN/PELVIS WITHOUT CONT Noncontrast technique limits evaluation of the abdominal and pelvic viscera. Coronal and Sagittal reconstruction series were provided. One or more dose reduction techniques were used (e.g., Automated exposure control, adjustment of the mA and/or kV according to patient size, use of iterative reconstruction technique). RADIATION DOSE SUMMARY: CTDlvol: 7.0 mGy DLP: 339 mGycm COMPARISON: None FINDINGS: Lung bases: Unremarkable Liver: Unremarkable Gallbladder: Unremarkable Spleen: Normal size. Pancreas: Normal size. No surrounding inflammation. Adrenals: Unremarkable Kidneys/ureter: There is a stone in the right distal ureter measuring 3 mm (series 2, image 146) resulting in mild upstream hydroureteronephrosis. A slightly larger calcification medial to this is favored to represent a phlebolith. No left-sided stone or hydronephrosis. Bladder: Unremarkable Reproductive Organs: Prior hysterectomy. Adnexal regions are unremarkable. Bowel: No obstruction or inflammation. Unremarkable appendix. There is colonic diverticulosis which is more notable in the right colon. Lymph nodes: No significant lymphadenopathy. Vasculature: Mild aortic atherosclerosis Bones: T9 vertebral body hemangioma is partially imaged. There is a healed left posterior rib fracture. Osteitis condensans ilii. Soft tissues: Fat containing umbilical hernia CT/Abdomen/Pelvis without Cont IMPRESSION: Stone in the right distal ureter measuring 3 mm resulting in mild upstream hydroureteronephrosis. Reading Location: [id number] CC: DAREN Herman; No Primary Care Physician Real Estate Rep: Signed Normal [facility] Basic Metabolic Profile (BMP )on 09-04-2024 BUN/CRE 16.8 RATIO Normal 10-[address] [facility] Comment on above: Performed By: #### L 500.2500, L100.0100 #### [facility] Laboratory [address] [place], [address] Calcium [Mass/Vol] 9.1 mg/dL Normal 7.6-11.0 [facility] Comment on above: Performed By: #### L 500.2500, L100.0100 #### [facility] [address] [place], [address] Chloride [Moles/Vol] 101 mmol/L Normal 98-[address] [facility] Comment on above: Performed By: #### L 500.2500, L100.0100 #### [facility] [address] [place], [address] CO2 [Moles/Vol] 24.7 mmol/L Normal 21.0-32.[address] [facility] Comment on above: Performed By: #### L 500.2500, L100.0100 #### [facility] [address] [place], [address] Creatinine [Mass/Vol] 0.70 mg/dL Normal 0.70-1.[address] [facility] Comment on above: Performed By: #### L 500.2500, L100.0100 #### [facility] [address] [place], [address] ECRCL 86.01 ml/min Normal 50-[address] [facility] Comment on above: Performed By: #### L 500.2500, L100.0100 #### [facility] [address] [place], [address] GAP 13 Normal 5-[address] [facility] Comment on above: Performed By: #### L 500.2500, L100.0100 #### [facility] [address] [place], [address] GFR/1.73 sq M.predicted among non-blacks MDRD (S/P/Bld) [Vol rate/Area] 102 mL/min/{1.73_m2} Normal >[address] [facility] Comment on above: Result Comment: mL/m in/1.73m2 CKD-EPI Creatinine Equation (2020) Performed By: #### L 500.2500, L100.0100 #### [facility] Laboratory [address] [place], [address] Glucose [Mass/Vol] 111 mg/dL High 70-99 [facility] Comment on above: Performed By: #### L 500.2500, L100.0100 #### [facility] [address] [place], [address] Potassium [Moles/Vol] 3.7 mmol/L Normal 3.3-5.[address] [facility] Comment on above: Performed By: #### L 500.2500, L100.0100 #### [facility] [address] [place], [address] Sodium [Moles/Vol] 139 mmol/L Normal 133-145 [facility] Comment on above: Performed By: #### L 500.2500, L100.0100 #### [facility] [address] [place], [address] Urea nitrogen [Mass/Vol] 12 mg/dL Normal 4-[address] [facility] Comment on above: Performed By: #### L 500.2500, L100.0100 #### [facility] [address] [place], [address] CBC W/Diff, Automatedon 06-2 Absolute Lymph 2.69 X10 3/uL Normal 0.83-4.[address] [facility] Comment on above: Performed By: #### L 500.2500, L100.0100 #### [facility] [address] [place], [address] Absolute Neut 4.5 X10 3/uL Normal 2.0-7.[address] [facility] Comment on above: Performed By: #### L 500.2500, L100.0100 #### [facility] [address] [place], [address] Basophils/100 WBC (Bld) 1.0 % Normal 0-[address] [facility] Comment on above: Performed By: #### L 500.2500, L100.0100 #### [facility] [address] [place], [address] Eosinophils/100 WBC (Bld) 0.8 % Normal 0-[address] [facility] Comment on above: Performed By: #### L 500.2500, L100.0100 #### [facility] [address] [place], [address] Erythrocyte distribution width (RBC) [Ratio] 14.3 % Normal 11.6-14.[address] [facility] Comment on above: Performed By: #### L 500.2500, L100.0100 #### [facility] [address] [place], [address] Hematocrit (Bld) [Volume fraction] 38.0 % Normal 37-[address] [facility] Comment on above: Performed By: #### L 500.2500, L100.0100 #### [facility] [address] [place], [address] Hemoglobin (Bld) [Mass/Vol] 12.8 g/dL Normal 12.0-15.[address] [facility] Comment on above: Performed By: #### L 500.2500, L100.0100 #### [facility] [address] [place], [address] IG% 0.400 Normal 0.0-0.[address] [facility] Comment on above: Result Comment: IG% - Immature Granulocytes (promyelocytes, myelocytes and metamyelocytes) > 1% indicates that a LEFT SHIFT is Present. Performed By: #### L 500.2500, L100.0100 #### [facility] [address] [place], [address] Lymphocytes/100 WBC (Bld) 32.5 % Normal 19-[address] [facility] Comment on above: Performed By: #### L 500.2500, L100.0100 #### [facility] [address] [place], [address] MCH (RBC) [Entitic mass] 30.7 pg Normal 27.0-32.[address] [facility] Comment on above: Performed By: #### L 500.2500, L100.0100 #### [facility] [address] [place], [address] MCHC (RBC) [Mass/Vol] 33.7 g/dL Normal 32-[address] [facility] Comment on above: Performed By: #### L 500.2500, L100.0100 #### [facility] [address] [place], [address] MCV (RBC) [Entitic vol] 91.1 fL Normal 81-[address] [facility] Comment on above: Performed By: #### L 500.2500, L100.0100 #### [facility] [address] [place], [address] Monocytes/100 WBC (Bld) 11.0 % High 0-[address] [facility] Comment on above: Performed By: #### L 500.2500, L100.0100 #### [facility] [address] [place], [address] Neutrophils/100 WBC (Bld) 54.3 % Normal 47-[address] [facility] Comment on above: Performed By: #### L 500.2500, L100.0100 #### [facility] [address] [place], [address] Nucleated RBC (Bld) [#/Vol] 0 10*3/uL Normal 0-[address] [facility] Comment on above: Performed By: #### L 500.2500, L100.0100 #### [facility] [address] [place], [address] Platelet mean volume (Bld) [Entitic vol] 11.3 fL Normal 6.2-12.[address] [facility] Comment on above: Performed By: #### L 500.2500, L100.0100 #### [facility] [address] [place], [address] Platelets (Bld) [#/Vol] 310 10*3/uL Normal 150-[address] [facility] Comment on above: Performed By: #### L 500.2500, L100.0100 #### [facility] [address] [place], [address] RBC (Bld) [#/Vol] 4.17 10*6/uL Low 4.2-5.4 [facility] Comment on above: Performed By: #### L 500.2500, L100.0100 #### [facility] [address] [place], [address] RDW SD 47.6 fl High 35.1-43.[address] [facility] Comment on above: Performed By: #### L 500.2500, L100.0100 #### [facility] [address] [place], [address] WBC (Bld) [#/Vol] 8.3 10*3/uL Normal 4.4-11.0 [facility] Comment on above: Performed By: #### L 500.2500, L100.0100 #### [facility] [address] [place], [address] Urinalysis, Completeon 09-04 BACTERIA 2+ /hpf Normal None Seen [facility] Comment on above: Order Comment: COLLE CTOR TO SPECIFY Performed By: #### L 400.0001 #### [facility] [address] [place], [address] CA OX CRYSTAL 1+ /hpf Normal [facility] Comment on above: Order Comment: EUGENE CTOR TO SPECIFY Performed By: #### L 400.0001 #### [facility] [address] [place], [address] Mucus Ql (Urine sed) 2+ /hpf Normal [facility] Comment on above: Order Comment: EUGENE CTOR TO SPECIFY Performed By: #### L 400.0001 #### [facility] [address] [place], [address] EPI,SQUAMOUS 0-5 SEEN Normal 5-[address] [facility] Comment on above: Order Comment: EUGENE CTOR TO SPECIFY Performed By: #### L 400.0001 #### [facility] [address] [place], [address] WBC 50-100 SEEN Normal 0-[address] [facility] Comment on above: Order Comment: EUGENE CTOR TO SPECIFY Performed By: #### L 400.0001 #### [facility] [address] [place], [address] Clarity (U) Clear Normal Clear [facility] Comment on above: Order Comment: EUGENE CTOR TO SPECIFY Performed By: #### L 400.0001 #### [facility] [address] [place], [address] Color (U) Yellow Normal Yellow [facility] Comment on above: Order Comment: COLLE CTOR TO SPECIFY Performed By: #### L 400.0001 #### [facility] [address] [place], [address] BILIRUBIN URINE Negative Normal Negative [facility] Comment on above: Order Comment: COLLE CTOR TO SPECIFY Performed By: #### L 400.0001 #### [facility] [address] [place] [id number] GLUCOSE, UR Normal Normal Normal [facility] Comment on above: Order Comment: COLLE CTOR TO SPECIFY Performed By: #### L 400.0001 #### [facility] [address] [place], [address] KETONE UR Negative Normal Negative [facility] Comment on above: Order Comment: COLLE CTOR TO SPECIFY Performed By: #### L 400.0001 #### [facility] [address] [place] [address] LEUK ESTERASE 500 /ul Abnormal Negative [facility] Comment on above: Order Comment: EUGENE CTOR TO SPECIFY Performed By: #### L 400.0001 #### [facility] [address] [place], [place], [facility] Nitrite Ql (U) Negative Normal Negative [facility] Comment on above: Order Comment: COLLE CTOR TO SPECIFY Performed By: #### L 400.0001 #### [facility] [address] [place], [address] OCCULT BLOOD-UR 25 /ul Abnormal Negative [facility] Comment on above: Order Comment: COLLE CTOR TO SPECIFY Performed By: #### L 400.0001 #### [facility] [address] [place], [address] pH UR 5.0 Normal 5.0 - 8.[address] [facility] Comment on above: Order Comment: COLLE CTOR TO SPECIFY Performed By: #### L 400.0001 #### [facility] [address] [place] [address] PROT DIPSTX 15 mg/dl Abnormal Negative [facility] Comment on above: Order Comment: EUGENE CTOR TO SPECIFY Performed By: #### L 400.0001 #### [facility] [address] [place], [address] SP.GR. DIPSTX 1.025 Normal 1.002-1.[address] [facility] Comment on above: Order Comment: EUGENE CTOR TO SPECIFY Performed By: #### L 400.0001 #### [facility] [address] [place], [address] UROBILI Normal Normal Normal [facility] Comment on above: Order Comment: EUGENE CTOR TO SPECIFY Performed By: #### L 400.0001 #### [facility] [address] [place], [address] RBC 0 SEEN Normal 0-[address] [facility] Comment on above: Order Comment: EUGENE CTOR TO SPECIFY Performed By: #### L 400.0001 #### [facility] [address] [place], [address] Emergency Department Summary on 09-02-2024 Emergency Department Summary [facility] Medical Records Department [address] [place] [address] Emergency Department Summary 09/02/24 MR#: [id number] Acct: [id number] Name: JAZ STILL Rep #: [id number] : 1970 54 From: Pallavi MERCEDES PCP: [...] up-to-date. She denies any other injury. PFSH PFSH Home Medications ???Medication ???Instructions ???Recorded ???Last Taken [...] and subc (more content not included)... Normal [facility] Sinus/Facial Boneon 07-29-19 Sinus/Facial Bone [facility] Imaging Services [address] [place] [address] Sinus/Facial Bone MR#: [id number] Acct: [id number] Name: JAZ STILL Rep #: [id number] : 1970 F 54 From: Chai Hester MD PCP: Dr. Nader Flores MD Status: REG CLI Study: Sinus/Facial Bone Date of Exam: 07/28/24 Exam# [id number] Ordering Dr: Isamar Ramirez MD PROCEDURE: SINUS/FACIAL [...] C5-6 asymmetric uncovertebral hypertrophic change results in zyzg-bubxihx-gpef-righ t severe appearing left sided foraminal narrowing for example sagittal [address]/Sinus/Facial Bone IMPRESSION: No paranasal sinus disease as above. C5-6 asymmetric uncovertebral hypertrophic change results in edhh-ajodevb-zglj-righ t severe appearing left sided foraminal narrowing for example sagittal 77 and axial 7. Reading Location: [facility] CC: Dr. Nader Flores MD; Dr. Isamar Ramirze MD Real Estate Rep: Signed [facility] 07-18-2024 [facility] Telephone (OBGYWM) JAZ STILL ([id number]) 1970 F Date Time Provider Department 07/18/24 [...] Status:Closed by ARIANNA LONGORIA on 07/18/24 Normal [facility] Pathology biopsy report Andres (Tiss)Ordered By: Zackery Martin on 07-15-2024 Case Report Surgical Pathology Report Case: [id number] Authorizing Provider: Arianna Longoria MD Collected: 07/14/2024 03:30 PM Ordering Location: OB/Gynecology Received: 07/14/2024 04:11 PM Pathologist: Zackery Martin MD Specimen: Perineum, Biopsy, right [facility] Work Phone: Clinical History [id number] bG MlTiHsUeZpXfGqWpw2BYAv xxF0Gvj9HJHkGMzeoF4uWL RcIIwdT5okltUxuBZrGYPt XOp9mR5zyCvkcZ4vIeFgIt MuEZAer3vdYZRkAF7pRDRu cGFyIH0= [facility] Work Phone: Diagnosis Comment t7dttDSlTAPasEFlAQMo NV peyrIiXYDxbIXxB4Nlsmcr GRkeGZ5zCK4rvZwptOCavE YkGNPuEiNul9cjo726oNKj e6roRCRVlfcalSd0fXyzN4 3xi0S8KovrV86uhNKvWAK5 LLOiUMWnjRZyOSFiJCO7VZ LzwPIhW7tdBUAmGV1qnonp PUhvGZzwUDTfnTY4INQwnW ChO6QwERLkZTmwPVSttjh1 TeTuPq1gxWEvfGqgMMzvFH JkXHBsYWluXGZzMjAgSGlz mH8na3mwSgJbGLQ8hF1gnn BpdV59IQPfC34deOWktIKb sGBhaOPaJFKuzf9qxB0io2 Fdgyj2tL4sJYYgLBT9lh3b vCxjTNJgeNZukv2xno7bI7 j3rHjkICBsYTAbNGHnvEDz YYFxOMZpSYxyUHZ0pOUmZv bexZSpDXHsfRLjj1ThklA1 aXRoIGFuIHVuZGVybHlpbm xlwTwhxLmuvUzbxAtsK3d6 nGJqiY7ozLh0aaZ1XN1npE FyXHBhciBPdmVyYWxsLCB0 kKPwWEEkQKI5lCXjwcQtom IoJ95qt3wjvHGtaBN9wPHr QYqgL9mekjTrO0ipzy3hxA IeKDCywA2qX0KlKKTcvoRi tJU4eB7fWXngQIAnU21yrH VuZGVkLlxwYXJ9 [facility] Work Phone: Disclaimer a1bstITmFXJyo4fqEILv bG FuZzEwMzNcZnRuYmpcdWMx IHtccnRmMVxlcGljMTExMD Ppp4sbu0bajLIiHHAfg4mo x5NmiCFusNRnNAwaxTPsut Rlov99vFC1zW31PC4bQBWx AeD2EQLiajO3Xzc6KDIdJD XakCEvO483m5dxd1ozzkPc aZG2NKSwVBYeY8AvAX9nFV XcfENbL70dyBBoWGD8BNSb VZLneJVcFFGrBQL3FLMpxM YjZ3seJOAcZQ4vqpynVDvs YEfxRGGziCE5TVPjtYNqW4 QfUWMcESrnMCYyjce6YnKq Yq0xxQMqyPtiMYwrY8gedG 1kPaD7BBwaW3rbeD5fXDd8 PWzwRSUymEO0jpD1PSNlcZ ThV2PmmN3dDORhMQ4bsnm2 t6djEGN1NGryZLLqUaS3kc J2OKVnzBOzUEbtqSOiiydr CBFfJLMdP0UgFLfwVh6gUV FpnubeQOF6ZTfbiPQgLITg h8BxMUtVLQijADkhN3wivC 1lcjpccGFyXGIwXGNmMCBQ ASXin0DvAF2mQGQrpZTzJI G7LQWgu9WgG5Qtt6DvaL1c bW4avFrtgF8bfUUexNNdxF uyaD3yoD0xPrc7l5Xei5Va wvHhPXQwZDFcqUGwkD6mNK 9hXrAwvj6xrIJ7KFn1TgYd HFk4SXQzx15fwJGciKItbR Q2DDLpGBIvSHCmqGGuiIuy ZWQgYnkgdGhlIHBlcmZvcm 2sunulrUKon8CyxV4wxLB5 zEMwuV5cP3bcfsZwTB6sFQ BleR6wKvqtAJLbOdWjsJPD GnXNu25ceGHxRWZtwFurkJ 6csJSjfjRmFVAzy3GmjD5g kQDXHVXzT3gzBKYDRWAvnu LtFS24TBmXMTbqWDMumZX5 wpYWp2WwhVZkfHoiTJhbw5 8tJ6NzDWYdwJHPp7HkgMUg zMoyDuchbusrGYFFEDQ8y5 4uVQ3vvHq6ZFruSU5rtrS2 NMkuu6HjdGFgOTPQwkZtLB 6zUqk9BTNdKICseWOvgCJV UE04CGGyJS8lovAdzbUYIH QfwIscDx4btIdiEY8ebMg3 KOhcFF8eCOKzgT7vNKviy7 PpiKSfNHVhqxDaIX9dik8l ffLyi54wsKQ8AX37RSivzF rqV7iUFVHrDIS4sAMojMWh yLGjBO6rAGAhckCal0AiIP 2pSTNdHFIcNVSlg8VvTJ8z fZCbz4DjhGJ5VSRqJXAfYG FwTCPrBJNgp8UuBYGeas55 ZBFfJhudoHerEDMMCS6uIe ArEReVNMxyJRFnF9VgMAQw KYU5ivSfjtJQMRgZUIWvYK J4ELlwBjyjWLY3jxJhBFJq g8SrQZotP0avA37svKwrvZ l5jDU0KWB3tH6iUqUImLYp DPT1OHD9ucKlcqLunCYnDN Gxu4VrN1beahooAJncxMRx gA3gJGKqVPGlCHVpSVScs3 CoKZEst3PzOdTubgYbDTUo TTLxROJdwR15MXZ0cWyjzW vhomIqKI6nYSEkfdAcYZBi RGZooJ4yJP3pxSFvirCqLW 5bSP4iG2Y4mVLlEVOkykIr h2goWQA4ZIrfYDPkzUAzrK LhUGHcuEwgYRXcqs75 [facility] Work Phone: FINAL DIAGNOSIS v0zwpWFeIOYdxEJsYPTb NV dsmzCeTLTeuFZjK3Tpxucq QSxuTH5kUN3gbOckjXWowI QvMNLeGvKeh7bwf099fHQk x3akIJIWlgpbtDl0wDubF3 7zp3P6KntaG66jwSYmJIJ6 OXGbMKBmzGKlAANjYFH8IK CxkQUaD2qnNUEgXF7zbvbc FJqnOXjuYCUhmBH0ALMlyK IaP1MfPFMkKGuzNXMoxxm4 XtZbAj7zgITnhBbwDNxgCT FrNJArJLvqGFWzMzEkQL0f U4fnzphpsBKqyR2wfK6sFY Rya3CfgFnxbKSeSV3cEGws mBYjEZJqnXHcz0O6nkjqp4 FqCFHaeE1vkaQhNMJcairc YXJ9 [facility] Work Phone: Gross Description g1ikwSJhLLJutLEJHGPs MD TlLR4clUoirPr8nGasOQGq bgX9jESaYBpyl5tnRDX3m0 raxoRRCywuFDWqAC0zRTlo FBGwJJ8oBiLtXWKqMaDnNI BhcGVydzEyMjQwXHBhcGVy gDO3PFPkTR3mnvsyRVvsBR qbTMNcsoX0QRPgeMEcP9Lk XWSjMN6gjksbGRQ1YOWBKy kiXk8elCYutEzbYnRqPkCo YJBrVNDwIXOlv3jhabFJnp cidAo7mX8QLLUmE7ZzBG1C y4dqEDBpiMZmOOX2RHbti0 amNIuiHUB2IQSuQEQdORSx MN5DEzPkBDpnALG3LxL9Jk Q3LQl0GUHHQPTeATI2RIV5 YVChJUy2YJckYGhcfWTlFV XkQKKuFUYvYJvppmM1k0hv UUHgfXZfYHQ8OGesr3ytSQ sgTXK6GXHrKoPwPIAkZB6B CdOlRMuwQTK4BnA3DtH9HC f2MKBAUmImYdNyYyMePgmz WNWhWEe5HHp2UApRLzUcJV N1KTnoDvG7MFH2FME5YMDy XHQgMiBcXHNzIDMgXFxmbC FcNM0rqIpgHRBeOR1QFBOc UPxiJMQdKbEiPW8ePLDlfL 4rqT5qATZsq7LesCywbAIm aFxmczIyXHBhciANClxwYX WbYG8SVLCbMHukVKd7ykEd TZLiYbWtVVVwQ27rt5LBk8 RhLA7CAEs7geEqheXCOped zpIgPNBtP6HertLmDJntXA Zfal1dyHhcCUvjHIJsI0kt hW7uqbnbUXbsq9RmaZRpbI WhDvVyq1ohYITzPMPgsJJp eNRolgRlpLJrdXipd4MpIM 3tVEA9tpnnGeWsCrXplFZp PaEixVCvZrCkS33aACMMcp S3wAAem5uztlLfrMFkGVNr XGTzULQiSKrtDMDxUF4cJR DkPLL9HM1kRVFnBI7nWVkz IHNwZWNpbWVuIGlzIGJpc2 GneIDcLrThUK52EYctnGIz iGLtjXJ9EQHveA6pg63mWB Rqi7OamFXcGzRweEIiER8R AXBobqQYVqTFZO5qvWG2OI TeEYA7GCNzXrVxQKBOCPGy knHDWdnuCXLyXFswy0QwLV lmhPvxOCLiHhIoLEuLvj7w ftThjHTxdN3xeTgvirQiZO Jgj3CaDSYtLOZuZ2kfmrHw JH7dWDOjiG6rMexoTCZkNY VRmLPdcAXkONOzPkhgU7qm dvHhCN5dIRFYWSG8EVT8TA 1EVWEjhIDVYCR2YX3zBRjo BCRdU8XmY7JrjyU2z0jfpN pgd9MzsFBmAY7ptIRlSI3B OPKuvkQtTQmqyQouxE6wVV p9 [facility] Work Phone: Performing Lab m6xbrOSxOJZzsDPsKCZk Ml mjyrFrXLHlfLUsY3Yuimxd FGhyIN9bYF8lpXazhLVwtM YgYECvDqLtf1sxs466hMQi k4orKFHWhmbxkIy1uDhiT0 5wk8G5BasvK18dmCVpPEW9 YPXbJPAveCRdHLIdBHP0CI BztLUhA3brOACvFI9jahbl AOtpQTheMDVyuXK1JKOheP OmA1KdVEJtYQljXNNlyfp2 LsZzWr6tbCGrkUvcTNjdA0 kiaZ4iCiW7WVfbI6pqoE2r QGw5WFqtXEAfgST1jhG4DA KpaJZxC3HnhK7hULQmEV4k vwl2m2wrTEW1RVbkYWNgUf T1xkG9BDUidCIvNYxdhJDc ysvsksViPLAdETzbu1T1cG NfvB58DRUgqtB2TWCgm34c fBEeAv2kwQOvMVC3NeGQrW S9NMpfzdWtL9brbzsnLI7h tT1gY9MouZYfKMgam0CcwV OdEKomCb7zXSMqaaltDVv0 CSSlDUPfnVcgXBG3UP20VM wgRGVzayBMMjEsIENsZXZl oUCvMMNXWTA4GRV0NWBgSI [id number] [facility] Work Phone: [facility] Work Phone: [facility] 07-14-2024 [facility] Office Visit (OBGYWM ) JAZ STILL ([id number]) 1970 F Date Time Provider Department 07/14/24 2:50 PM ARIANNA LONGORIA During your visit today, we recorded the following information about you: Blood pressure Weight 100/60 63.2 kg Arianna Longoria MD 07/15/2024 1:37 PM Signed [employer] Agent offered: Patient declines. Jaz Still is a [...] Visit Diagnosis:Other skin changes [R23.8] Order(s):SURGICAL PATHOLOGY [MSQ8978] Order #: [id number]. #:[id number] Prescriptions as of 07/15/2024 - MULTIVITAMIN ORAL Take by mouth. - mario Camacho jens en,rhamn ([facility] PROBIOTIC ORAL) [...] Status:Closed by ARIANNA LONGORIA on 07/15/24 Normal [facility] Pathology biopsy report Andres (Tiss)on 07-14-2024 AP DISCLAIMER Normal [facility] Comment on above: Order Comment: Speci men Type: TISSUE SPECIMEN Ordering Facility: [facility] Address: [address] [place] [address] Result Comment: Maggy read Developed Test (LDT) Disclaimer: Performance characteristics of immunohistochemical, immunofluorescent, and chromogenic in-situ hybridization tests have been determined by the performing laboratory within [facility] and Laboratory Medicine Department ([facility], [facility], [facility], [facility], [facility], [facility], or [facility]) in a manner consistent with CLIA requirements. One or more of these tests may not have been cleared or approved by the FDA. RT-PLM is regulated under CLIA as qualified to perform high-complexity testing. These tests are used for clinical purposes. These should not be regarded as investigational or for research. Positive and negative controls stain appropriately. Performed By: #### 6 6121-5 #### [facility] CLIA [id number] [address] [place], [place] [address] [address] [place] CASE REPORT Normal [facility] Comment on above: Order Comment: Speci men Type: TISSUE SPECIMEN Ordering Facility: [facility] Address: [address] [place] [address] Result Comment: Surg [facility] Pathology Report Case: [id number] Authorizing Provider: Arianna Longoria MD Collected: 07/14/2024 03:30 PM Ordering Location: OB/Gynecology Received: 07/14/2024 04:11 PM Pathologist: Zackery Martin MD Specimen: Perineum, Biopsy, right Performed By: #### 6 6121-5 #### [facility] CLIA [id number] [address] [place] [address] OF [place] CLINICAL HISTORY skin changes Normal [facility] Comment on above: Order Comment: Speci men Type: TISSUE SPECIMEN Ordering Facility: [facility] Address: [address] [place] [address] Performed By: #### 6 6121-5 #### [facility] CLIA [id number] [address] [place] [address] DIAGNOSIS COMMENT Normal [facility] Comment on above: Order Comment: Speci men Type: TISSUE SPECIMEN Ordering Facility: [facility] Address: [address] [place] [address] Result Comment: Hist ologic sections show a compact stratum corneum overlying an atrophic epidermis. Within the dermis, there is superficial sclerosis with an underlying lymphohistiocytic infiltrate. Overall, these features are consistent with lichen sclerosus. Clinical correlation is recommended. Performed By: #### 6 6121-5 #### [facility] CLIA [id number] [address] [place] [address] FINAL DIAGNOSIS Normal [facility] Comment on above: Order Comment: Speci men Type: TISSUE SPECIMEN Ordering Facility: [facility] Address: [address] [place] [address] Result Comment: A. S kin, perineum, biopsy: - Lichen sclerosus, see comment. at 1415 EDT Performed By: #### 6 6121-5 #### [facility] CLIA [id number] [address] [place] [address] [place] FINAL PERFORMING LAB Normal [facility] Comment on above: Order Comment: Speci men Type: TISSUE SPECIMEN Ordering Facility: [facility] Address: [address] [place] [address] Result Comment: Diag nostic interpretation performed at: [facility], [address] [place] [address] CLIA# [id number] [employer] Inspector And Adjuster: Shane Stanford MD Performed By: #### 6 6121-5 #### [facility] CLIA [id number] [address] [place] [address] [place] GROSS DESCRIPTION Normal [facility] Comment on above: Order Comment: Speci men Type: TISSUE SPECIMEN Ordering Facility: [facility] Address: [address] [place] [address] Result Comment: A. P venkatum, Biopsy Received in formalin is a cylindrical segment of skin and subcutaneous tissue measuring 0.3 x 0.3 x 0.3 cm. On the skin surface there is a 0.3 cm, slater area. The specimen is bisected. Totally submitted in one cassette. DL July 14, 2024 10:53 PM Gross examination performed at [facility], [address] [place] [address] Performed By: #### 6 6121-5 #### [facility] CLIA [id number] [address] [place] [address] [place] CBC panel Auto (Bld)on 07-05 Erythrocyte distribution width (RBC) [Ratio] 14.2 % Normal 11.5-15.0 [facility] Comment on above: Order Comment: Speci men Type: BLOOD SPECIMEN Ordering Facility: [facility] Address: [address] [place] [address] Performed By: #### 5 8410-2 #### [facility] CLIA [id number] [address] [place] [address] OF [place] Hematocrit (Bld) [Volume fraction] 39.4 % Normal 36.0-46.0 [facility] Comment on above: Order Comment: Speci men Type: BLOOD SPECIMEN Ordering Facility: [facility] Address: [address] [place] [address] Performed By: #### 5 8410-2 #### [facility] CLIA [id number] [address] [place] [address] [place] Hemoglobin (Bld) [Mass/Vol] 13.0 g/dL Normal 11.5-15.5 [facility] Comment on above: Order Comment: Speci men Type: BLOOD SPECIMEN Ordering Facility: [facility] Address: [address] [place] [address] Performed By: #### 5 8410-2 #### [facility] CLIA [id number] [address] [place] [address] [place] MCH (RBC) [Entitic mass] 30.1 pg Normal 26.0-34.0 [facility] Comment on above: Order Comment: Speci men Type: BLOOD SPECIMEN Ordering Facility: [facility] Address: [address] [place] [address] Performed By: #### 5 8410-2 #### [facility] [id number] [address] [place] [address] [place] MCHC (RBC) [Mass/Vol] 33.0 g/dL Normal 30.5-36.0 [facility] Comment on above: Order Comment: Speci men Type: BLOOD SPECIMEN Ordering Facility: [facility] Address: [address] [place] [address] Performed By: #### 5 8410-2 #### [facility] CLIA [id number] [address] [place] [address] [place] MCV (RBC) [Entitic vol] 91.2 fL Normal 80.0-100.0 [facility] Comment on above: Order Comment: Speci men Type: BLOOD SPECIMEN Ordering Facility: [facility] Address: [address] [place] [address] Performed By: #### 5 8410-2 #### [facility] CLIA [id number] [address] [place] [address] [place] Nucleated RBC (Bld) [#/Vol] 10*3/uL Normal <0.01 [facility] Comment on above: Order Comment: Speci men Type: BLOOD SPECIMEN Ordering Facility: [facility] Address: [address] [place] [address] Performed By: #### 5 8410-2 #### [facility] CLIA [id number] [address] [place] [address] [place] Platelet mean volume (Bld) [Entitic vol] 10.7 fL Normal 9.0-12.7 [facility] Comment on above: Order Comment: Speci men Type: BLOOD SPECIMEN Ordering Facility: [facility] Address: [address] [place] [address] Performed By: #### 5 8410-2 #### [facility] CLIA [id number] [address] [place] [address] [place] Platelets (Bld) [#/Vol] 274 10*3/uL Normal 150-400 [facility] Comment on above: Order Comment: Speci men Type: BLOOD SPECIMEN Ordering Facility: [facility] Address: [address] [place] [address] Performed By: #### 5 8410-2 #### [facility] CLIA [id number] [address] [place] [address] [place] RBC (Bld) [#/Vol] 4.32 10*6/uL Normal 3.90-5.20 [facility] Comment on above: Order Comment: Speci men Type: BLOOD SPECIMEN Ordering Facility: [facility] Address: [address] [place] [address] Performed By: #### 5 8410-2 #### [facility] CLIA [id number] [address] [place] [address] [place] WBC (Bld) [#/Vol] 5.85 10*3/uL Normal 3.70-11.00 [facility] Comment on above: Order Comment: Speci men Type: BLOOD SPECIMEN Ordering Facility: [facility] Address: [address] [place] [address] Performed By: #### 5 8410-2 #### [facility] CLIA [id number] [address] [place] [address] [place] Comprehensive metabolic 2000 panelon 07-05-2024 Albumin [Mass/Vol] 4.7 g/dL Normal 3.9-4.9 [facility] Comment on above: Order Comment: Speci men Type: BLOOD SPECIMEN Ordering Facility: [facility] Address: [address] [place] [address] Performed By: #### 2 4323-8 #### [facility] CLIA [id number] [address] [place] [address] [place] ALP [Catalytic activity/Vol] 68 U/L Normal 34-123 [facility] Comment on above: Order Comment: Speci men Type: BLOOD SPECIMEN Ordering Facility: [facility] Address: [address] [place] [address] Performed By: #### 2 4323-8 #### [facility] CLIA [id number] [address] [place] [address] [place] ALT [Catalytic activity/Vol] 29 U/L Normal 7-38 [facility] Comment on above: Order Comment: Speci men Type: BLOOD SPECIMEN Ordering Facility: [facility] Address: [address] [place] [address] Performed By: #### 2 4323-8 #### [facility] CLIA [id number] [address] [place] [address] [place] Anion gap [Moles/Vol] 16 mmol/L High 8-15 [facility] Comment on above: Order Comment: Speci men Type: BLOOD SPECIMEN Ordering Facility: [facility] Address: [address] [place] [address] Performed By: #### 2 4323-8 #### [facility] CLIA [id number] [address] [place] [address] [place] AST [Catalytic activity/Vol] 27 U/L Normal 13-35 [facility] Comment on above: Order Comment: Speci men Type: BLOOD SPECIMEN Ordering Facility: [facility] Address: [address] [place] [address] Performed By: #### 2 4323-8 #### [facility] CLIA [id number] [address] [place] [address] [place] Bilirubin [Mass/Vol] 0.3 mg/dL Normal 0.2-1.3 [facility] Comment on above: Order Comment: Speci men Type: BLOOD SPECIMEN Ordering Facility: [facility] Address: [address] [place] [address] Performed By: #### 2 4323-8 #### [facility] CLIA [id number] [address] [place] [address] [place] Calcium [Mass/Vol] 10.1 mg/dL Normal 8.5-10.2 [facility] Comment on above: Order Comment: Speci men Type: BLOOD SPECIMEN Ordering Facility: [facility] Address: [address] [place] [address] Performed By: #### 2 4323-8 #### [facility] CLIA [id number] [address] [place] [address] [place] Chloride [Moles/Vol] 106 mmol/L Normal 98-107 [facility] Comment on above: Order Comment: Speci men Type: BLOOD SPECIMEN Ordering Facility: [facility] Address: [address] [place] [id number] Performed By: #### 2 4323-8 #### [facility] CLIA [id number] [address] [place] [address] [place] CO2 [Moles/Vol] 20 mmol/L Low 22-30 [facility] Comment on above: Order Comment: Speci men Type: BLOOD SPECIMEN Ordering Facility: [facility] Address: [address] [place] [address] Performed By: #### 2 4323-8 #### [facility] CLIA [id number] [address] [place] [address] [place] Creatinine [Mass/Vol] 0.84 mg/dL Normal 0.58-0.96 [facility] Comment on above: Order Comment: Speci men Type: BLOOD SPECIMEN Ordering Facility: [facility] Address: [address] [place] [address] Performed By: #### 2 4323-8 #### [facility] [id number] [address] [place] [address] [place] Creatinine and Glomerular filtration rate.predicted panel (S/P/Bld) 83 mL/min/1.73m??? Normal >=60 [facility] Comment on above: Order Comment: Speci men Type: BLOOD SPECIMEN Ordering Facility: [facility] Address: [address] [place] [address] Result Comment: Sonja mated Glomerular Filtration Rate [...] GFR. Performed By: #### 2 4323-8 #### [facility] CLIA [id number] [address] [place] [address] [place] Glucose [Mass/Vol] 49 mg/dL Low 74-99 [facility] Comment on above: Order Comment: Larry gustafson Type: BLOOD SPECIMEN Ordering Facility: [facility] Address: [address] [place] [address] Result Comment: The [place] Diabetes Association (ADA) provides guidance for cutoff [...] Standards of Medical Care in Diabetes 2016, [place] Diabetes Association. Diabetes Care. 2016.39(Suppl 1). Performed By: #### 2 4323-8 #### [facility] [employer] CLIA [id number] [address] [place] [address] [place] Potassium [Moles/Vol] 4.1 mmol/L Normal 3.7-5.1 [facility] Comment on above: Order Comment: Larry gustafson Type: BLOOD SPECIMEN Ordering Facility: [facility] Address: [address] [place] [address] Performed By: #### 2 4323-8 #### [facility] CLIA [id number] [address] [place] [address] [place] Protein [Mass/Vol] 7.4 g/dL Normal 6.3-8.0 [facility] Comment on above: Order Comment: Larry gustafson Type: BLOOD SPECIMEN Ordering Facility: [facility] Address: [address] [place], [place] [address] Performed By: #### 2 4323-8 #### [facility] CL[facility] [id number] [address] [place] [address] [place] Sodium [Moles/Vol] 142 mmol/L Normal 136-144 [facility] Comment on above: Order Comment: Larry gustafson Type: BLOOD SPECIMEN Ordering Facility: [facility] Address: [address] [place] [address] Performed By: #### 2 4323-8 #### [facility] CLIA [id number] [address] [place] [address] [place] Urea nitrogen [Mass/Vol] 19 mg/dL Normal 7-21 [facility] Comment on above: Order Comment: Larry men Type: BLOOD SPECIMEN Ordering Facility: [facility] Address: [address] [place] [address] Performed By: #### 2 4323-8 #### [facility] CLIA [id number] [address] [place] [address] [place] HbA1c (Bld)on 07-05-2024 Average glucose Estimated from glycated hemoglobin (Bld) [Mass/Vol] 114 mg/dL Normal [facility] Comment on above: Order Comment: Larry men Type: BLOOD SPECIMEN Ordering Facility: [facility] Address: [address] [place] [address] Result Comment: eAG: (Estimated average glucose) is a calculated value from HgbA1c and is medical customer service representative of the average blood glucose level in the last 2-3 month period. Performed By: #### 5 5454-3 #### [facility] CLIA [id number] [address] [place] [address] [place] HbA1c (Bld) [Mass fraction] 5.6 % Normal 4.3-5.6 [facility] Comment on above: Order Comment: Larry janay Type: BLOOD SPECIMEN Ordering Facility: [facility] Address: [address] [place] [address] Result Comment: Amer [place] Diabetes Association guidelines indicate that patients with HgbA1c in the range 5.7-6.4% are at increased risk for development of diabetes, and intervention by lifestyle modification may be beneficial. HgbA1c greater or equal to 6.5% is considered diagnostic of diabetes. Performed By: #### 5 5454-3 #### [facility] CLIA [id number] [address] [place] [address] [place] [facility] OF [place] LIPID PANEL, NONFASTINGon Cholesterol [Mass/Vol] 196 mg/dL Normal <200 [facility] Comment on above: Order Comment: Speci men Type: BLOOD SPECIMEN Ordering Facility[facility] Address: [address] [place] [address] Result Comment: <200 mg/dL, Desirable 200-239 mg/dL, Borderline high >239 mg/dL, High Performed By: #### L GUME, 3015-3 #### [facility] CLIA [id number] [address] [place] [address] [place] HDL CHOLESTEROL, NF 78 mg/dL Normal >39 [facility] Comment on above: Order Comment: Speci men Type: BLOOD SPECIMEN Ordering Facility[facility] Address: [address] [place] [address] Result Comment: 40-5 9 mg/dL, Acceptable >59 mg/dL, High: Negative risk factor for coronary heart disease <40 mg/dL, Low: Positive risk factor for coronary heart disease Performed By: #### L GUME, 3015-3 #### [facility] CLIA [id number] [address] [place] [address] LDL CHOLESTEROL CALCULATED, NF 102 mg/dL High <100 [facility] Comment on above: Order Comment: Speci men Type: BLOOD SPECIMEN Ordering Facility[facility] Address: [address] [place] [address] Result Comment: <100 mg/dL, Optimal 100-129 mg/dL, Near optimal/above optimal 130-159 mg/dL, Borderline high 160-189 mg/dL, High >189 mg/dL, Very high Secondary prevention optimal LDL Cholesterol levels are recommended to be <70 mg/dL LDL cholesterol is calculated using the Muller-NIH equation. Performed By: #### L GUME, 3015-3 #### [facility] CLIA [id number] [address] [place], [place] [address] [place] LDL/HDL RATIO, NF 1.31 mg/dL Normal <2.54 [facility] Comment on above: Order Comment: Larry gustafson Type: BLOOD SPECIMEN Ordering Facility[facility] Address: [address] [place] [address] Result Comment: Billy fay: 1. National Cholesterol Education Program ATP III Guideline At-A-Glance Quick Desk Reference: National Heart, Lung, and Blood [place]. National Institutes of Health. 2001: NIH Publication No. 01-3305. 2. An International Atherosclerosis Society position paper: global recommendations for the management of dyslipidemia: executive summary, Atherosclerosis. 2014: 232(2):410-413. Performed By: #### L GUME, 6-3 #### [facility] CLIA [id number] [address] [place] [address] [place] NON HDL CHOL, NF 118 mg/dL Normal <130 [facility] Comment on above: Order Comment: Larry gustafson Type: BLOOD SPECIMEN Order[facility] Facility[facility] Address: [address] [place] [address] Result Comment: <130 mg/dL, Optimal 130-159 mg/dL, Near optimal/above optimal 160-189 mg/dL, Borderline high 190-219 mg/dL, High >219 mg/dL, Very high Secondary prevention optimal non HDL Cholesterol levels are recommended to be <100 mg/dL Performed By: #### L GUME, 6-3 #### [facility] CLIA [id number] [address] [place] [address] [place] T CHOL/HDL RATIO NF 2.51 mg/dL Normal <5.10 [facility] Comment on above: Order Comment: Larry gustafson Type: BLOOD SPECIMEN Order[facility] Facility[facility] Address: [address] [place] [address] Performed By: #### L GUME, 6-3 #### [facility] CLIA [id number] [address] [place] [address] [place] TRIGLYCERIDES, NF 93 mg/dL Normal <150 [facility] Comment on above: Order Comment: Speci men Type: BLOOD SPECIMEN Order[facility] Facility[facility] Address: [address] [place] [address] Result Comment: <150 mg/dL, Normal 150-199 mg/dL, Borderline high 200-499 mg/dL, High >499 mg/dL, Very high Performed By: #### L IPNF, 3016-3 #### [facility] CLIA [id number] [address] [place] [address] [place] VLDL CHOLESTEROL, NF 15 mg/dL Normal <30 [facility] Comment on above: Order Comment: Speci men Type: BLOOD SPECIMEN Order[facility] Facility[facility] Address: [address] [place] [address] Performed By: #### L IPNF, 6-3 #### [facility] CLIA [id number] [address] [place] [address] [place] TSH SerPl-aCncon 07-05-2024 TSH Qn 1.780 m[IU]/L Normal 0.270-4.200 [facility] Comment on above: Order Comment: Speci men Type: BLOOD SPECIMEN Ordering Facility[facility] Address: [address] [place] [address] Performed By: #### L IPNF, 6-3 #### [facility] CLIA [id number] [address] [place] [address] [place] BACTERIAL VAGINOSIS NAATon 0 06-30-2024 Lactobacillus crispatus+gasseri+j ensenii + Gardnerella vaginalis + Atopobium vaginae rRNA CHADWICK+probe Ql (Vag fld) Not detected Normal Not detected [facility] Comment on above: Order Comment: Speci men Type: SWAB [facility] Facility[facility] Address: [address] [place] [address] Performed By: #### B VAMP, CVTV #### [facility] CLIA [id number] [address] [place] [address] [place] [facility] [place] BETY/TRICHOMONAS NAATon 0 06-30-2024 C. glabrata RNA CHADWICK+probe Ql (Vag fld) Not detected Normal Not detected [facility] Comment on above: Order Comment: Speci men Type: SWAB [facility] Address: [address] [place] [address] Performed By: #### Vlad VAMP, CVTV #### [facility] CLIA [id number] [address] [place] [address] [place] Bety sp DNA CHADWICK+probe Ql (Vag fld) Not detected Normal Not detected [facility] Comment on above: Order Comment: Speci men Type: SWAB Ordering Facility[facility] Address: [address] [place] [address] Result Comment: The Bety species group target includes C. albicans, C. tropicalis, C. parapsilosis, and C. dubliniensis. Performed By: #### Vlad VAMP, CVTV #### [facility] CLIA [id number] [address] [place] [address] [place] T. vaginalis DNA CHADWICK+probe Ql (Unsp spec) Not detected Normal Not detected [facility] Comment on above: Order Comment: Speci men Type: SWAB [facility] Address: [address] [place] [address] Performed By: #### Vlad VAMP, CVTV #### [facility] CLIA [id number] [address] [place] [address] [place] CNOVon 06-30-2024 CNOV Office Visit (OBGYWM ) JAZ STILL ([id number]) 1970 F Date Time Provider Department 06/30/24 2:40 PM ARIANNA LONGORIA OBGYWRosa During your visit today, we recorded the following information about you: Blood pressure Weight Height 100/68 64.9 kg 1.664 m Arianna Longoria MD 06/30/2024 5:24 PM Signed [employer] Agent offered: Patient declinesMansi Sebastian is a 54 [...] Always HPV vaccine: No Last pap smear: [id number] History of abnormal pap: No Colposcopy: No. [...] discussed with the Patient or Patient's Authorized Aerodynamics Engineer. As applicable, any other physician, advance practice provider, medical student, or other health professional student that will be observing or involved in the sensitive examination for educational or training purposes was discussed with the Patient or Authorized Aerodynamics Engineer. The Patient or Authorized Aerodynamics Engineer has agreed to proceed with the sensitive [...] noted as well. Normal Bartholin's glands, urethra, [place]'s glands, no vulvar lesions, no cervical lesions, [...] Why matson (more content not included)... Normal [facility] XR Cervical spine AP and Lat eral and obliqueon 04-10-2022 IMPRESSION: Cervical spine degenerative changes as described above. Real Estate Rep: WIL Transcribe Date/Time: Apr 10 2022 2:55P Dictated by : JOHN CRUM MD This examination was interpreted and the report reviewed and electronically signed by: JOHN CRUM MD on Apr 10 2022 2:56PM [facility] DIVISION OF RADIOLOGY * * [...] tissues are normal. DIVISION OF RADIOLOGY Provider, [facility] Anuel [facility] - 04/10/2022 * * *Final Report* [...] Cervical spine degenerative changes as described above. Real Estate Rep: PSCB Transcribe Date/Time: Apr 10 2022 2:55P Dictated by : JOHN CRUM MD This examination was interpreted and the report reviewed and electronically signed by: JOHN CRUM MD on Apr 10 2022 2:56PM EST [facility] XR Cervical spine AP and Lat eral and obliqueOrdered By: Ccf Provider on 04-10-2022 [facility] XR Cervical spine AP and Lat eral and obliqueon 04-09-2022 Radiology Study observation (narrative) [facility] Absolute lymphocyte counton 03-19-2022 Lymphocytes Auto (Unsp spec) [#/Vol] 1.73 10*3/uL 0.83-4.[address] [facility] Work Phone: Basophil percentageon 2022 Basophils/100 WBC (Bld) 0.6 % 0-[address] [facility] Work Phone: Chloride [Moles/Vol] 108 mmol/L 98-[address] [facility] Work Phone: Eosinophils/100 WBC (Bld) 0.5 % 0-[address] [facility] Work Phone: Glucose [Mass/Vol] 95 mg/dL 74-106 [facility] Work Phone: Neutrophils (Bld) [#/Vol] 7.2 10*3/uL 2.0-7.[address] [facility] Work Phone: Neutrophils/100 WBC (Bld) 74.3 % 47-[address] [facility] Work Phone: Potassium [Moles/Vol] 4.3 mmol/L 3.5-5.[address] [facility] Work Phone: Sodium [Moles/Vol] 139 mmol/L 136-145 [facility] Work Phone: WBC (Bld) [#/Vol] 9.7 10*3/uL 4.4-11.0 [facility] Work Phone: Blood erythrocytes count (nu mber/volume)on 03-19-2022 RBC (Bld) [#/Vol] 4.30 10*6/uL 4.2-5.4 [facility] Work Phone: Blood hemoglobin measurement (mass/volume)on 03-19-2022 Hemoglobin (Bld) [Mass/Vol] 13.0 g/dL 12.0-15.[address] [facility] Work Phone: Blood lymphocytes/100 leukoc yteson 03-19-2022 Lymphocytes/100 WBC (Bld) 17.9 % 19-[address] [facility] Work Phone: Blood monocytes/100 leukocyt eson 03-19-2022 Monocytes/100 WBC (Bld) 6.4 % 0-[address] [facility] Work Phone: Blood platelet mean volumeon 03-19-2022 Platelet mean volume (Bld) [Entitic vol] 10.9 fL 6.2-12.[address] [facility] Work Phone: Determination of erythrocyte mean corpuscular volume (MCV)on 03-19-2022 MCV (RBC) [Entitic vol] 93.0 fL 81-[address] [facility] Work Phone: Erythrocyte sedimentation ra tommie 03-19-2022 ESR (Bld) [Velocity] 16 mm/h 0-[address] [facility] Work Phone: Hematocrit Auto (Bld) [Volum e fraction]on 03-19-2022 Hematocrit (Bld) [Volume fraction] 40.0 % 37-[address] [facility] Work Phone: Laboratory - Chemistry and C hemistry - challengeon 03-19-2022 CO2 [Moles/Vol] 28.0 mmol/L 21.0-32.[address] [facility] Work Phone: Urea nitrogen/Creatinine [Mass ratio] 12.7 mg/mg 10-[address] [facility] Work Phone: Laboratory - Hematology and Cell countson 03-19-2022 Erythrocyte distribution width (RBC) [Entitic vol] 47.3 fL 35.1-43.[address] [facility] Work Phone: Erythrocyte distribution width (RBC) [Ratio] 13.8 % 11.6-14.[address] [facility] Work Phone: Immature granulocytes/100 WBC (Bld) 0.300 % 0.0-0.[address] [facility] Work Phone: Comment on above: IG% - Immature Granu locytes (promyelocytes, myelocytes and metamyelocytes) > 1% indicates that a LEFT SHIFT is Present. MCH (RBC) [Entitic mass] 30.2 pg 27.0-32.[address] [facility] Work Phone: Nucleated RBC/100 WBC (Bld) [Ratio] 0 % 0-[address] [facility] Work Phone: MCHC Auto (RBC) [Mass/Vol]on 03-19-2022 MCHC (RBC) [Mass/Vol] 32.5 g/dL 32-[address] [facility] Work Phone: No Panel Informationon 03-19 Estimated Creatinine Clearance Calc 87.76 ml/min [facility] Work Phone: Estimated GFR (MDRD) Amer 111 mL/min >[address] [facility] Work Phone: Comment on above: GFR Calc Estimated GFR (MDRD) Non-Af Amer 92 mL/min >[address] [facility] Work Phone: Comment on above: Non- GFR Calc Platelets bldon 03-19-2022 Platelets (Bld) [#/Vol] 313 10*3/uL 150-[address] [facility] Work Phone: Serum or plasma calcium isaías urement (mass/volume)on 03-19-2022 Calcium [Mass/Vol] 9.1 mg/dL 8.5-10.1 [facility] Work Phone: Serum or plasma creatinine m easurement (mass/volume)on 03-19-2022 Creatinine [Mass/Vol] 0.71 mg/dL 0.55-1.[address] [facility] Work Phone: Comment on above: The validity of the calculated GFR & GFRAA in patients over 70 years has not been determined. Clinical correlation is essential. Serum or plasma urea nitroge n measurement (mass/volume)on 03-19-2022 Urea nitrogen [Mass/Vol] 9 mg/dL 7-[address] [facility] Work Phone: Thin prep Papanicolaou smear with manual screeningon 03-19-2022 Thin prep Papanicolaou smear with manual screening 3 5-[address] [facility] Work Phone: [facility] Note on 11-28-2016 [facility] Normal [facility] Patient Summary Documentson 11-14-2016 Patient Summary Documents Normal [facility]) Vital Signs Date Time Vital Sign Value Performing Clinician Facility 09-02-2024 20:37-0400 Body temperature 98.4 [degF] Dr. Nader Flores MD Work Phone: [phone] [place] [address] 09-02-2024 20:37-0400 Diastolic blood pressure 79 mm[Hg] Dr. Nader Flores MD Work Phone: 6(321)[phone] [place] [address] 09-02-2024 20:37-0400 Heart rate 79 /min Dr. Nader Flores MD Work Phone: 9(392)[phone] [place] [address] 09-02-2024 20:37-0400 Respiratory rate 16 /min Dr. Nader Flores MD Work Phone: 7(185)[phone] [place] [address] 09-02-2024 20:37-0400 SaO2% (BldA) [Mass fraction] 100 % Dr. Nader Flores MD Work Phone: 2(341)[phone] [place] [address] 09-02-2024 20:37-0400 Systolic blood pressure 139 mm[Hg] Dr. Nader Flores MD Work Phone: 6(625)417-731003 [place] [address] 09-02-2024 17:01-0400 Body height 167.[address] Nader Flores MD Work Phone: 4(634)[phone] [place] [address] 09-02-2024 17:01-0400 Body mass index (BMI) [Ratio] 21.6 kg/m2 Dr. Nader Flores MD Work Phone: [facility] 09-02-2024 17:01-0400 Body weight 60.[address] Nader Flores MD Work Phone: [facility] 07-14-2024 14:55-0400 Body mass index (BMI) [Ratio] 22.84 kg/m2 Arianna Longoria MD Work Phone: [facility] 07-14-2024 14:55-0400 Body weight 63.23 kg Arianna Longoria MD Work Phone: [facility] 07-14-2024 14:55-0400 Diastolic blood pressure 60 mm[Hg] Arianna Longoria MD Work Phone: [facility] 07-14-2024 14:55-0400 Systolic blood pressure 100 mm[Hg] Arianna Longoria MD Work Phone: [facility] 04-08-2022 07:52-0500 Body temperature 96.91 [degF] Izzy Knutsoner PA-C Work Phone: [facility] 04-08-2022 07:52-0500 Body weight 60.24 kg Izzy Queener PA-C Work Phone: [facility] 04-08-2022 07:52-0500 Diastolic blood pressure 70 mm[Hg] Izzy Knutsoner PA-C Work Phone: [facility] 04-08-2022 07:52-0500 Heart rate 75 /min Izzy Queener PA-C Work Phone: [facility] 04-08-2022 07:52-0500 Respiratory rate 16 /min Izzy Queener PA-C Work Phone: [facility] 04-08-2022 07:52-0500 SaO2% (BldA) [Mass fraction] 98 % Izzy Queener PA-C Work Phone: [facility] 04-08-2022 07:52-0500 Systolic blood pressure 103 mm[Hg] Izzy Briseno PA-C Work Phone: [facility] 03-19-2022 10:55-0500 Body height 167.64 cm [facility] Work Phone: 03-19-2022 10:55-0500 Body mass index (BMI) [Ratio] 21.7 kg/m2 [facility] Work Phone: 03-19-2022 10:55-0500 Body temperature 96.7 [degF] [facility] Work Phone: 03-19-2022 10:55-0500 Body weight 61.23 kg [facility] Work Phone: 03-19-2022 10:55-0500 Diastolic blood pressure 66 mm[Hg] [facility] Work Phone: 03-19-2022 10:55-0500 Heart rate 71 /min [facility] Work Phone: 03-19-2022 10:55-0500 Respiratory rate 18 /min [facility] Work Phone: 03-19-2022 10:55-0500 SaO2% (BldA) [Mass fraction] 99 % [facility] Work Phone: 03-19-2022 10:55-0500 Systolic blood pressure 96 mm[Hg] [facility] Work Phone: 03-12-2022 08:29-0500 Body mass index (BMI) [Ratio] 22 kg/m2 [facility] Work Phone: 03-12-2022 08:29-0500 Body temperature 96.9 [degF] [facility] Work Phone: 03-12-2022 08:29-0500 Body weight 61.9 kg [facility] Work Phone: 03-12-2022 08:29-0500 Diastolic blood pressure 70 mm[Hg] [facility] Work Phone: 03-12-2022 08:29-0500 Heart rate 81 /min [facility] Work Phone: 03-12-2022 08:29-0500 Respiratory rate 14 /min [facility] Work Phone: 03-12-2022 08:29-0500 SaO2% (BldA) [Mass fraction] 100 % [facility] Work Phone: 03-12-2022 08:29-0500 Systolic blood pressure 118 mm[Hg] [facility] Work Phone: Encounters Encounter Date Encounter Type Care Provider Facility Start: 09-04-2024 Emergency department patient visit No Primary Care Physician Facility:[facility] Start: 09-02-2024 End: 09-02-2024 Emergency department patient visit Dr. Nader Flores MD Work Phone: -Emergency Department Work Phone: Start: 07-28-2024 End: 07-28-[address] Nader Flores MD Work Phone: [facility] Work Phone: Start: 07-28-2024 End: 07-28-[address] Isamar Ramirez MD -[facility] Work Phone: Start: 07-28-2024 End: 07-28-2024 ambulatory Isamar Ramirez Facility:[facility] Start: 07-18-2024 End: 07-18-2024 Telephone encounter Arianna Longoria MD Work Phone: OB/Gynecology Comment on above: Orders Start: 07-14-2024 End: 07-14-2024 Patient encounter procedure Arianna Longoria MD Work Phone: OB/Gynecology Comment on above: Other skin changes ( Primary Dx) Start: 07-14-2024 End: 07-14-2024 ambulatory ARIANNA LONGORIA Facility:[facility] Start: 07-05-2024 End: 07-05-2024 ambulatory ARIANNA LONGORIA Facility:[facility] Start: 07-05-2024 Patient encounter procedure ARIANNA LONGORIA [facility] Start: 07-01-2024 End: 08-31-2024 Follow-up encounter Maira Annetta [employer] Work Phone: OB/Gynecology Start: 06-30-2024 End: 06-30-2024 ambulatory ARIANNA LONGORIA Facility:[facility] Start: 06-30-2024 Encounter for gynecological examination (general) (routine) without abnormal findings ARIANNA LONGORIA [facility] Start: 05-12-2022 End: 05-12-2022 ambulatory Gia Thurston PT Work Phone: [facility] Comment on above: Radicular pain in ri ght arm (Primary Dx) Start: 04-28-2022 End: 04-28-2022 ambulatory Gia Thurston PT Work Phone: [facility] Comment on above: Radicular pain in ri ght arm (Primary Dx) Start: 04-23-2022 End: 04-23-2022 ambulatory Gia Thurston PT Work Phone: [facility] Comment on above: Radicular pain in ri ght arm (Primary Dx) Start: 04-21-2022 End: 04-21-2022 ambulatory Gia Thurston PT Work Phone: [facility] Comment on above: Radicular pain in ri ght arm (Primary Dx) Start: 04-14-2022 End: 04-14-2022 ambulatory Gia Thurston PT Work Phone: [facility] Comment on above: Radicular pain in ri ght arm (Primary Dx) Start: 04-09-2022 End: 04-09-2022 Subsequent hospital visit by physician [facility] Work Phone: Radiology Comment on above: Radicular pain in ri ght arm [M79.2] Start: 04-08-2022 End: 04-08-2022 Patient encounter procedure Izzy Briseno PA-C Work Phone: Neurology Comment on above: Radicular pain in ri ght arm (Primary Dx); Paresthesia and pain of right extremity Start: 03-19-2022 Telephone encounter Nader Flores MD Work Phone: [facility] [place] Comment on above: Future Appointment Start: 03-19-2022 End: 03-19-2022 Emergency department patient visit [facility]Emer[facility] Start: 03-12-2022 End: 03-12-2022 [facility] Start: 11-14-2016 End: 11-14-2016 Emergency department patient visit SHERRI VILLALPANDO Facility:B Procedures Date Procedure Procedure Detail [...] panel - S pedro or Plasma Xr [place] Work Phone: Plan of Treatment Date Care Activity Detail Author Start: 07-05-2029 Lipid panel Lipid Screening [facility] Start: 07-06-2027 Diabetes Screening Diabetes Screenin g [facility] Start: 07-03-2025 End: 07-03-2025 Patient encounter procedure 07/03/2025 9:00 AM EDT Office Visit OB/Gynecology [address] [place] [id number] Arianna Longoria MD [address] [place] [id number] Annual OB/Gynecology Comment on above: Annual Start: 11-07-2024 Influenza vaccination Influenz a Vaccine (Season Ended) [facility] Start: 09-02-2024 End: 09-02-[address] [facility] Start: 11-08-2023 Covid-19 Vaccine ( season) Covid-19 Vaccine ( season) [facility] Start: 11-08-2023 Influenza vaccination Influenza Vacc ine (#1) [facility] Start: 03-09-2022 DEPRESSION ASSESSMENT DEPRESSION ASS ESSMENT [facility] Start: 11-07-2021 Influenza vaccination INFLUENZA (#1) [facility] Start: 04-30-2021 Lipid panel Lipid Screening [facility] Start: 04-30-2021 LIPID SCREEN LIPID SCREEN [facility] Start: 2020 SHINGRIX VACCINE (1 of 2) SHINGRIX VACCINE (1 of 2) [facility] Start: 07-04-2019 DIABETES SCREEN DIABETES SCREEN [facility] Start: 07-04-2019 Diabetes Screening Diabetes Screenin g [facility] Start: 12-03-2016 PNEUMOCOCCAL (2 - PCV) PNEUMOCOCCAL (2 - PCV) [facility] Start: 12-03-2016 Pneumococcal vaccination Pneum ococcal Vaccine (2 of 2 - PCV) [facility] Start: 12-03-2016 Pneumococcal Vaccine : 50+ (2 of 2 - PCV) Pneumococcal Vaccine: 50+ (2 of 2 - PCV) [facility] Start: 2015 COLOGUARD (FIT-DNA) COLOGUARD (FIT-D NA) [facility] Start: 2015 Colonoscopy COLONOSCOPY [facility] Start: 2015 COLORECTAL CANCER SCREENING COLORECTAL CANCER SCREENING [facility] Start: [address] [facility]HY [facility] Start: 2015 FECAL OCCULT BLOOD FECAL OCCULT BLOO D [facility] Start: 2015 Screening for malign ant neoplasm of colon [facility] Start: 2015 SIGMOIDOSCOPY SIGMOIDOSCOPY [facility] Start: 2010 Mammography MAMMOGRAM [facility] Start: 2010 Screening for malign ant neoplasm of breast Mammogram Screening [facility] Start: 1989 Hepatitis B Vaccine (1 of 3 - 19+ 3-dose series) Hepatitis B Vaccine (1 of 3 - 19+ 3-dose series) [facility] Start: 1989 Urine microalbumin profile [facility] Start: 1988 Anxiety Screening Anxiety Screening [facility] Start: 1988 Depression Screening Depression Scre jovi [facility] Start: 1988 HEPATITIS C SCREENING HEPATITIS C [facility] Start: 1988 Hepatitis C screening Hepatitis C [facility] Start: 1988 HIV SCREENING HIV SCREENING [facility] Start: 1988 HIV screening HIV Screening [facility] Start: 1970 COVID-19 VACCINE (#1) COVID-19 VACCI NE (#1) [facility] Start: 1970 HEPATITIS B (1 of 3 - 3-dose series) HEPATITIS B (1 of 3 - 3-dose series) [facility] Patient Education [facility] Work Phone: Patient referral [facility] Work Phone: End: 05-08-2023 Radex spine cervical 4 or 5 views XR CERV OTHER 4V AP/LAT/OBL Radiology Routine Radicular pain in right arm 1 Occurrences starting 04/08/2022 until 05/08/2023 [facility] Work Phone: Comment on above: 1 Occurrences starti ng 04/08/2022 until 05/08/2023 [facility] Immunizations Immunization Date Immunization Notes Care Provider Nikki doyle 09-02-2024 tetanus toxoid, redu lashae diphtheria toxoid, and acellular pertussis vaccine, adsorbed Dr. Nader Flores MD Work Phone: [facility] 12-04-2015 pneumococcal polysaccharide vaccine, 23 valent Isamar Flores MD Work Phone: [facility] 12-04-2015 influenza virus vaccine, unspecified formulation Xr [place] Work Phone: [facility] Payers Date Payer Category Payer Private Health Insurance M[employer] PPO [id number] 2024 Unknown [id number] 2016 Self-pay Self-pay [id number] Unknown [facility] [id number] Unknown [id number] Unknown [id number] Social History Date Type Detail Facility Start: 03-19-2022 Tobacco smoking stat us [facility] Unknown if ever smoked [facility] Work Phone: Start: 1970 Sex Assigned At Female W [facility] Start: 12-04-2015 End: 09-02-2024 Tobacco smoking status LAIS Smokes tobacco daily [facility] Work Phone: History of tobacco use Cigarette Smoker C [facility] Work Phone: Start: 12-04-2015 End: 06-30-2024 Cigarettes smoked current (pack per day) - Reported 0.5 [facility] Start: 10-25-2021 End: 06-30-2024 Alcohol intake Current drinker of alcohol (finding) [facility] Start: 12-04-2015 Alcohol Comment 1-2 times per month [facility] Start: 1970 Sex Assigned At Not on file [facility] Start: 04-08-2022 End: 06-30-2024 Tobacco use panel [facility] National Score (1-10 0), lower number is lower risk 67 [facility] Start: 03-21-2022 Sexual orientation Heterosexual (ced garcia) [facility] Start: 06-30-2024 Tobacco use and exposure Smokeless tobacco non-user [facility] Clinical Notes 03-19-2022 to 07-29-2024 Telephone Encounter - Arianna Longoria MD - 07/18/2024 8:21 AM EDTTelephone Encounter - Arianna Longoria MD - 07/18/2024 8:21 AM STEVETArianna Longoria MD - 07/14/2024 2:53 PM EDT Note Date & Type Note Facility 07-29-2024 Radiology Diagnostic study note [facility] Imaging Services [address] [place] [address] Sinus/Facial Bone MR#: [id number] Acct: [id number] Name: JAZ STILL Rep #: [id number] : 1970 F 54 From: Kaushik Hester MD PCP: Dr. Nader Flores MD Status: REG CLI Study:Sinus/Facial Bone Date of Exam: Exam# [id number] Ordering Dr: Isamar Ramirez MD PROCEDURE: SINUS/FACIAL [...] C5-6 asymmetric uncovertebral hypertrophic change results in cdyr-voumudn-jgjl-right severe appearing left sided foraminal narrowing for example sagittal [address]/Sinus/Facial Bone IMPRESSION: No paranasal sinus disease as above. 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 Reading Location: [facility] CC: Dr. Nader Flores MD; Dr. 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 07-18-2024 Telephone encounter Note See result note. Rx sent for clobetasol ointment. Needs follow up in 12 weeks [facility] 07-18-2024 Miscellaneous Notes See result note. Rx sent for clobetasol ointment. Needs follow up in 12 weeks documented in this encounter [facility] 07-14-2024 Note HNO ID: [id number] Author: ARIANNA LONGORIA MD Service: ? Author Type: Physician Type: Progress Notes Filed: 07/15/2024 13:37 Note Text: [employer] Agent offered: Patient declines. Jaz Still is a [...] 3mL 1% lidocaine with 1:100,000 epi. 3mm Brandon punch used to biopsy region. HEMOSTASIS: Obtained with silver nitrate and pressure Procedure Summary: Patient tolerated procedure well. ASSESSMENT: vulvar and perineal skin changes PLAN: Specimens labeled and sent to Pathology. Will notify patient of results in 1-2 weeks. Post-procedure instructions reviewed and written material given to the patient. Arianna Longoria DO [facility] 07-14-2024 History of Presen t illness Narrative [employer] Agent offered: Patient declines. Jaz Still is a [...] 3mL 1% lidocaine with 1:100,000 epi. 3mm Brandon punch used to biopsy region. HEMOSTASIS: Obtained with silver nitrate and pressure Procedure Summary: Patient tolerated procedure well. ASSESSMENT: vulvar and perineal skin changes PLAN: Specimens labeled and sent to Pathology. Will notify patient of results in 1-2 weeks. Post-procedure instructions reviewed and written material given to the patient. Arianna Longoria DO documented in this encounter [facility] 06-30-2024 Note HNO ID: [id number] Author: ARIANNA LONGORIA MD Service: ? Author Type: Physician Type: Progress Notes Filed: 06/30/2024 17:24 Note Text: [employer] Agent offered: Patient declinesMansi Sebastian is a 54 [...] Always HPV vaccine: No Last pap smear: [id number] History of abnormal pap: No Colposcopy: No. [...] discussed with the Patient or Patient's Authorized Aerodynamics Engineer. As applicable, any other physician, advance practice provider, medical student, or other health professional student that will be observing or involved in the sensitive examination for educational or training purposes was discussed with the Patient or Authorized Aerodynamics Engineer. The Patient or Authorized Aerodynamics Engineer has agreed to proceed with the sensitive [...] noted as well. Normal [place]th[place]'s glands, urethra, [place]'s glands, no vulvar lesions, no cervical lesions, [...] She is considering options Arianna Longoria DO [facility] 05-12-2022 History of Presen t illness Narrative Episode Visit Count: 5 Therapist That Will Accept/Oversee The Plan Of Care: Gia Thurston PT Start of Care Date: 04/14/22 Onset Date: 03/14/22 Patient Identified by Name and Date of : Yes [facility] AND [facility]TS [facility]ERAPY PHYSICAL THERAPY DISCONTINUANCE OF CARE PLAN OF CARE UPDATE: Assessment: Jaz Still is discontinued from Physical Therapy services due to goal achievement and maximal benefit.. Patient was seen for 5 visits from Start of Care Date: 04/14/22 to 05/12/2022 and treatment included: Therapeutic exercise, Manual therapy, Self-chcf management, and Patient/Family/Caregiver Education. Goals for Episode [...] B 10 sec x3 2: B cervical [id number] sec X3 3: right levator stretch no arms 10 saec x3 Skilled Intervention: Skilled judgment was provided in selection of appropriate interventions. Billing Therapeutic Exercise Treatment Minutes: 17 Total Treatment Time Minutes (timed/untimed): 17 Gia Thurston PT documented in this encounter [facility] 04-28-2022 History of Presen t illness [...] B 10 sec x3 2: B cervical [id number] sec X3 3: right levator stretch no [...] Gia Thurston PT documented in this encounter [facility] 04-23-2022 History of Presen t illness [...] Total Treatment Time Minutes (timed/untimed): 27 Gia Thurstno PT documented in this encounter [facility] 04-21-2022 History of Presen t illness [...] B 10 sec x3 2: B cervical [id number] sec X3 3: right levator stretch no [...] Gia Thurston PT documented in this encounter [facility] 04-14-2022 History of Presen t illness [...] Planned: 8 Planned Treatment Interventions: Therapeutic exercise (67023), Neuromuscular re-education (19400), Manual therapy (37267), Self-chcf management (13033), Patient/Family/Caregiver Education PLAN FOR NEXT VISIT: trial [...] History Right or Left Handed: Right Employment: [employer]: See Comment [employer] Occupation: [employer] , does not have [...] Demonstration TREATMENT: PT Treatment Interventions: Therapeutic Exercise, Self-Assisted Management Evaluation Therapeutic Exercise: 1: right cervical LF x3 2: right cervical rotation Skilled Intervention: Patient was educated in proper exercise technique and purpose for exercises. Skilled judgment was provided in selection of appropriate interventions. Correct performance of therapeutic exercises was facilitated with verbal and visual cuing. Patient education as noted. Self-Assisted Management: 1: education on centralization of sx [...] Gia Thurston PT documented in this encounter [facility] 04-14-2022 History of Past i llness Narrative Problem Noted Date Resolved Date Radicular pain in right arm 04/14/2022 030 08/2022 documented as of this encounter (statuses as of 05/12/2022) [facility]02-01[facility]2023 History of Present illness Narrative* Miracle [...] 09, 2022 8:47 AM [facility] Instructions* Patient Instructions* Izzy Briseno PA-C - 04/08/2022 8:32 AM EST Xray of the cervical spine Muscle relaxer (Flexeril 5mg up to twice daily- do not drink alcohol with this medication, do not drive with this medication) Heat 20 min, Ice 20 min Physical therapy Follow up in 3 months [facility] History of Present illness Narrative* Izzy [...] butdoes note 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 She has not [...] Marijuana few times a week Works at [employer] Objective 04/08/22 0752 BP: 103/70 Pulse: 75 [...] Negative Coordination: finger-to- nose-finger intact bilaterally and [id number] intact bilaterally. Gait: Patient's gait is normal [...] with certain positions. Notes previous neck injury [id number], good relief with physical therapy at that [...] which included preparing to see the patient, [id number] patient care, completing clinical documentation, obtaining and/or reviewing separately obtained history, performing a medically appropriate examination, counseling and educating the pat ient/family/caregiver, and ordering medications, tests, or procedures. PDMP website checked and validated. All prescriptions have been APPROPRIATELY filled. No suspiciousactivity was identified. 04/08/2022 by KYLIE Adame PA-C [facility] Neurology documented [facility] Miscellaneous Notes* Telephone Encounter - Adele [...] appt has been made. documented in [facility] Hospital Discharge instructions Additional Instructions Apply ice to your right shoulder and arm 6-10 times a day for the next 3 to 5 days. Avoid activity that causes you increased pain.[facility] Work Phone: Evaluation noteNo assessment information available [facility] Work Phone: Evaluation note* Diagnosis Radicular pain in right arm- Primary Neuralgia, neuritis, and radiculitis, unspecified Paresthesia and pain of right extremity Pain in limb [facility] Diagnosis Radicular pain in right arm- Primary Neuralgia, neuritis, and radiculitis, unspecified [facility] Diagnosis Radicular pain in right arm- Primary Neuralgia, neuritis, and radiculitis, unspecified [facility] Diagnosis Radicular pain in right arm- Primary Neuralgia, neuritis, and radiculitis, unspecified [facility] Diagnosis Radicular pain in right arm- Primary Neuralgia, neuritis, and radiculitis, unspecified [facility] Diagnosis Radicular pain in right arm- Primary Neuralgia, neuritis, and radiculitis, unspecified [facility] Diagnosis Radicular pain in right arm Neuralgia, neuritis, and radiculitis, unspecified [facility]* Diagnosis Other skin changes- Primary [facility]* Diagnosis Lichen sclerosus- Primary Circumscribed scleroderma [facility] Discharge instructionsAdditional Instructions Have sutures removed in about 7 days. Return for any signs of infection. You can take Tylenol and ibuprofen as needed for your pain.[facility] Work Phone: Reason for referral (narrative)* Diagnostic Procedure Only (Routine) - Closed Specialty Diagnoses / Procedures Referred By Jered alonzo Referred To Contact XR IMAGING Diagnoses Radicular pain in right arm Procedures XR CERV OTHER 4V AP/LAT/OBL RADEX SPINE CERVICAL 4 OR 5 VIEWS Izzy Briseno PA-C [address] [place] [address] [place] [id number] Referral ID Status Reason Start Date Expiration Date V isits Requested Visits Authorized [id number] Closed Auto-Generate d Referral 04/08/2022 05/08/2023 1 1 [facility] for referral (narrative)No reason for referral information availableWSum[facility] Work Phone: Summary Purpose Family History No Family History Records FoundNo Family History Records FoundNo Family History Records Found Advance Directives No Advanced Directives Records Found Advance Directive Response Recorded Date/ Time Living Will No March 19 11:56am Power of Visual Developer No March 19, 2022 11:56am Advance Directive Response Recorded Date/ Time Do you have a Healthcare Power of Visual Developer? No September 02, 2024 8:21pm Chief Complaint and Reason for Visit Chief Complaint ARM RIGHT ARM Chief Complaint Admit Date [id number] July 28, 2024 5:15p m Chief Complaint Admit Date [id number] July 28, 2024 5:15p m lac September 02, 2024 4:54 pm Reason for Referral Specialty Diagnoses / Procedures Referred By Jered alonzo Referred To Contact [facility] Diagnoses Radicular pain in right arm Procedures CONSULT TO PHYSICAL THERAPY PHYSICAL THERAPY EVALUATION HIGH COMPLEX 45 MINS Izzy Briseno PA-C [address] [place] [address] [facility] [place] [address] [place] [address] Referral ID Status Reason Start Date Expiration Date Visits Requested Visits Authorized [id number] Pending Review Auto-Generat ed Referral 04/08/2022 04/08/2023 1 1 Specialty Diagnoses / Procedures Referred By Contac t Referred To Contact XR IMAGING Diagnoses Radicular pain in right arm Procedures XR CERV OTHER 4V AP/LAT/OBL RADEX SPINE CERVICAL 4 OR 5 VIEWS Izzy Briseno PA-C [address] [place] [address] Xr Imaging Referral ID Status Reason Start Date Expiration Date Visits Requested Visits Authorized [id number] Pending Review Auto-Generat ed Referral 04/08/2022 05/08/2023 1 1 Specialty Diagnoses / Procedures Referred By Contac t Referred To Contact [facility] Diagnoses Radicular pain in right arm Procedures PT REHAB FOLLOW UP ORDER THERAPEUTIC EXERCISES RE, EA 15 MIN. Pt [facility] [address] [place] [address] [facility] [place] [address] [place] [id number] Referral ID Status Reason Start Date Expiration Date Visits Requested Visits Authorized [id number] Pending Review PCP Requested Referral Auto-Generate d Referral 04/14/2022 07/13/2022 1 1 Additional Source Comments INFORMATION SOURCE (unrecogn ized section and content) DATE CREATED AUTHOR 09/01/2017 [facility] ([place]) DATE CREATED AUTHOR AUTHOR'S ORGANIZ ATION 07/18/2024 [facility] DATE CREATED AUTHOR AUTHOR'S ORGANIZ ATION 09/04/2024 [facility] Goals (unrecognized section and content) Goals may [...] or prosecute any alcohol or drug abuse patient.[facility] the event this information is protected by the Federal Confidentiality of Alcohol and Drug Abuse Patient Records regulations: The Federal rules restrict any use of the information to criminally investigate or prosecute any alcohol or drug abuse patient.[facility] the event this information is protected by the Federal Confidentiality of Alcohol and Drug Abuse Patient Records regulations: The Federal rules restrict any use of the information to criminally investigate or prosecute any alcohol or drug abuse patient.[facility] Hospital[facility] the event this information is protected by the Federal Confidentiality of Alcohol and Drug Abuse Patient Records regulations: The Federal rules restrict any use of the information to criminally investigate or prosecute any alcohol or drug abuse patient.[facility] the event this information is protected by the Federal Confidentiality of Alcohol and Drug Abuse Patient Records regulations: The Federal rules restrict any use of the information to criminally investigate or prosecute any alcohol or drug abuse patient.[facility] Hospital[facility] the event this information is protected by the Federal Confidentiality of Alcohol and Drug Abuse Patient Records regulations: The Federal rules restrict any use of the information to criminally investigate or prosecute any alcohol or drug abuse patient.[facility] Hospital[facility] the event this information is protected by the Federal Confidentiality of Alcohol and Drug Abuse Patient Records regulations: The Federal rules restrict any use of the information to criminally investigate or prosecute any alcohol or drug abuse patient.[facility] HospitalIn the event this information is protected by the Federal Confidentiality of Alcohol and Drug Abuse Patient Records regulations: The Federal rules restrict any use of the information to criminally investigate or prosecute any alcohol or drug abuse patient.[facility] Hospital[facility] the event this information is protected by the Federal Confidentiality of Alcohol and Drug Abuse Patient Records regulations: The Federal rules restrict any use of the information to criminally investigate or prosecute any alcohol or drug abuse patient.[facility] Hospital[facility] the event this information is protected by the Federal Confidentiality of Alcohol and Drug Abuse Patient Records regulations: The Federal rules restrict any use of the information to criminally investigate or prosecute any alcohol or drug abuse patient.[facility] HospitalIn the event this information is protected by the Federal Confidentiality of Alcohol and Drug Abuse Patient Records regulations: The Federal rules restrict any use of the information to criminally investigate or prosecute any alcohol or drug abuse patient.[facility] Reason for Visit (unrecogniz ed section and content) Reason Comments PT Discharge Specialty Diagnoses / Procedures Referred By [facility] Referred To Contact [facility] Department Diagnoses est Procedures est Self [facility] Referral ID Status Reason Start Date Expiration Date Visits Requested Visits Authorized [id number] Authorized Financial Clearance Required - Self Pay Patient Cleared - Qualified [id number] 03/28/2022 06/26/2022 99 99 Reason Comments PT Eval Patient Education Specialty Diagnoses / Procedures Referred By [facility] Referred To Contact [facility] Department Diagnoses est Procedures est Self [facility] Reason Comments Future Appointment Reason Comments New Patient Numbness in RIGHT in dex & middle finger & RIGHT arm pain Reason Comments Physical Therapy Specialty Diagnoses / Procedures Referred By [facility] Referred To Contact [facility] DEPARTMENT Diagnoses est Procedures [place] [address] Referral ID Status Reason Start Date Expiration Date V isits Requested Visits Authorized [id number] Closed Financial Clearance Required - Self Pay [...] BE BASED ON THE PRIMARY CLINICAL RECORDS. [employer] provides no warranty or guarantee of the accuracy or completeness of information in this document.
--- OUTSIDE RECORDS SUMMARY | 2024-09-04 21:34 | XMS RPT_ITS | CCD ---
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 [place] Repository (8 sources) Penicillins Drug Allergy 12-04-2015 [facility] (3 sources) Penicillins Drug Allergy 12-04-2015 [facility] (1 source) Penicillins Drug allergy (disorder) 09-04-2024 [facility] Repository Medications Current Medications Medication Drug Class(es) [...] Comment on above: Take 1 capsule [facility] daily. sertraline 25 mg oral tablet [...] without Conto n 09-04-2024 Abdomen/Pelvis without Cont [facility] Imaging Services [address] [place] [address] Abdomen/Pelvis without Cont MR#: [id number] Acct: [id number] Name: JAZ STILL Rep #: [id number] : 1970 F 54 From: Isaiah Hung MD PCP: Care Physician,No Primary Status: REG ER Study: Abdomen/Pelvis without Cont Date of Exam: 08/08 12/01 Exam# [id number] Ordering Dr: Gia Woods PROCEDURE: ABDOMEN/PELVIS WITHOUT [...] resulting in mild upstream hydroureteronephrosis. Reading Location: [id number] CC: DAREN Herman; No Primary Care Physician Charger Operator: Signed Normal [facility] Basic Metabolic Profile (BMP )on 09-04-2024 BUN/CRE 16.8 RATIO Normal 10-20 [facility] Comment on above: Performed By: #### L 500.2500, L100.0100 #### [facility] Laboratory [address] [place], [address] Calcium [Mass/Vol] 9.1 mg/dL Normal 7.6-11.0 [facility] Comment on above: Performed By: #### L 500.2500, L100.0100 #### [facility] Laboratory [address] [place], [address] Chloride [Moles/Vol] 101 mmol/L Normal 98-108 [facility] Comment on above: Performed By: #### L 500.2500, L100.0100 #### [facility] Laboratory [address] [place], [address] CO2 [Moles/Vol] 24.7 mmol/L Normal 21.0-32.0 [facility] Comment on above: Performed By: #### L 500.2500, L100.0100 #### [facility] Laboratory [address] [place], [address] Creatinine [Mass/Vol] 0.70 mg/dL Normal 0.70-1.20 [facility] Comment on above: Performed By: #### L 500.2500, L100.0100 #### [facility] Laboratory [address] [place], [address] ECRCL 86.01 ml/min Normal 50-250 [facility] Comment on above: Performed By: #### L 500.2500, L100.0100 #### [facility] Laboratory [address] [place], [address] GAP 13 Normal 5-15 [facility] Comment on above: Performed By: #### L 500.2500, L100.0100 #### [facility] Laboratory [address] [place], [address] GFR/1.73 sq M.predicted among non-blacks MDRD (S/P/Bld) [Vol rate/Area] 102 mL/min/{1.73_m2} Normal >60 [facility] Comment on above: Result Comment: mL/m in/1.73m2 CKD-EPI Creatinine Equation (2020) Performed By: #### L 500.2500, L100.0100 #### [facility] Laboratory [address] [place], [address] Glucose [Mass/Vol] 111 mg/dL High 70-99 [facility] Comment on above: Performed By: #### L 500.2500, L100.0100 #### [facility] Laboratory [address] [place], [address] Potassium [Moles/Vol] 3.7 mmol/L Normal 3.3-5.1 [facility] Comment on above: Performed By: #### L 500.2500, L100.0100 #### [facility] Laboratory [address] [place], [address] Sodium [Moles/Vol] 139 mmol/L Normal 133-145 [facility] Comment on above: Performed By: #### L 500.2500, L100.0100 #### [facility] Laboratory [address] [place], [address] Urea nitrogen [Mass/Vol] 12 mg/dL Normal 4-19 [facility] Comment on above: Performed By: #### L 500.2500, L100.0100 #### [facility] Laboratory [address] [place], [address] CBC W/Diff, Automatedon 06-2 Absolute Lymph 2.69 X10 3/uL Normal 0.83-4.51 [facility] Comment on above: Performed By: #### L 500.2500, L100.0100 #### [facility] Laboratory [address] [place], [address] Absolute Neut 4.5 X10 3/uL Normal 2.0-7.7 [facility] Comment on above: Performed By: #### L 500.2500, L100.0100 #### [facility] Laboratory [address] [place], [address] Basophils/100 WBC (Bld) 1.0 % Normal 0-1 [facility] Comment on above: Performed By: #### L 500.2500, L100.0100 #### [facility] Laboratory [address] [place], [address] Eosinophils/100 WBC (Bld) 0.8 % Normal 0-5 [facility] Comment on above: Performed By: #### L 500.2500, L100.0100 #### [facility] Laboratory [address] [place], [address] Erythrocyte distribution width (RBC) [Ratio] 14.3 % Normal 11.6-14.6 [facility] Comment on above: Performed By: #### L 500.2500, L100.0100 #### [facility] Laboratory [address] [place], [address] Hematocrit (Bld) [Volume fraction] 38.0 % Normal 37-47 [facility] Comment on above: Performed By: #### L 500.2500, L100.0100 #### [facility] Laboratory [address] [place], [address] Hemoglobin (Bld) [Mass/Vol] 12.8 g/dL Normal 12.0-15.0 [facility] Comment on above: Performed By: #### L 500.2500, L100.0100 #### [facility] Laboratory [address] [place], [address] IG% 0.400 Normal 0.0-0.9 [facility] Comment on above: Result Comment: IG% - Immature Granulocytes (promyelocytes, myelocytes and metamyelocytes) > 1% indicates that a LEFT SHIFT is Present. Performed By: #### L 500.2500, L100.0100 #### [facility] Laboratory [address] [place], [address] Lymphocytes/100 WBC (Bld) 32.5 % Normal 19-41 [facility] Comment on above: Performed By: #### L 500.2500, L100.0100 #### [facility] Laboratory [address] [place], [address] MCH (RBC) [Entitic mass] 30.7 pg Normal 27.0-32.0 [facility] Comment on above: Performed By: #### L 500.2500, L100.0100 #### [facility] Laboratory [address] [place], [address] MCHC (RBC) [Mass/Vol] 33.7 g/dL Normal 32-36 [facility] Comment on above: Performed By: #### L 500.2500, L100.0100 #### [facility] Laboratory [address] [place], [address] MCV (RBC) [Entitic vol] 91.1 fL Normal 81-99 [facility] Comment on above: Performed By: #### L 500.2500, L100.0100 #### [facility] Laboratory [address] [place], [address] Monocytes/100 WBC (Bld) 11.0 % High 0-10 [facility] Comment on above: Performed By: #### L 500.2500, L100.0100 #### [facility] Laboratory [address] [place], [address] Neutrophils/100 WBC (Bld) 54.3 % Normal 47-70 [facility] Comment on above: Performed By: #### L 500.2500, L100.0100 #### [facility] Laboratory [address] [place], [address] Nucleated RBC (Bld) [#/Vol] 0 10*3/uL Normal 0-5 [facility] Comment on above: Performed By: #### L 500.2500, L100.0100 #### [facility] Laboratory [address] [place], [address] Platelet mean volume (Bld) [Entitic vol] 11.3 fL Normal 6.2-12.0 [facility] Comment on above: Performed By: #### L 500.2500, L100.0100 #### [facility] Laboratory [address] [place], [address] Platelets (Bld) [#/Vol] 310 10*3/uL Normal 150-450 [facility] Comment on above: Performed By: #### L 500.2500, L100.0100 #### [facility] Laboratory [address] [place], [address] RBC (Bld) [#/Vol] 4.17 10*6/uL Low 4.2-5.4 [facility] Comment on above: Performed By: #### L 500.2500, L100.0100 #### [facility] Laboratory [address] [place], [address] RDW SD 47.6 fl High 35.1-43.9 [facility] Comment on above: Performed By: #### L 500.2500, L100.0100 #### [facility] Laboratory [address] [place], [address] WBC (Bld) [#/Vol] 8.3 10*3/uL Normal 4.4-11.0 [facility] Comment on above: Performed By: #### L 500.2500, L100.0100 #### [facility] Laboratory [address] [place], [address] Urinalysis, Completeon 09-04 BACTERIA 2+ /hpf Normal None Seen [facility] Comment on above: Order Comment: COLLE CTOR TO SPECIFY Performed By: #### L 400.0001 #### [facility] Laboratory [address] [place], [address] CA OX CRYSTAL 1+ /hpf Normal [facility] Comment on above: Order Comment: EUGENE CTOR TO SPECIFY Performed By: #### L 400.0001 #### [facility] Laboratory [address] [place], [address] Mucus Ql (Urine sed) 2+ /hpf Normal [facility] Comment on above: Order Comment: EUGENE CTOR TO SPECIFY Performed By: #### L 400.0001 #### [facility] Laboratory [address] [place], [address] EPI,SQUAMOUS 0-5 SEEN Normal 5-10 [facility] Comment on above: Order Comment: EUGENE CTOR TO SPECIFY Performed By: #### L 400.0001 #### [facility] Laboratory [address] [place], [address] WBC 50-100 SEEN Normal 0-5 [facility] Comment on above: Order Comment: EUGENE CTOR TO SPECIFY Performed By: #### L 400.0001 #### [facility] Laboratory [address] [place], [address] Clarity (U) Clear Normal Clear [facility] Comment on above: Order Comment: EUGENE CTOR TO SPECIFY Performed By: #### L 400.0001 #### [facility] Laboratory [address] [place], [address] Color (U) Yellow Normal Yellow [facility] Comment on above: Order Comment: COLLE CTOR TO SPECIFY Performed By: #### L 400.0001 #### [facility] Laboratory [address] [place], [address] BILIRUBIN URINE Negative Normal Negative [facility] Comment on above: Order Comment: COLLE CTOR TO SPECIFY Performed By: #### L 400.0001 #### [facility] Laboratory [address] [place] [id number] GLUCOSE, UR Normal Normal Normal [facility] Comment on above: Order Comment: COLLE CTOR TO SPECIFY Performed By: #### L 400.0001 #### [facility] Laboratory [address] [place], [address] KETONE UR Negative Normal Negative [facility] Comment on above: Order Comment: COLLE CTOR TO SPECIFY Performed By: #### L 400.0001 #### [facility] Laboratory [address] [place] [address] LEUK ESTERASE 500 /ul Abnormal Negative [facility] Comment on above: Order Comment: EUGENE CTOR TO SPECIFY Performed By: #### L 400.0001 #### [facility] Laboratory [address] [place], [place], [facility] Nitrite Ql (U) Negative Normal Negative [facility] Comment on above: Order Comment: COLLE CTOR TO SPECIFY Performed By: #### L 400.0001 #### [facility] Laboratory [address] [place], [address] OCCULT BLOOD-UR 25 /ul Abnormal Negative [facility] Comment on above: Order Comment: COLLE CTOR TO SPECIFY Performed By: #### L 400.0001 #### [facility] Laboratory [address] [place], [address] pH UR 5.0 Normal 5.0 - 8.0 [facility] Comment on above: Order Comment: COLLE CTOR TO SPECIFY Performed By: #### L 400.0001 #### [facility] Laboratory [address] [place] [address] PROT DIPSTX 15 mg/dl Abnormal Negative [facility] Comment on above: Order Comment: EUGENE CTOR TO SPECIFY Performed By: #### L 400.0001 #### [facility] Laboratory [address] [place], [address] SP.GR. DIPSTX 1.025 Normal 1.002-1.030 [facility] Comment on above: Order Comment: EUGENE CTOR TO SPECIFY Performed By: #### L 400.0001 #### [facility] Laboratory [address] [place], [address] UROBILI Normal Normal Normal [facility] Comment on above: Order Comment: EUGENE CTOR TO SPECIFY Performed By: #### L 400.0001 #### [facility] Laboratory [address] [place], [address] RBC 0 SEEN Normal 0-5 [facility] Comment on above: Order Comment: EUGENE CTOR TO SPECIFY Performed By: #### L 400.0001 #### [facility] Laboratory [address] [place], [address] Emergency Department Summary on 09-02-2024 Emergency Department Summary [facility] Medical Records Department [address] [place] [address] Emergency Department Summary 09/02/24 MR#: [id number] Acct: [id number] Name: JAZ STILL Rep #: [id number] : 1970 54 From: Pallavi MERCEDES PCP: [...] and subc (more content not included)... Normal [facility] Sinus/Facial Boneon 07-29-19 Sinus/Facial Bone [facility] Imaging Services [address] [place] [address] Sinus/Facial Bone MR#: [id number] Acct: [id number] Name: JAZ STILL Rep #: [id number] : 1970 F 54 From: Chai Hester MD PCP: Dr. Nader Flores MD Status: REG CLI Study: Sinus/Facial Bone Date of Exam: 07/28/24 Exam# [id number] Ordering Dr: Isamar Ramirez MD PROCEDURE: SINUS/FACIAL [...] C5-6 asymmetric uncovertebral hypertrophic change results in vzoa-qipcehf-lyff-righ t severe appearing left sided foraminal narrowing for example sagittal [address]/Sinus/Facial Bone IMPRESSION: No paranasal sinus disease as above. C5-6 asymmetric uncovertebral hypertrophic change results in idfm-zzjsewf-ybfz-righ t severe appearing left sided foraminal narrowing for example sagittal 77 and axial 7. Reading Location: [facility] CC: Dr. Nader Flores MD; Dr. Isamar Ramirez MD Charger Operator: Signed [facility] 07-18-2024 [facility] Telephone (OBGYWM) JAZ STILL ([id number]) 1970 F Date Time Provider Department 07/18/24 [...] Status:Closed by ARIANNA LONGORIA on 07/18/24 Normal [facility] Pathology biopsy report Andres (Tiss)Ordered By: Zackery Martin on 07-15-2024 Case Report Surgical Pathology Report Case: [id number] Authorizing Provider: Arianna Longoria MD Collected: 07/14/2024 03:30 PM Ordering Location: OB/Gynecology Received: 07/14/2024 04:11 PM Pathologist: Zackery Martin MD Specimen: Perineum, Biopsy, right [facility] Work Phone: Clinical History f8malSHnPSLwp6whTPLh bG UpGwJdPlAwQgKoEjx4HVFf quG9Qru7BPFpWGmbvU9yIP FkSHfiB5tzvzTvrYNtTZGg JFy5zE6abGyfsG0rTzBdEk BsTPKzz7cfBFJfSR9dXRTp cGFyIH0= [facility] Work Phone: Diagnosis Comment b5splADyVTSgtCGoMBHi NV hzclBaSMFgpSAhB7Zgmzuc FNdyAX5yMV2bkTytrZPguQ AdICWmMkTpl3leb825mKPi v6zvHSDSfqyzcNu5dWhiC7 0wo7S1FrfoT61fhHKjECE6 ECEtDJBzlOYyXOCpBHW0PM PazJUqX9rmVLVnHP3bixcp NPgqSQcsVYSofXZ7YACypQ GfX1VgLQKqJAazEPJjpyl5 GhCcDm4niYCzyBvxSJixRH JkXHBsYWluXGZzMjAgSGlz jB7xh5zqWiUrTKE0dM4pzu JkvS40PLKvF18hvJUdhBVb wYQurIKuZXRqzy1nkT1ca8 Kizsz2rW8wSCSyHKI5kr7t lOdnJPQthAPwgg5fcc1eQ2 u0sVooLZZhOEWrFNPcjWGq JHRaEQQvYAetOSG0vOEwGn cktIHaCABrpTRlb1AjwyL0 aXRoIGFuIHVuZGVybHlpbm nouAoisZkptUelnKxpS3x7 kWAcbR8scUt9auH2GG6dbX FyXHBhciBPdmVyYWxsLCB0 jPMiXWTiMES9bDTnrmOqdi IsX47az3anmTCqpLF2jMNx UUadK7xgirDgI9hdwo2ymS BpXZDjvQ1tQ6EhFJNfjnVx qIR6yJ1yPTncJDKsS72kxY VuZGVkLlxwYXJ9 [facility] Work Phone: Disclaimer n7xcjCGqIMPtk3bwAMTn bG FuZzEwMzNcZnRuYmpcdWMx IHtccnRmMVxlcGljMTExMD Cmy9kil7szkTFeFYEor4sw l7DmaMSkvHMdFFdpnIMuyv Jljn32bWN5iZ03PW8iASSc NdR5RBMiruZ1Zve7SBCeRU JmwCVeT746y2bcm7tbrgXh aMC0WCXhNGToY7WuVL5uOT HovHOrN47euHIgSBV1OQPh WGAzhRCmUOWeDZM6NSDdpF YjQ2hnSYTuUH5lylbfOLfs BGnoGEUzzAH0RKTdxYBzA8 SxTSJgOZtwIAGdexz0JkMa Vb6voIPczJenVCgyW9avgF 6gDfS1KZduP3jmoN2pSQu7 OXnyLYQjeMS9vuP6BYHwiM AoZ7OhxI6qJYTnBL9wkvz7 v7dxQFF5GMaxAVLaFjM1bv C8MGDvrKAsEDbdhMNdwqvn CCUpMRLsL2NqIUbiXu3qQF TckodzJVI7XNyqpFIaULVh u0OoGJySIYmhFZrwP9yakV 1lcjpccGFyXGIwXGNmMCBQ ZOMkp7PcLS1kTZDdjIFeIY L6AGTpe0WdN9Svl4OauX6y lO9mlNwuuZ0siJEybODscE nfhM2obH9jGrw4g2Bsf0Qd lxZeMERoETXycTXjbG6gVB 2zKyNblw1avYE1OCo7EeKq ZWa5OWSpq89ozSKeyLMfwI H9IEIlRKMjIXRdkEXlgLau ZWQgYnkgdGhlIHBlcmZvcm 9yjzizhZVru6JuwO4qrII0 yKTmuV7fS9vbvvMwPT9bML MyjG2xEolrKEAaMzHgtYAA SaGTw35niEUdULLqwRrpuQ 8tgQPxcrFrNRIvc1KdgX9x oCLIXEFbC0aaHASUOZMesg DpML45IBrOXKcmJFEybSD8 drAAi8UvsQNkkVwfWWjck8 7lQ8OgNOQqvIEHc7MavCBg aPxlLfkmzslgFJRMGEI1s7 4xDQ5nzRi4JRdhLD2zpcV6 MQyzl8CwpEEjBYYCthBkQS 0wHpn0XWKeNTZlbIIgpKLR CL46JXMxCQ7jnvFuubWVCO FcwObqQr8vuRgsDU4ptMb9 YYcwXA7uWIRrjD2zKTale9 HvgYOzZWCueqOvTJ6vxs9p rmXau84qgUI0AW24VCipoQ ngO7qBENLrYXI4lUVwpJJe lIEdHM7cWYMmemKps5DmZO 4yABJlUHVgXVXvj3KoSY3d wFAcj1QbpBL1YMIoZLGrLW KdCTBeMWVgs9QgUDKfkk04 ANFcPopdnEmqIVCGIF9uNy PuKMbEZHovSEIeA5YcDMMr BMM7sbOqwbDMEOoVMOXaEC Z9EEpuEdtcISH7ppMdLTNh r0DeEXfmW2wdE67beHtueJ k0eGB0YKE7vE8mOgTQcENv REK1OUN5neNepnTohNQcJO Kzg7BvB7sarfqfEXlxqMJw hU1sXZUyODNzNSYqHSEss5 GyKYUjv4LaNtXyfkEmHYJs HWXyRBWqbN61VJC1gLqwiB weefQpNB6kBOBvqwKaCICk GIYhbF0jWG6fbVHmkrNqTG 7pIO9hO3K6oXYuBGZtuyMk o0lqZZG0VFzpXLNqpVWojV XbKIBruIwwSFKqdz04 [facility] Work Phone: FINAL DIAGNOSIS o1mrxZFcVKYukQFkZCXe NV lcniEjYTTdaHSmM5Awrczw MNawFU3eVK9keJjlwABqvU UmXHRmPvMny6ard733oZDp t6xjDBXIkdfiwYm4wNrbZ1 7vw5I2TpuiX11btGJgUCW0 ZCOlVRDneCXoFSGhLXC6NM TfrDZxK2lqJBLeDB2arjoa TAdvPEpeTZIeyHO4QYVabG GsS8MfIWLeIDkdSMXqucd5 VzFmAq6wdIOrvOtbMUteNC VoJTMmQNjhKOXiBnMhFG1j B3flztdhfQHmaS4hsU8xFE Uci4EnbLgtbEVkCD8fRYvs cEWsJKPjoIZwp9U3jhwak3 WrOZUvaD4eefChIZVwokch YXJ9 [facility] Work Phone: Gross Description a1hcfROtBXIxkGPEYCKr MD PiXN2exNfujDu1xWywNOUt vjM5iWEwHKprk0zlAKG2f8 pfrfBNLgqmBSEfXX4gMPep NPTgML8vDxAfVCCuKaYzDP BhcGVydzEyMjQwXHBhcGVy yER2OUGxJM4gbwikNEjiLR zsHYGxwkK1FPQbeTUnO1Nx WSGjZE1ppnduSAL8HDVCUs afRl9stONgsAwtYeWeDqMw YKZzFEMbFHSal5hrzvUBuh mvlMc6mI6JYOWxB2ZnJD0M v7etGPBnnLZwNWB0CPchm5 xxAPaiPMP5AFHlLGVyXQTf WN0VHpLmDTugVHF6PiD3Xj L7YPj7BGWKHDSiDUW5PRB3 LLFuTHz5REhjDJvefUSaRB ImQOZoAHBnHTmadcX5p2cl AIFuoENwVIV8AOyqo4ydGW waUPX7UJRoLaQnTLIeZG8F XsToPSzvYDU2SgO2YtG0CJ x4RIYQXhWwQnUzCuAmHbor IOCaNXs7PZc2XJyFSlPgBT K2TGrfXdZ7GYR5IRP0OZEf XHQgMiBcXHNzIDMgXFxmbC TnMA2vfRnfCIMxBH2VPLNk WKyiEPIuYsBxFG1lQMUtpB 5rxF6tVNQnm0JxhFdwnIWa aFxmczIyXHBhciANClxwYX CnRM5EABFaMIguMQh7rtXb JUPqKpDtSXSfC74fj2NXx5 XrJD3FWLs7lcAaseQUBalk rrTvSVBtM2SfplAbZHrnUY Nsoz1ihGuoOJmuXEBnP6zw gT4nkebfCQdlp9RdcYBqiU DpMxRzx5iuSDEyUHZacRCb nPCxzbBmlAWspDcjb4ZmLY 5sIBI0cxjsNkRdXdMbtFTa OfRujMAaGsZzY39bIMMQdi N8aRKcu1mbsrVwrNFhWMWx VQYzJACiSRlcUZYxZJ8eSO UgGHM6VF4lATEdDD3eUYjk IHNwZWNpbWVuIGlzIGJpc2 QxiWXpRkRcLO25NOofdJWt nZRtxKF3KQEcbH3gn10hYQ Aue9RqePDfAaPbcHStIK2S OWDpncMMPfKWAW7jnUH7YD UwOVP0FHCuOkHtHAHKOLLf nnSYPvneNDVeWRqrx0JbHC mfdYyzOPPdZhArKVbKrl3u fgDvrFPltZ7whNnvbqOeVW Dmn2OaPLSgNCHvZ8unzkBm KB1eNUOqvW7bVsrkJMHqTI ECcIRglYMgKMDhBcuqC3ju smGsAP6tKWQCWSB4FQI9ZD 1HDMGqmKVRMYJ1LW3sSBso QDUlQ7AwH6PhpvU9s1shiL hme0JykLXwOD4ffFNtTA7I IBSxlhIaWBzocEjwlG1fDF p[address] [facility] Work Phone: Performing Lab u6ldcBVnJTQfsUSoNFCn Ml vtbzVyEXPilLNfX3Qxacoi TAmcWG3hQG3zcOfazMAbsZ BmPMHzDeVbr0frc313sEFj y6eaZRDZgboztYy9pBrsV1 9em3V5AbtoE60leXLkJVO2 YYUuHTKcgMJgSCLlXWU1TO JevHSiM2ebLXDyCD6ohsqu GKykHSzuFBBdnTB2PUNaqN IaI6JuTADyHXzcBXMtkcl3 YpHoYv1rlUBzaPmvKHwsO7 rjeG8bJnX0ZJhaD9becL4o QEy4EObnYFKigVV0jhW4CM KfrKYaI9FynL8mMEOxER0b eyt0v6qwHUM1MImgOQQpLh Z2feL2TZJseVCvWOvcvTPd arynqfYvYMScCXddr8J8eM QmtQ56ZXZlhpW5YYLzq38k cMUlXh7qiPTzHZE0XpXOfZ S0WWtwugDvD1aobmpcSF7y uO1jM2NcjSKsFRsnq6QjrS RwMZvqQu2lFKCegqjbHCn5 XAOmYTSpeYjaNDH4RZ97DM wgRGVzayBMMjEsIENsZXZl zCNlAGCCOKY6FHI0BNQsYG WHVVKrNML3EAT7XUKzVOFw zWNcBCtcWBZnXDDcc1YhlD 1irRLSrNJfT2MynbfhZ7Wu xIAfCTuhjiZxT3fdJPCFTI xwYXJ[address] [facility] Work Phone: [facility] Work Phone: [facility] 07-14-2024 [facility] Office Visit (OBGYWM ) JAZ STILL ([id number]) 1970 F Date Time Provider Department 07/14/24 2:50 PM ARIANNA LONGORIA During your visit today, we recorded the following information about you: Blood pressure Weight 100/60 63.2 kg Arianna Longoria MD 07/15/2024 1:37 PM Signed Bag Loader offered: Patient declines. Jaz Still is a [...] Visit Diagnosis:Other skin changes [R23.8] Order(s):SURGICAL PATHOLOGY [DHQ8977] Order #: [id number]. #:[id number] Prescriptions as of 07/15/2024 - MULTIVITAMIN ORAL [...] Status:Closed by ARIANNA LONGORIA on 07/15/24 Normal [facility] Pathology biopsy report Andres (Tiss)on 07-14-2024 AP DISCLAIMER Normal [facility] Comment on above: Order Comment: Speci men Type: TISSUE SPECIMEN Ordering Facility: [facility] Address: [address] [place] [address] Result Comment: Maggy read Developed Test (LDT) Disclaimer: Performance characteristics of immunohistochemical, immunofluorescent, and chromogenic in-situ hybridization tests have been determined by the performing laboratory within [facility] Pathology and Laboratory Medicine Department ([facility], [facility], [facility], [facility], [facility], [facility], or [facility]) in a manner consistent with CLIA requirements. One or more of these tests may not have been cleared or approved by the FDA. [facility] is regulated under CLIA as qualified to perform high-complexity testing. These tests are used for clinical purposes. These should not be regarded as investigational or for research. Positive and negative controls stain appropriately. Performed By: #### 6 6121-5 #### [facility] CLIA [id number] [address] [place], [place] [address] [address] [place] CASE REPORT Normal [facility] Comment on above: Order Comment: Speci men Type: TISSUE SPECIMEN Ordering Facility: [facility] Address: [address] [place] [address] Result Comment: Surg [facility] Pathology Report Case: [id number] Authorizing Provider: Arianna Longoria MD Collected: 07/14/2024 03:30 PM Ordering Location: OB/Gynecology Received: 07/14/2024 04:11 PM Pathologist: Zackery Martin MD Specimen: Perineum, Biopsy, right Performed By: #### 6 6121-5 #### [facility] CLIA [id number] [address] [place] [address] OF [place] CLINICAL HISTORY skin changes Normal [facility] Comment on above: Order Comment: Speci men Type: TISSUE SPECIMEN Ordering Facility: [facility] Address: [address] [place] [address] Performed By: #### 6 6121-5 #### [facility] CLIA [id number] [address] [place] [address] DIAGNOSIS COMMENT Normal [facility] Comment on above: Order Comment: Speci men Type: TISSUE SPECIMEN Ordering Facility: [facility] Address: [address] [place] [address] Result Comment: Hist ologic sections show a compact stratum corneum overlying an atrophic epidermis. Within the dermis, there is superficial sclerosis with an underlying lymphohistiocytic infiltrate. Overall, these features are consistent with lichen sclerosus. Clinical correlation is recommended. Performed By: #### 6 6121-5 #### [facility] CLIA [id number] [address] [place] [address] FINAL DIAGNOSIS Normal [facility] Comment on above: Order Comment: Speci men Type: TISSUE SPECIMEN Ordering Facility: [facility] Address: [address] [place] [address] Result Comment: A. S kin, perineum, biopsy: - Lichen sclerosus, see comment. at 1415 EDT Performed By: #### 6 6121-5 #### [facility] CLIA [id number] [address] [place] [address] [place] FINAL PERFORMING LAB Normal [facility] Comment on above: Order Comment: Speci men Type: TISSUE SPECIMEN Ordering Facility: [facility] Address: [address] [place] [address] Result Comment: Diag nostic interpretation performed at: [facility], [address] [place] [address] CLIA# [id number] Test Operator: Shane Stanford MD Performed By: #### 6 6121-5 #### [facility] CLIA [id number] [address] [place] [address] [place] GROSS DESCRIPTION Normal [facility] Comment on above: Order Comment: Speci men Type: TISSUE SPECIMEN Ordering Facility: [facility] Address: [address] [place] [address] Result Comment: A. P venkatum, Biopsy Received in formalin is a cylindrical segment of skin and subcutaneous tissue measuring 0.3 x 0.3 x 0.3 cm. On the skin surface there is a 0.3 cm, slater area. The specimen is bisected. Totally submitted in one cassette. DL July 14, 2024 10:53 PM Gross examination performed at [facility], [address] [place] [address] Performed By: #### 6 6121-5 #### [facility] CLIA [id number] [address] [place] [address] [place] CBC panel Auto (Bld)on 07-05 Erythrocyte distribution width (RBC) [Ratio] 14.2 % Normal 11.5-15.0 [facility] Comment on above: Order Comment: Speci men Type: BLOOD SPECIMEN Ordering Facility: [facility] Address: [address] [place] [address] Performed By: #### 5 8410-2 #### [facility] CLIA [id number] [address] [place] [address] OF [place] Hematocrit (Bld) [Volume fraction] 39.4 % Normal 36.0-46.0 [facility] Comment on above: Order Comment: Speci men Type: BLOOD SPECIMEN Ordering Facility: [facility] Address: [address] [place] [address] Performed By: #### 5 8410-2 #### [facility] CLIA [id number] [address] [place] [address] [place] Hemoglobin (Bld) [Mass/Vol] 13.0 g/dL Normal 11.5-15.5 [facility] Comment on above: Order Comment: Speci men Type: BLOOD SPECIMEN Ordering Facility: [facility] Address: [address] [place] [address] Performed By: #### 5 8410-2 #### [facility] CLIA [id number] [address] [place] [address] [place] MCH (RBC) [Entitic mass] 30.1 pg Normal 26.0-34.0 [facility] Comment on above: Order Comment: Speci men Type: BLOOD SPECIMEN Ordering Facility: [facility] Address: [address] [place] [address] Performed By: #### 5 8410-2 #### [facility] EASTIA [id number] [address] [place] [address] [place] MCHC (RBC) [Mass/Vol] 33.0 g/dL Normal 30.5-36.0 [facility] Comment on above: Order Comment: Speci men Type: BLOOD SPECIMEN Ordering Facility[facility] Address: [address] [place] [address] Performed By: #### 5 8410-2 #### [facility] CLIA [id number] [address] [place] [address] [place] MCV (RBC) [Entitic vol] 91.2 fL Normal 80.0-100.0 [facility] Comment on above: Order Comment: Speci men Type: BLOOD SPECIMEN Ordering Facility: [facility] Address: [address] [place] [address] Performed By: #### 5 8410-2 #### [facility] CLIA [id number] [address] [place] [address] [place] Nucleated RBC (Bld) [#/Vol] 10*3/uL Normal <0.01 [facility] Comment on above: Order Comment: Speci men Type: BLOOD SPECIMEN Ordering Facility: [facility] Address: [address] [place] [address] Performed By: #### 5 8410-2 #### [facility] CLIA [id number] [address] [place] [address] [place] Platelet mean volume (Bld) [Entitic vol] 10.7 fL Normal 9.0-12.7 [facility] Comment on above: Order Comment: Speci men Type: BLOOD SPECIMEN Ordering Facility: [facility] Address: [address] [place] [address] Performed By: #### 5 8410-2 #### [facility] CLIA [id number] [address] [place] [address] [place] Platelets (Bld) [#/Vol] 274 10*3/uL Normal 150-400 [facility] Comment on above: Order Comment: Speci men Type: BLOOD SPECIMEN Ordering Facility: [facility] Address: [address] [place] [address] Performed By: #### 5 8410-2 #### [facility] CLIA [id number] [address] [place] [address] [place] RBC (Bld) [#/Vol] 4.32 10*6/uL Normal 3.90-5.20 [facility] Comment on above: Order Comment: Speci men Type: BLOOD SPECIMEN Ordering Facility: [facility] Address: [address] [place] [address] Performed By: #### 5 8410-2 #### [facility] CLIA [id number] [address] [place] [address] [place] WBC (Bld) [#/Vol] 5.85 10*3/uL Normal 3.70-11.00 [facility] Comment on above: Order Comment: Speci men Type: BLOOD SPECIMEN Ordering Facility: [facility] Address: [address] [place] [address] Performed By: #### 5 8410-2 #### [facility] CLIA [id number] [address] [place] [address] [place] Comprehensive metabolic 2000 panelon 07-05-2024 Albumin [Mass/Vol] 4.7 g/dL Normal 3.9-4.9 [facility] Comment on above: Order Comment: Speci men Type: BLOOD SPECIMEN Ordering Facility: [facility] Address: [address] [place] [address] Performed By: #### 2 4323-8 #### [facility] CLIA [id number] [address] [place] [address] [place] ALP [Catalytic activity/Vol] 68 U/L Normal 34-123 [facility] Comment on above: Order Comment: Speci men Type: BLOOD SPECIMEN Ordering Facility[facility] Address: [address] [place] [address] Performed By: #### 2 4323-8 #### [facility] CLIA [id number] [address] [place] [address] [place] ALT [Catalytic activity/Vol] 29 U/L Normal 7-38 [facility] Comment on above: Order Comment: Speci men Type: BLOOD SPECIMEN Ordering Facility[facility] Address: [address] [place] [address] Performed By: #### 2 4323-8 #### [facility] CLIA [id number] [address] [place] [address] [place] Anion gap [Moles/Vol] 16 mmol/L High 8-15 [facility] Comment on above: Order Comment: Speci men Type: BLOOD SPECIMEN Ordering Facility[facility] Address: [address] [place] [address] Performed By: #### 2 4323-8 #### [facility] CLIA [id number] [address] [place] [address] [place] AST [Catalytic activity/Vol] 27 U/L Normal 13-35 [facility] Comment on above: Order Comment: Speci men Type: BLOOD SPECIMEN Ordering Facility[facility] Address: [address] [place] [address] Performed By: #### 2 4323-8 #### [facility] CLIA [id number] [address] [place] [address] [place] Bilirubin [Mass/Vol] 0.3 mg/dL Normal 0.2-1.3 [facility] Comment on above: Order Comment: Speci men Type: BLOOD SPECIMEN Ordering Facility[facility] Address: [address] [place] [address] Performed By: #### 2 4323-8 #### [facility] CLIA [id number] [address] [place] [address] [place] Calcium [Mass/Vol] 10.1 mg/dL Normal 8.5-10.2 [facility] Comment on above: Order Comment: Speci men Type: BLOOD SPECIMEN Ordering Facility[facility] Address: [address] [place] [address] Performed By: #### 2 4323-8 #### [facility] CLIA [id number] [address] [place] [address] [place] Chloride [Moles/Vol] 106 mmol/L Normal 98-107 [facility] Comment on above: Order Comment: Speci men Type: BLOOD SPECIMEN Ordering Facility[facility] Address: [address] [place] [id number] Performed By: #### 2 4323-8 #### [facility] CLIA [id number] [address] [place] [address] [place] CO2 [Moles/Vol] 20 mmol/L Low 22-30 [facility] Comment on above: Order Comment: Speci men Type: BLOOD SPECIMEN Ordering Facility[facility] Address: [address] [place] [address] Performed By: #### 2 4323-8 #### [facility] CLIA [id number] [address] [place] [address] [place] Creatinine [Mass/Vol] 0.84 mg/dL Normal 0.58-0.96 [facility] Comment on above: Order Comment: Speci men Type: BLOOD SPECIMEN Ordering Facility[facility] Address: [address] [place] [address] Performed By: #### 2 4323-8 #### [facility] EASTIA [id number] [address] [place] [address] [place] Creatinine and Glomerular filtration rate.predicted panel (S/P/Bld) 83 mL/min/1.73m??? Normal >=60 [facility] Comment on above: Order Comment: Speci men Type: BLOOD SPECIMEN Ordering Facility[facility] Address: [address] [place] [address] Result Comment: Sonja mated Glomerular Filtration Rate [...] GFR. Performed By: #### 2 4323-8 #### [facility] CLIA [id number] [address] [place] [address] [place] Glucose [Mass/Vol] 49 mg/dL Low 74-99 [facility] Comment on above: Order Comment: Larry gustafson Type: BLOOD SPECIMEN Ordering Facility[facility] Address: [address] [place] [address] Result Comment: The [place] Diabetes Association (ADA) provides guidance for cutoff [...] Standards of Medical Care in Diabetes 2016, [place] Diabetes Association. Diabetes Care. 2016.39(Suppl 1). Performed By: #### 2 4323-8 #### [facility] CLIA [id number] [address] [place] [address] [place] Potassium [Moles/Vol] 4.1 mmol/L Normal 3.7-5.1 [facility] Comment on above: Order Comment: Larry gustafson Type: BLOOD SPECIMEN Order[facility] Facility[facility] Address: [address] [place] [address] Performed By: #### 2 4323-8 #### [facility] CLIA [id number] [address] [place] [address] [place] Protein [Mass/Vol] 7.4 g/dL Normal 6.3-8.0 [facility] Comment on above: Order Comment: Larry gustafson Type: BLOOD SPECIMEN Ordering Facility[facility] Address: [address] [place], [place] [address] Performed By: #### 2 4323-8 #### [facility] CL[facility] [id number] [address] [place] [address] [place] Sodium [Moles/Vol] 142 mmol/L Normal 136-144 [facility] Comment on above: Order Comment: Larry gustafson Type: BLOOD SPECIMEN Ordering Facility[facility] Address: [address] [place] [address] Performed By: #### 2 4323-8 #### [facility] CLIA [id number] [address] [place] [address] [place] Urea nitrogen [Mass/Vol] 19 mg/dL Normal 7-21 [facility] Comment on above: Order Comment: Lrary men Type: BLOOD SPECIMEN Order[facility] Facility[facility] Address: [address] [place] [address] Performed By: #### 2 4323-8 #### [facility] CLIA [id number] [address] [place] [address] [place] HbA1c (Bld)on 07-05-2024 Average glucose Estimated from glycated hemoglobin (Bld) [Mass/Vol] 114 mg/dL Normal [facility] Comment on above: Order Comment: Larry men Type: BLOOD SPECIMEN Order[facility] Facility[facility] Address: [address] [place] [address] Result Comment: eAG: (Estimated average glucose) is a calculated value from HgbA1c and is software support representative of the average blood glucose level in the last 2-3 month period. Performed By: #### 5 5454-3 #### [facility] CLIA [id number] [address] [place] [address] [place] HbA1c (Bld) [Mass fraction] 5.6 % Normal 4.3-5.6 [facility] Comment on above: Order Comment: Larry janay Type: BLOOD SPECIMEN Ordering Facility[facility] Address: [address] [place] [address] Result Comment: [place] Diabetes Association guidelines indicate that patients with HgbA1c in the range 5.7-6.4% are at increased risk for development of diabetes, and intervention by lifestyle modification may be beneficial. HgbA1c greater or equal to 6.5% is considered diagnostic of diabetes. Performed By: #### 5 5454-3 #### [facility] CLIA [id number] [address] [place] [address] [place] [facility] OF [place] LIPID PANEL, NONFASTINGon Cholesterol [Mass/Vol] 196 mg/dL Normal <200 [facility] Comment on above: Order Comment: Speci men Type: BLOOD SPECIMEN Order[facility] Facility[facility] Address: [address] [place] [address] Result Comment: <200 mg/dL, Desirable 200-239 mg/dL, Borderline high >239 mg/dL, High Performed By: #### L GUME, 3015-3 #### [facility] CLIA [id number] [address] [place] [address] [place] HDL CHOLESTEROL, NF 78 mg/dL Normal >39 [facility] Comment on above: Order Comment: Speci men Type: BLOOD SPECIMEN Order[facility] Address: [address] [place] [address] Result Comment: 40-5 9 mg/dL, Acceptable >59 mg/dL, High: Negative risk factor for coronary heart disease <40 mg/dL, Low: Positive risk factor for coronary heart disease Performed By: #### L GUME, 3015-3 #### [facility] CLIA [id number] [address] [place] [address] LDL CHOLESTEROL CALCULATED, NF 102 mg/dL High <100 [facility] Comment on above: Order Comment: Speci men Type: BLOOD SPECIMEN Order[facility] Address: [address] [place] [address] Result Comment: <100 mg/dL, Optimal 100-129 mg/dL, Near optimal/above optimal 130-159 mg/dL, Borderline high 160-189 mg/dL, High >189 mg/dL, Very high Secondary prevention optimal LDL Cholesterol levels are recommended to be <70 mg/dL LDL cholesterol is calculated using the Muller-NIH equation. Performed By: #### L GUME, 3015-3 #### [facility] CLIA [id number] [address] [place], [place] [address] [place] LDL/HDL RATIO, NF 1.31 mg/dL Normal <2.54 [facility] Comment on above: Order Comment: Larry gustafson Type: BLOOD SPECIMEN [facility] Address: [address] [place] [address] Result Comment: Billy fay: 1. National Cholesterol Education Program ATP III Guideline At-A-Glance Quick Desk Reference: National Heart, Lung, and Blood [place]. National Institutes of Health. 2001: NIH Publication No. 01-3305. 2. An International Atherosclerosis Society position paper: global recommendations for the management of dyslipidemia: executive summary, Atherosclerosis. 2014: 232(2):410-413. Performed By: #### L GUME, 6-3 #### [facility] CLIA [id number] [address] [place] [address] [place] NON HDL CHOL, NF 118 mg/dL Normal <130 [facility] Comment on above: Order Comment: Larry gustafson Type: BLOOD SPECIMEN Order[facility] Address: [address] [place] [address] Result Comment: <130 mg/dL, Optimal 130-159 mg/dL, Near optimal/above optimal 160-189 mg/dL, Borderline high 190-219 mg/dL, High >219 mg/dL, Very high Secondary prevention optimal non HDL Cholesterol levels are recommended to be <100 mg/dL Performed By: #### L GUME, 6-3 #### [facility] CLIA [id number] [address] [place] [address] [place] T CHOL/HDL RATIO NF 2.51 mg/dL Normal <5.10 [facility] Comment on above: Order Comment: Larry gustafson Type: BLOOD SPECIMEN [facility] Address: [address] [place] [address] Performed By: #### L GUME, 6-3 #### [facility] CLIA [id number] [address] [place] [address] [place] TRIGLYCERIDES, NF 93 mg/dL Normal <150 [facility] Comment on above: Order Comment: Speci men Type: BLOOD SPECIMEN [facility] Address: [address] [place] [address] Result Comment: <150 mg/dL, Normal 150-199 mg/dL, Borderline high 200-499 mg/dL, High >499 mg/dL, Very high Performed By: #### L IPNF, 3016-3 #### [facility] CLIA [id number] [address] [place] [address] [place] VLDL CHOLESTEROL, NF 15 mg/dL Normal <30 [facility] Comment on above: Order Comment: Speci men Type: BLOOD SPECIMEN [facility] Address: [address] [place] [address] Performed By: #### L IPNF, 6-3 #### [facility] CLIA [id number] [address] [place] [address] [place] TSH SerPl-aCncon 07-05-2024 TSH Qn 1.780 m[IU]/L Normal 0.270-4.200 [facility] Comment on above: Order Comment: Speci men Type: BLOOD SPECIMEN [facility] Address: [address] [place] [address] Performed By: #### L IPNF, 6-3 #### [facility] CLIA [id number] [address] [place] [address] [place] BACTERIAL VAGINOSIS NAATon 0 06-30-2024 Lactobacillus crispatus+gasseri+j ensenii + Gardnerella vaginalis + Atopobium vaginae rRNA CHADWICK+probe Ql (Vag fld) Not detected Normal Not detected [facility] Comment on above: Order Comment: Speci men Type: SWAB [facility] Address: [address] [place] [address] Performed By: #### B VAMP, CVTV #### [facility] CLIA [id number] [address] [place] [address] [place] [facility] [place] BETY/TRICHOMONAS NAATon 0 06-30-2024 C. glabrata RNA CHADWICK+probe Ql (Vag fld) Not detected Normal Not detected [facility] Comment on above: Order Comment: Speci men Type: SWAB [facility] Address: [address] [place] [address] Performed By: #### Vlad VAMP, CVTV #### [facility] CLIA [id number] [address] [place] [address] [place] Bety sp DNA CHADWICK+probe Ql (Vag fld) Not detected Normal Not detected [facility] Comment on above: Order Comment: Speci men Type: SWAB [facility] Address: [address] [place] [address] Result Comment: The Bety species group target includes C. albicans, C. tropicalis, C. parapsilosis, and C. dubliniensis. Performed By: #### Vlad VAMP, CVTV #### [facility] CLIA [id number] [address] [place] [address] [place] T. vaginalis DNA CHADWICK+probe Ql (Unsp spec) Not detected Normal Not detected [facility] Comment on above: Order Comment: Speci men Type: SWAB [facility] Address: [address] [place] [address] Performed By: #### Vlad VAMP, CVTV #### [facility] CLIA [id number] [address] [place] [address] [place] CNOVon 06-30-2024 CNOV Office Visit (OBGYWM ) JAZ STILL ([id number]) 1970 F Date Time Provider Department 06/30/24 2:40 PM ARIANNA LONGORIA OBGYWRosa During your visit today, we recorded the following information about you: Blood pressure Weight Height 100/68 64.9 kg 1.664 m Arianna Longoria MD 06/30/2024 5:24 PM Signed Bag Loader offered: Patient declinesMansi Sebastian is a 54 [...] Always HPV vaccine: No Last pap smear: 4538-4422 History of abnormal pap: No Colposcopy: No. [...] discussed with the Patient or Patient's Authorized Metalizing Supervisor. As applicable, any other physician, advance practice provider, medical student, or other health professional student that will be observing or involved in the sensitive examination for educational or training purposes was discussed with the Patient or Authorized Metalizing Supervisor. The Patient or Authorized Metalizing Supervisor has agreed to proceed with the sensitive [...] noted as well. Normal Bartholin's glands, urethra, Lorimor's glands, no vulvar lesions, no cervical lesions, [...] Why matson (more content not included)... Normal [facility] XR Cervical spine AP and Lat eral and obliqueon 04-10-2022 IMPRESSION: Cervical spine degenerative changes as described above. Charger Operator: WIL Transcribe Date/Time: Apr 10 2022 2:55P [...] tissues are normal. DIVISION OF RADIOLOGY Provider, [facility] Anuel [facility] - 04/10/2022 * * *Final Report* * [...] Cervical spine degenerative changes as described above. Charger Operator: PSCB Transcribe Date/Time: Apr 10 2022 2:55P Dictated by : JOHN CRUM MD This examination was interpreted and the report reviewed and electronically signed by: JOHN CRUM MD on Apr 10 2022 2:56PM EST [facility] XR Cervical spine AP and Lat eral and obliqueOrdered By: Ccf Provider on 04-10-[address] [facility] XR Cervical spine AP and Lat eral and obliqueon 04-09-2022 Radiology Study observation (narrative) [facility] Absolute lymphocyte counton 03-19-2022 Lymphocytes Auto (Unsp spec) [#/Vol] 1.73 10*3/uL 0.83-4.51 [facility] Work Phone: Basophil percentageon 2022 Basophils/100 WBC (Bld) 0.6 % 0-1 [facility] Work Phone: Chloride [Moles/Vol] 108 mmol/L 98-107 [facility] Work Phone: Eosinophils/100 WBC (Bld) 0.5 % 0-5 [facility] Work Phone: Glucose [Mass/Vol] 95 mg/dL 74-106 [facility] Work Phone: Neutrophils (Bld) [#/Vol] 7.2 10*3/uL 2.0-7.7 [facility] Work Phone: Neutrophils/100 WBC (Bld) 74.3 % 47-70 [facility] Work Phone: Potassium [Moles/Vol] 4.3 mmol/L 3.5-5.1 [facility] Work Phone: Sodium [Moles/Vol] 139 mmol/L 136-145 [facility] Work Phone: WBC (Bld) [#/Vol] 9.7 10*3/uL 4.4-11.0 [facility] Work Phone: Blood erythrocytes count (nu mber/volume)on 03-19-2022 RBC (Bld) [#/Vol] 4.30 10*6/uL 4.2-5.4 [facility] Work Phone: Blood hemoglobin measurement (mass/volume)on 03-19-2022 Hemoglobin (Bld) [Mass/Vol] 13.0 g/dL 12.0-15.0 [facility] Work Phone: Blood lymphocytes/100 leukoc yteson 03-19-2022 Lymphocytes/100 WBC (Bld) 17.9 % 19-41 [facility] Work Phone: Blood monocytes/100 leukocyt eson 03-19-2022 Monocytes/100 WBC (Bld) 6.4 % 0-10 [facility] Work Phone: Blood platelet mean volumeon 03-19-2022 Platelet mean volume (Bld) [Entitic vol] 10.9 fL 6.2-12.0 [facility] Work Phone: Determination of erythrocyte mean corpuscular volume (MCV)on 03-19-2022 MCV (RBC) [Entitic vol] 93.0 fL 81-99 [facility] Work Phone: Erythrocyte sedimentation ra tommie 03-19-2022 ESR (Bld) [Velocity] 16 mm/h 0-30 [facility] Work Phone: Hematocrit Auto (Bld) [Volum e fraction]on 03-19-2022 Hematocrit (Bld) [Volume fraction] 40.0 % 37-47 [facility] Work Phone: Laboratory - Chemistry and C hemistry - challengeon 03-19-2022 CO2 [Moles/Vol] 28.0 mmol/L 21.0-32.0 [facility] Work Phone: Urea nitrogen/Creatinine [Mass ratio] 12.7 mg/mg 10-20 [facility] Work Phone: Laboratory - Hematology and Cell countson 03-19-2022 Erythrocyte distribution width (RBC) [Entitic vol] 47.3 fL 35.1-43.9 [facility] Work Phone: Erythrocyte distribution width (RBC) [Ratio] 13.8 % 11.6-14.6 [facility] Work Phone: Immature granulocytes/100 WBC (Bld) 0.300 % 0.0-0.9 [facility] Work Phone: Comment on above: IG% - Immature Granu locytes (promyelocytes, myelocytes and metamyelocytes) > 1% indicates that a LEFT SHIFT is Present. MCH (RBC) [Entitic mass] 30.2 pg 27.0-32.0 [facility] Work Phone: Nucleated RBC/100 WBC (Bld) [Ratio] 0 % 0-5 [facility] Work Phone: MCHC Auto (RBC) [Mass/Vol]on 03-19-2022 MCHC (RBC) [Mass/Vol] 32.5 g/dL 32-36 [facility] Work Phone: No Panel Informationon 03-19 Estimated Creatinine Clearance Calc 87.76 ml/min [facility] Work Phone: Estimated GFR (MDRD) Amer 111 mL/min >60 [facility] Work Phone: Comment on above: GFR Calc Estimated GFR (MDRD) Non-Af Amer 92 mL/min >60 [facility] Work Phone: Comment on above: Non- GFR Calc Platelets bldon 03-19-2022 Platelets (Bld) [#/Vol] 313 10*3/uL 150-450 [facility] Work Phone: Serum or plasma calcium isaías urement (mass/volume)on 03-19-2022 Calcium [Mass/Vol] 9.1 mg/dL 8.5-10.1 [facility] Work Phone: Serum or plasma creatinine m easurement (mass/volume)on 03-19-2022 Creatinine [Mass/Vol] 0.71 mg/dL 0.55-1.02 [facility] Work Phone: Comment on above: The validity of the calculated GFR & GFRAA in patients over 70 years has not been determined. Clinical correlation is essential. Serum or plasma urea nitroge n measurement (mass/volume)on 03-19-2022 Urea nitrogen [Mass/Vol] 9 mg/dL 7-18 [facility] Work Phone: Thin prep Papanicolaou smear with manual screeningon 03-19-2022 Thin prep Papanicolaou smear with manual screening 3 5-15 [facility] Work Phone: [place] [facility] Note on 11-28-2016 [place] [facility] Note Normal [facility] [place] Patient Summary Documentson 11-14-2016 Patient Summary Documents Normal [facility]) Vital Signs Date Time Vital Sign Value Performing Clinician Facility 09-02-2024 20:37-0400 Body temperature 98.4 [degF] Dr. Nader Flores MD Work Phone: [phone] [place] [address] 09-02-2024 20:37-0400 Diastolic blood pressure 79 mm[Hg] Dr. Nader Flores MD Work Phone: 8([phone] [place] [address] 09-02-2024 20:37-0400 Heart rate 79 /min Dr. Nader Flores MD Work Phone: 0([phone] [place] [address] 09-02-2024 20:37-0400 Respiratory rate 16 /min Dr. Nader Flores MD Work Phone: 5([phone] [place] [address] 09-02-2024 20:37-0400 SaO2% (BldA) [Mass fraction] 100 % Dr. Nader Flores MD Work Phone: 0(655)[phone] [place] [address] 09-02-2024 20:37-0400 Systolic blood pressure 139 mm[Hg] Dr. Nader Flores MD Work Phone: 7([phone] [place] [address] 09-02-2024 17:01-0400 Body height 167.[address] Nader Flores MD Work Phone: 3([phone] [place] [address] 09-02-2024 17:01-0400 Body mass index (BMI) [Ratio] 21.6 kg/m2 Dr. Nader Flores MD Work Phone: [facility] 09-02-2024 17:01-0400 Body weight 60.[address] Nader Flores MD Work Phone: [facility] 07-14-2024 14:55-0400 Body mass index (BMI) [Ratio] 22.84 kg/m2 Arianna Longoria MD Work Phone: [facility] 07-14-2024 14:55-0400 Body weight 63.23 kg Arianna Longoria MD Work Phone: [facility] 07-14-2024 14:55-0400 Diastolic blood pressure 60 mm[Hg] Arianna Longoria MD Work Phone: [facility] 07-14-2024 14:55-0400 Systolic blood pressure 100 mm[Hg] Arianna Longoria MD Work Phone: [facility] 04-08-2022 07:52-0500 Body temperature 96.91 [degF] Izzy Knutsoner PA-C Work Phone: [facility] 04-08-2022 07:52-0500 Body weight 60.24 kg Izzy Queener PA-C Work Phone: [facility] 04-08-2022 07:52-0500 Diastolic blood pressure 70 mm[Hg] Izzy Knutsoner PA-C Work Phone: [facility] 04-08-2022 07:52-0500 Heart rate 75 /min Izzy Queener PA-C Work Phone: [facility] 04-08-2022 07:52-0500 Respiratory rate 16 /min Izzy Queener PA-C Work Phone: [facility] 04-08-2022 07:52-0500 SaO2% (BldA) [Mass fraction] 98 % Izzy Queener PA-C Work Phone: [facility] 04-08-2022 07:52-0500 Systolic blood pressure 103 mm[Hg] Izzy Briseno PA-C Work Phone: [facility] 03-19-2022 10:55-0500 Body height 167.64 cm [facility] Work Phone: 03-19-2022 10:55-0500 Body mass index (BMI) [Ratio] 21.7 kg/m2 [facility] Work Phone: 03-19-2022 10:55-0500 Body temperature 96.7 [degF] [facility] Work Phone: 03-19-2022 10:55-0500 Body weight 61.23 kg [facility] Work Phone: 03-19-2022 10:55-0500 Diastolic blood pressure 66 mm[Hg] [facility] Work Phone: 03-19-2022 10:55-0500 Heart rate 71 /min [facility] Work Phone: 03-19-2022 10:55-0500 Respiratory rate 18 /min [facility] Work Phone: 03-19-2022 10:55-0500 SaO2% (BldA) [Mass fraction] 99 % [facility] Work Phone: 03-19-2022 10:55-0500 Systolic blood pressure 96 mm[Hg] [facility] Work Phone: 03-12-2022 08:29-0500 Body mass index (BMI) [Ratio] 22 kg/m2 [facility] Work Phone: 03-12-2022 08:29-0500 Body temperature 96.9 [degF] [facility] Work Phone: 03-12-2022 08:29-0500 Body weight 61.9 kg [facility] Work Phone: 03-12-2022 08:29-0500 Diastolic blood pressure 70 mm[Hg] [facility] Work Phone: 03-12-2022 08:29-0500 Heart rate 81 /min [facility] Work Phone: 03-12-2022 08:29-0500 Respiratory rate 14 /min [facility] Work Phone: 03-12-2022 08:29-0500 SaO2% (BldA) [Mass fraction] 100 % [facility] Work Phone: 03-12-2022 08:29-0500 Systolic blood pressure 118 mm[Hg] [facility] Work Phone: Encounters Encounter Date Encounter Type Care Provider Facility Start: 09-04-2024 Emergency department patient visit No Primary Care Physician Facility:[facility] Start: 09-02-2024 End: 09-02-2024 Emergency department patient visit Dr. Nader Floers MD Work Phone: -Emergency Department Work Phone: Start: 07-28-2024 End: 07-28-[address] Nader Flores MD Work Phone: [facility] Work Phone: Start: 07-28-2024 End: 07-28-[address] Isamar Ramirez [facility] Work Phone: Start: 07-28-2024 End: 07-28-2024 ambulatory Isamar Ramirez Facility:[facility] Start: 07-18-2024 End: 07-18-2024 Telephone encounter Arianna Longoria MD Work Phone: OB/Gynecology Comment on above: Orders Start: 07-14-2024 End: 07-14-2024 Patient encounter procedure Arianna Longoria MD Work Phone: OB/Gynecology Comment on above: Other skin changes ( Primary Dx) Start: 07-14-2024 End: 07-14-2024 ambulatory ARIANNA LONGORIA Facility:[facility] Start: 07-05-2024 End: 07-05-2024 ambulatory ARIANNA LONGORIA Facility:[facility] Start: 07-05-2024 Patient encounter procedure ARIANNA LONGORIA [facility] Start: 07-01-2024 End: 08-31-2024 Follow-up encounter Maira Annetta MUHAMMADHEAD SAWYER Work Phone: OB/Gynecology Start: 06-30-2024 End: 06-30-2024 ambulatory ARIANNA LONGORIA Facility:[facility] Start: 06-30-2024 Encounter for gynecological examination (general) (routine) without abnormal findings ARIANNA LONGORIA [facility] Start: 05-12-2022 End: 05-12-2022 ambulatory Gia Thurston PT Work Phone: [facility] Comment on above: Radicular pain in ri ght arm (Primary Dx) Start: 04-28-2022 End: 04-28-2022 ambulatory Gia Thurston PT Work Phone: [facility] Comment on above: Radicular pain in ri ght arm (Primary Dx) Start: 04-23-2022 End: 04-23-2022 ambulatory Gia Thurston PT Work Phone: [facility] Comment on above: Radicular pain in ri ght arm (Primary Dx) Start: 04-21-2022 End: 04-21-2022 ambulatory Gia Thurston PT Work Phone: [facility] Comment on above: Radicular pain in ri ght arm (Primary Dx) Start: 04-14-2022 End: 04-14-2022 ambulatory Gia Thurston PT Work Phone: [facility] Comment on above: Radicular pain in ri ght arm (Primary Dx) Start: 04-09-2022 End: 04-09-2022 Subsequent hospital visit by physician [facility] Work Phone: Radiology Comment on above: Radicular pain in ri ght arm [M79.2] Start: 04-08-2022 End: 04-08-2022 Patient encounter procedure Izzy Briseno PA-C Work Phone: Neurology Comment on above: Radicular pain in ri ght arm (Primary Dx); Paresthesia and pain of right extremity Start: 03-19-2022 Telephone encounter Nader Flores MD Work Phone: Family Medicine [place] Comment on above: Future Appointment Start: 03-19-2022 End: 03-19-2022 Emergency department patient visit [facility]-Emergency Department Start: 03-12-2022 End: 03-12-2022 [facility] Start: 11-14-2016 End: 11-14-2016 Emergency department [...] panel - S pedro or Plasma [facility] [place] Work Phone: Plan of Treatment Date Care Activity Detail Author Start: 07-05-2029 Lipid panel Lipid Screening [facility] Start: 07-06-2027 Diabetes Screening Diabetes Screenin g [facility] Start: 07-03-2025 End: 07-03-2025 Patient encounter procedure 07/03/2025 9:00 AM EDT Office Visit OB/Gynecology [address] [place] [id number] Arianna Longoria MD [address] [place] [place] [id number] Annual OB/Gynecology Comment on above: Annual Start: 11-07-2024 Influenza vaccination Influenz a Vaccine (Season Ended) [facility] Start: 09-02-2024 End: 09-02-2024 [facility] Start: 11-08-2023 Covid-19 Vaccine ( season) Covid-19 Vaccine ( season) [facility] Start: 11-08-2023 Influenza vaccination Influenza Vacc ine (#1) [facility] Start: 03-09-2022 DEPRESSION ASSESSMENT DEPRESSION ASS ESSMENT [facility] Start: 11-07-2021 Influenza vaccination INFLUENZA (#1) [facility] Start: 04-30-2021 Lipid panel Lipid Screening [facility] Start: 04-30-2021 LIPID SCREEN LIPID SCREEN [facility] Start: 2020 SHINGRIX VACCINE (1 of 2) SHINGRIX VACCINE (1 of 2) [facility] Start: 07-04-2019 DIABETES SCREEN DIABETES SCREEN [facility] Start: 07-04-2019 Diabetes Screening Diabetes Screenin g [facility] Start: 12-03-2016 PNEUMOCOCCAL (2 - PCV) PNEUMOCOCCAL (2 - PCV) [facility] Start: 12-03-2016 Pneumococcal vaccination Pneum ococcal Vaccine (2 of 2 - PCV) [facility] Start: 12-03-2016 Pneumococcal Vaccine : 50+ (2 of 2 - PCV) Pneumococcal Vaccine: 50+ (2 of 2 - PCV) [facility] Start: 2015 COLOGUARD (FIT-DNA) COLOGUARD (FIT-D NA) [facility] Start: 2015 Colonoscopy COLONOSCOPY [facility] Start: 2015 COLORECTAL CANCER SCREENING COLORECTAL CANCER SCREENING [facility] Start: [address] COLONOGRAPHY [facility] Start: 2015 FECAL OCCULT BLOOD FECAL OCCULT BLOO D [facility] Start: 2015 Screening for malign ant neoplasm of colon [facility] Start: 2015 SIGMOIDOSCOPY SIGMOIDOSCOPY [facility] Start: 2010 Mammography MAMMOGRAM [facility] Start: 2010 Screening for malign ant neoplasm of breast Mammogram Screening [facility] Start: 1989 Hepatitis B Vaccine (1 of 3 - 19+ 3-dose series) Hepatitis B Vaccine (1 of 3 - 19+ 3-dose series) [facility] Start: 1989 Urine microalbumin profile [facility] Start: 1988 Anxiety Screening Anxiety Screening [facility] Start: 1988 Depression Screening Depression Scre jovi [facility] Start: 1988 HEPATITIS C SCREENING HEPATITIS C [facility] Start: 1988 Hepatitis C screening Hepatitis C [facility] Start: 1988 HIV SCREENING HIV SCREENING [facility] Start: 1988 HIV screening HIV Screening [facility] Start: 1970 COVID-19 VACCINE (#1) COVID-19 VACCI NE (#1) [facility] Start: 1970 HEPATITIS B (1 of 3 - 3-dose series) HEPATITIS B (1 of 3 - 3-dose series) [facility] Patient Education [facility] Work Phone: Patient referral [facility] Work Phone: End: 05-08-2023 Radex spine cervical 4 or 5 views XR CERV OTHER 4V AP/LAT/OBL Radiology Routine Radicular pain in right arm 1 Occurrences starting 04/08/2022 until 05/08/2023 [facility] Work Phone: Comment on above: 1 Occurrences starti ng 04/08/2022 until 05/08/2023 [facility] Immunizations Immunization Date Immunization Notes Care Provider Nikki doyle 09-02-2024 tetanus toxoid, redu lashae diphtheria toxoid, and acellular pertussis vaccine, adsorbed Dr. Nader Flores MD Work Phone: [facility] 12-04-2015 pneumococcal polysaccharide vaccine, 23 valent Isamar Flores MD Work Phone: [facility] 12-04-2015 influenza virus vaccine, unspecified formulation [facility] [place] Work Phone: [facility] Payers Date Payer Category Payer Private Health Insurance M[employer] PPO [id number] 2024 Unknown [id number] 2016 Self-pay Self-pay [id number] Unknown [facility] [id number] Unknown [id number] Unknown [id number] Unknown [id number] Social History Date Type Detail Facility Start: 03-19-2022 Tobacco smoking stat us [facility] Unknown if ever smoked [facility] Work Phone: Start: 1970 Sex Assigned At Female [facility] Start: 12-04-2015 End: 09-02-2024 Tobacco smoking status GAIS Smokes tobacco daily [facility] Work Phone: History of tobacco use Cigarette Smoker [facility] Work Phone: Start: 12-04-2015 End: 06-30-2024 Cigarettes smoked current (pack per day) - Reported 0.[address] [facility] Start: 10-25-2021 End: 06-30-2024 Alcohol intake Current drinker of alcohol (finding) [facility] Start: 12-04-2015 Alcohol Comment 1-2 times per month [facility] Start: 1970 Sex Assigned At Not on file [facility] Start: 04-08-2022 End: 06-30-2024 Tobacco use panel [facility] National Score (1-10 0), lower number is lower risk [address] [facility] Start: 03-21-2022 Sexual orientation Heterosexual (ced garcia) [facility] Start: 06-30-2024 Tobacco use and exposure Smokeless tobacco non-user [facility] Clinical Notes 03-19-2022 to 07-29-2024 Telephone Encounter - Arianna Longoria MD - 07/18/2024 8:21 AM EDTTelephone Encounter - Arianna Longoria MD - 07/18/2024 8:21 AM STEVETArianna Longoria MD - 07/14/2024 2:53 PM EDT Note Date & Type Note Facility 07-29-2024 Radiology Diagnostic study note [facility] Imaging Services [address] [place] [address] Sinus/Facial Bone MR#: [id number] Acct: [id number] Name: JAZ STILL Rep #: [id number] : 1970 F 54 From: Kaushik Hester MD PCP: Dr. Nader Flores MD Status: REG CLI Study:Sinus/Facial Bone Date of Exam: Exam# [id number] Ordering Dr: Isamar Ramirez MD PROCEDURE: SINUS/FACIAL [...] C5-6 asymmetric uncovertebral hypertrophic change results in fgkk-zvitnne-fkhp-right severe appearing left sided foraminal narrowing for example sagittal [address]/Sinus/Facial Bone IMPRESSION: No paranasal sinus disease as above. C5-6 asymmetric uncovertebral hypertrophic change results in ocus-tiklarb-ppjc-right severe appearing left sided foraminal narrowing for example sagittal 77 and axial 7. Reading Location: [facility] CC: Dr. Nader Flores MD; Dr. Isamar Ramirez MD ~ Charger Operator: Signed [facility] 07-18-2024 Telephone encounter Note See result note. Rx sent for clobetasol ointment. Needs follow up in [address] [facility] 07-18-2024 Miscellaneous Notes See result note. Rx sent for clobetasol ointment. Needs follow up in 12 weeks documented in this encounter [facility] 07-14-2024 Note HNO ID: [id number] Author: ARIANNA LONGORIA MD Service: ? Author Type: Physician Type: Progress Notes Filed: 07/15/2024 13:37 Note Text: Bag Loader offered: Patient declines. Jaz Still is a [...] 3mL 1% lidocaine with 1:100,000 epi. 3mm Kennard punch used to biopsy region. HEMOSTASIS: Obtained with silver nitrate and pressure Procedure Summary: Patient tolerated procedure well. ASSESSMENT: vulvar and perineal skin changes PLAN: Specimens labeled and sent to Pathology. Will notify patient of results in 1-2 weeks. Post-procedure instructions reviewed and written material given to the patient. Arianna Longoria DO [facility] 07-14-2024 History of Presen t illness Narrative Bag Loader offered: Patient declines. Jaz Still is a [...] 3mL 1% lidocaine with 1:100,000 epi. 3mm Kennard punch used to biopsy region. HEMOSTASIS: Obtained with silver nitrate and pressure Procedure Summary: Patient tolerated procedure well. ASSESSMENT: vulvar and perineal skin changes PLAN: Specimens labeled and sent to Pathology. Will notify patient of results in 1-2 weeks. Post-procedure instructions reviewed and written material given to the patient. Arianna Longoria DO documented in this encounter [facility] 06-30-2024 Note HNO ID: [id number] Author: ARIANNA LONGORIA MD Service: ? Author Type: Physician Type: Progress Notes Filed: 06/30/2024 17:24 Note Text: Bag Loader offered: Patient declinesMansi Sebastian is a 54 [...] Always HPV vaccine: No Last pap smear: [id number] History of abnormal pap: No Colposcopy: No. [...] discussed with the Patient or Patient's Authorized Metalizing Supervisor. As applicable, any other physician, advance practice provider, medical student, or other health professional student that will be observing or involved in the sensitive examination for educational or training purposes was discussed with the Patient or Authorized Metalizing Supervisor. The Patient or Authorized Metalizing Supervisor has agreed to proceed with the sensitive [...] noted as well. Normal Bartholin's glands, urethra, Lorimor's glands, no vulvar lesions, no cervical lesions, [...] She is considering options Arianna Longoria DO [facility] 05-12-2022 History of Presen t illness [...] and treatment included: Therapeutic exercise, Manual therapy, Self-jail management, and Patient/Family/Caregiver Education. Goals for Episode [...] B 10 sec x3 2: B cervical [id number] sec X3 3: right levator stretch no arms 10 saec x3 Skilled Intervention: Skilled judgment was provided in selection of appropriate interventions. Billing Therapeutic Exercise Treatment Minutes: 17 Total Treatment Time Minutes (timed/untimed): 17 Gia Thurston PT documented in this encounter [facility] 04-28-2022 History of Presen t illness [...] B 10 sec x3 2: B cervical [id number] sec X3 3: right levator stretch no [...] Gia Thurston PT documented in this encounter [facility] 04-23-2022 History of Presen t illness [...] B 10 sec x3 2: B cervical [id number] sec X3 3: right levator stretch no [...] Gia Thurston PT documented in this encounter [facility] 04-21-2022 History of Presen t illness Narrative Episode Visit Count: 2 Therapist That Will Accept/Oversee The Plan Of Care: Gia Thurtson PT Start of Care Date: 04/14/22 Onset [...] B 10 sec x3 2: B cervical [id number] sec X3 3: right levator stretch no [...] Gia Thurston PT documented in this encounter 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 04-14-2022 History of Past i llness Narrative Problem Noted Date Resolved Date Radicular pain in right arm 04/14/2022 030 08/2022 documented as of this encounter (statuses as of 05/12/2022) [facility]02-01-2023 History of Present illness Narrative* Miracle [...] 09, 2022 8:47 AM [facility] Instructions* Patient Instructions* Izzy Briseno PA-C - 04/08/2022 8:32 AM EST Xray of the cervical spine Muscle relaxer (Flexeril 5mg up to twice daily- do not drink alcohol with this medication, do not drive with this medication) Heat 20 min, Ice 20 min Physical therapy Follow up in 3 months [facility] History of Present illness Narrative* Izzy [...] butdoes note maybe she has some decreased multimedia project manager strength, 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 She has not [...] Marijuana few times a week Works at [employer] Objective 04/08/22 0752 BP: 103/70 Pulse: 75 [...] Negative Coordination: finger-to- nose-finger intact bilaterally and zayw-kz-hwam intact bilaterally. Gait: Patient's gait is normal [...] with certain positions. Notes previous neck injury [id number], good relief with physical therapy at that [...] which included preparing to see the patient, [id number] patient care, completing clinical documentation, obtaining and/or reviewing separately obtained history, performing a medically appropriate examination, counseling and educating the pat ient/family/caregiver, and ordering medications, tests, or procedures. PDMP website checked and validated. All prescriptions have been APPROPRIATELY filled. No suspiciousactivity was identified. 04/08/2022 by KYLIE Adame PA-C [facility] Neurology [facility] Miscellaneous Notes* Telephone Encounter - Adele [...] appt has been made. [facility] Hospital Discharge instructions Additional Instructions Apply ice to your right shoulder and arm 6-10 times a day for the next 3 to 5 days. Avoid activity that causes you increased pain.[facility] Work Phone: Evaluation noteNo assessment information available [facility] Work Phone: Evaluation note* Diagnosis Radicular pain in right arm- Primary Neuralgia, neuritis, and radiculitis, unspecified Paresthesia and pain of right extremity Pain in limb [facility] Diagnosis Radicular pain in right arm- Primary Neuralgia, neuritis, and radiculitis, unspecified documented [facility] Diagnosis Radicular pain in right arm- Primary Neuralgia, neuritis, and radiculitis, unspecified [facility] Diagnosis Radicular pain in right arm- Primary Neuralgia, neuritis, and radiculitis, unspecified [facility] Diagnosis Radicular pain in right arm- Primary Neuralgia, neuritis, and radiculitis, unspecified documented [facility] Diagnosis Radicular pain in right arm- Primary Neuralgia, neuritis, and radiculitis, unspecified [facility] Diagnosis Radicular pain in right arm Neuralgia, neuritis, and radiculitis, unspecified documented [facility] Diagnosis Other skin changes- Primary [facility]* Diagnosis Lichen sclerosus- Primary Circumscribed scleroderma [facility] Discharge instructionsAdditional Instructions Have sutures removed in about 7 days. Return for any signs of infection. You can take Tylenol and ibuprofen as needed for your pain.[facility] Work Phone: Reason for referral (narrative)* Diagnostic Procedure Only (Routine) - Closed Specialty Diagnoses / Procedures Referred By Jered alonzo Referred To Contact XR IMAGING Diagnoses Radicular pain in right arm Procedures XR CERV OTHER 4V AP/LAT/OBL RADEX SPINE CERVICAL 4 OR 5 VIEWS Izzy Briseno PA-C [address] [place] [address] [place] [id number] Referral ID Status Reason Start Date Expiration Date V isits Requested Visits Authorized [id number] Closed Auto-Generate d Referral 04/08/2022 05/08/2023 1 1 [facility] for referral (narrative)No reason for [facility] Work Phone: Summary Purpose Family History No Family History Records FoundNo Family History Records FoundNo Family History Records Found Advance Directives No Advanced Directives Records Found Advance Directive Response Recorded Date/ Time Living Will No March 19 11:56am Power of Senior Electronics Technician No March 19, 2022 11:56am Advance Directive Response Recorded Date/ Time Do you have a Healthcare Power of Senior Electronics Technician? No September 02, 2024 8:21pm Chief Complaint [...] HIGH COMPLEX 45 MINS Izzy Briseno PA-C [address] [place] [address] [facility] [address] [place] [address] Referral ID Status Reason Start Date Expiration Date Visits Requested Visits Authorized [id number] Pending Review Auto-Generat ed Referral 04/08/2022 04/08/2023 1 1 Specialty Diagnoses / Procedures Referred By Contac t Referred To Contact XR IMAGING Diagnoses Radicular pain in right arm Procedures XR CERV OTHER 4V AP/LAT/OBL RADEX SPINE CERVICAL 4 OR 5 VIEWS Izzy Briseno PA-C [address] [place] [address] Xr Imaging Referral ID Status Reason Start Date Expiration Date Visits Requested Visits Authorized [id number] Pending Review Auto-Generat ed Referral 04/08/2022 05/08/2023 1 1 Specialty Diagnoses / Procedures Referred By Contac t Referred To Contact [facility] Diagnoses Radicular pain in right arm Procedures PT REHAB FOLLOW UP ORDER THERAPEUTIC EXERCISES RE, EA 15 MIN. Pt [facility] [address] [place] [address] [facility] [address] [place] [id number] Referral ID Status Reason Start Date Expiration Date Visits Requested Visits Authorized [id number] Pending Review PCP Requested Referral Auto-Generate d Referral 04/14/2022 07/13/2022 1 1 Additional Source Comments INFORMATION SOURCE (unrecogn ized section and content) DATE CREATED AUTHOR 09/01/2017 [facility] ([place]) DATE CREATED AUTHOR AUTHOR'S ORGANIZ ATION 07/18/2024 [facility] DATE CREATED AUTHOR AUTHOR'S ORGANIZ ATION 09/04/2024 [facility] Goals (unrecognized section and content) [...] or prosecute any alcohol or drug abuse patient.[facility] the event this information is protected by the Federal Confidentiality of Alcohol and Drug Abuse Patient Records regulations: The Federal rules restrict any use of the information to criminally investigate or prosecute any alcohol or drug abuse patient.[facility] the event this information is protected by the Federal Confidentiality of Alcohol and Drug Abuse Patient Records regulations: The Federal rules restrict any use of the information to criminally investigate or prosecute any alcohol or drug abuse patient.[facility] the event this information is protected by the Federal Confidentiality of Alcohol and Drug Abuse Patient Records regulations: The Federal rules restrict any use of the information to criminally investigate or prosecute any alcohol or drug abuse patient.[facility] the event this information is protected by the Federal Confidentiality of Alcohol and Drug Abuse Patient Records regulations: The Federal rules restrict any use of the information to criminally investigate or prosecute any alcohol or drug abuse patient.[facility] Hospital[facility] the event this information is protected by the Federal Confidentiality of Alcohol and Drug Abuse Patient Records regulations: The Federal rules restrict any use of the information to criminally investigate or prosecute any alcohol or drug abuse patient.[facility] the event this information is protected by the Federal Confidentiality of Alcohol and Drug Abuse Patient Records regulations: The Federal rules restrict any use of the information to criminally investigate or prosecute any alcohol or drug abuse patient.[facility] Hospital[facility] the event this information is protected by the Federal Confidentiality of Alcohol and Drug Abuse Patient Records regulations: The Federal rules restrict any use of the information to criminally investigate or prosecute any alcohol or drug abuse patient.[facility] Hospital[facility] the event this information is protected by the Federal Confidentiality of Alcohol and Drug Abuse Patient Records regulations: The Federal rules restrict any use of the information to criminally investigate or prosecute any alcohol or drug abuse patient.[facility] Hospital[facility] the event this information is protected by the Federal Confidentiality of Alcohol and Drug Abuse Patient Records regulations: The Federal rules restrict any use of the information to criminally investigate or prosecute any alcohol or drug abuse patient.[facility] Hospital[facility] the event this information is protected by the Federal Confidentiality of Alcohol and Drug Abuse Patient Records regulations: The Federal rules restrict any use of the information to criminally investigate or prosecute any alcohol or drug abuse patient.[facility] Reason for Visit (unrecogniz ed section and content) Reason Comments PT Discharge Specialty Diagnoses / Procedures Referred By [facility] Referred To Contact [facility] Department Diagnoses est Procedures est [facility] Referral ID Status Reason Start Date Expiration Date Visits Requested Visits Authorized [id number] Authorized Financial Clearance Required - Self Pay Patient Cleared - Qualified [id number] 03/28/2022 06/26/2022 99 99 Reason Comments PT Eval Patient Education Specialty Diagnoses / Procedures Referred By [facility] Referred To Contact [facility] Department Diagnoses est Procedures est Self [facility] Reason Comments Future Appointment Reason Comments New Patient Numbness in RIGHT in dex & middle finger & RIGHT arm pain Reason Comments Physical Therapy Specialty Diagnoses / Procedures Referred By [facility] Referred To Contact [facility] DEPARTMENT Diagnoses est Procedures [place] [address] Referral ID Status Reason Start Date Expiration Date V isits Requested Visits Authorized [id number] Closed Financial Clearance Required - Self Pay [...] BE BASED ON THE PRIMARY CLINICAL RECORDS. [employer] provides no warranty or guarantee of the accuracy or completeness of information in this document.
[2024-09-04] MEDS: 0.9% Normal Saline (1000mL) 1,000 ML 100 ML IV (22:32)
[2024-09-05] VITALS (12 sets, daily range): BP systolic 98–119; BP diastolic 61–75; PULSE 51–85; RESP 16–18; TEMP 36.5–37.1; O2SAT 93–98; BMI 22.5
[2024-09-05 06:06] LABS: Hematocrit 33.5 % (37-47); Hemoglobin 11.2 g/dL (12.0-15.0); Immature Granulocytes Count 0.020 X10^3/uL (0.0-0.0); Mean Corp Hgb Conc 33.4 g/dL (32-36); Mean Corpuscular Volume 91.5 fL (81-99); Mean Platelet Vol. 11.0 fl (6.2-12.0); NRBC Flagged by Analyzer 0 % (0-5); Platelet Count 241 K/mm3 (150-450); RBC Distribution Width CV 14.5 % (11.6-14.6); RBC Distribution Width SD 48.7 fl (35.1-43.9); Red Blood Count 3.66 M/mm3 (4.2-5.4); White Blood Count 7.3 K/mm3 (4.4-11.0)
[2024-09-05 06:49] LABS: AST(SGOT) 21 U/L (<=31); Alanine Aminotransfer ALT/SGPT 18 U/L (<=34); Albumin, Serum 3.5 g/dL (3.5-5.0); Alkaline Phosphatase 54 U/L (35-104); Anion Gap 10 (5-15); BUN 9 mg/dL (4-19); BUN/Creat Ratio 14.1 RATIO (10-20); Calcium,Total 8.2 mg/dL (7.6-11.0); Carbon Dioxide 21.0 mmol/L (21.0-32.0); Chloride 110 mmol/L (98-108); Estimated Creatinine Clearance 92.62 ml/min (50-250); Globulin 1.9 g/dL (2.2-4.2); Glucose 135 mg/dL (70-99); Potassium 4.0 mmol/L (3.3-5.1)
--- NOTE | 2024-09-05 07:28 | CON.PCM.UR_ITS ---
Assessment & Plan Assessment/Plan (1) Intractable abdominal pain: (2) Complicated urinary tract infection: (3) Hydronephrosis, right: (4) Calculus of right kidney: PLAN: Plan for surgical invention with right ureteroscopy laser basket and stent placement today (5) Finger laceration: HPI Consult Data Date of Consult: 09/05/24 HPI Narrative Reason for Consultation: Right kidney stone HPI Narrative: GABRIELA PARTIDA, is a 54 F who presents with a 3 mm stone in the distal right ureter severe intractable pain she has not been able to pass the stone discussed with the patient options of management continued observation to see if she could pass a stone or surgical intervention with ureteroscopy laser possible basket and right stent placement she wishes to proceed with surgical intervention remove remove the stone and alleviate obstruction n.p.o. plan for surgery today PFSH Medical History Kidney stones Smoker Migraines Psoriasis Tobacco use Home Medications ?Medication ?Instructions ?Recorded ?Last Taken ?Type multivitamin (Daily Multi-Vitamin 1 tab PO DAILY 09/04 Unknown History tablet) Allergy/AdvReac Type Severity Reaction Status Date / Time Penicillins Allergy Hives Verified 09/04/24 17:27 Family History Mother Alcoholic cirrhosis Alcohol abuse Father Cancer Surgical History History of hysterectomy Social History household members: significant other Smoking Status: Current every day smoker tobacco type: cigarettes Smoking packs per day: 0.5 Smoking cigarettes per day: 10.0 alcohol intake: never substance use type: does not use Medical Records Data Attestation: I reviewed the patient's medical records Lab / Micro Data 09/05/24 05:25 09/05/24 05:25 Labs: Laboratory Results - last 24 hr 09/04/24 17:36: WBC 8.3, RBC 4.17 L, Hgb 12.8, Hct 38.0, MCV 91.1, MCH 30.7, MCHC 33.7, RDW Std Deviation 47.6 H, RDW Coeff of Meera 14.3, Plt Count 310, MPV 11.3, Immature Gran % (Auto) 0.400, Neut % (Auto) 54.3, Lymph % (Auto) 32.5, M leanna % (Auto) 11.0 H, Eos % (Auto) 0.8, Baso % (Auto) 1.0, Absolute Neuts (auto) 4.5, Absolute Lymphs (auto) 2.69, Nucleated RBC % 0, Sodium 139, Potassium 3.7, Chloride 101, Carbon Dioxide 24.7, Anion Gap 13, BUN 12, Creatinine 0.70, Estim Creat Clear Calc 86.01, Est GFR (MDRD) Non-Af 102, BUN/Creatinine Ratio 16.8, G lucose 111 H, Calcium 9.1 09/04/24 19:55: Urine Color Yellow, Urine Clarity Clear, Urine pH 5.0, Ur Specific Hanna 1.025, Urine Protein 15 H, Urine Glucose (UA) Normal, Urine Ketones Negative, Urine Occult Blood 25 H, Urine Nitrite Negative, Urine Bilirubin Negative, Urine Urobilinogen Normal, Ur Leukocyte Esterase 500 H, Urine RBC 0 SEEN, Urine WBC 50-100 SEEN, Ur Squamous Epith Cells 0-5 SEEN, Calcium Oxalate Crystal 1+, Urine Bacteria 2+, Urine Mucus 2+ 09/05/24 05:25: WBC 7.3, RBC 3.66 L, Hgb 11.2 L, Hct 33.5 L, MCV 91.5, MCH 30.6, MCHC 33.4, RDW Std Deviation 48.7 H, RDW Coeff of Meera 14.5, Plt Count 241, MPV 11.0, Immature Gran % (Auto) 0.300, Neut % (Auto) 64.3, Lymph % (Auto) 23.4, M leanna % (Auto) 10.7 H, Eos % (Auto) 0.8, Baso % (Auto) 0.5, Absolute Neuts (auto) 4.7, Absolute Lymphs (auto) 1.70, Nucleated RBC % 0, Sodium 141, Potassium 4.0, Chloride 110 H, Carbon Dioxide 21.0, Anion Gap 10, BUN 9, Creatinine 0.65 L, Estim Creat Clear Calc 92.62, Est GFR (MDRD) Non-Af 105, BUN/Creatinine Ratio 14.1, Glucose 135 H, Calcium 8.2, Total Bilirubin 0.27, AST 21, ALT 18, Alkaline Phosphatase 54, Total Protein 5.4 L, Albumin 3.5, Globulin 1.9 L, Albumin/Globulin Ratio 1.9 Imaging Radiology Impression Abdomen/Pelvis CT 09/04/24 17:56 IMPRESSION: Stone in the right distal ureter measuring 3 mm resulting in mild upstream hydroureteronephrosis. Reading Location: [id number]
[2024-09-05] MEDS: Furosemide 20 MG/2 ML VIAL IV (08:11)
[2024-09-05] MEDS: HYDROmorphone 0.5 MG/0.5 ML SYRINGE IV (08:11)
[2024-09-05] MEDS: 0.9% Saline Lock 10 ML Syringe IV (08:11)
[2024-09-05] MEDS: 0.9% Normal Saline (1000mL) 1,000 ML 100 ML IV (08:18)
--- NOTE | 2024-09-05 12:23 | PRE.ANES_ITS ---
ASA Classification* ASA Classification ASA Classification: 2 and E Assessment & Plan Anesthesia* Anesthesia Assessment Anesthesia Assessment: Discussed sedation and/or anesthesia options, risks, benefits, and alternatives with patient/parents/legal guardian/POA. Questions invited. The patient/parents/legal guardian/POA seems to understand and agrees to proceed with anesthesia plan. Reviewed the physical assessment, medical history, allergy history and patient home medications list prior to surgery/procedure/anesthetic and documented any changes. Performed airway and anesthesia risk assessments. Anesthesia Type Anesthesia Type: General History Source History Obtained from:: Patient and Chart Anesthesia Focused Assessment* Temperature: 97.9 F Pulse Rate: 51 Blood Pressure: 104/61 Respiratory Rate: 16 Pulse Ox: 98 Oxygen Delivery Method: Room Air Airway Assessment Mouth opens: >3 cm Mallampati Score: II Teeth Condition: Intact Neck Range of motion (ROM): Full ROM Labs Anesthesia Preop lab: CBC WBC 7.3 K/mm3 (4.4-11.0) 09/05/24 05:09/05/24 RBC 3.66 M/mm3 (4.2-5.4) L 09/05/24 05:25 09/05/24 Hgb 11.2 g/dL (12.0-15.0) L 09/05/24 05: 5 Hct 33.5 % (37-47) L 09/05/24 05:25 09/05/24 Plt Count 241 K/mm3 (150-450) 09/05/24 05:25 09/05/24 CHEMISTRY Potassium 4.0 mmol/L (3.3-5.1) 09/05/24 05:25 09/05/24 Sodium 141 mmol/L (133-145) 09/05/24 05:25 09/05/24 BUN 9 mg/dL (4-19) 09/05/24 05:25 09/05/24 Creatinine 0.65 mg/dL (0.70-1.20) L 09/05/24 05:25 Glucose 135 mg/dL (70-99) H 09/05/24 05:25 09/05/24 COAG Pre-Assessment Diagnosis/Proposed Procedure Planned Operative Procedure(s): Right ureteroscopy, laser of stone, basket of stone, and right stent placement. 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 When Was Last Pacemaker Check QUESTION #4 FULL TEXT: You/Your Family Experience fever (hyperthermia) with Anesthesia Last Oral Intake Last Oral intake: Last Oral Intake NPO since 07:30 09/05/24 11:33 Meds taken in AM with sips of No 09/05/24 11:33 water? Meds patient instructed to take am of surgery Any additional information?: Yes NPO since: 07:30 (Patient had water at 7:30 AM) Meds taken in AM with sips of water?: Yes PONV PONV - solid fiber paster operator: PONV - solid fiber paster operator Female HX of Motion Sickness HX of N/V After Surgery Non-Smoker Duration of Surgery greater than 60 minutes Number of Risk Factors PONV Score Height & Weight Height & Weight: Anesthesia: Height & Weight Height 5 ft 6.14 in 09/05/24 11:33 Weight: 63.5 kg 09/05/24 11:33 Body Mass Index (BMI) 22.5 09/05/24 11:33 Respiratory Assessment Respiratory Assessment - solid fiber paster operator: Respiratory Tract Infection Hx - solid fiber paster operator Hx Respiratory Tract Infection No 09/05/24 08:14 STOP Sleep Apnea STOP Sleep Apnea - solid fiber paster operator: STOP Sleep Apnea - solid fiber paster operator Hx Hypertension No 09/04/24 22:21 Hx Sleep Apnea No 09/04/24 22:21 CPAP BIPAP Do you snore loudly (louder No 09/04/24 22:21 than talking or can be heard Do you often feel tired/ No 09/04/24 22:21 fatigued/ sleepy during daytime? Has anyone observed you stop No 09/04/24 22:21 breathing during sleep? STOP Results Negative 09/04/24 22:21 QUESTION #5 FULL TEXT : Do you snore loudly (louder than talking or can be heard through closed doors)? Tobacco Use History Tobacco Use History - solid fiber paster operator: Tobacco Use History - solid fiber paster operator Tobacco Use Smoking Status Current every day smoker 09/04/24 22:21 Hx Tobacco Use No 09/04/24 22:21 Years Smoking Packs Smoked per Day Smoking Cessation Date was within the last 15 years Hx Smoking Cessation Date Hx Smoking Cessation Counseling Hematologic Medial History Hematologic Hx - solid fiber paster operator: Hematologic Medical Hx - cardiac catheterization technologist Hx of Blood Transfusion No 09/04/24 22:21 Hx of Transfusion in last 3 No 09/04/24 22:21 Months Date of Last Transfusion (if within last 3 months) Ever experience any problems No 09/04/24 22:21 with transfusion(s)? Specify any problems Hx of Preganancy in last 3 No 09/04/24 22:21 Months Nurse Filling Out Transfusion CSCHLATTE 09/04/24 22:21 & Questions: Date: 09/04/24 09/04/24 22:21 Time: 22:23 09/04/24 22:21 Patient unable to answer at this time (ie. confused, unrespo /Reproduction History /Reproductive History - solid fiber paster operator: /Reproductive Hx- solid fiber paster operator Hx Now No 09/05/24 08:14 Gestational Age (in weeks): EDC: Hx Hx Para Hx Section SAB No 09/05/24 08:14 Active Medications Active Medications: Current Medications Generic Name Dose Route Start Last Admin Trade Name Freq PRN Reason Stop Dose Admin Acetaminophen 650 mg 09/04/24 22:10 09/05/24 03:07 Acetaminophen 325 Mg Tablet PO 650 mg Q4H PRN PRN Administration Fever, pain 1-10 Albuterol Sulfate 2.5 mg 09/04/24 22:10 Albuterol 2.5 Mg/3 Ml Vial.Neb. INHALATION Q2H PRN PRN Dyspnea, wheezing Famotidine 20 mg 09/04/24 22:10 09/05/24 12:18 Famotidine 20 Mg Tablet PO Not Given BID BHARAT Gabapentin 100 mg 09/04/24 22:10 09/05/24 12:18 Gabapentin 100 Mg Capsule PO Not Given TIDCM BHARAT Guaifenesin 20 ml 09/04/24 22:10 Guaifenesin 10 Ml Udc (200mg/10ml) PO Q4H PRN PRN COUGH Hydromorphone HCl 0.5 mg 09/04/24 22:10 09/05/24 08:11 Hydromorphone 0.5 Mg/0.5 Ml Syringe IV 0.5 mg Q3H PRN PRN Administration Pain Score 6-10 Sodium Chloride 1,000 mls @ 100 mls/hr 09/04/24 22:10 09/05/24 08:18 IV 09/05/24 13:09 100 mls/hr .Q10H BHARAT Administration Ceftriaxone Sodium 1 gm in 50 mls @ 100 mls/hr 09/05/24 22:00 Rocephin IV Q24H BHARAT Sodium Chloride 250 mls @ 15 mls/hr 09/04/24 22:17 IV .[id number] PRN Saline Flush Sodium Chloride 250 mls @ 15 mls/hr 09/04/24 22:17 IV .[id number] PRN Additional IVPB Infusion Cefazolin Sodium 2 gm/ Sodium 110 mls @ 200 mls/hr 09/05/24 12:14 Chloride IV 09/05/24 12:46 X1 ONE Ondansetron HCl 4 mg 09/04/24 22:10 Ondansetron 4 Mg/2 Ml Vial IV Q8H PRN PRN NAUSEA/VOMITING Oxycodone HCl 5 mg 09/04/24 22:10 09/05/24 03:07 Oxycodone 5 Mg Tablet PO 5 mg Q4H PRN PRN Administration Pain Score 4-10 Sodium Chloride 10 - 40 ml 09/04/24 22:17 09/05/24 08:11 0.9% Saline Lock 10 Ml Syringe IV 10 ml UD PRN Administration SALINE FLUSH PFSH Medical History Kidney stones Smoker Migraines Psoriasis Tobacco use Home Medications ?Medication ?Instructions ?Recorded ?Last Taken ?Type multivitamin (Daily Multi-Vitamin 1 tab PO DAILY 09/04 Unknown History tablet) Allergy/AdvReac Type Severity Reaction Status Date / Time Penicillins Allergy Hives Verified 09/04/24 17:27 Family History Mother Alcoholic cirrhosis Alcohol abuse Father Cancer Surgical History History of hysterectomy Social History household members: significant other Smoking Status: Current every day smoker tobacco type: cigarettes Smoking packs per day: 0.5 Smoking cigarettes per day: 10.0 alcohol intake: never substance use type: does not use Review of Systems (Anesthesia) ROS Narrative System reviewed and no additional complaints, except as documented.
--- NOTE | 2024-09-05 12:23 | PRE.ANES_ITS ---
ASA Classification* ASA Classification ASA Classification: 2 and E Assessment & Plan Anesthesia* Anesthesia Assessment Anesthesia Assessment: Discussed sedation and/or anesthesia options, risks, benefits, and alternatives with patient/parents/legal guardian/POA. Questions invited. The patient/parents/legal guardian/POA seems to understand and agrees to proceed with anesthesia plan. Reviewed the physical assessment, medical history, allergy history and patient home medications list prior to surgery/procedure/anesthetic and documented any changes. Performed airway and anesthesia risk assessments. Anesthesia Type Anesthesia Type: General History Source History Obtained from:: Patient and Chart Anesthesia Focused Assessment* Temperature: 97.9 F Pulse Rate: 51 Blood Pressure: 104/61 Respiratory Rate: 16 Pulse Ox: 98 Oxygen Delivery Method: Room Air Airway Assessment Mouth opens: >3 cm Mallampati Score: II Teeth Condition: Intact Neck Range of motion (ROM): Full ROM Labs Anesthesia Preop lab: CBC WBC 7.3 K/mm3 (4.4-11.0) 09/05/24 05:09/05/24 RBC 3.66 M/mm3 (4.2-5.4) L 09/05/24 05:25 09/05/24 Hgb 11.2 g/dL (12.0-15.0) L 09/05/24 05: 5 Hct 33.5 % (37-47) L 09/05/24 05:25 09/05/24 Plt Count 241 K/mm3 (150-450) 09/05/24 05:25 09/05/24 CHEMISTRY Potassium 4.0 mmol/L (3.3-5.1) 09/05/24 05:25 09/05/24 Sodium 141 mmol/L (133-145) 09/05/24 05:25 09/05/24 BUN 9 mg/dL (4-19) 09/05/24 05:25 09/05/24 Creatinine 0.65 mg/dL (0.70-1.20) L 09/05/24 05:25 Glucose 135 mg/dL (70-99) H 09/05/24 05:25 09/05/24 COAG Pre-Assessment Diagnosis/Proposed Procedure Planned Operative Procedure(s): Right ureteroscopy, laser of stone, basket of stone, and right stent placement. 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 When Was Last Pacemaker Check QUESTION #4 FULL TEXT: You/Your Family Experience fever (hyperthermia) with Anesthesia Last Oral Intake Last Oral intake: Last Oral Intake NPO since 07:30 09/05/24 11:33 Meds taken in AM with sips of No 09/05/24 11:33 water? 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 - cabin furnishings installer Female HX of Motion Sickness HX of N/V After Surgery Non-Smoker Duration of Surgery greater than 60 minutes Number of Risk Factors PONV Score Height & Weight Height & Weight: Anesthesia: Height & Weight Height 5 ft 6.14 in 09/05/24 11:33 Weight: 63.5 kg 09/05/24 11:33 Body Mass Index (BMI) 22.5 09/05/24 11:33 Respiratory Assessment Respiratory Assessment - cabin furnishings installer: Respiratory Tract Infection Hx - cabin furnishings installer Hx Respiratory Tract Infection No 09/05/24 08:14 STOP Sleep Apnea STOP Sleep Apnea - cabin furnishings installer: STOP Sleep Apnea - cabin furnishings installer Hx Hypertension No 09/04/24 22:21 Hx Sleep Apnea No 09/04/24 22:21 CPAP BIPAP Do you snore loudly (louder No 09/04/24 22:21 than talking or can be heard Do you often feel tired/ No 09/04/24 22:21 fatigued/ sleepy during daytime? Has anyone observed you stop No 09/04/24 22:21 breathing during sleep? STOP Results Negative 09/04/24 22:21 QUESTION #5 FULL TEXT : Do you snore loudly (louder than talking or can be heard through closed doors)? 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 Specify any problems Hx of Preganancy in last 3 No 09/04/24 22:21 Months Nurse Filling Out Transfusion CSCHLATTE 09/04/24 22:21 & Questions: Date: 09/04/24 09/04/24 22:21 Time: 22:23 09/04/24 22:21 Patient unable to answer at this time (ie. 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 INHALATION Q2H PRN PRN Dyspnea, wheezing Famotidine 20 mg 09/04/24 22:10 09/05/24 12:18 Famotidine 20 Mg Tablet PO Not Given BID BHARAT Gabapentin 100 mg 09/04/24 22:10 09/05/24 12:18 Gabapentin 100 Mg Capsule PO Not Given TIDCM HBARAT Guaifenesin 20 ml 09/04/24 22:10 Guaifenesin 10 Ml Udc (200mg/10ml) PO Q4H PRN PRN COUGH Hydromorphone HCl 0.5 mg 09/04/24 22:10 09/05/24 08:11 Hydromorphone 0.5 Mg/0.5 Ml Syringe IV 0.5 mg Q3H PRN PRN Administration Pain Score 6-10 Sodium Chloride 1,000 mls @ 100 mls/hr 09/04/24 22:10 09/05/24 08:18 IV 09/05/24 13:09 100 mls/hr .Q10H BHARAT Administration Ceftriaxone Sodium 1 gm in 50 mls @ 100 mls/hr 09/05/24 22:00 Rocephin IV Q24H BHARAT Sodium Chloride 250 mls @ 15 mls/hr 09/04/24 22:17 IV .[id number] PRN Saline Flush Sodium Chloride 250 mls @ 15 mls/hr 09/04/24 22:17 IV .[id number] PRN Additional IVPB Infusion Cefazolin Sodium 2 gm/ Sodium 110 mls @ 200 mls/hr 09/05/24 12:14 Chloride IV 09/05/24 12:46 X1 ONE Ondansetron HCl 4 mg 09/04/24 22:10 Ondansetron 4 Mg/2 Ml Vial IV Q8H PRN PRN NAUSEA/VOMITING Oxycodone HCl 5 mg 09/04/24 22:10 09/05/24 03:07 Oxycodone 5 Mg Tablet PO 5 mg Q4H PRN PRN Administration Pain Score 4-10 Sodium Chloride 10 - 40 ml 09/04/24 22:17 09/05/24 08:11 0.9% Saline Lock 10 Ml Syringe IV 10 ml UD PRN Administration SALINE FLUSH PFSH Medical History Kidney stones Smoker Migraines Psoriasis Tobacco use Home Medications ?Medication ?Instructions ?Recorded ?Last Taken ?Type multivitamin (Daily Multi-Vitamin 1 tab PO DAILY 09/04 Unknown History tablet) Allergy/AdvReac Type Severity Reaction Status Date / Time Penicillins Allergy Hives Verified 09/04/24 17:27 Family History Mother Alcoholic cirrhosis Alcohol abuse Father Cancer Surgical History History of hysterectomy Social History household members: significant other Smoking Status: Current every day smoker tobacco type: cigarettes Smoking packs per day: 0.5 Smoking cigarettes per day: 10.0 alcohol intake: never substance use type: does not use Review of Systems (Anesthesia) ROS Narrative System reviewed and no additional complaints, except as documented.
[2024-09-05] MEDS: Cefazolin 2 GM in 0.9% Normal Saline (100mL Bag) 100 ML IV (12:33)
--- NOTE | 2024-09-05 14:02 | DCINST_ITS ---
Discharge Instructions Diet Discharge Diet: No restrictions DC O2, CPAP, BIPAP needs Home O2 Discharge instructions: No Dressing / Incision Discharge Activity: Return to Normal Activity and May Not Drive (while taking narcotic pain medications.) Dressing / Incision Call your doctor if you observe: Fever of 101 or Higher Follow Up Care Please Follow Up With: Jeff Rodarte MD When: Call [phone] for appt to remove stent Test Results: Test results from this visit will be discussed in further detail at your follow- up appointment, if applicable. Discharge Plan Admission Admit Date/Time: 09/04/24 20:58 Attending Provider: Arias Izquierdo Primary Care Provider: Care Physician,No Primary Consulting Providers: Jeff Rodarte; Bhumika Abdullahi Discharge Orders/Prescriptions Prescriptions: No Action multivitamin [Daily Multi-Vitamin] Tablet 1 tab PO DAILY Referrals / Follow Up: Care Physician,No Primary [Primary Care Provider] -
--- NOTE | 2024-09-05 14:02 | DCINST_ITS ---
Discharge Instructions Diet Discharge Diet: No restrictions DC O2, CPAP, BIPAP needs Home O2 Discharge instructions: No Dressing / Incision Discharge Activity: Return to Normal Activity and May Not Drive (while taking narcotic pain medications.) Dressing / Incision Call your doctor if you observe: Fever of 101 or Higher Follow Up Care Please Follow Up With: Jeff Rodarte MD When: Call [phone] for appt to remove stent Test Results: Test results from this visit will be discussed in further detail at your follow- up appointment, if applicable. Discharge Plan Admission Admit Date/Time: 09/04/24 20:58 Attending Provider: Arias Izquierdo Primary Care Provider: Care Physician,No Primary Consulting Providers: Jeff Rodarte; Bhumika Abdullahi Discharge Orders/Prescriptions Prescriptions: No Action multivitamin [Daily Multi-Vitamin] Tablet 1 tab PO DAILY Referrals / Follow Up: Care Physician,No Primary [Primary Care Provider] -
--- NOTE | 2024-09-05 14:04 | OP.PCM_ITS ---
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: No Type of Anesthesia: General RN Documented Start/Stop Times: Operation Date: 09/05/24 13:15 Case Time Into Pre-Op 09/05/24 12:02 Out of Pre-Op 09/05/24 13:30 Anesthesia Start 09/05/24 13:33 Into Room 09/05/24 13:33 Procedure Start 09/05/24 13:45 Procedure End 09/05/24 14:02 Procedure Start Time: 13:45 Procedure Stop Time: 14:04 Select all DRAINS/GRAFTS/IMPLANTS that apply: Drains Drain details: 6 Br[place] by 26 Demeter stent right side Estimated Blood Loss: None Specimen collected: No Description of surgery: Patient was taken back to the operating room after smooth induction of anesthesia she was placed in dorsolithotomy position prepped. The urethrovaginal area prepped and draped in usual sterile fashion went in the bladder with a 21 [place] rigid cystourethroscope and the bladder was normal left and right ureteral orifice were normal trigone was normal I then identified the right ureteral orifice try to put a wire up the right ureter but immediately felt obstruction and could not get the wire passes so then I used a Pollick catheter and then put the Pollick catheter up towards the area of obstruction which at that where the stone was and put a wire past this and then I put a wire up into the right kidney once I left the wire in place then I used a 12 [place]ian balloon dilator and very gently balloon dilated the distal right ureter then after this was balloon dilated the left the wire in place and went next the wire with a rigid semirigid ureteroscope was able to get into the distal ureter was able to inspect the distal ureter but I did not see a stone the mucosa was very inflamed lots of bullous edema like there was a stone had been stuck there for a long time but I did not see a stone in the area I inspected several times went up as high as possible with a semirigid did not see stone I then went in with a flexible ureteroscope went all the way up to the kidney inspected kidney inspected upper pole midpole and lower pole kidney did not see a stone work my way down the ureter did not see a stone along the course of the ureter and then inspected across the distal ureter and I check to make sure that the stone had not been impacted into the mucosa I did not see any evidence that the stone was there but there was a lot of inflammation in the distal ureter I left a wire in place and then I put a stent in a 6 Bruneian Bruneian by 26 cm stent once the stent was in good position a coil in the kidney bladder good position she will go home once her pain is under control and follow-up in my office in 2 weeks for cystoscopy stent removal Surgical Findings: Ureter was obstructed could not get the wire past the ureter but I did not find a stone Complications Complications: No Admit VTE Documentation VTE Present on Admission: No VTE Mechan Device Prophylaxis: SCD's VTE Pharm Prophylaxis ordered?: No
--- NOTE | 2024-09-05 14:10 | PCM.POST.ANE ---
Anesthesia: Postop Eval I Current Vital Signs Temperature: 98.6 F Pulse Rate: 85 Blood Pressure: 109/61 Respiratory Rate: 18 Pulse Ox: 97 Assessment Airway patent: Yes Spontaneous unlabored respirations: Yes nausea: No Vomiting: No Anesthesia Complication: No Fluid Hydration Crystalloid volume administer (ml): 800 Total IV fluid infused: 800 Progress Note Anesthesia document: Postop Eval 1 completed: Yes
--- NOTE | 2024-09-05 16:46 | POSTOPAN2_ITS ---
Anesthesia Postop Eval I Sum Postop Eval Completion status Anesthesia document: Postop Eval 1 completed: Yes Anesthesia Postop Eval I Summary Anesthesia Postop Eval I Summary: Anesthesia Postop Eval I: Assessment Summary Airway patent Yes 09/05/24 14:10 FENCE [email or web address].[email or web address] Spontaneous unlabored Yes 09/05/24 14:10 FENCE MAKER.CSIR respirations Mental status nausea No 09/05/24 14:10 FENCE MAKER.CSIR Vomiting No 09/05/24 14:10 FENCE MAKER.CSIR Anesthesia Postop Eval I: Fluid Summary Crystalloid volume administer 800 09/05/24 14:10 FENCE MAKER.CSIR (ml) Colloids volume administered ( ml) Blood Product volume administered (ml) Total IV fluid infused 800 09/05/24 14:10 FENCE MAKER.CSIR Anesthesia Postop Eval I: Summary Notes Anesthesia Complication No 09/05/24 14:10 FENCE MAKER.CSIR Anesthesia Complication Comment: Post-operative progress note Anesthesia: Postop Eval II Evaluation Mental status: Awake Pain Level: 2 nausea: No Vomiting: No
--- NOTE | 2024-09-05 16:46 | POSTOPAN2_ITS ---
Anesthesia Postop Eval I Sum Postop Eval Completion status Anesthesia document: Postop Eval 1 completed: Yes Anesthesia Postop Eval I Summary Anesthesia Postop Eval I Summary: Anesthesia Postop Eval I: Assessment Summary Airway patent Yes 09/05/24 14:10 KOSHER DIETARY SERVICE SUPERVISOR.CSIR Spontaneous unlabored Yes 09/05/24 14:10 KOSHER DIETARY SERVICE SUPERVISOR.CSIR respirations Mental status nausea No 09/05/24 14:10 KOSHER DIETARY SERVICE SUPERVISOR.CSIR Vomiting No 09/05/24 14:10 KOSHER DIETARY SERVICE SUPERVISOR.CSIR Anesthesia Postop Eval I: Fluid Summary Crystalloid volume administer 800 09/05/24 14:10 KOSHER DIETARY SERVICE SUPERVISOR.CSIR (ml) Colloids volume administered ( ml) Blood Product volume administered (ml) Total IV fluid infused 800 09/05/24 14:10 KOSHER DIETARY SERVICE SUPERVISOR.CSIR Anesthesia Postop Eval I: Summary Notes Anesthesia Complication No 09/05/24 14:10 KOSHER DIETARY SERVICE SUPERVISOR.CSIR Anesthesia Complication Comment: Post-operative progress note Anesthesia: Postop Eval II Evaluation Mental status: Awake Pain Level: 2 nausea: No Vomiting: No
--- NOTE | 2024-09-05 16:46 | PCM.POSTANE2 ---
Anesthesia Postop Eval I Sum Postop Eval Completion status Anesthesia document: Postop Eval 1 completed: Yes Anesthesia Postop Eval I Summary Anesthesia Postop Eval I Summary: Anesthesia Postop Eval I: Assessment Summary Airway patent Yes 09/05/24 14:10 LAST INSERTER.CSIR Spontaneous unlabored Yes 09/05/24 14:10 LAST INSERTER.CSIR respirations Mental status nausea No 09/05/24 14:10 LAST INSERTER.CSIR Vomiting No 09/05/24 14:10 LAST INSERTER.CSIR Anesthesia Postop Eval I: Fluid Summary Crystalloid volume administer 800 09/05/24 14:10 LAST INSERTER.CSIR (ml) Colloids volume administered ( ml) Blood Product volume administered (ml) Total IV fluid infused 800 09/05/24 14:10 LAST INSERTER.CSIR Anesthesia Postop Eval I: Summary Notes Anesthesia Complication No 09/05/24 14:10 LAST INSERTER.CSIR Anesthesia Complication Comment: Post-operative progress note Anesthesia: Postop Eval II Evaluation Mental status: Awake Pain Level: 2 nausea: No Vomiting: No
--- NOTE | 2024-09-05 16:46 | PCM.POSTANE2 ---
Anesthesia Postop Eval I Sum Postop Eval Completion status Anesthesia document: Postop Eval 1 completed: Yes Anesthesia Postop Eval I Summary Anesthesia Postop Eval I Summary: Anesthesia Postop Eval I: Assessment Summary Airway patent Yes 09/05/24 14:10 LEAN MANUFACTURING ENGINEER.CSIR Spontaneous unlabored Yes 09/05/24 14:10 LEAN MANUFACTURING ENGINEER.CSIR respirations Mental status nausea No 09/05/24 14:10 LEAN MANUFACTURING ENGINEER.CSIR Vomiting No 09/05/24 14:10 LEAN MANUFACTURING ENGINEER.CSIR Anesthesia Postop Eval I: Fluid Summary Crystalloid volume administer 800 09/05/24 14:10 LEAN MANUFACTURING ENGINEER.CSIR (ml) Colloids volume administered ( ml) Blood Product volume administered (ml) Total IV fluid infused 800 09/05/24 14:10 LEAN MANUFACTURING ENGINEER.CSIR Anesthesia Postop Eval I: Summary Notes Anesthesia Complication No 09/05/24 14:10 LEAN MANUFACTURING ENGINEER.CSIR Anesthesia Complication Comment: Post-operative progress note Anesthesia: Postop Eval II Evaluation Mental status: Awake Pain Level: 2 nausea: No Vomiting: No
--- NOTE | 2024-09-05 16:48 | PCM.PN.HOSP ---
Reason for Visit Reason for Visit: Diagnoses Unspecified hydronephrosis (09/04/24) Calculus of kidney (09/04/24) Urinary tract infection, site not specified (09/04/24) Unspecified abdominal pain (09/04/24) Laceration without foreign body of unspecified finger without damage to nail, initial encounter (09/04/24) Subjective Subjective Patient was seen and examined today, at the time my examination this morning she was pain-free, I gave her 1 dose of IV Lasix and attempt to cause a diuresis. Patient went to the OR today for cystoscopy and stent placement in the right ureter, a stone was not visualized however so it is unknown at this time whether she actually passed the stone or it was possibly missed. Patient is concerned about going home and having a repeat episode of pain. Objective Data Objective Data Vital Signs: Vital Signs Temp Pulse Resp BP Pulse Ox O2 Del Method 97.7 F L 62 18 105/75 97 Room Air 09/05/24 14:53 09/05/24 14:53 09/05/24 14:53 09/05/24 14:53 09/05/24 14:53 09/05/24 14:53 Oxygen Delivery Method Room Air Weight: 63.5 kg Body Mass Index (BMI) 22.5 Intake & Output: Intake and Output for Last 24 Hours 09/03/24 09/04/24 09/05/24 23:59 23:59 23:59 Intake Total 1300 / 1300 1286.67 / 1286.67 Balance 1300 / 1300 1286.67 / 1286.67 Lab / Micro Data 09/05/24 05:25 09/05/24 05:25 Labs: Laboratory Results - last 24 hr 09/04/24 17:36: WBC 8.3, RBC 4.17 L, Hgb 12.8, Hct 38.0, MCV 91.1, MCH 30.7, MCHC 33.7, RDW Std Deviation 47.6 H, RDW Coeff of Meera 14.3, Plt Count 310, MPV 11.3, Immature Gran % (Auto) 0.400, Neut % (Auto) 54.3, Lymph % (Auto) 32.5, [place] % (Auto) 11.0 H, Eos % (Auto) 0.8, Baso % (Auto) 1.0, Absolute Neuts (auto) 4.5, Absolute Lymphs (auto) 2.69, Nucleated RBC % 0, Sodium 139, Potassium 3.7, Chloride 101, Carbon Dioxide 24.7, Anion Gap 13, BUN 12, Creatinine 0.70, Estim Creat Clear Calc 86.01, Est GFR (MDRD) Non-Af 102, BUN/Creatinine Ratio 16.8, Glucose 111 H, Calcium 9.1 09/04/24 19:55: Urine Color Yellow, Urine Clarity Clear, Urine pH 5.0, Ur Specific [place] 1.025, Urine Protein 15 H, Urine Glucose (UA) Normal, Urine Ketones Negative, Urine Occult Blood 25 H, Urine Nitrite Negative, Urine Bilirubin Negative, Urine Urobilinogen Normal, Ur Leukocyte Esterase 500 H, Urine RBC 0 SEEN, Urine WBC 50-100 SEEN, Ur Squamous Epith Cells 0-5 SEEN, Calcium Oxalate Crystal 1+, Urine Bacteria 2+, Urine Mucus 2+ 09/05/24 05:25: WBC 7.3, RBC 3.66 L, Hgb 11.2 L, Hct 33.5 L, MCV 91.5, MCH 30.6, MCHC 33.4, RDW Std Deviation 48.7 H, RDW Coeff of Meera 14.5, Plt Count 241, MPV 11.0, Immature Gran % (Auto) 0.300, Neut % (Auto) 64.3, Lymph % (Auto) 23.4, [place] % (Auto) 10.7 H, Eos % (Auto) 0.8, Baso % (Auto) 0.5, Absolute Neuts (auto) 4.7, Absolute Lymphs (auto) 1.70, Nucleated RBC % 0, Sodium 141, Potassium 4.0, Chloride 110 H, Carbon Dioxide 21.0, Anion Gap 10, BUN 9, Creatinine 0.65 L, Estim Creat Clear Calc 92.62, Est GFR (MDRD) Non-Af 105, BUN/Creatinine Ratio 14.1, Glucose 135 H, Calcium 8.2, Total Bilirubin 0.27, AST 21, ALT 18, Alkaline Phosphatase 54, Total Protein 5.4 L, Albumin 3.5, Globulin 1.9 L, Albumin/Globulin Ratio 1.9 Radiography Diagnostic Testing: Radiology Impression Abdomen/Pelvis CT 09/04/24 17:56 IMPRESSION: Stone in the right distal ureter measuring 3 mm resulting in mild upstream hydroureteronephrosis. Reading Location: [facility] Physical Exam Const alert, oriented x3, no apparent distress, average body habitus and healthy appearing General Appearance: cooperative, well kempt and well developed Orientation / Consciousness: awake, oriented to person, oriented to place and oriented to time HEENT normocephalic, head/scalp atraumatic and moist oral mucous membranes Eyes PERRL, EOMs intact bilaterally and conjunctivae normal Neck supple, no JVD, thyroid normal and no carotid bruits General: trachea midline Resp normal respiratory effort, no retractions, no use of accessory muscles and clear to auscultation bilaterally Auscultation: Negative for rales, rhonchi or wheezes Cardio regular rate, regular rhythm, S1 normal heart sound, S2 normal heart sound, no murmurs, no rub and no gallops GI normal to inspection, nondistended, normoactive bowel sounds, soft to palpation, non-tender and non-distended Extremity no clubbing, cyanosis or edema Skin no rashes or lesions noted General Skin Exam: no breakdown Neuro oriented x3, CN's II-XII intact bilaterally, moves all extremities, no focal motor deficits and no sensory deficits noted Sensorium / Orientation: awake and alert Speech: speech normal Psych affect normal Assessment & Plan Assessment/Plan (1) Right ureteral stone: PLAN: Plan 1. Right ureteral stone with renal colic-status post stent placement in the right ureter-patient will be given analgesics as needed, she will be assessed tomorrow for possible discharge home, she will need follow-up with urology #2 urinary tract infection secondary to right ureteral stone-patient remains on ceftriaxone Total clinical time spent by myself addressing the patient's medical issues, reviewing all of her data, and collaborating with patient's care team: 25 minutes Charges/Coding Visit Charges Inpatient E&M: [id number] [facility] Hosp L1
[2024-09-06 00:48] VITALS: BP 103/68; PULSE 70; RESP 18; TEMP 36.4; O2SAT 97
[2024-09-06 03:29] VITALS: BMI 21.7
[2024-09-06 04:24] VITALS: BP 127/72; PULSE 63; RESP 17; TEMP 36.5; O2SAT 97
--- NOTE | 2024-09-06 07:34 | PCM.CONS.U ---
HPI Consult Data Date of Consult: 09/06/24 HPI Narrative HPI Narrative: Status post ureteroscopy yesterday was not able to see the stone either the stone is embedded in the wall the ureter or the stone is passed and just was not there so I can have her do a CAT scan this morning if it is clear we can send her home if the CAT scan still shows a stone then I will put her on for surgery tomorrow to try to get stone out. PFSH Medical History Kidney stones Smoker Migraines Psoriasis Tobacco use Home Medications ?Medication ?Instructions ?Recorded ?Last Taken ?Type multivitamin (Daily Multi-Vitamin 1 tab PO DAILY 09/04/24 Unknown History tablet) Allergy/AdvReac Type Severity Reaction Status Date / Time Penicillins Allergy Hives Verified 09/04/24 17:27 Family History Mother Alcoholic cirrhosis Alcohol abuse Father Cancer Surgical History History of hysterectomy Social History household members: significant other Smoking Status: Current every day smoker tobacco type: cigarettes Smoking packs per day: 0.5 Smoking cigarettes per day: 10.0 alcohol intake: never substance use type: does not use Lab / Micro Data 09/05/24 05:25 09/05/24 05:25
--- NOTE | 2024-09-06 07:35 | CT_ITS ---
EXAM: CT Abdomen and Pelvis Without Intravenous Contrast CLINICAL INDICATION: URETERAL STONE S/P STENT RIGHT TECHNIQUE: Axial computed tomography images of the abdomen and pelvis without intravenous contrast. This CT exam was performed using one or more of the following dose reduction techniques: automated exposure control, adjustment of the mA and/or kV according to patient size, and/or use of iterative reconstruction technique. COMPARISON: CT Abdomen Pelvis dated 09/04/2024 FINDINGS: LUNG BASES: Unremarkable. No mass. No consolidation. ABDOMEN: LIVER: Unremarkable. GALLBLADDER AND BILE DUCTS: Unremarkable. No calcified stones. No ductal dilation. PANCREAS: Unremarkable. No ductal dilation. SPLEEN: Unremarkable. No splenomegaly. ADRENALS: Unremarkable. No mass. KIDNEYS AND URETERS: Status post double-J right ureteral stent. Decreased right perinephric fat stranding and hydroureteronephrosis. STOMACH AND BOWEL: Unremarkable. No obstruction. No mucosal thickening. PELVIS: APPENDIX: No findings to suggest acute appendicitis. BLADDER: Unremarkable. No stones. REPRODUCTIVE: Hysterectomy. ABDOMEN and PELVIS: INTRAPERITONEAL SPACE: Unremarkable. No free air. No significant fluid collection. BONES/JOINTS: Partially visualized T9 vertebral body hemangioma. No acute fracture. No dislocation. SOFT TISSUES: Umbilical hernia containing fat. VASCULATURE: Scattered calcified atherosclerotic disease of aorta. No abdominal aortic aneurysm. LYMPH NODES: Unremarkable. No enlarged lymph nodes. CT/Abdomen/Pelvis without Cont IMPRESSION: 1. Status post double-J right ureteral stent. Decreased right perinephric fat stranding and hydroureteronephrosis. 2. Umbilical hernia containing fat. Reading Location: [facility]
[2024-09-06 08:22] VITALS: BP 127/78; PULSE 57; RESP 16; TEMP 36.8; O2SAT 100
[2024-09-06] MEDS: HYDROmorphone 0.5 MG/0.5 ML SYRINGE IV (08:29)
[2024-09-06] MEDS: 0.9% Saline Lock 10 ML Syringe IV ×2 (08:30→21:25)
--- NOTE | 2024-09-06 11:45 | PCM.PN.HOSP ---
Reason for Visit Reason for Visit: Diagnoses Unspecified hydronephrosis (09/04/24) Calculus of kidney (09/04/24) Calculus of ureter (09/04/24) Urinary tract infection, site not specified (09/04/24) Unspecified abdominal pain (09/04/24) Laceration without foreign body of unspecified finger without damage to nail, initial encounter (09/04/24) Subjective Subjective Patient is a 54-year-old lady who presented with sudden onset of right-sided flank pain imaging studies did show Stone in the right distal ureter measuring 3 mm resulting in mild upstream hydroureteronephrosis. Objective Data Objective Data Vital Signs: Vital Signs Temp Pulse Resp BP Pulse Ox O2 Del Method 98.3 F 57 L 16 127/78 H 100 Room Air 09/06/24 08:22 09/06/24 08:22 09/06/24 08:22 09/06/24 08:22 09/06/24 08:22 09/06/24 08:22 Oxygen Delivery Method Room Air Weight: 61.2 kg Body Mass Index (BMI) 21.7 Intake & Output: Intake and Output for Last 24 Hours 09/04/24 09/05/24 09/06/24 23:59 23:59 23:59 Intake Total 1300 / 1300 2776.67 / 2776.67 340 / 340 Output Total 800 / 800 900 / 900 Balance 1300 / 1300 1976.67 / 1976.67 -560 / -560 Lab / Micro Data 09/05/24 05:25 09/05/24 05:25 Micro: Microbiology 09/04/24 19:55 Urine, Midstream Urine Culture - Preliminary Streptococcus agalactiae (B) Mixed Gram Pos & Gram Neg Org Radiography Diagnostic Testing: Radiology Impression Abdomen/Pelvis CT 09/06/24 07:35 IMPRESSION: 1. Status post double-J right ureteral stent. Decreased right perinephric fat stranding and hydroureteronephrosis. 2. Umbilical hernia containing fat. Reading Location: [facility] Physical Exam Narrative GENERAL: cooperative HEENT: Atraumatic; normocephalic EYES; Anicteric, Normal Conjunctiva NECK; supple, normal thyroid, RESPIRATORY: Diminished to auscultation CARDIOVASCULAR: Regular S1 S2, GI: soft, normoactive bowel sounds, : Right-sided renal angle tenderness; EXTREMITIES: No edema, no clubbing, MUSCULOSKELETAL: no muscle wasting NEURO: Awake; no lateralizing signs. SKIN: No Rash PSYCH; Flat affect Assessment & Plan Assessment/Plan (1) Right ureteral stone: PLAN: Plan Patient is a 54-year-old lady who presented with sudden onset of right-sided flank pain imaging studies did show Stone in the right distal ureter measuring 3 mm resulting in mild upstream hydroureteronephrosis. 1. Right flank pain ? imaging studies obtained on admission did show did show Stone in the right distal ureter measuring 3 mm resulting in mild upstream hydroureteronephrosis. Patient was seen in consultation by Dr Rodarte with urology who did perform Cystoscopy right ureteroscopy balloon dilation of the ureter and right stent placement on 09/05/2024. Patient continues to experience pain. Subsequent imaging studies obtained on 09/06/2024 demonstrated Status post double-J right ureteral stent. Decreased right perinephric fat stranding and hydroureteronephrosis. Plan is for patient to undergo repeat surgical intervention on 09/07/2024 2. Acute cystitis ? Present on admission patient was started on ceftriaxone urine culture sent 3. DVT prophylaxis ?Low risk to encourage ambulation Time spent in the patient's overall evaluation,decision-making process, review of diagnostic data, adjustment of management, discussion with other providers, nursing nursing and ancillary staff involved in patient's care documentation, 36 Minutes Charges/Coding Visit Charges Inpatient E&M: 90333 Subs Hosp L2
[2024-09-06 16:03] VITALS: BP 119/72; PULSE 55; RESP 16; TEMP 36.3; O2SAT 99
[2024-09-06 21:24] VITALS: BP 135/72; PULSE 71; RESP 18; TEMP 36.8; O2SAT 99
[2024-09-07] VITALS (12 sets, daily range): BP systolic 94–131; BP diastolic 61–79; PULSE 54–75; RESP 16–18; TEMP 36.4–36.8; O2SAT 92–99; BMI 22.5; BMI 22.6
[2024-09-07 06:18] LABS: Hematocrit 37.2 % (37-47); Hemoglobin 12.5 g/dL (12.0-15.0); Immature Granulocytes Count 0.020 X10^3/uL (0.0-0.0); Mean Corp Hgb Conc 33.6 g/dL (32-36); Mean Corpuscular Volume 91.0 fL (81-99); Mean Platelet Vol. 10.9 fl (6.2-12.0); NRBC Flagged by Analyzer 0 % (0-5); Platelet Count 279 K/mm3 (150-450); RBC Distribution Width CV 14.6 % (11.6-14.6); RBC Distribution Width SD 48.8 fl (35.1-43.9); Red Blood Count 4.09 M/mm3 (4.2-5.4); White Blood Count 8.3 K/mm3 (4.4-11.0)
--- NOTE | 2024-09-07 07:22 | PCM.PN.HOSP ---
Reason for Visit Reason for Visit: Diagnoses Unspecified hydronephrosis (09/06/24) Calculus of kidney (09/06/24) Calculus of ureter (09/06/24) Urinary tract infection, site not specified (09/06/24) Unspecified abdominal pain (09/06/24) Laceration without foreign body of unspecified finger without damage to nail, initial encounter (09/06/24) Subjective Subjective Patient seen pain is tolerable scheduled to undergo surgical intervention regarding her nephrolithiasis by Dr Aster wynn [email or web address] Objective Data Objective Data Vital Signs: Vital Signs Temp Pulse Resp BP Pulse Ox O2 Del Method 98.1 F 58 L 16 111/66 99 Room Air 09/07/24 04:42 09/07/24 04:42 09/07/24 04:42 09/07/24 04:42 09/07/24 04:42 09/07/24 04:42 Oxygen Delivery Method Room Air Weight: 63.6 kg Body Mass Index (BMI) 22.5 Intake & Output: Intake and Output for Last 24 Hours 09/05/24 09/06/24 09/07/24 23:59 23:59 23:59 Intake Total 2776.67 / 2776.67 790 / 790 Output Total 800 / 800 900 / 900 2400 / 2400 Balance 1975. / 1975. -110 / -110 -2400 / -2400 Lab / Micro Data 09/07/24 05:41 09/07/24 05:41 Labs: Laboratory Results - last 24 hr 09/07/24 05:41: WBC 8.3, RBC 4.09 L, Hgb 12.5, Hct 37.2, MCV 91.0, MCH 30.6, MCHC 33.6, RDW Std Deviation 48.8 H, RDW Coeff of Meera 14.6, Plt Count 279, MPV 10.9, Immature Gran % (Auto) 0.200, Neut % (Auto) 60.4, Lymph % (Auto) 29.0, [place] % (Auto) 8.3, Eos % (Auto) 1.5, Baso % (Auto) 0.6, Absolute Neuts (auto) 5.0, Absolute Lymphs (auto) 2.40, Nucleated RBC % 0 Micro: Microbiology 09/04/24 19:55 Urine, Midstream Urine Culture - Preliminary Streptococcus agalactiae (B) Mixed Gram Pos & Gram Neg Org Radiography Diagnostic Testing: Radiology Impression Abdomen/Pelvis CT 09/06/24 07:35 IMPRESSION: 1. Status post double-J right ureteral stent. Decreased right perinephric fat stranding and hydroureteronephrosis. 2. Umbilical hernia containing fat. Reading Location: [facility] Physical Exam Narrative GENERAL: cooperative HEENT: Atraumatic; normocephalic EYES; Anicteric, Normal Conjunctiva NECK; supple, normal thyroid, RESPIRATORY: Diminished to auscultation CARDIOVASCULAR: Regular S1 S2, GI: soft, normoactive bowel sounds, : Right-sided renal angle tenderness; EXTREMITIES: No edema, no clubbing, MUSCULOSKELETAL: no muscle wasting NEURO: Awake; no lateralizing signs. SKIN: No Rash PSYCH; Flat affect Assessment & Plan Assessment/Plan (1) Right ureteral stone: PLAN: Plan Patient is a 54-year-old lady who presented with sudden onset of right-sided flank pain imaging studies did show Stone in the right distal ureter measuring 3 mm resulting in mild upstream hydroureteronephrosis. 1. Right flank pain ? imaging studies obtained on admission did show did show Stone in the right distal ureter measuring 3 mm resulting in mild upstream hydroureteronephrosis. Patient was seen in consultation by Dr Rodarte with urology who did perform Cystoscopy right ureteroscopy balloon dilation of the ureter and right stent placement on 09/05/2024. Patient continues to experience pain. Subsequent imaging studies obtained on 09/06/2024 demonstrated Status post double-J right ureteral stent. Decreased right perinephric fat stranding and hydroureteronephrosis. Plan is for patient to undergo repeat surgical intervention on 09/07/2024 ? 09/07/2024;Patient seen pain is tolerable scheduled to undergo surgical intervention regarding her nephrolithiasis by Dr Rodarte this a.m.. Started patient IV fluids after patient was kept n.p.o. after med 2. Acute cystitis ? Present on admission patient was started on ceftriaxone urine culture sent ? Urine cultures came back positive for nonsignificant growth of Streptococcus agalactiae 3. DVT prophylaxis ?Low risk to encourage ambulation Time spent in the patient's overall evaluation,decision-making process, review of diagnostic data, adjustment of management, discussion with other providers, nursing nursing and ancillary staff involved in patient's care documentation, 35 Minutes Charges/Coding Visit Charges Inpatient E&M: 38585 Subs Hosp L2
[2024-09-07 08:17] LABS: Anion Gap 12 (5-15); BUN 10 mg/dL (4-19); BUN/Creat Ratio 15.6 RATIO (10-20); Calcium,Total 8.8 mg/dL (7.6-11.0); Carbon Dioxide 22.3 mmol/L (21.0-32.0); Chloride 107 mmol/L (98-108); Estimated Creatinine Clearance 98.70 ml/min (50-250); Glucose 93 mg/dL (70-99); Magnesium 2.2 mg/dL (1.5-2.2); Potassium 4.4 mmol/L (3.3-5.1)
--- NOTE | 2024-09-07 12:02 | CASEMGMT ---
Dx: Intractable Flank Pain, Right Distal Calculus LACE: 1 6-Clicks: 24 Medical record reviewed and patient evaluated for identification of discharge planning needs. Based on this review, at this time criteria are not present to indicate a need for discharge planning. Will remain available to assist with discharge planning needs as identified or requested.
--- NOTE | 2024-09-07 16:24 | PRE.ANES_ITS ---
ASA Classification* ASA Classification ASA Classification: 2 Assessment & Plan Anesthesia* Anesthesia Assessment Anesthesia Assessment: Discussed sedation and/or anesthesia options, risks, benefits, and alternatives with patient/parents/legal guardian/POA. Questions invited. The patient/parents/legal guardian/POA seems to understand and agrees to proceed with anesthesia plan. Reviewed the physical assessment, medical history, allergy history and patient home medications list prior to surgery/procedure/anesthetic and documented any changes. Performed airway and anesthesia risk assessments. Anesthesia Type Anesthesia Type: General History Source History Obtained from:: Patient and Chart Anesthesia Focused Assessment* Temperature: 98.3 F Pulse Rate: 54 Blood Pressure: 99/66 Respiratory Rate: 16 Pulse Ox: 96 Airway Assessment Mouth opens: >3 cm Mallampati Score: III Teeth Condition: Intact Neck Range of motion (ROM): Full ROM Labs Anesthesia Preop lab: CBC WBC 8.3 K/mm3 (4.4-11.0) 09/07/24 05:09/07/24 RBC 4.09 M/mm3 (4.2-5.4) L 09/07/24 05:41 09/07/24 Hgb 12.5 g/dL (12.0-15.0) 09/07/24 05:41 09/07/24 Hct 37.2 % (37-47) 09/07/24 05:41 09/07/24 Plt Count 279 K/mm3 (150-450) 09/07/24 05:41 09/07/24 CHEMISTRY Potassium 4.4 mmol/L (3.3-5.1) 09/07/24 05:41 09/07/24 Sodium 141 mmol/L (133-145) 09/07/24 05:41 09/07/24 Magnesium 2.2 mg/dL (1.5-2.2) 09/07/24 05:09/07/24 Phosphorus 3.3 mg/dL (2.7-4.5) 09/07/24 05:41 09/07/24 BUN 10 mg/dL (4-19) 09/07/24 05:41 09/07/24 Creatinine 0.61 mg/dL (0.70-1.20) L 09/07/24 05:41 Glucose 93 mg/dL (70-99) 09/07/24 05:41 09/07/24 COAG Pre-Assessment Diagnosis/Proposed Procedure Planned Operative Procedure(s): Right ureteroscopy, basket of stone, and possible right stent placement. Anesthesia History Anesthesia History - heat reader: Anesthesia History - heat reader Hx Hospitalization Any Problems With Anesthesia No 09/05/24 08:14 Cholinesterase deficiency No 09/05/24 08:14 You/Your Family Experience No 09/05/24 08:14 fever (hyperthermia) with Relationship Recent Exposure to Contagious No 09/05/24 08:14 Disease Does patient have nerve No 09/05/24 08:14 stimulator Patient instructed to have device shut off --Does patient have Pacemaker No 09/07/24 14:30 or ICD? When Was Last Pacemaker Check QUESTION #4 FULL TEXT: You/Your Family Experience fever (hyperthermia) with Anesthesia Last Oral Intake Last Oral intake: Last Oral Intake NPO since 00:00 09/07/24 14:30 Meds taken in AM with sips of Yes 09/07/24 14:30 water? Meds patient instructed to oxy 1215 09/07/24 14:30 take am of surgery PONV PONV - heat reader: PONV - heat reader Female HX of Motion Sickness HX of N/V After Surgery Non-Smoker Duration of Surgery greater than 60 minutes Number of Risk Factors PONV Score Height & Weight Height & Weight: Anesthesia: Height & Weight Height 5 ft 6 in 09/07/24 14:30 Weight: 63.6 kg 09/07/24 14:30 Body Mass Index (BMI) 22.6 09/07/24 14:30 Respiratory Assessment Respiratory Assessment - heat reader: Respiratory Tract Infection Hx - heat reader Hx Respiratory Tract Infection No 09/05/24 08:14 STOP Sleep Apnea STOP Sleep Apnea - heat reader: STOP Sleep Apnea - heat reader Hx Hypertension No 09/04/24 22:21 Hx Sleep Apnea No 09/04/24 22:21 CPAP BIPAP Do you snore loudly (louder No 09/04/24 22:21 than talking or can be heard Do you often feel tired/ No 09/04/24 22:21 fatigued/ sleepy during daytime? Has anyone observed you stop No 09/04/24 22:21 breathing during sleep? STOP Results Negative 09/05/24 14:10 QUESTION #5 FULL TEXT : Do you snore loudly (louder than talking or can be heard through closed doors)? Tobacco Use History Tobacco Use History - heat reader: Tobacco Use History - heat reader Tobacco Use Smoking Status Current every day smoker 09/04/24 22:21 Hx Tobacco Use No 09/04/24 22:21 Years Smoking Packs Smoked per Day Smoking Cessation Date was within the last 15 years Hx Smoking Cessation Date Hx Smoking Cessation Counseling Hematologic Medial History Hematologic Hx - heat reader: Hematologic Medical Hx - cloth dyeing range tender Hx of Blood Transfusion No 09/04/24 22:21 Hx of Transfusion in last 3 No 09/04/24 22:21 Months Date of Last Transfusion (if within last 3 months) Ever experience any problems No 09/04/24 22:21 with transfusion(s)? Specify any problems Hx of Preganancy in last 3 No 09/04/24 22:21 Months Nurse Filling Out Transfusion [facility]TE 09/04/24 22:21 & Questions: Date: 09/04/24 09/04/24 22:21 Time: 22:23 09/04/24 22:21 Patient unable to answer at this time (ie. confused, unrespo /Reproduction History /Reproductive History - heat reader: /Reproductive Hx- heat reader Hx Now No 09/05/24 08:14 Gestational Age (in weeks): EDC: Hx Hx Para Hx Section SAB No 09/05/24 08:14 Active Medications Active Medications: Current Medications Generic Name Dose Route Start Last Admin Trade Name Freq PRN Reason Stop Dose Admin Acetaminophen 650 mg 09/04/24 22:10 09/06/24 20:38 Acetaminophen 325 Mg Tablet PO 650 mg Q4H PRN PRN Administration Fever, pain 1-10/10 Albuterol Sulfate 2.5 mg 09/04/24 22:10 Albuterol 2.5 Mg/3 Ml Vial.Neb. INHALATION Q2H PRN PRN Dyspnea, wheezing Hydromorphone HCl 0.5 mg 09/04/24 22:10 09/06/24 08:29 Hydromorphone 0.5 Mg/0.5 Ml Syringe IV 0.5 mg Q3H PRN PRN Administration Pain Score 6-10 Ceftriaxone Sodium 1 gm in 50 mls @ 100 mls/hr 09/05/24 22:00 09/06/24 21:56 Rocephin IV Infused Q24H BHARAT Infusion Sodium Chloride 250 mls @ 15 mls/hr 09/04/24 22:17 IV .[id number] PRN Saline Flush Sodium Chloride 250 mls @ 15 mls/hr 09/04/24 22:17 IV .[id number] PRN Additional IVPB Infusion Ondansetron HCl 4 mg 09/04/24 22:10 Ondansetron 4 Mg/2 Ml Vial IV Q8H PRN PRN NAUSEA/VOMITING Oxycodone HCl 5 mg 09/04/24 22:10 09/07/24 12:14 Oxycodone 5 Mg Tablet PO 5 mg Q4H PRN PRN Administration Pain Score 4-10 Sodium Chloride 10 - 40 ml 09/04/24 22:17 09/06/24 21:25 0.9% Saline Lock 10 Ml Syringe IV 10 ml UD PRN Administration SALINE FLUSH PFSH Medical History Kidney stones Smoker Migraines Psoriasis Tobacco use Home Medications ?Medication ?Instructions ?Recorded ?Last Taken ?Type multivitamin (Daily Multi-Vitamin 1 tab PO DAILY 09/04 Unknown History tablet) Allergy/AdvReac Type Severity Reaction Status Date / Time Penicillins Allergy Hives Verified 09/04/24 17:27 Family History Mother Alcoholic cirrhosis Alcohol abuse Father Cancer Surgical History (Updated 09/07/24 @ 16:[address] Reji Banks MD) S/P cystoscopy with ureteral stent placement History of hysterectomy Social History household members: significant other Smoking Status: Current every day smoker tobacco type: cigarettes Smoking packs per day: 0.5 Smoking cigarettes per day: 10.0 alcohol intake: never substance use type: does not use Review of Systems (Anesthesia) ROS Narrative System reviewed and no additional complaints, except as documented.
--- NOTE | 2024-09-07 16:24 | PRE.ANES_ITS ---
ASA Classification* ASA Classification ASA Classification: 2 Assessment & Plan Anesthesia* Anesthesia Assessment Anesthesia Assessment: Discussed sedation and/or anesthesia options, risks, benefits, and alternatives with patient/parents/legal guardian/POA. Questions invited. The patient/parents/legal guardian/POA seems to understand and agrees to proceed with anesthesia plan. Reviewed the physical assessment, medical history, allergy history and patient home medications list prior to surgery/procedure/anesthetic and documented any changes. Performed airway and anesthesia risk assessments. Anesthesia Type Anesthesia Type: General History Source History Obtained from:: Patient and Chart Anesthesia Focused Assessment* Temperature: 98.3 F Pulse Rate: 54 Blood Pressure: 99/66 Respiratory Rate: 16 Pulse Ox: 96 Airway Assessment Mouth opens: >3 cm Mallampati Score: III Teeth Condition: Intact Neck Range of motion (ROM): Full ROM Labs Anesthesia Preop lab: CBC WBC 8.3 K/mm3 (4.4-11.0) 09/07/24 05:09/07/24 RBC 4.09 M/mm3 (4.2-5.4) L 09/07/24 05:41 09/07/24 Hgb 12.5 g/dL (12.0-15.0) 09/07/24 05:41 09/07/24 Hct 37.2 % (37-47) 09/07/24 05:41 09/07/24 Plt Count 279 K/mm3 (150-450) 09/07/24 05:41 09/07/24 CHEMISTRY Potassium 4.4 mmol/L (3.3-5.1) 09/07/24 05:41 09/07/24 Sodium 141 mmol/L (133-145) 09/07/24 05:41 09/07/24 Magnesium 2.2 mg/dL (1.5-2.2) 09/07/24 05:09/07/24 Phosphorus 3.3 mg/dL (2.7-4.5) 09/07/24 05:41 09/07/24 BUN 10 mg/dL (4-19) 09/07/24 05:41 09/07/24 Creatinine 0.61 mg/dL (0.70-1.20) L 09/07/24 05:41 Glucose 93 mg/dL (70-99) 09/07/24 05:41 09/07/24 COAG Pre-Assessment Diagnosis/Proposed Procedure Planned Operative Procedure(s): Right ureteroscopy, basket of stone, and possible right stent placement. Anesthesia History Anesthesia History - center medical director: Anesthesia History - center medical director Hx Hospitalization Any Problems With Anesthesia No 09/05/24 08:14 Cholinesterase deficiency No 09/05/24 08:14 You/Your Family Experience No 09/05/24 08:14 fever (hyperthermia) with Relationship Recent Exposure to Contagious No 09/05/24 08:14 Disease Does patient have nerve No 09/05/24 08:14 stimulator Patient instructed to have device shut off --Does patient have Pacemaker No 09/07/24 14:30 or ICD? When Was Last Pacemaker Check QUESTION #4 FULL TEXT: You/Your Family Experience fever (hyperthermia) with Anesthesia Last Oral Intake Last Oral intake: Last Oral Intake NPO since 00:00 09/07/24 14:30 Meds taken in AM with sips of Yes 09/07/24 14:30 water? Meds patient instructed to oxy 1215 09/07/24 14:30 take am of surgery PONV PONV - center medical director: PONV - center medical director Female HX of Motion Sickness HX of N/V After Surgery Non-Smoker Duration of Surgery greater than 60 minutes Number of Risk Factors PONV Score Height & Weight Height & Weight: Anesthesia: Height & Weight Height 5 ft 6 in 09/07/24 14:30 Weight: 63.6 kg 09/07/24 14:30 Body Mass Index (BMI) 22.6 09/07/24 14:30 Respiratory Assessment Respiratory Assessment - center medical director: Respiratory Tract Infection Hx - center medical director Hx Respiratory Tract Infection No 09/05/24 08:14 STOP Sleep Apnea STOP Sleep Apnea - center medical director: STOP Sleep Apnea - center medical director Hx Hypertension No 09/04/24 22:21 Hx Sleep Apnea No 09/04/24 22:21 CPAP BIPAP Do you snore loudly (louder No 09/04/24 22:21 than talking or can be heard Do you often feel tired/ No 09/04/24 22:21 fatigued/ sleepy during daytime? Has anyone observed you stop No 09/04/24 22:21 breathing during sleep? STOP Results Negative 09/05/24 14:10 QUESTION #5 FULL TEXT : Do you snore loudly (louder than talking or can be heard through closed doors)? Tobacco Use History Tobacco Use History - center medical director: Tobacco Use History - center medical director Tobacco Use Smoking Status Current every day smoker 09/04/24 22:21 Hx Tobacco Use No 09/04/24 22:21 Years Smoking Packs Smoked per Day Smoking Cessation Date was within the last 15 years Hx Smoking Cessation Date Hx Smoking Cessation Counseling Hematologic Medial History Hematologic Hx - center medical director: Hematologic Medical Hx - tub mender Hx of Blood Transfusion No 09/04/24 22:21 Hx of Transfusion in last 3 No 09/04/24 22:21 Months Date of Last Transfusion (if within last 3 months) Ever experience any problems No 09/04/24 22:21 with transfusion(s)? Specify any problems Hx of Preganancy in last 3 No 09/04/24 22:21 Months Nurse Filling Out Transfusion [facility] 09/04/24 22:21 & Questions: Date: 09/04/24 09/04/24 22:21 Time: 22:23 09/04/24 22:21 Patient unable to answer at this time (ie. confused, unrespo /Reproduction History /Reproductive History - center medical director: /Reproductive Hx- center medical director Hx Now No 09/05/24 08:14 Gestational Age (in weeks): EDC: Hx Hx Para Hx Section SAB No 09/05/24 08:14 Active Medications Active Medications: Current Medications Generic Name Dose Route Start Last Admin Trade Name Freq PRN Reason Stop Dose Admin Acetaminophen 650 mg 09/04/24 22:10 09/06/24 20:38 Acetaminophen 325 Mg Tablet PO 650 mg Q4H PRN PRN Administration Fever, pain 1-10/10 Albuterol Sulfate 2.5 mg 09/04/24 22:10 Albuterol 2.5 Mg/3 Ml Vial.Neb. INHALATION Q2H PRN PRN Dyspnea, wheezing Hydromorphone HCl 0.5 mg 09/04/24 22:10 09/06/24 08:29 Hydromorphone 0.5 Mg/0.5 Ml Syringe IV 0.5 mg Q3H PRN PRN Administration Pain Score 6-10 Ceftriaxone Sodium 1 gm in 50 mls @ 100 mls/hr 09/05/24 22:00 09/06/24 21:56 Rocephin IV Infused Q24H BHARAT Infusion Sodium Chloride 250 mls @ 15 mls/hr 09/04/24 22:17 IV .[id number] PRN Saline Flush Sodium Chloride 250 mls @ 15 mls/hr 09/04/24 22:17 IV .[id number] PRN Additional IVPB Infusion Ondansetron HCl 4 mg 09/04/24 22:10 Ondansetron 4 Mg/2 Ml Vial IV Q8H PRN PRN NAUSEA/VOMITING Oxycodone HCl 5 mg 09/04/24 22:10 09/07/24 12:14 Oxycodone 5 Mg Tablet PO 5 mg Q4H PRN PRN Administration Pain Score 4-10 Sodium Chloride 10 - 40 ml 09/04/24 22:17 09/06/24 21:25 0.9% Saline Lock 10 Ml Syringe IV 10 ml UD PRN Administration SALINE FLUSH PFSH Medical History Kidney stones Smoker Migraines Psoriasis Tobacco use Home Medications ?Medication ?Instructions ?Recorded ?Last Taken ?Type multivitamin (Daily Multi-Vitamin 1 tab PO DAILY 09/04 Unknown History tablet) Allergy/AdvReac Type Severity Reaction Status Date / Time Penicillins Allergy Hives Verified 09/04/24 17:27 Family History Mother Alcoholic cirrhosis Alcohol abuse Father Cancer Surgical History (Updated 09/07/24 @ 16:[address] Reji Banks MD) S/P cystoscopy with ureteral stent placement History of hysterectomy Social History household members: significant other Smoking Status: Current every day smoker tobacco type: cigarettes Smoking packs per day: 0.5 Smoking cigarettes per day: 10.0 alcohol intake: never substance use type: does not use Review of Systems (Anesthesia) ROS Narrative System reviewed and no additional complaints, except as documented.
--- NOTE | 2024-09-07 17:08 | OP.PCM_ITS ---
Operative Report (Standard) Operative Information Date of Procedure: 09/07/24 Pre-Operative Diagnosis: Possible impacted ureteral calculi Post-Operative Diagnosis: The same Surgery/Procedure Performed: Cystoscopy ureteroscopy retrograde pyelogram and right stent placement databases software consultant: No Type of Anesthesia: General RN Documented Start/Stop Times: Operation Date: 09/07/24 16:45 Case Time Into Pre-Op 09/07/24 15:42 Out of Pre-Op 09/07/24 16:41 Anesthesia Start 09/07/24 16:42 Into Room 09/07/24 16:42 Procedure Start 09/07/24 16:55 Procedure Start Time: 16:55 Procedure Stop Time: 17:08 Select all DRAINS/GRAFTS/IMPLANTS that apply: Drains Drain details: 6 [place]an by 26 cm stent right side Estimated Blood Loss: None Specimen collected: No Description of surgery: This is a 54-year-old female about a few days ago I did a cystoscopy ureteroscopy and stent placement on the right side for an impacted stone in distal right ureter follow-up CAT scan I thought there was a possible fragment the distal ureter on CAT scan but not sure so can take her back today to look in the ureter make sure the stone is gone so it does not get embedded in the ureter and cause strictures or problems. Patient was taken back to the operating room after smooth induction of anesthesia she was placed in dorsolithotomy position I rewent into the bladder with a 21 [place]an rigid cystourethroscope grabbed the existing stent pulled out the meatus put a wire through the stent next the wire went in with a SlimLine rigid ureteroscope using manual irrigation I inspected the distal ureter at the distal ureter was fairly inflamed there was a mucosal tear in the distal ureter from the impacted stone from before but I did not find a stone in the distal ureter at all looked intact. So that this point I put a wire up on that left side a retrograde pyelogram was done to confirm the location and then the stent was placed on the right side and will leave the stent in for about a month to let this heal up and I will see her back in 1 month for cystoscopy stent removal to make sure the ureter heals up from being impacted from the distal stone but I did not find a stone today on ureteroscopy. Surgical Findings: Did not find a stone in the distal ureter had a lot of inflammation of the distal ureter and the ureteral was inflamed and submucosal tears in the distal ureter Complications Complications: No Admit VTE Documentation VTE Present on Admission: No VTE Mechan Device Prophylaxis: SCD's VTE Pharm Prophylaxis ordered?: No
--- NOTE | 2024-09-07 17:21 | PCM.POST.ANE ---
Anesthesia: Postop Eval I Current Vital Signs Temperature: 97.7 F Pulse Rate: 63 Blood Pressure: 131/75 Respiratory Rate: 16 Pulse Ox: 93 Oxygen Delivery Method: Room Air Assessment Airway patent: Yes Spontaneous unlabored respirations: Yes Mental status: Awake and Calm nausea: No Vomiting: No Anesthesia Complication: No Fluid Hydration Crystalloid volume administer (ml): 800 Total IV fluid infused: 800 Progress Note Anesthesia document: Postop Eval 1 completed: Yes
[2024-09-08 04:01] VITALS: BP 108/69; PULSE 51; RESP 17; TEMP 36.5; O2SAT 95
[2024-09-08 05:15] VITALS: BMI 22.0
[2024-09-08 05:34] LABS: Hematocrit 38.3 % (37-47); Hemoglobin 13.0 g/dL (12.0-15.0); Immature Granulocytes Count 0.030 X10^3/uL (0.0-0.0); Mean Corp Hgb Conc 33.9 g/dL (32-36); Mean Corpuscular Volume 91.6 fL (81-99); Mean Platelet Vol. 11.0 fl (6.2-12.0); NRBC Flagged by Analyzer 0 % (0-5); Platelet Count 285 K/mm3 (150-450); RBC Distribution Width CV 14.4 % (11.6-14.6); RBC Distribution Width SD 48.3 fl (35.1-43.9); Red Blood Count 4.18 M/mm3 (4.2-5.4); White Blood Count 8.0 K/mm3 (4.4-11.0)
[2024-09-08 06:11] LABS: Anion Gap 12 (5-15); BUN 11 mg/dL (4-19); BUN/Creat Ratio 19.0 RATIO (10-20); Calcium,Total 9.2 mg/dL (7.6-11.0); Carbon Dioxide 22.2 mmol/L (21.0-32.0); Chloride 103 mmol/L (98-108); Estimated Creatinine Clearance 107.51 ml/min (50-250); Glucose 142 mg/dL (70-99); Potassium 4.6 mmol/L (3.3-5.1)
--- NOTE | 2024-09-08 07:12 | PCM.CONS.B ---
Consult Date of Consult: 09/08/24 Reason for Consult s/p repeat ureteroscopy to try find stone no stone found, distal ureter v inflammed and with mucosa tears from stone needs stent for a montht to heal follow up in my office to remove stent
--- NOTE | 2024-09-08 09:03 | PCM.DC.SUM ---
Providers Date of Admission: 09/06/24 Primary Care Physician: No Primary Care Phys Consultations 09/05/24 06:34 Consult: Urology Routine Consulting Provider: Jeff Rodarte Reason for Consult: stone EMERGENT Consult: No MD Notified: Yes Date Notified: 09/05/24 Time Notified: 06:34 Method of Notification: ED Physician Initiated Reason For Visit: INTRACTABLE FLANK PAIN, R DISTAL CALCULUS, Diagnosis Discharge Diagnosis (1) Right ureteral stone: Status: Acute Code(s): N20.1 - Calculus of ureter Plan Patient is a 54-year-old lady who presented with sudden onset of right-sided flank pain imaging studies did show Stone in the right distal ureter measuring 3 mm resulting in mild upstream hydroureteronephrosis. 1. Right flank pain ? imaging studies obtained on admission did show did show Stone in the right distal ureter measuring 3 mm resulting in mild upstream hydroureteronephrosis. Patient was seen in consultation by Dr Rodarte with urology who did perform Cystoscopy right ureteroscopy balloon dilation of the ureter and right stent placement on 09/05/2024. Patient continues to experience pain. Subsequent imaging studies obtained on 09/06/2024 demonstrated Status post double-J right ureteral stent. Decreased right perinephric fat stranding and hydroureteronephrosis. Plan is for patient to undergo repeat surgical intervention on 09/07/2024 ? 09/07/2024;Patient seen pain is tolerable scheduled to undergo surgical intervention regarding her nephrolithiasis by Dr Rodarte this a.m.. Started patient IV fluids after patient was kept n.p.o. after med ?09/08/2024; patient underwent repeat ureteroscopy to try to find stone. No stone was found patient was found to have inflamed distal ureter with mucosal tears from stone. Plan is for patient to follow-up with Dr Rodarte as outpatient for stent removal in the month 2. Acute cystitis ? Present on admission patient was started on ceftriaxone urine culture sent ? Urine cultures came back positive for nonsignificant growth of Streptococcus agalactiae 3. DVT prophylaxis ?Low risk to encourage ambulation Time spent in the patient's overall evaluation,decision-making process, review of diagnostic data, adjustment of management, discussion with other providers, nursing nursing and ancillary staff involved in patient's care documentation, 35 Minutes Medications at Discharge Home Medications multivitamin (Daily Multi-Vitamin tablet) 1 tab PO DAILY 09/04/24 cefdinir 300 mg capsule 300 mg PO BID #10 caps 09/08/24 oxycodone 5 mg tablet 5 mg PO Q4H PRN PRN Pain Score 4-10 5 days #14 tabs 09/08/24 Physical Exam Narrative GENERAL: cooperative HEENT: Atraumatic; normocephalic EYES; Anicteric, Normal Conjunctiva NECK; supple, normal thyroid, RESPIRATORY: Diminished to auscultation CARDIOVASCULAR: Regular S1 S2, GI: soft, normoactive bowel sounds, : Right-sided renal angle tenderness; EXTREMITIES: No edema, no clubbing, MUSCULOSKELETAL: no muscle wasting NEURO: Awake; no lateralizing signs. SKIN: No Rash PSYCH; Flat affect Weight / BMI Weight Weight: 62 kg Body Mass Index (BMI) 22.0 ABG / Lab / Microbiology Data 09/08/24 04:57 09/08/24 04:57 Laboratory: Laboratory Results - last 24 hr 09/08/24 04:57: WBC 8.0, RBC 4.18 L, Hgb 13.0, Hct 38.3, MCV 91.6, MCH 31.1, MCHC 33.9, RDW Std Deviation 48.3 H, RDW Coeff of Meera 14.4, Plt Count 285, MPV 11.0, Immature Gran % (Auto) 0.400, Neut % (Auto) 84.9 H, Lymph % (Auto) 9.6 L, [place] % (Auto) 5.0, Eos % (Auto) 0.0, Baso % (Auto) 0.1, Absolute Neuts (auto) 6.8, Absolute Lymphs (auto) 0.77 L, Nucleated RBC % 0, Sodium 137, Potassium 4.6, Chloride 103, Carbon Dioxide 22.2, Anion Gap 12, BUN 11, Creatinine 0.56 L, Estim Creat Clear Calc 107.51, Est GFR (MDRD) Non-Af 108, BUN/Creatinine Ratio 19.0, Glucose 142 H, Calcium 9.2 Microbiology: Microbiology 09/04/24 19:55 Urine, Midstream Urine Culture - Final Streptococcus agalactiae (B) Mixed Gram Positive Organisms 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 * Patients 75 years or YOUNGER should receive HIGH intensity statin dose unless contraindicated. You will be required to document reason for non-treatment if statin daily dose does not meet guidelines. HIGH DOSE STATIN THERAPY DAILY Atorvastatin > than or = to 40 mg Rosuvastatin > than or = to 20 mg Amlodipine + Atorvastatin > than or = to 2.5/40 mg Ezetimibe + Simvastatin 10/80 mg Simvastatin 80mg Discharge Plan Admission Admit Date/Time: 09/06/24 14:40 Attending Provider: Braeden Reeves Primary Care Provider: Care Physician,No Primary Consulting Providers: Jeff Rodarte; Bhumika Abdullahi; Arias Izquierdo Discharge Orders/Prescriptions Prescriptions: New oxycodone 5 mg Tablet 5 mg PO Q4H PRN PRN (Reason: Pain Score 4-10) 5 Days Qty: 14 0RF cefdinir 300 mg capsule 300 mg PO BID Qty: 10 0RF Continued multivitamin [Daily Multi-Vitamin] Tablet 1 tab PO DAILY Referrals / Follow Up: Jeff Rodarte MD [Med Staff - Active Staff] - Within 1 Month (For stent removal) Care Physician,No Primary [Primary Care Provider] - Within 2 Weeks Disposition Disposition (needs filled in before D/C Order can be placed): Home, Self Care Charges/Coding Visit Charges Inpatient E&M: 61103 Disch Hosp >30min
[2024-09-08 09:19] VITALS: BP 119/70; PULSE 60; RESP 14; TEMP 36.8; O2SAT 96
== END 2024-09-08 13:00 | disposition home or self-care (01) | DRG 660 ==
LOC: ED 21:12 → MS3 21:32
PROVIDERS: Physician Assistant; Urology; Admitting Provider Family Medicine; Emergency Provider Emergency Medicine; Referring Provider Emergency Medicine; Visit Provider Internal Medicine
PROC: 0TJ98ZZ Inspection of Ureter, Via Natural or Artificial Opening Endoscopic (ICD-10-PCS; CPT 52352; principal; 2024-09-05 13:05)
PROC: 0T768DZ Dilation of Right Ureter with Intraluminal Device, Via Natural or Artificial Opening Endoscopic (ICD-10-PCS; CPT 52352; principal; 2024-09-07 16:35)
DX: N13.6 Pyonephrosis (principal); N30.00 Acute cystitis without hematuria; S37.13XA Laceration of ureter, initial encounter; F17.210 Nicotine dependence, cigarettes, uncomplicated; Z88.0 Allergy status to penicillin; R03.0 Elevated blood-pressure reading, without diagnosis of hypertension
CPT/HCPCS: 36415; 74176; 76000; 80048; 80053; 81001; 83735; 84100; 85025; 87077; 87086; 87088; 94668; 99284; A4216; C1769; C2617; J1938; J2405